=== PATIENT | female | born 1950 | race Caucasian/White ===

== ENCOUNTER → 2020-07-29 09:42 | Outpatient (BNVA) | payer MEDICARE, OTHER, SELFPAY | PROVIDERS: PCP Internal Medicine; Visit Provider Surgery | DX: R91.1 Solitary pulmonary nodule (principal); Z85.118 Personal history of other malignant neoplasm of bronchus and lung; Z92.21 Personal history of antineoplastic chemotherapy | CPT/HCPCS: 99211 ==

== ENCOUNTER 2020-08-02 15:15 | Outpatient (REF) | payer MEDICARE, SELFPAY ==
--- NOTE | 2020-08-02 | PFT_ITS ---
Forced vital capacity, slightly decreased. FEV1, moderately decreased. [id number] is markedly decreased. MVV moderately decreased. Post bronchodilator therapy, there is a slight improvement in FEV1 and [id number] indicating a borderline response to bronchodilators. Total lung capacity normal. Residual volume slightly increased. Diffusion capacity is slightly decreased. CONCLUSION: There is evidence of [id number] degree of obstructive pulmonary disease. There is a mild response to bronchodilator therapy indicating the presence of mild bronchial asthma in addition to chronic obstructive pulmonary disease. Clinical correlation recommended. MD OBDULIA Lin/REJI / [id number]
== END 2020-08-02 15:16 | disposition home or self-care (01) ==
LOC: HO.RESP 15:15
PROVIDERS: PCP Internal Medicine; Visit Provider Surgery
DX: Z01.818 Encounter for other preprocedural examination (principal); R91.1 Solitary pulmonary nodule
CPT/HCPCS: 94060; 94727; 94729

== ENCOUNTER → 2020-08-19 11:07 | Outpatient (BNVA) | payer MEDICARE, SELFPAY | PROVIDERS: PCP Internal Medicine; Visit Provider Surgery | DX: C34.11 Malignant neoplasm of upper lobe, right bronchus or lung (principal); F17.210 Nicotine dependence, cigarettes, uncomplicated; Z88.5 Allergy status to narcotic agent; Z88.7 Allergy status to serum and vaccine | CPT/HCPCS: 99212 ==

== ENCOUNTER 2020-08-26 10:08 | Outpatient (REF) | payer MEDICARE, OTHER, SELFPAY ==
--- NOTE | 2020-08-26 10:14 | XR_ITS ---
EXAMINATION: XR CHEST CLINICAL INFORMATION: Malignant neoplasm right upper lobe COMPARISON: Previous chest x-rays most recent June [address] most recent June 2020 TECHNIQUE: 2 views of the chest were obtained. FINDINGS: The cardiac silhouette does not appear enlarged. There are new postsurgical changes to the right hemithorax with surgical staple line projecting over the right pulmonary hilum. The lungs are clear. There is new blunting at the right lateral costophrenic angle suggestive of pleural thickening or tiny pleural effusion. There may be a small loculated right apical pneumothorax versus bleb. This measures 2.5 cm in greatest thickness. There is no left pleural effusion. There is orthopedic hardware in the right humeral shaft. Bony structures are otherwise unremarkable. XR/XR chest 2V IMPRESSION: New postsurgical changes to the right hemithorax. Question small right apical loculated pneumothorax versus bleb. Findings will be communicated by the [place] [employer] indirect fire crewmember Dee Sanabria.
== END 2020-08-26 10:09 | disposition home or self-care (01) ==
LOC: HO.XRAY 10:08
PROVIDERS: PCP Internal Medicine; Visit Provider Surgery
DX: C34.11 Malignant neoplasm of upper lobe, right bronchus or lung (principal); R91.1 Solitary pulmonary nodule
CPT/HCPCS: 71046

== ENCOUNTER 2020-09-07 15:36 | Inpatient (IN) | payer MEDICARE, SELFPAY ==
[2020-09-07 15:49] VITALS: BP 154/74; PULSE 98; RESP 22; TEMP 36.3; O2SAT 95; BMI 30.2
[2020-09-07 16:50] VITALS: O2SAT 91
[2020-09-07 16:51] VITALS: O2SAT 95
--- NOTE | 2020-09-07 18:41 | XR_ITS ---
EXAMINATION: XR CHEST CLINICAL INFORMATION: Cough COMPARISON: Chest radiograph dated 08/26/2020, PET/CT dated 07/12/2020 TECHNIQUE: Frontal view of the chest was obtained. FINDINGS: The time of the prior study, tiny right pleural effusion was seen with question of a bleb in the right upper lobe. On the current study, there is now a moderate-sized loculated right lateral effusion present along with a small to moderate subpulmonic component as well. The heart size is normal. Left lung is clear. Some atelectasis may be present at the right lung base. XR/XR chest 1V IMPRESSION: New moderate-sized loculated right pleural effusion with lateral and subpulmonic component.
--- NOTE | 2020-09-07 18:41 | ECG_ITS ---
Test Reason : RESPIRATORY DISTRESS Blood Pressure : / mmHG Vent. Rate : 086 BPM Atrial Rate : 086 BPM P-R Int : 160 ms QRS Dur : 078 ms QT Int : 402 ms P-R-T Axes : 057 014 064 degrees QTc Int : 481 ms Sinus rhythm with occasional Premature ventricular complexes Nonspecific ST abnormality Abnormal ECG Premature ventricular complexes are new Referred By: Marbella Cain Electronically Signed By:JOSÉ MIGUEL RIVERA MD
--- NOTE | 2020-09-07 18:45 | ED.CHESTPAIN ---
HPI - Chest Pain General Chief Complaint: Upper Respiratory Symptoms Stated Complaint: back pain,sob Time Seen by Provider: 09/07/20 17:54 History of Present Illness HPI narrative: patient is a 70-year-old female presented today with having right-sided chest pain with coughing generalized malaise. Pain worsen with cough. Patient from home. No fever no chills. Positive generalized malaise. Patient denies any recent exposure To coronavirus. Patient did have lung resection done on August 11. It was done for lung cancer stage I. Patient denies any focal weakness. The pain is very sharp. It is worse with movement. Improved with staying still. Patient denies any history of coronary artery disease. Never had a heart attack. Never had any abdominal aortic aneurysm. Related Data Home Medications Medication Instructions Recorded Confirmed furosemide 40 mg tablet 40 mg PO DAILY tab 07/23/20 09/07/20 albuterol sulfate 90 mcg/actuation 2 puff INHALATION NEEDED PRN 08/19/20 09/07/20 aerosol inhaler cyclosporine [Restasis] 1 drp OPHTHALMIC (EYE) BID 09/07/20 09/07/20 morphine 1 tab PO BID 09/07/20 09/07/20 tiotropium bromide [Spiriva 1 puff INHALATION DAILY 09/07/20 09/07/20 Respimat] venlafaxine 1 cap PO DAILY 09/07/20 09/07/20 Allergies Allergy/AdvReac Type Severity Reaction Status Date / Time From Vicodin Allergy Mild HALLUCINATI Uncoded 07/14/20 17:01 ONS Influenza Virus Vacc Split PF Allergy Unknown allergy Uncoded 12/22/19 00:00 interfuron, PEG Allergy Unknown Unknown Uncoded 07/29/20 10:18 Review of Systems Review of Systems: Constitutional: No Weight loss, No Fever, No Chills, No Night Sweats, No Fatigue, No Malaise ENT/Mouth: No Hearing loss, No Ear Pain, No Nasal Congestion, No Sinus Pain, No Hoarseness, No sore throat, No Rhinorrhea, No Swallowing Difficulty Eyes: No Eye Pain, No Swelling, No Redness, No Foreign Body, No Discharge, No Vision Changes Cardiovascular: Positive Chest Pain, positiveSOB, No Dyspnea on Exertion, No Orthopnea, No Edema, No Palpitations Respiratory: No Cough, No Sputum, No Wheezing, No Smoke Exposure, No Dyspnea Gastrointestinal: No Nausea, No Vomiting, No Diarrhea, No Constipation, No abdominal Pain, No Hematochezia, No Melena Genitourinary: no irregular bleeding, No Dysuria, No Urinary Frequency, No Hematuria, No Urinary Incontinence, No Urgency, No Flank Pain, No Urinary Flow Changes, No Hesitancy Musculoskeletal: No joint pain, No Myalgias, No Joint Swelling Skin: No Skin Lesions, No rash Neuro: No Weakness, No Numbness, No Paresthesias, No Loss of Consciousness, No Dizziness, No Headache Psych: No Anxiety/Panic, No Depression, No SI/HI/AH/VH, No Social Issues, Heme/Lymph: No Bruising, No Bleeding,No Lymphadenopathy Endocrine: No Polyuria, No Polydipsia, No Temperature Intolerance PENDING SALE TO [facility] Past Medical History Attestation statement: The following information was validated with the patient. Medical History Brain aneurysm Concussion COPD (chronic obstructive pulmonary disease) Surgical History H/O colonoscopy with polypectomy H/O colonoscopy with polypectomy H/O endoscopy History of esophagogastroduodenoscopy (EGD) History of thoracic surgery S/P biopsy Family History Family History Mother Skin cancer Diabetes Thyroid disease Sister Diabetes Skin cancer Tubular adenoma Thyroid disease Daughter Skin cancer Diabetes Social History Social History Smoking Status: Former smoker Tobacco Type: Cigarette Years Smoked: since mid twenties Smoked in Last 30 Days: No Use of substances other than those prescribed or required for medical reasons: No Advance Directives: No Advance Directives Information Provided: No Physical Exam Vital Signs: Vital Signs: Last Vital Signs Temp 97.3 F 09/07/20 15:49 Pulse 90 09/07/20 20:00 Resp 18 09/07/20 20:00 BP 150/78 H 09/07/20 20:00 Pulse Ox 94 09/07/20 20:00 Body Mass Index 30.2 Appearance: Alert. Oriented X3. No acute distress. Eyes: Pupils equal, round and reactive to light. ENT: Pharynx normal. Neck: Normal inspection. Neck supple. No lymph nodes noted. No crepitus CVS: Normal heart rate and rhythm. Pulses normal. Normal S1 and S2 Respiratory: No respiratory distress. Breath sounds normal. No Wheezing. No rales Abdomen: Soft and nontender. No rigidity. No distention. good BS x4 Skin: Skin warm and dry. Normal skin color. Normal skin turgor. Extremities: No lower extremity edema. Neurovascular intact to all extremities. No Lacerations. No Rash Neuro: Oriented X 3. No motor deficit. No sensory deficit. Moving all extermities. No slurred speech MDM - Chest Pain MDM Narrative Medical decision making narrative: patient positive chest pain worse with deep inspiration and movement. Chest x-ray consistent with having pleural effusion on the right side most likely causing patient's symptoms. Patient's coronavirus test was negative. Flu test was negative. Patient's RSV test was negative. troponin was 12. Patient's chest pain atypical for ACS. Heart score is less than 3.given the pleural effusion, chest pain, shortness of breaths will admit for further evaluation. Patient's case discussed with the hospitalist service. CTA of the chest showed loculated fluid consistent with having a large pleural effusion. Patient's has no evidence of pulmonary emboli. To be admitted for further evaluation. Patient's EKG showed a sinus pattern heart rate is 90 P arcus QT within normal limits is no ST segment elevation noted. Medical Records Data Attestation: I reviewed the patient's medical records. Lab Data Attestation: I reviewed the patient's lab results. Result diagrams: 09/07/20 20:08 09/07/20 20:08 Labs: Lab Results 09/07/20 09/07/20 09/07/20 Range/Units 19:45 20:08 20:08 WBC 4.5 L (4.8-10.8) X10*3/uL RBC 3.43 L (4.20-5.50) X10*6/uL Hgb 11.2 L (12.0-16.0) g/dl Hct 34.5 L (37-47) % MCV 100.6 H (80-98) fL MCH 32.7 (27.0-33.0) pg MCHC 32.5 (31.0-35.0) g/dl RDW 12.5 (11.0-16.0) % Plt Count 173 (160-400) X10*3/uL MPV 10.4 (9.4-12.3) fL Immature Gran % (Auto) 0.7 H (0.0-0.4) % Neut % (Auto) 62.4 (45-73) % Lymph % (Auto) 14.3 L (20-40) % Bollinger % (Auto) 12.8 H (2-11) % Eos % (Auto) 9.4 H (0-4) % Baso % (Auto) 0.4 (0-2) % Lymph # (Auto) 0.6 L (1.2-4.9) X10*3/uL Bollinger # (Auto) 0.6 (0.1-1.2) X10*3/uL Eos # (Auto) 0.4 (0.0-0.4) X10*3/uL Baso # (Auto) 0.0 (0.0-0.2) X10*3/uL Abs Immat Gran (auto) 0.03 (0.00-0.03) X10*3/uL Absolute Neuts (auto) 2.8 (2.0-8.3) X10*3/uL Absolute Nucleated RBC 0.000 (0.0-0.012) X10*3/uL Nucleated RBC % (auto) 0.0 (0.0-0.2) /100WBC Smear Tech's Comments VERIFIED PT 13.2 H (10.8-13.0) SEC INR 1.1 (0.9-1.1) Sodium (135-145) mmol/L Potassium (3.3-5.1) mmol/l Chloride (96-108) mmol/L Carbon Dioxide (22-29) mmol/L Anion Gap (12-20) BUN (9-16) mg/dL Creatinine (0.5-1.4) mg/dL Estim Creat Clear Calc Estimated GFR Random Glucose (60-115) mg/dL Lactic Acid (0.5-2.0) mmol/L Calcium (8.4-10.2) mg/dL Total Bilirubin (0.0-1.0) mg/dL Direct Bilirubin (0.0-0.5) mg/dL AST (5-31) U/L ALT (0-31) U/L Alkaline Phosphatase (39-117) U/L Troponin I High Sens (<3.5-17.0) ng/L Total Protein (6.5-8.0) g/dL Albumin (3.5-5.0) g/dL Lipase (8-78) U/L Urine Color Urine Appearance Urine pH (5.0-8.0) Ur Specific Reading (1.005-1.025) Urine Protein (NEG-TRACE) MG/DL Urine Glucose (UA) (NEG) MG/DL Urine Ketones (NEG) MG/DL Urine Blood (NEG) Urine Nitrite (NEG) Ur Leukocyte Esterase (NEG) Coronavirus (PCR) NEGATIVE (Negative) Influenza Type A (PCR) NEGATIVE (Negative) Influenza Type B (PCR) NEGATIVE (Negative) RSV RNA Qual (PCR) NEGATIVE (Negative) 09/07/20 09/07/20 09/07/20 Range/Units 20:08 20:08 20:08 WBC (4.8-10.8) X10*3/uL RBC (4.20-5.50) X10*6/uL Hgb (12.0-16.0) g/dl Hct (37-47) % MCV (80-98) fL MCH (27.0-33.0) pg MCHC (31.0-35.0) g/dl RDW (11.0-16.0) % Plt Count (160-400) X10*3/uL MPV (9.4-12.3) fL Immature Gran % (Auto) (0.0-0.4) % Neut % (Auto) (45-73) % Lymph % (Auto) (20-40) % Bollinger % (Auto) (2-11) % Eos % (Auto) (0-4) % Baso % (Auto) (0-2) % Lymph # (Auto) (1.2-4.9) X10*3/uL Bollinger # (Auto) (0.1-1.2) X10*3/uL Eos # (Auto) (0.0-0.4) X10*3/uL Baso # (Auto) (0.0-0.2) X10*3/uL Abs Immat Gran (auto) (0.00-0.03) X10*3/uL Absolute Neuts (auto) (2.0-8.3) X10*3/uL Absolute Nucleated RBC (0.0-0.012) X10*3/uL Nucleated RBC % (auto) (0.0-0.2) /100WBC Smear Tech's Comments PT (10.8-13.0) SEC INR (0.9-1.1) Sodium 138 (135-145) mmol/L Potassium 3.6 (3.3-5.1) mmol/l Chloride 95 L (96-108) mmol/L Carbon Dioxide 32 H (22-29) mmol/L Anion Gap 15 (12-20) BUN 8 L (9-16) mg/dL Creatinine 0.62 (0.5-1.4) mg/dL Estim Creat Clear Calc 93.9 Estimated GFR > 60 Random Glucose 113 (60-115) mg/dL Lactic Acid 1.0 (0.5-2.0) mmol/L Calcium 7.9 L (8.4-10.2) mg/dL Total Bilirubin 0.6 (0.0-1.0) mg/dL Direct Bilirubin 0.3 (0.0-0.5) mg/dL AST 20 (5-31) U/L ALT 16 (0-31) U/L Alkaline Phosphatase 74 (39-117) U/L Troponin I High Sens 12.1 (<3.5-17.0) ng/L Total Protein 6.3 L (6.5-8.0) g/dL Albumin 3.1 L (3.5-5.0) g/dL Lipase 8 (8-78) U/L Urine Color Urine Appearance Urine pH (5.0-8.0) Ur Specific Reading (1.005-1.025) Urine Protein (NEG-TRACE) MG/DL Urine Glucose (UA) (NEG) MG/DL Urine Ketones (NEG) MG/DL Urine Blood (NEG) Urine Nitrite (NEG) Ur Leukocyte Esterase (NEG) Coronavirus (PCR) (Negative) Influenza Type A (PCR) (Negative) Influenza Type B (PCR) (Negative) RSV RNA Qual (PCR) (Negative) 09/07/20 Range/Units 21:28 WBC (4.8-10.8) X10*3/uL RBC (4.20-5.50) X10*6/uL Hgb (12.0-16.0) g/dl Hct (37-47) % MCV (80-98) fL MCH (27.0-33.0) pg MCHC (31.0-35.0) g/dl RDW (11.0-16.0) % Plt Count (160-400) X10*3/uL MPV (9.4-12.3) fL Immature Gran % (Auto) (0.0-0.4) % Neut % (Auto) (45-73) % Lymph % (Auto) (20-40) % Bollinger % (Auto) (2-11) % Eos % (Auto) (0-4) % Baso % (Auto) (0-2) % Lymph # (Auto) (1.2-4.9) X10*3/uL Bollinger # (Auto) (0.1-1.2) X10*3/uL Eos # (Auto) (0.0-0.4) X10*3/uL Baso # (Auto) (0.0-0.2) X10*3/uL Abs Immat Gran (auto) (0.00-0.03) X10*3/uL Absolute Neuts (auto) (2.0-8.3) X10*3/uL Absolute Nucleated RBC (0.0-0.012) X10*3/uL Nucleated RBC % (auto) (0.0-0.2) /100WBC Smear Tech's Comments PT (10.8-13.0) SEC INR (0.9-1.1) Sodium (135-145) mmol/L Potassium (3.3-5.1) mmol/l Chloride (96-108) mmol/L Carbon Dioxide (22-29) mmol/L Anion Gap (12-20) BUN (9-16) mg/dL Creatinine (0.5-1.4) mg/dL Estim Creat Clear Calc Estimated GFR Random Glucose (60-115) mg/dL Lactic Acid (0.5-2.0) mmol/L Calcium (8.4-10.2) mg/dL Total Bilirubin (0.0-1.0) mg/dL Direct Bilirubin (0.0-0.5) mg/dL AST (5-31) U/L ALT (0-31) U/L Alkaline Phosphatase (39-117) U/L Troponin I High Sens (<3.5-17.0) ng/L Total Protein (6.5-8.0) g/dL Albumin (3.5-5.0) g/dL Lipase (8-78) U/L Urine Color YELLOW Urine Appearance CLEAR Urine pH 6.5 (5.0-8.0) Ur Specific Reading 1.010 (1.005-1.025) Urine Protein NEG (NEG-TRACE) MG/DL Urine Glucose (UA) NEG (NEG) MG/DL Urine Ketones 5 (NEG) MG/DL Urine Blood NEG (NEG) Urine Nitrite NEG (NEG) Ur Leukocyte Esterase NEG (NEG) Coronavirus (PCR) (Negative) Influenza Type A (PCR) (Negative) Influenza Type B (PCR) (Negative) RSV RNA Qual (PCR) (Negative) Discharge Plan Discharge Prescriptions: No Action venlafaxine 75 mg capsule,extended release 24hr 1 cap PO DAILY RF: 0 morphine 15 mg tablet extended release 1 tab PO BID RF: 0 Restasis 0.05 % dropperette 1 drp ophthalmic (eye) BID RF: 0 Spiriva Respimat 2.5 mcg/actuation mist 1 puff inhalation DAILY RF: 0 furosemide 40 mg tablet 40 mg PO DAILY RF: 0 albuterol sulfate 90 mcg/actuation HFA aerosol inhaler 2 puff inhalation NEEDED PRN (Reason: Shortness Of Breath) RF: 0
[2020-09-07] MEDS: 0.9 % Sodium Chloride 1,000 ML 999 ML IVCONT (19:15)
[2020-09-07 20:00] VITALS: BP 150/78; PULSE 90; RESP 18; O2SAT 94
[2020-09-07] MEDS: HYDROmorphone HCl 0.5 MG/0.5 ML SYRINGE IVPUSH ×2 (20:17→22:18)
[2020-09-07 20:39] LABS: Basophils Percent Auto 0.4 % (0-2); Eosinophils Absolute Auto 0.4 X10*3/uL (0.0-0.4); Eosinophils Percent Auto 9.4 % (0-4); Hematocrit 34.5 % (37-47); Hemoglobin 11.2 g/dl (12.0-16.0); Imm Gran Abs Auto 0.03 X10*3/uL (0.00-0.03); Imm Gran Pct Auto 0.7 % (0.0-0.4); Lymphocytes Absolute Auto 0.6 X10*3/uL (1.2-4.9); Lymphocytes Percent Auto 14.3 % (20-40); MANUAL DIFF FLAG SCAN; Mean Corpuscular HGB Conc 32.5 g/dl (31.0-35.0); Mean Corpuscular Hemoglobin 32.7 pg (27.0-33.0); Mean Corpuscular Volume 100.6 fL (80-98); Mean Platelet Volume 10.4 fL (9.4-12.3); Monocytes Absolute Auto 0.6 X10*3/uL (0.1-1.2); Monocytes Percent Auto 12.8 % (2-11); Neutrophils Absolute Auto 2.8 X10*3/uL (2.0-8.3); Neutrophils Percent Auto 62.4 % (45-73); Platelet Count 173 X10*3/uL (160-400); Red Blood Count 3.43 X10*6/uL (4.20-5.50); Red Cell Distribution Width 12.5 % (11.0-16.0); SCAN SMEAR FLAG 1; White Blood Count 4.5 X10*3/uL (4.8-10.8)
[2020-09-07 20:40] LABS: Influenza A PCR NEGATIVE (Negative); Influenza B PCR NEGATIVE (Negative); Resp Syncy Virus RNA Qual PCR NEGATIVE (Negative); SARS COV2 PCR INHOUSE NEGATIVE (Negative)
[2020-09-07 20:46] LABS: INTERNATIONAL NORM RATIO 1.1 (0.9-1.1); Prothrombin Time 13.2 SEC (10.8-13.0)
[2020-09-07 20:47] LABS: Alanine Aminotransferase 16 U/L (0-31); Albumin Level 3.1 g/dL (3.5-5.0); Alkaline Phosphatase 74 U/L (39-117); Anion Gap 15 (12-20); Aspartate Amino Transferase 20 U/L (5-31); Bilirubin Direct 0.3 mg/dL (0.0-0.5); Bilirubin Total 0.6 mg/dL (0.0-1.0); Blood Urea Nitrogen 8 mg/dL (9-16); Calcium 7.9 mg/dL (8.4-10.2); Carbon Dioxide 32 mmol/L (22-29); Chloride 95 mmol/L (96-108); Creatinine Clr Calc Pharmacy 93.9; Estimated Glomerular Filt Rate > 60; Glucose Random 113 mg/dL (60-115); Lipase 8 U/L (8-78); Potassium 3.6 mmol/l (3.3-5.1); Sodium 138 mmol/L (135-145); Total Protein 6.3 g/dL (6.5-8.0)
[2020-09-07 20:53] LABS: Troponin-I High Sensitivity 12.1 ng/L (<3.5-17.0)
[2020-09-07 20:56] LABS: SLIDE REVIEW VERIFIED
--- NOTE | 2020-09-07 21:07 | PC.NURSE ---
PT UP TO RESTROOM FOR URINE SAMPLE WITH STEADY EVEN GAIT.
[2020-09-07 21:39] LABS: Glucose Urine UA NEG (NEG); Leukocyte Esterase Urine NEG (NEG); Nitrite Urine NEG (NEG); PH 6.5 (5.0-8.0); Urine Blood NEG (NEG); Urine Ketones 5 MG/DL (NEG); Urine Protein NEG (NEG-TRACE)
[2020-09-07 21:41] LABS: Appearance Urine CLEAR; Color Urine YELLOW
--- NOTE | 2020-09-07 21:49 | CT_ITS ---
EXAMINATION: CT ANGIOGRAM OF THE CHEST WITH AND WITHOUT CONTRAST (CT PULMONARY ANGIOGRAM FOR PE) CLINICAL INFORMATION: Reason for Exam sob COMPARISON: CT chest 07/07/2020. Chest x-ray 09/07/2020. PET/CT 07/12/2020 TECHNIQUE: Prior to contrast administration, noncontrast localization images were obtained. Subsequently, multidetector volumetric imaging was performed from the thoracic inlet to below the diaphragms following the administration of 68 mLOmnipaque 350 intravenous contrast. No contrast reaction reported Sagittal, coronal, and MIP oblique sagittal reformatted images were obtained on the CT workstation, uploaded to PACS, and reviewed. This CT examination was performed using dose optimization techniques as appropriate, variously including the following: *Automated exposure control *Adjustment of mA and/or kV according to patient size (this includes techniques or standardized protocols for targeted exams where dose is matched to indication/reason for exam; i.e. extremities or head) *Use of iterative reconstruction technique Total exam dose-length product 374 mGy-cm FINDINGS: QUALITY OF STUDY/CONTRAST BOLUS: Satisfactory. PULMONARY ARTERIES: No central or segmental pulmonary emboli. THORACIC AORTA: No aneurysm or dissection. There are calcifications of thoracic aorta. LUNG: There is compressive atelectasis at the right lung base. Postsurgical changes at right lung apex with surgical sutures in anterior right upper hemithorax. Overall volume loss right hemithorax compared to left. PLEURA: Large volume of likely loculated right pleural effusion. There is a small right apical hydropneumothorax. MEDIASTINUM: Normal heart size. No pericardial effusion. No hilar or mediastinal lymphadenopathy. No evidence of septal bowing or right heart strain. CHEST WALL/AXILLA: No axillary or internal mammary lymphadenopathy. OSSEOUS STRUCTURES: Multilevel degenerative spondylosis of the spine. UPPER ABDOMEN: Surgical clips at gallbladder fossa. No reflux of contrast into the hepatic veins to suggest elevated right heart pressures. CT/CT angio chest PE protocol IMPRESSION: 1. No evidence of pulmonary embolism. 2. Postsurgical changes of right lung. Small right apical hydropneumothorax. Large volume loculated right pleural effusion. Compressive atelectasis at right lung base. VTE: Negative This critical result was discussed with Ant Pike on 09/07/2020, 11:20 PM and it was ascertained that the content and urgency of the report was understood at the time of direct communication.
[2020-09-07 22:00] VITALS: BP 102/51; PULSE 73; RESP 16; O2SAT 97
[2020-09-07] MEDS: iohexoL 350 MG/ML 100 ML INFUS..BTL IV (22:48)
--- NOTE | 2020-09-07 23:02 | PC.NURSE ---
HOSPITALIST IN ROOM FOR EVAL.
[2020-09-08] VITALS (10 sets, daily range): BP systolic 104–180; BP diastolic 50–74; PULSE 68–94; RESP 16–22; TEMP 36.2–37.3; O2SAT 92–99; BMI 30.2
[2020-09-08] MEDS: HYDROmorphone HCl 0.5 MG/0.5 ML SYRINGE IVPUSH (01:08)
[2020-09-08 02:05] LABS: B Type Natriuretic Peptide 114 pg/mL (<100); Troponin-I High Sensitivity 9.8 ng/L (<3.5-17.0)
--- NOTE | 2020-09-08 02:33 | PC.NURSE ---
FLOOR UNABLE TO TAKE REPORT.
--- NOTE | 2020-09-08 02:35 | PC.NURSE ---
PT ALERT, RESPIRATIONS N/L. SKIN W/D. PT ON MONITOR WITH HR 78. PT ON 2L NC WITH PO 98%. PT STATES I FEEL BETTER SINCE PAIN MEDS . PT HAS A BED ASSIGNMENT OF 445. AWAITING TO GIVEN REPORT TO FLOOR.
--- NOTE | 2020-09-08 02:56 | PC.NURSE ---
REPORT GIVEN TO FELICIA CHEN. PT TO FLOOR IN [facility] IN [facility].
[2020-09-08] MEDS: 0.9 % Sodium Chloride Flush 3 ML SYRINGE IVFLUSH ×4 (03:32→20:52)
--- NOTE | 2020-09-08 03:41 | PM.IMHP ---
History of Present Illness Date of Service: 09/07/20 Chief Complaint: Shortness of breath this is a 70-year-old female with past medical history of stage IV lung cancer status post resection in August 15, hep C, who presents to the hospital complaining of shortness of breath. Patient has vague symptoms but reports pain at the site of surgery, reports that she has difficulty taking a deep breath, reports a cough but nonproductive, no fever or chills, she also complaining of pelvic floor pain mostly with shortness of breath? , she has no chest pain, no abdominal pain, no nausea or vomiting, no diarrhea constipation, no urinary symptoms and no lower extremity edema. She reports that ever since her surgery for the lung resection, she has had difficulty with breathing but has worsened over the past 3 days. She has not had any sick contacts or recent travel. On arrival to the ED hemodynamically stable with no significant abnormal vitals. Satting 91% on room air. Labs are significant for WBC count of 4.5, hemoglobin of 11.2, BNP of 114, negative UA, COVID-19 negative, chest CT angiogram demonstrating no evidence of PE, postsurgical changes of the right lung, small right apical hydropneumothorax, large volume loculated right pleural effusion, compressive atelectasis of the right lung base. Patient will be admitted for further management her thoracic surgeon Dr. Canseco was notified Past medical history: Stage IV lung cancer status post chemoradiation and lung resection. hep C, COPD Surgical history: cholecystectomy, right arm and shoulder surgery Family history: Diabetes, dementia Social history: Lives at by herself, walks independently, smokes about 3 cigarettes since the 70s, drinks about 3 glasses of wine a week, denies any illicit drugs Review of Systems Review of Systems: Yes all other systems are reviewed and are negative [facility] Medical History Brain aneurysm Concussion COPD (chronic obstructive pulmonary disease) Family History Mother Skin cancer Diabetes Thyroid disease Sister Diabetes Skin cancer Tubular adenoma Thyroid disease Daughter Skin cancer Diabetes Surgical History H/O colonoscopy with polypectomy H/O colonoscopy with polypectomy H/O endoscopy History of esophagogastroduodenoscopy (EGD) History of thoracic surgery S/P biopsy Social History Smoking Status: Former smoker Tobacco Type: Cigarette Years Smoked: since mid twenties Smoked in Last 30 Days: No Use of substances other than those prescribed or required for medical reasons: No Advance Directives: No Advance Directives Information Provided: No Meds Allergies Allergy/AdvReac Type Severity Reaction Status Date / Time From Vicodin Allergy Mild HALLUCINATI Uncoded 07/14/20 17:01 ONS Influenza Virus Vacc Split PF Allergy Unknown allergy Uncoded 12/22/19 00:00 interfuron, PEG Allergy Unknown Unknown Uncoded 07/29/20 10:18 Home Medications Medication Instructions Recorded Confirmed Type furosemide 40 mg tablet 40 mg PO DAILY tab 07/23/20 09/07/20 History albuterol sulfate 90 mcg/actuation 2 puff INHALATION NEEDED PRN 08/19/20 09/07/20 History aerosol inhaler cyclosporine [Restasis] 1 drp OPHTHALMIC (EYE) BID 09/07/20 09/07/20 History morphine 1 tab PO BID 09/07/20 09/07/20 History tiotropium bromide [Spiriva 1 puff INHALATION DAILY 09/07/20 09/07/20 History Respimat] venlafaxine 1 cap PO DAILY 09/07/20 09/07/20 History Physical Exam Vital Signs and Narrative: Vital Signs: Last Vital Signs Temp 97.3 F 09/07/20 15:49 Pulse 78 09/08/20 02:00 Resp 16 09/08/20 02:00 BP 118/58 L 09/08/20 02:00 Pulse Ox 98 09/08/20 02:00 Body Mass Index 30.2 Const: General: cooperative and no acute distress Orientation/consciousness: patient oriented x3 Eyes: General: appearance normal, both eyes and all related structures Pupils: Equal, round and reactive pupils present Chest: Other: tender on palpation of right lower ribcage Resp: Other: although patient has no respiratory distress, she appears not comfortable taking deep breaths Effort & Inspection: normal respiratory effort and able to speak in complete sentences Auscultation: rhonchi ( right lung) Cardio: Rate: regular rate Rhythm: regular rhythm GI: Palpation (GI): Soft to palpation Auscultation: normal bowel sounds Skin: General skin exam: no rashes or lesions noted Neuro: General: patient oriented x3 Cranial nerves: Yes Equal, round and reactive pupils present Cognition (Neuro): normal cognition Extrem: General: Yes normal to inspection and Yes no pedal edema Results Labs CBC and Chem 7: 09/07/20 20:08 09/07/20 20:08 Labs: Laboratory Results - last 24 hr 09/07/20 09/07/20 09/07/20 19:45 20:08 20:08 MCV 100.6 H MCH 32.7 MCHC 32.5 RDW 12.5 Plt Count 173 MPV 10.4 Immature Gran % (Auto) 0.7 H Neut % (Auto) 62.4 Lymph % (Auto) 14.3 L [place] % (Auto) 12.8 H Eos % (Auto) 9.4 H Baso % (Auto) 0.4 Lymph # (Auto) 0.6 L [place] # (Auto) 0.6 Eos # (Auto) 0.4 Baso # (Auto) 0.0 Abs Immat Gran (auto) 0.03 Absolute Neuts (auto) 2.8 Absolute Nucleated RBC 0.000 Nucleated RBC % (auto) 0.0 Smear Tech's Comments VERIFIED PT 13.2 H INR 1.1 Anion Gap Estim Creat Clear Calc Estimated GFR Random Glucose Lactic Acid Calcium Total Bilirubin Direct Bilirubin AST ALT Alkaline Phosphatase Troponin I High Sens B-Natriuretic Peptide Total Protein Albumin Lipase Urine Color Urine Appearance Urine pH Ur Specific [place] Urine Protein Urine Glucose (UA) Urine Ketones Urine Blood Urine Nitrite Ur Leukocyte Esterase Coronavirus (PCR) NEGATIVE Influenza Type A (PCR) NEGATIVE Influenza Type B (PCR) NEGATIVE RSV RNA Qual (PCR) NEGATIVE 09/07/20 09/07/20 09/07/20 20:08 20:08 20:08 MCV MCH MCHC RDW Plt Count MPV Immature Gran % (Auto) Neut % (Auto) Lymph % (Auto) [place] % (Auto) Eos % (Auto) Baso % (Auto) Lymph # (Auto) [place] # (Auto) Eos # (Auto) Baso # (Auto) Abs Immat Gran (auto) Absolute Neuts (auto) Absolute Nucleated RBC Nucleated RBC % (auto) Smear Tech's Comments PT INR Anion Gap 15 Estim Creat Clear Calc 93.9 Estimated GFR > 60 Random Glucose 113 Lactic Acid 1.0 Calcium 7.9 L Total Bilirubin 0.6 Direct Bilirubin 0.3 AST 20 ALT 16 Alkaline Phosphatase 74 Troponin I High Sens 12.1 B-Natriuretic Peptide Total Protein 6.3 L Albumin 3.1 L Lipase 8 Urine Color Urine Appearance Urine pH Ur Specific [place] Urine Protein Urine Glucose (UA) Urine Ketones Urine Blood Urine Nitrite Ur Leukocyte Esterase Coronavirus (PCR) Influenza Type A (PCR) Influenza Type B (PCR) RSV RNA Qual (PCR) 09/07/20 09/07/20 21:28 22:44 MCV MCH MCHC RDW Plt Count MPV Immature Gran % (Auto) Neut % (Auto) Lymph % (Auto) [place] % (Auto) Eos % (Auto) Baso % (Auto) Lymph # (Auto) [place] # (Auto) Eos # (Auto) Baso # (Auto) Abs Immat Gran (auto) Absolute Neuts (auto) Absolute Nucleated RBC Nucleated RBC % (auto) Smear Tech's Comments PT INR Anion Gap Estim Creat Clear Calc Estimated GFR Random Glucose Lactic Acid Calcium Total Bilirubin Direct Bilirubin AST ALT Alkaline Phosphatase Troponin I High Sens 9.8 B-Natriuretic Peptide 114 H Total Protein Albumin Lipase Urine Color YELLOW Urine Appearance CLEAR Urine pH 6.5 Ur Specific [place] 1.010 Urine Protein NEG Urine Glucose (UA) NEG Urine Ketones 5 Urine Blood NEG Urine Nitrite NEG Ur Leukocyte Esterase NEG Coronavirus (PCR) Influenza Type A (PCR) Influenza Type B (PCR) RSV RNA Qual (PCR) Imaging Radiologist's Impressions: Impressions Chest X-Ray 09/07/20 18:41 IMPRESSION: New moderate-sized loculated right pleural effusion with lateral and subpulmonic component. Chest CTA 09/07/20 21:49 IMPRESSION: 1. No evidence of pulmonary embolism. 2. Postsurgical changes of right lung. Small right apical hydropneumothorax. Large volume loculated right pleural effusion. Compressive atelectasis at right lung base. VTE: Negative This critical result was discussed with Ant Pike on 09/07/2020, 11:20 PM and it was ascertained that the content and urgency of the report was understood at the time of direct communication. Assessment and Plan (1) Status post pneumonectomy: Status: Acute (2) Dyspnea: Status: Acute (3) Pleural effusion: Status: Acute (4) Pulmonary nodule: Problem details: Status: Acute (5) Cancer of upper lobe of right lung: Status: Acute (6) COPD (chronic obstructive pulmonary disease): Status: Acute this is a 70-year-old female with past medical history of lung cancer status post pneumonectomy who presents to the hospital with complaints of shortness of Breath, found to have pleural effusion on imaging # dyspnea - most likely secondary to the large pleural effusion status post right pneumonectomy - patient has no hypoxia, hemodynamically stable otherwise - negative for PE, COVID-19 negative, negative respiratory panel plan: - O2 as required - will consult pulmonology - monitor respiratory status # stage IV lung cancer status post pneumonectomy - patient underwent pneumonectomy in July, has developed pleural effusion status post surgery plan: - follow thoracic surgery, Hematology-Oncology outpatient #Hx of Hep C - patient reports that she had an attempt at treating and in the past but stopped taking medications because she felt that the medications were associated with her lung cancer - not interested in treatment at this DVT prophylaxis: Heparin subcu
[2020-09-08] MEDS: Morphine Sulfate 4 MG/ML CARTRIDGE IVPUSH ×3 (04:22→16:31)
[2020-09-08] MEDS: Heparin Sodium,Porcine 5,000 UNIT/ML VIAL 5000 UNIT SUBCUT ×2 (04:25→15:38)
[2020-09-08 07:10] LABS: Basophils Percent Auto 0.3 % (0-2); Eosinophils Absolute Auto 0.4 X10*3/uL (0.0-0.4); Eosinophils Percent Auto 9.4 % (0-4); Hematocrit 34.8 % (37-47); Hemoglobin 11.2 g/dl (12.0-16.0); Imm Gran Abs Auto 0.03 X10*3/uL (0.00-0.03); Imm Gran Pct Auto 0.8 % (0.0-0.4); Lymphocytes Absolute Auto 0.6 X10*3/uL (1.2-4.9); Lymphocytes Percent Auto 15.9 % (20-40); MANUAL DIFF FLAG SCAN; Mean Corpuscular HGB Conc 32.2 g/dl (31.0-35.0); Mean Corpuscular Hemoglobin 32.3 pg (27.0-33.0); Mean Corpuscular Volume 100.3 fL (80-98); Mean Platelet Volume 10.4 fL (9.4-12.3); Monocytes Absolute Auto 0.5 X10*3/uL (0.1-1.2); Monocytes Percent Auto 12.4 % (2-11); Neutrophils Absolute Auto 2.3 X10*3/uL (2.0-8.3); Neutrophils Percent Auto 61.2 % (45-73); Platelet Count 141 X10*3/uL (160-400); Red Blood Count 3.47 X10*6/uL (4.20-5.50); Red Cell Distribution Width 12.4 % (11.0-16.0); SCAN SMEAR FLAG 1; White Blood Count 3.7 X10*3/uL (4.8-10.8)
[2020-09-08 07:57] LABS: Anion Gap 13 (12-20); Blood Urea Nitrogen 6 mg/dL (9-16); Calcium 7.9 mg/dL (8.4-10.2); Carbon Dioxide 28 mmol/L (22-29); Chloride 100 mmol/L (96-108); Creatinine Clr Calc Pharmacy 107.9; Estimated Glomerular Filt Rate > 60; Glucose Random 122 mg/dL (60-115); Potassium 3.6 mmol/l (3.3-5.1); Sodium 137 mmol/L (135-145)
[2020-09-08 08:04] LABS: SLIDE REVIEW VERIFIED
--- NOTE | 2020-09-08 08:33 | P.CDIC_ITS ---
CDI Concurrent Query Service Date: 09/09/20 Documentation Clarification: Please clarify if you are treating a proba ble/suspected/likely or confirmed: Pleural effusion, unspecified Malignant Pleural effusion Please specify if known or other Provider Response: Other Other Diagnosis: Malignant pleural effusion PLEASE DO NOT DELETE/MODIFY EXISTING CONTENT Additional information is needed in order to code to the highest accuracy and appropriate Severity of Illness (SOI). Please clarify the information noted below in your progress notes and discharge summary. Risk Factors/Clinical Indicators/Treatments Stage IV Lung cancer, S/P chemotherapy and right lung resection. Dyspnea secondary to large pleural effusion. Cxr - new moderate sized loculated right pleural effusion. Consult pulmonology, Oncology as outpatient. Smoker, COPD CDS: Chaya Ardon CCS. CDIS Contact Number: [phone] Please Review the information above and exercise your independent professional j udgment in responding to the query. If you concur, pleas document in the PROGRESS NOTES and DISCHARGE SUMMARY. If you do not agree with the query, p tiara document in the query above. THIS QUERY IS PART OF THE PERMANENT MEDICAL RECORD
[2020-09-08] MEDS: Furosemide 40 MG TABLET PO (08:56)
[2020-09-08] MEDS: Venlafaxine HCl ER 75 MG CAP.ER.24H PO (08:57)
[2020-09-08] MEDS: Morphine Sulfate ER 15 MG TABLET.ER PO ×2 (08:57→20:52)
--- NOTE | 2020-09-08 09:49 | MHC.CM.PN ---
Pt reports she lives alone and is independent with all care and mobility. Pt has no community/home services and no DME. Pt reports she would be willing to have home services at discharge and has no agency preference other than not wanting [facility]. 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 Pt would like to review agency options later and only if services are recommended. Pt reports her PCP is Magan Milan and she is also active with Dr Arnold in [facility]. Pt reports she has a HCP completed naming her daughter, Niles Treviño ( ([phone]) as her agent. [facility] delivered current DC plan is home vs home with [facility] pts daughter will provide transportation at DC
--- NOTE | 2020-09-08 10:10 | HO.PM.IMPN ---
Subjective Subjective Date of Service: 09/08/20 Interval History: Seen in f/u for shortness of breath and Pleuiral effusion, still doesn't feel good, SOB Physical Exam Vital Signs: Vital Signs: Last Vital Signs Temp 97.2 F 09/08/20 07:15 Pulse 76 09/08/20 07:15 Resp 20 09/08/20 07:15 BP 133/71 09/08/20 07:15 Pulse Ox 96 09/08/20 07:15 Body Mass Index 30.2 Appearance: Alert. Oriented X3. No acute distress. Eyes: Pupils equal, round and reactive to light. ENT: Pharynx normal. Neck: Normal inspection. Neck supple. No lymph nodes noted. No crepitus CVS: Normal heart rate and rhythm. Pulses normal. Normal S1 and S2 Respiratory: No respiratory distress. Decrease bereath sound on right Abdomen: Soft and nontender. No rigidity. No distention. good BS x4 Skin: Skin warm and dry. Normal skin color. Normal skin turgor. Extremities: No lower extremity edema. Neurovascular intact to all extremities. No Lacerations. No Rash Neuro: Oriented X 3. No motor deficit. No sensory deficit. Moving all extermities. No slurred speech Objective Data Current Medications Generic Name Dose Route Start Last Admin Trade Name Freq PRN Reason Stop Dose Admin Acetaminophen 650 mg 09/08/20 02:19 Acetaminophen 325 Mg Tablet PO Q6H PRN Pain, Mild (Pain Scale 1-3) Albuterol Sulfate 2 puff 09/08/20 02:19 Albuterol Sulfate 90 Mcg 8 Gm Inhaler INHALE Q4H PRN Shortness Of Breath Docusate Sodium 100 mg 09/08/20 02:19 Docusate Sodium 100 Mg Capsule PO DAILY PRN Constipation Furosemide 40 mg 09/08/20 09:00 09/08/20 08:56 Furosemide 40 Mg Tablet PO 40 mg DAILY JOHN Administration Protocol Heparin Sodium (Porcine) 5,000 unit 09/08/20 04:00 09/08/20 04:25 Heparin Sodium,Porcine 5,000 Unit/Ml Vial SUBCUT 5,000 unit Q12H JOHN Administration Morphine Sulfate 15 mg 09/08/20 09:00 09/08/20 08:57 Morphine Sulfate Er 15 Mg Tablet.Er PO 15 mg BID JOHN Administration Morphine Sulfate 4 mg 09/08/20 02:19 09/08/20 04:22 Morphine Sulfate 4 Mg/Ml Cartridge IVPUSH 4 mg Q4H PRN Administration Pain, Severe (Pain Scale 7-10) Non-Formulary Medication 1 drop 09/08/20 09:00 Cyclosporine [Restasis] EYE-BOTH BID JOHN Ondansetron HCl 4 mg 09/08/20 02:19 Ondansetron Hcl 4 Mg/2 Ml Vial IVPUSH Q8H PRN Nausea and Vomiting Pharmacy Consult 1 each 09/07/20 21:45 Consult Rx Perform Med Rec MISCELLANE ONCE PRN Consult order Sodium Chloride 3 ml 09/08/20 02:19 09/08/20 08:57 0.9 % Sodium Chloride Flush 3 Ml Syringe IVFLUSH 3 ml QSHIFT JOHN Administration Tiotropium [place] 1 puff 09/08/20 08:00 09/08/20 08:03 Tiotropium [place] 18 Mcg Cap.W.Dev INHALE Not Given RDAILY JOHN Venlafaxine HCl 75 mg 09/08/20 09:00 09/08/20 08:57 Venlafaxine Hcl Er 75 Mg Cap.Er.24h PO 75 mg DAILY JOHN Administration Labs CBC & Chem 7: 09/08/20 06:23 09/08/20 06:23 Assessment and Plan (1) Status post pneumonectomy: Status: Acute (2) Dyspnea: Status: Acute (3) Pleural effusion: Status: Acute (4) Pulmonary nodule: Problem details: Status: Acute (5) Cancer of upper lobe of right lung: Status: Acute (6) COPD (chronic obstructive pulmonary disease): Status: Acute Assessment and Plan: 70-year-old female with past medical history of lung cancer status post pneumonectomy who presents to the hospital with complaints of shortness of Breath, found to have pleural effusion on imaging # dyspnea - most likely secondary to the large pleural effusion status post right pneumonectomy - patient has no hypoxia, hemodynamically stable otherwise - negative for PE, COVID-19 negative, negative respiratory panel plan: - O2 as required - will consult pulmonology. thoracic surgery - monitor respiratory status # Stage IV lung cancer status post pneumonectomy - patient underwent pneumonectomy in July, has developed pleural effusion status post surgery plan: - Follow thoracic surgery, Hematology-Oncology consult #Hx of Hep C - patient reports that she had an attempt at treating and in the past but stopped taking medications because she felt that the medications were associated with her lung cancer - not interested in treatment at this DVT prophylaxis: Heparin subcu
--- NOTE | 2020-09-08 12:07 | P.CONGS_ITS ---
History of Present Illness Consult details Consult date: 09/08/20 Reason for consult: other (Right pleural effusion, postop pain, shortness of breath) Requesting physician: Jac Parker Narrative: Ms. Elder Merritt is a 70 year old female who presented to [place] [facility] yesterday with complaints of pain and shortness of breath. This patient about 10 years ago had radiation to her chest wall for lung cancer (per Dr. Manuel's notes) and has been monitored since. She had no new suspicious findings until recently when it showed a spiculated nodule in the right upper lobe. The patient was taken for a robotic VATS RUL lobectomy at [facility] on August 11, 2020. Her postoperative course was uneventful and she was discharged home. 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 No lymph node involvement was noted. She has since followed up with Dr. Manuel as an outpatient here at [place] for pain, as well as some slow to heal wounds on the right chest. She was prescribed MS Contin at that visit on 08/26/2020 which she states is not helping. She describes her pain as the worst pain and located around the areas of her incisions over the right chest and extending anteriorly. She also has had shortness of breath with minimal activity since surgery. States she has been unable to take deep breaths due to her discomfort. She denies any productive cough, hemoptysis, fever, chills, lightheadedness, diaphoresis, abdominal pain/distention, dysuria, new lumps/bumps. While here at [place] the patient the patient had a CTA chest done to rule out PE. This showed no evidence of PE, but did show a small right apical pneumothorax and a large loculated right pleural effusion. She has since been admitted to the medicine service for ongoing management of her pain. Review of Systems Constitutional: Constitutional: Denies body ache(s), Denies chills, Denies fatigue, Denies fever(s), Denies headache(s), Denies night sweats, Denies poor appetite and Denies weakness Eyes: Eyes: Denies change in vision, Denies irritation and Denies loss of vision ENT: Denies dysphagia, Denies headache(s), Denies hoarseness, Denies sore throat and Denies throat swelling Cardiovascular: Cardiovascular: Denies chest pain, Denies leg edema, Denies lightheadedness, Reports dyspnea and Reports dyspnea on exertion Respiratory: Respiratory: Denies chest congestion, Reports cough, Denies hemop tysis, Reports dyspnea, Reports dyspnea on exertion, Denies wheezing and Reports other (right sided incisional pain) Gastrointestinal: Gastrointestinal: Denies abdominal pain, Denies bloating, Denies constipation, Denies dysphagia, Denies diarrhea, Denies nausea and Denies vomiting Genitourinary: Genitourinary: Denies dysuria, Denies urinary incontinence and Denies urinary urgency Musculoskeletal: Musculoskeletal: Denies myalgias, Denies arthralgias, Denies numbness and Denies tingling Integumentary/Breasts: Skin/Breast: Denies rash Neurologic: Denies headache(s), Denies loss of vision, Denies numbness, Denies tingling and Denies weakness Endocrine: Endocrine: Denies fatigue Allergic/Immunologic: Allergic/Immunologic: Denies throat swelling and Denies wheezing PMFSH Past Medical History Medical History Brain aneurysm Concussion COPD (chronic obstructive pulmonary disease) Family History Family History Mother Skin cancer Diabetes Thyroid disease Sister Diabetes Skin cancer Tubular adenoma Thyroid disease Daughter Skin cancer Diabetes Surgical History Surgical History (Updated 09/08/20 @ 03:51 by Richa Arrieta MD) H/O colonoscopy with polypectomy H/O colonoscopy with polypectomy H/O endoscopy History of esophagogastroduodenoscopy (EGD) History of thoracic surgery S/P biopsy Social History Social History Household Members: None Housing: Unknown / Unable to assess Smoking Status: Former smoker Tobacco Type: Cigarette Years Smoked: since mid twenties Smoked in Last 30 Days: No Use of substances other than those prescribed or required for medical reasons: No Have you been hit, kicked, punched, or otherwise hurt by someone within the past year? If so, by whom?: No Do you feel safe in your current relationship?: No Is there a partner from a previous relationship who is making you feel unsafe now?: No Are you made to feel afraid or neglected: No Advance Directives: No Advance Directives Information Provided: No Do you have thoughts of harming others: None Do you have a plan to hurt others: No Plan Recently lost weight without trying: No service: No Current occupational status: retired Meds Allergies Allergy/AdvReac Type Severity Reaction Status Date / Time From Vicodin Allergy Mild HALLUCINATI Uncoded 07/14/20 17:01 ONS Influenza Virus Vacc Split PF Allergy Unknown allergy Uncoded 12/22/19 00:00 interfuron, PEG Allergy Unknown Unknown Uncoded 07/29/20 10:18 Home Medications Medication Instructions Recorded Confirmed Type furosemide 40 mg tablet 40 mg PO DAILY tab 07/23/20 09/07/20 History albuterol sulfate 90 mcg/actuation 2 puff INHALATION NEEDED PRN 08/19/20 09/07/20 History aerosol inhaler cyclosporine [Restasis] 1 drp OPHTHALMIC (EYE) BID 09/07/20 09/07/20 History morphine 1 tab PO BID 09/07/20 09/07/20 History tiotropium bromide [Spiriva 1 puff INHALATION DAILY 09/07/20 09/07/20 History Respimat] venlafaxine 1 cap PO DAILY 09/07/20 09/07/20 History Physical Exam Vital Signs: Vital Signs: Last Vital Signs Temp 98.3 F 09/08/20 10:00 Pulse 81 09/08/20 10:00 Resp 18 09/08/20 10:00 BP 119/60 09/08/20 10:00 Pulse Ox 97 09/08/20 10:00 Body Mass Index 30.2 General: No acute distress, resting comfortably in bed, well developed Head: Normocephalic, atraumatic, symmetric Eyes: Sclera anicteric, eyelids without edema or erythemaEOMS intact ENT: Oral mucosa and tongue are moist without lesions or exudates Neck: Soft, supple, symmetric, trachea midline, no crepitus Cardiovascular: Regular rate and rhythm, no murmur/rubs/gallops, BUE and BLE wi thout edema, no calf tenderness bilaterally Respiratory: Lungs CTA B, breathing nonlabored, speaking in full sentences, on room air. No use of accessory muscles. Multiple right sided chest incisions are healing well C/D/I without erythema/drainage/open areas, no crepitus. Gastrointestinal: Soft, non-tender, non-distended, +normoactive bowel sounds. Skin: Warm and dry throughout, no rashes Lymphatic: no cervical, supraclavicular, infraclavicular lymphadenopathy noted Neurological: Alert and oriented x 3, no focal neurological deficit noted Psychiatric: No agitation, appropriate affect Results Labs Result diagrams: 09/08/20 06:23 09/08/20 06:23 Labs: Abnormal lab results 09/07/20 09/07/20 09/07/20 Range/Units 20:08 20:08 20:08 WBC 4.5 L (4.8-10.8) X10*3/uL RBC 3.43 L (4.20-5.50) X10*6/uL Hgb 11.2 L (12.0-16.0) g/dl Hct 34.5 L (37-47) % MCV 100.6 H (80-98) fL Plt Count (160-400) X10*3/uL Immature Gran % (Auto) 0.7 H (0.0-0.4) % Lymph % (Auto) 14.3 L (20-40) % [place] % (Auto) 12.8 H (2-11) % Eos % (Auto) 9.4 H (0-4) % Lymph # (Auto) 0.6 L (1.2-4.9) X10*3/uL PT 13.2 H (10.8-13.0) SEC Chloride 95 L (96-108) mmol/L Carbon Dioxide 32 H (22-29) mmol/L BUN 8 L (9-16) mg/dL Random Glucose (60-115) mg/dL Calcium 7.9 L (8.4-10.2) mg/dL B-Natriuretic Peptide (<100) pg/mL Total Protein 6.3 L (6.5-8.0) g/dL Albumin 3.1 L (3.5-5.0) g/dL 09/07/20 09/08/20 09/08/20 Range/Units 22:44 06:23 06:23 WBC 3.7 L (4.8-10.8) X10*3/uL RBC 3.47 L (4.20-5.50) X10*6/uL Hgb 11.2 L (12.0-16.0) g/dl Hct 34.8 L (37-47) % MCV 100.3 H (80-98) fL Plt Count 141 L (160-400) X10*3/uL Immature Gran % (Auto) 0.8 H (0.0-0.4) % Lymph % (Auto) 15.9 L (20-40) % [place] % (Auto) 12.4 H (2-11) % Eos % (Auto) 9.4 H (0-4) % Lymph # (Auto) 0.6 L (1.2-4.9) X10*3/uL PT (10.8-13.0) SEC Chloride (96-108) mmol/L Carbon Dioxide (22-29) mmol/L BUN 6 L (9-16) mg/dL Random Glucose 122 H (60-115) mg/dL Calcium 7.9 L (8.4-10.2) mg/dL B-Natriuretic Peptide 114 H (<100) pg/mL Total Protein (6.5-8.0) g/dL Albumin (3.5-5.0) g/dL Short CBC 09/07/20 09/08/20 Range/Units 20:08 06:23 WBC 4.5 L 3.7 L (4.8-10.8) X10*3/uL Hgb 11.2 L 11.2 L (12.0-16.0) g/dl Hct 34.5 L 34.8 L (37-47) % Plt Count 173 141 L (160-400) X10*3/uL BMP 09/07/20 09/08/20 20:08 06:23 Sodium 138 137 Potassium 3.6 3.6 Chloride 95 L 100 Carbon Dioxide 32 H 28 BUN 8 L 6 L Creatinine 0.62 0.54 Calcium 7.9 L 7.9 L Liver Function 09/07/20 Range/Units 20:08 Total Bilirubin 0.6 (0.0-1.0) mg/dL Direct Bilirubin 0.3 (0.0-0.5) mg/dL AST 20 (5-31) U/L ALT 16 (0-31) U/L Alkaline Phosphatase 74 (39-117) U/L Albumin 3.1 L (3.5-5.0) g/dL Urine 09/07/20 Range/Units 21:28 Urine Color YELLOW Urine Appearance CLEAR Urine pH 6.5 (5.0-8.0) Ur Specific [place] 1.010 (1.005-1.025) Urine Protein NEG (NEG-TRACE) MG/DL Urine Glucose (UA) NEG (NEG) MG/DL All other labs normal. Imaging Additional studies: CT Scan Report Signed Patient: Keiko Machado#: [id number] : 1Acct:[id number] Age/Sex: 70 / FADM Date: 09/07/20 Loc: [facility].ED Attending Dr: Ordering Physician: OCHOA STUART MD Date of Service: 09/07/20 Procedure(s): CT angio chest PE protocol Accession Number(s): [id number] cc: OCHOA STUART MD~ EXAMINATION: CT ANGIOGRAM OF THE CHEST WITH AND WITHOUT CONTRAST (CT PULMONARY ANGIOGRAM FOR PE) CLINICAL INFORMATION: Reason for Exam sob COMPARISON: CT chest 07/07/2020. Chest x-ray 09/07/2020. PET/CT 07/12/2020 TECHNIQUE: Prior to contrast administration, noncontrast localization images were obtained. Subsequently, multidetector volumetric imaging was performed from the thoracic inlet to below the diaphragms following the administration of 68 mLOmnipaque 350 intravenous contrast. No contrast reaction reported Sagittal, coronal, and MIP oblique sagittal reformatted images were obtained on the CT workstation, uploaded to PACS, and reviewed. This CT examination was performed using dose optimization techniques as appropriate, variously including the following: *Automated exposure control *Adjustment of mA and/or kV according to patient size (this includes techniques or standardized protocols for targeted exams where dose is matched to indication/reason for exam; i.e. extremities or head) *Use of iterative reconstruction technique Total exam dose-length product 374 mGy-cm FINDINGS: QUALITY OF STUDY/CONTRAST BOLUS: Satisfactory. PULMONARY ARTERIES: No central or segmental pulmonary emboli. THORACIC AORTA: No aneurysm or dissection. There are calcifications of thoracic aorta. LUNG: There is compressive atelectasis at the right lung base. Postsurgical changes at right lung apex with surgical sutures in anterior right upper hemithorax. Overall volume loss right hemithorax compared to left. PLEURA: Large volume of likely loculated right pleural effusion. There is a small right apical hydropneumothorax. MEDIASTINUM: Normal heart size. No pericardial effusion. No hilar or mediastinal lymphadenopathy. No evidence of septal bowing or right heart strain. CHEST WALL/AXILLA: No axillary or internal mammary lymphadenopathy. OSSEOUS STRUCTURES: Multilevel degenerative spondylosis of the spine. UPPER ABDOMEN: Surgical clips at gallbladder fossa. No reflux of contrast into the hepatic veins to suggest elevated right heart pressures. CT/CT angio chest PE protocol IMPRESSION: 1. No evidence of pulmonary embolism. 2. Postsurgical changes of right lung. Small right apical hydropneumothorax. Large volume loculated right pleural effusion. Compressive atelectasis at right lung base. VTE: Negative This critical result was discussed with Ant Pike on 09/07/2020, 11:20 PM and it was ascertained that the content and urgency of the report was understood at the time of direct communication. Assessment and Plan (1) Pleural effusion: Status: Acute 70 year old female with vague history of possible stage IV lung cancer s/p radiation to chest wall about 10 years ago. Found to have new spiculated right upper lobe nodule and now is s/p robotic VATS RUL lobectomy for 2 separate stage 1 lung adenocarcinomas. Presented to [facility] with complaints of shortness of breath and right sided chest pain. CTA ruled out PE, but showed large right loculated pleural effusion. * Patient DID NOT HAVE PNEUMONECTOMY, as is being documented. Patient had a right upper lobectomy only. * The loculated right pleural effusion is likely post-surgical. Patient does not have any s/sx infection including fever or leukocytosis to suggest empyema. No thoracic surgical intervention is needed for this problem at current time. * Patient NEEDS to be participating in pulmonary toilet exercises, including IS, flutter valve, and ambulation. * I had a long discussion with her about the need to start decreasing the amount of narcotics she is using. 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 Gabapentin 300mg PO once daily x 1 day, followed by 300mg PO BID x 1 day, then 300mg PO TID. * She had a followup visit with Dr. Manuel planned for tomorrow, obviously she will need to reschedule this. She should be seen in the office 2 weeks following discharge with a CXR. (2) Dyspnea: Qualifiers: Dyspnea type: shortness of breath Qualified Code(s): R06.02 - Shortness of breath Status: Acute Procedures Abscess I/D Date of Service: 09/08/20
[2020-09-08] MEDS: Gabapentin 300 MG CAPSULE PO (12:48)
--- NOTE | 2020-09-08 16:37 | P.CNHO_ITS ---
Subjective - Subjective Chief complaint: Consult for H/o Lung cancer Patient: known to practice within the last 3 years Requesting Physician: Richa. Primary Care Provider: Unknown Physician Medical Summary: DIAGNOSIS: NON SMALL CELL LUNG CANCER. HPI - Consult Narrative Reason for consult: CONSULT FOR NON SMALL CELL LUNG CANCER. Narrative: Valeria Merritt is a pleasant 70 year old lady, with past medical history of stage IV lung cancer, with recent recurrence, status post resection in August 15. She presented yesterday, complaining of shortness of breath. Patient has vague symptoms but reports pain at the site of surgery, she has difficulty taking a deep breath. She has a cough but nonproductive, no fever or chills. She also complaining of pelvic floor pain mostly with shortness of breath. She has no abdominal pain, no nausea or vomiting, no diarrhea constipation. Denies urinary symptoms and no lower extremity edema. She reports that ever since her surgery for the lung resection, she has had difficulty with breathing but has worsened over the past 3 days. She has not had any sick contacts or recent travel. On arrival she was hemodynamically stable with no significant abnormal vitals. Satting 91% on room air. Labs are significant for WBC count of 4.5, hemoglobin of 11.2, BNP of 114, negative UA, COVID-[address] angiogram: Demonstrating no evidence of PE, postsurgical changes of the right lung, small right apical hydropneumothorax, large volume loculated right pleural effusion, compressive atelectasis of the right lung base. About 10 years ago had radiation to her chest wall for lung cancer and has been monitored since. She had no new suspicious findings until recently when it showed a spiculated nodule in the right upper lobe. The patient was taken for a robotic VATS RUL lobectomy at [facility] on August 11, 2020. Pathology from this surgery showed 2 separate lung Adenocarcinomas, both stage 1, and likely synchronous primaries. No lymph node involvement was noted. Her postoperative course was uneventful and she was discharged home. She has since followed up with Dr. Manuel as an outpatient for pain, as well as some slow to heal wounds on the right chest. She was prescribed MS Contin at that visit on 08/26/2020 That did not do the trick. Review of Systems - Constitutional Reports fatigue, Reports lack of energy, Reports malaise, Denies fever(s), Denies weight loss - Eyes Denies blurry vision - ENT Reports system reviewed and no additional complaints, except as documented - Cardiovascular Reports chest pain, Reports chest pain at rest, Reports chest pain with activity, Reports shortness of breath, Reports shortness of breath with activity - Respiratory Denies chest congestion - Gastrointestinal Reports abdominal pain, Denies change in bowel habits Comments: epigastric - Neurologic Denies headache(s), Denies loss of vision, Denies numbness, Denies tingling, Denies weakness - Psychiatric Reports anxiety - Allergic/Immunologic Denies GI upset with certain foods PMFSH Medical History: Medical History (Last Reviewed 09/08/20 @ 17:06 by Kendrick Aguilar MD) Brain aneurysm Concussion COPD (chronic obstructive pulmonary disease) Functional capacity: independent ambulation Patient : No Family History: Family History (Last Reviewed 09/08/20 @ 17:06 by Kendrick Aguilar MD) Mother Skin cancer Diabetes Thyroid disease Sister Diabetes Skin cancer Tubular adenoma Thyroid disease Daughter Skin cancer Diabetes Surgical History: Surgical History (Last Reviewed 09/08/20 @ 17:06 by Kendrick Aguilar MD) H/O colonoscopy with polypectomy H/O colonoscopy with polypectomy H/O endoscopy History of esophagogastroduodenoscopy (EGD) History of thoracic surgery S/P biopsy Smoking status: Former smoker Home Medications and Allergies Current Medications: Current Medications Generic Name Dose Route Start Last Admin Trade Name Freq PRN Reason Stop Dose Admin Acetaminophen 650 mg 09/08/20 02:19 Acetaminophen 325 Mg Tablet PO Q6H PRN Pain, Mild (Pain Scale 1-3) Albuterol Sulfate 2 puff 09/08/20 02:19 Albuterol Sulfate 90 Mcg 8 Gm Inhaler INHALE Q4H PRN Shortness Of Breath Docusate Sodium 100 mg 09/08/20 02:19 Docusate Sodium 100 Mg Capsule PO DAILY PRN Constipation Furosemide 40 mg 09/08/20 09:00 09/08/20 08:56 Furosemide 40 Mg Tablet PO 40 mg DAILY [facility] Administration Protocol Gabapentin 300 mg 09/09/20 09:00 Gabapentin 300 Mg Capsule PO 09/09/20 21:01 BID JOHN Gabapentin 300 mg 09/10/20 09:00 Gabapentin 300 Mg Capsule PO TID [facility] Heparin Sodium (Porcine) 5,000 unit 09/08/20 04:00 09/08/20 15:38 Heparin Sodium,Porcine 5,000 Unit/Ml Vial SUBCUT 5,000 unit Q12H [facility] Administration Morphine Sulfate 15 mg 09/08/20 09:00 09/08/20 08:57 Morphine Sulfate Er 15 Mg Tablet.Er PO 15 mg BID JOHN Administration Morphine Sulfate 4 mg 09/08/20 02:19 09/08/20 16:31 Morphine Sulfate 4 Mg/Ml Cartridge IVPUSH 4 mg Q4H PRN Administration Pain, Severe (Pain Scale 7-10) Non-Formulary Medication 1 drop 09/08/20 09:00 Cyclosporine [Restasis] EYE-BOTH BID [facility] Ondansetron HCl 4 mg 09/08/20 02:19 Ondansetron Hcl 4 Mg/2 Ml Vial IVPUSH Q8H PRN Nausea and Vomiting Pharmacy Consult 1 each 09/07/20 21:45 Consult Rx Perform Med Rec MISCELLANE ONCE PRN Consult order Sodium Chloride 3 ml 09/08/20 02:19 09/08/20 15:39 0.9 % Sodium Chloride Flush 3 Ml Syringe IVFLUSH 3 ml QSHIFT [facility] Administration Tiotropium [place] 1 puff 09/08/20 08:00 09/08/20 08:03 Tiotropium [place] 18 Mcg Cap.W.Dev INHALE Not Given RDAILY [facility] Venlafaxine HCl 75 mg 09/08/20 09:00 09/08/20 08:57 Venlafaxine Hcl Er 75 Mg Cap.Er.24h PO 75 mg DAILY [facility] Administration Home Medications Medication Instructions Recorded Confirmed Type furosemide 40 mg tablet 40 mg PO DAILY tab 07/23/20 09/07/20 History albuterol sulfate 90 mcg/actuation 2 puff INHALATION NEEDED PRN 08/19/20 09/07/20 History aerosol inhaler cyclosporine [Restasis] 1 drp OPHTHALMIC (EYE) BID 09/07/20 09/07/20 History morphine 1 tab PO BID 09/07/20 09/07/20 History tiotropium bromide [Spiriva 1 puff INHALATION DAILY 09/07/20 09/07/20 History Respimat] venlafaxine 1 cap PO DAILY 09/07/20 09/07/20 History Allergies Allergy/AdvReac Type Severity Reaction Status Date / Time From Vicodin Allergy Mild HALLUCINATI Uncoded 07/14/20 17:01 ONS Influenza Virus Vacc Split PF Allergy Unknown allergy Uncoded 12/22/19 00:00 interfuron, PEG Allergy Unknown Unknown Uncoded 07/29/20 10:18 Physical Exam Vital signs: Vital Signs Temp 98.4 F 09/08/20 15:30 Pulse 87 09/08/20 15:30 Resp 18 09/08/20 15:30 BP 137/61 09/08/20 15:30 Pulse Ox 96 09/08/20 15:30 Intake & Output 09/07/20 09/08/20 09/08/20 18:59 06:59 18:59 Intake Total 1180 / 1180 480 / 480 Balance 1180 / 1180 480 / 480 Intake: Intake, Oral Amount 180 / 180 480 / 480 Intake, IV Amount 1000 / 1000 0.9 % Sodium Chloride 1,000 ml 1000 / 1000 @ 999 mls/hr IVCONT .Q1H1M [facility] Rx#:[id number] Other: Breakfast % Eaten 100% Lunch % Eaten 75% Number of Unmeasured Voids 2 Urine Bathroom Weight 84.822 kg 84.822 kg Weight 84.822 kg - Constitutional Present: moderate distress - Routine HEENT Exam Head: Present: normal inspection ENT: Present: mucous membranes moist - Routine Neck Exam Present: supple - Routine Respiratory Exam Present: decreased breath sounds - Routine Cardiovascular Exam Cardiovascular: Present: RRR, S1, S2 - Routine Abdominal Exam Present: soft, nontender - Routine Rectal Exam Patient deferred: digital exam - Routine Extremities Exam Present: nontender - Routine Skin Exam Present: intact - Routine Neurological Exam Present: alert, oriented X3 - Routine Psychiatric Exam Present: normal affect Hem/Onc Consult Result - Labs CBC & Chem 7: 09/08/20 06:23 09/08/20 06:23 Labs: Short CBC 09/07/20 09/08/20 Range/Units 20:08 06:23 WBC 4.5 L 3.7 L (4.8-10.8) X10*3/uL Hgb 11.2 L 11.2 L (12.0-16.0) g/dl Hct 34.5 L 34.8 L (37-47) % Plt Count 173 141 L (160-400) X10*3/uL BMP 09/07/20 09/08/20 20:08 06:23 Sodium 138 137 Potassium 3.6 3.6 Chloride 95 L 100 Carbon Dioxide 32 H 28 BUN 8 L 6 L Creatinine 0.62 0.54 Calcium 7.9 L 7.9 L Liver Function 09/07/20 Range/Units 20:08 Total Bilirubin 0.6 (0.0-1.0) mg/dL Direct Bilirubin 0.3 (0.0-0.5) mg/dL AST 20 (5-31) U/L ALT 16 (0-31) U/L Alkaline Phosphatase 74 (39-117) U/L Albumin 3.1 L (3.5-5.0) g/dL Urine 09/07/20 Range/Units 21:28 Urine Color YELLOW Urine Appearance CLEAR Urine pH 6.5 (5.0-8.0) Ur Specific [place] 1.010 (1.005-1.025) Urine Protein NEG (NEG-TRACE) MG/DL Urine Glucose (UA) NEG (NEG) MG/DL Assessment and Plan (1) Cancer of upper lobe of right lung Status: Acute This is a pleasant 70 year old lady with previous history of possible stage IV lung cancer s/p radiation to chest wall about 10 years ago. She was found to have a new spiculated right upper lobe nodule. She underwent robotic VATS RUL lobectomy for 2 separate stage 1 lung Adenocarcinomas. She now presents with complaints of shortness of breath and right sided chest pain. CTA ruled out PE, but showed large right loculated pleural effusion. The pain and dyspnea could be related to the post op state/pleural effusion. PLAN: Continue IV Morphine. Gabapentin added. Would consider thoracentesis, if symptoms don't improve. F/U with Dr. Manuel. Thanks, CC: Dr. Manuel. Dr. stock.
--- NOTE | 2020-09-08 17:02 | P.CONPL_ITS ---
History of Present Illness History of Present Illness Consult date: 09/08/20 Requesting physician: Richa Arrieta Reason for consult: pleural effusion Chief complaint: Dyspnea Narrative: 70-year-old lady with underlying history of stage 4 lung cancer status post recent right upper lobectomy on 08/11/2020 admitted on 09/07/2020 with dyspnea and surgical site pain. CT angiogram chest obtained during this admission demonstrated loculated right-sided pleural effusion and pulmonary evaluation has been requested. At the time of my examination patient states that she is at baseline of her dyspnea symptoms and that her main concern is pa in at the surgical site. She does complain of intermittent lower extremity edema and orthopnea. Review of Systems Constitutional: Constitutional: Denies headache(s) and Reports malaise Eyes: Eyes: Denies change in vision and Denies loss of vision ENT: Denies headache(s) Cardiovascular: Cardiovascular: Denies chest pain and Reports dyspnea on exertion Respiratory: Respiratory: Denies cough, Reports dyspnea on exertion and Denies wheezing Gastrointestinal: Gastrointestinal: Denies constipation and Denies diarrhea Genitourinary: Genitourinary: Denies urinary incontinence and Denies urinary urgency Musculoskeletal: Musculoskeletal: Denies numbness and Denies tingling Integumentary/Breasts: Skin/Breast: Denies rash Neurologic: Denies headache(s), Denies focal weakness, Denies loss of vision, Denies numbness and Denies tingling Endocrine: Endocrine: Denies cold intolerance and Denies heat intolerance Hematologic/Lymphatic: Hematologic/Lymphatic: Denies easy bleeding and Denies easy bruising Allergic/Immunologic: Allergic/Immunologic: Denies wheezing PMFSH Past Medical History Medical History Brain aneurysm Concussion COPD (chronic obstructive pulmonary disease) Functional capacity: independent ambulation Family History Family History Mother Skin cancer Diabetes Thyroid disease Sister Diabetes Skin cancer Tubular adenoma Thyroid disease Daughter Skin cancer Diabetes Surgical History Surgical History H/O colonoscopy with polypectomy H/O colonoscopy with polypectomy H/O endoscopy History of esophagogastroduodenoscopy (EGD) History of thoracic surgery S/P biopsy Social History Social History Household Members: None Housing: Unknown / Unable to assess Smoking Status: Former smoker Tobacco Type: Cigarette Years Smoked: since mid twenties Smoked in Last 30 Days: No Use of substances other than those prescribed or required for medical reasons: No Have you been hit, kicked, punched, or otherwise hurt by someone within the past year? If so, by whom?: No Do you feel safe in your current relationship?: No Is there a partner from a previous relationship who is making you feel unsafe now?: No Are you made to feel afraid or neglected: No Advance Directives: No Advance Directives Information Provided: No Do you have thoughts of harming others: None Do you have a plan to hurt others: No Plan Recently lost weight without trying: No service: No Current occupational status: retired [employer] Allergies Allergy/AdvReac Type Severity Reaction Status Date / Time From Vicodin Allergy Mild HALLUCINATI Uncoded 07/14/20 17:01 ONS Influenza Virus Vacc Split PF Allergy Unknown allergy Uncoded 12/22/19 00:00 interfuron, PEG Allergy Unknown Unknown Uncoded 07/29/20 10:18 Home Medications Medication Instructions Recorded Confirmed Type furosemide 40 mg tablet 40 mg PO DAILY tab 07/23/20 09/07/20 History albuterol sulfate 90 mcg/actuation 2 puff INHALATION NEEDED PRN 08/19/20 09/07/20 History aerosol inhaler cyclosporine [Restasis] 1 drp OPHTHALMIC (EYE) BID 09/07/20 09/07/20 History morphine 1 tab PO BID 09/07/20 09/07/20 History tiotropium bromide [Spiriva 1 puff INHALATION DAILY 09/07/20 09/07/20 History Respimat] venlafaxine 1 cap PO DAILY 09/07/20 09/07/20 History Physical Exam Vital Signs: Vital Signs: Last Vital Signs Temp 98.4 F 09/08/20 15:30 Pulse 87 09/08/20 15:30 Resp 18 09/08/20 15:30 BP 137/61 09/08/20 15:30 Pulse Ox 96 09/08/20 15:30 Body Mass Index 30.2 Const: General: no acute distress, alert and awake Eyes: Sclerae: sclerae normal EOM: EOMs intact bilaterally Neck: Neck: Yes no lymphadenopathy, Yes trachea midline and Yes supple Resp: Effort & Inspection: normal respiratory effort and no respiratory distress Auscultation: other ( right basilar poor air movement) Cardio: Rate: regular rate Rhythm: regular rhythm Heart sounds: no gallops, no murmurs and no rubs GI: Palpation (GI): Soft to palpation and Other GI palpation findings present ( Nontender) Auscultation: normal bowel sounds Extrem: General: No clubbing, No cyanosis and Yes edema ( trace bilateral) Results Laboratory Findings CBC and BMP: 09/08/20 06:23 09/08/20 06:23 ABG, PT/INR, D-dimer: PT/INR, D-dimer PT 13.2 SEC (10.8-13.0) H 09/07/20 20:08 INR 1.1 (0.9-1.1) 09/07/20 20:08 Abnormal lab findings: Abnormal Labs 09/07/20 09/07/20 09/07/20 20:08 20:08 20:08 WBC 4.5 L RBC 3.43 L Hgb 11.2 L Hct 34.5 L MCV 100.6 H Plt Count Immature Gran % (Auto) 0.7 H Lymph % (Auto) 14.3 L [place] % (Auto) 12.8 H Eos % (Auto) 9.4 H Lymph # (Auto) 0.6 L PT 13.2 H Chloride 95 L Carbon Dioxide 32 H BUN 8 L Random Glucose Calcium 7.9 L B-Natriuretic Peptide Total Protein 6.3 L Albumin 3.1 L 09/07/20 09/08/20 09/08/20 22:44 06:23 06:23 WBC 3.7 L RBC 3.47 L Hgb 11.2 L Hct 34.8 L MCV 100.3 H Plt Count 141 L Immature Gran % (Auto) 0.8 H Lymph % (Auto) 15.9 L [place] % (Auto) 12.4 H Eos % (Auto) 9.4 H Lymph # (Auto) 0.6 L PT Chloride Carbon Dioxide BUN 6 L Random Glucose 122 H Calcium 7.9 L B-Natriuretic Peptide 114 H Total Protein Albumin Assessment and Plan (1) Pleural effusion: Status: Acute Impression: Right-sided chronic postsurgical loculated pleural effusion and hydropneumothorax that do not require intervention at this time. Dyspnea on exertion, likely underlying diastolic dysfunction. Recommendation: Would advise on obtaining thoracic surgery evaluation to confirm that no further intervention on chronic postsurgical changes are required. Consider obtaining 2D echocardiogram to evaluate for underlying diastolic dysfunction. (2) Dyspnea: Qualifiers: Dyspnea type: shortness of breath Qualified Code(s): R06.02 - Shortness of breath Status: Acute Procedures Abscess I/D Date of Service: 09/08/20
[2020-09-08] MEDS: Docusate Sodium 100 MG CAPSULE PO (20:54)
[2020-09-09] VITALS (10 sets, daily range): BP systolic 99–163; BP diastolic 48–68; PULSE 70–92; RESP 16–22; TEMP 36.1–37.1; O2SAT 90–99
[2020-09-09] MEDS: Morphine Sulfate 4 MG/ML CARTRIDGE IVPUSH ×4 (01:37→20:48)
[2020-09-09] MEDS: Heparin Sodium,Porcine 5,000 UNIT/ML VIAL 5000 UNIT SUBCUT ×2 (04:29→16:02)
--- NOTE | 2020-09-09 08:33 | P.PNIM_ITS ---
Subjective Subjective Date of Service: 09/09/20 Interval History: Seen in f/u for pain related to cancer and post surgical hydropneumothorax. No acute resp issues at this point ROS: no sob, pain Physical Exam Vital Signs: Vital Signs: Last Vital Signs Temp 98.0 F 09/09/20 07:37 Pulse 80 09/09/20 07:37 Resp 20 09/09/20 07:37 BP 110/61 09/09/20 07:37 Pulse Ox 92 09/09/20 07:37 Body Mass Index 30.2 Appearance: Alert. Oriented X3. No acute distress. Eyes: Pupils equal, round and reactive to light. ENT: Pharynx normal. Neck: Normal inspection. Neck supple. No lymph nodes noted. No crepitus CVS: Normal heart rate and rhythm. Pulses normal. Normal S1 and S2 Respiratory: No respiratory distress. Decrease bereath sound on right Abdomen: Soft and nontender. No rigidity. No distention. good BS x4 Skin: Skin warm and dry. Normal skin color. Normal skin turgor. Extremities: No lower extremity edema. Neurovascular intact to all extremities. No Lacerations. No Rash Neuro: Oriented X 3. No motor deficit. No sensory deficit. Moving all extermities. No slurred speech Objective Data Current Medications Generic Name Dose Route Start Last Admin Trade Name [place] PRN Reason Stop Dose Admin Acetaminophen 650 mg 09/08/20 02:19 Acetaminophen 325 Mg Tablet PO Q6H PRN Pain, Mild (Pain Scale 1-3) Albuterol Sulfate 2 puff 09/08/20 02:19 Albuterol Sulfate 90 Mcg 8 Gm Inhaler INHALE Q4H PRN Shortness Of Breath Docusate Sodium 100 mg 09/08/20 02:19 09/08/20 20:54 Docusate Sodium 100 Mg Capsule PO 100 mg DAILY PRN Administration Constipation Furosemide 40 mg 09/08/20 09:00 09/08/20 08:56 Furosemide 40 Mg Tablet PO 40 mg DAILY JOHN Administration Protocol Gabapentin 300 mg 09/09/20 09:00 Gabapentin 300 Mg Capsule PO 09/09/20 21:01 BID JOHN Gabapentin 300 mg 09/10/20 09:00 Gabapentin 300 Mg Capsule PO TID JOHN Heparin Sodium (Porcine) 5,000 unit 09/08/20 04:00 09/09/20 04:29 Heparin Sodium,Porcine 5,000 Unit/Ml Vial SUBCUT 5,000 unit Q12H JOHN Administration Morphine Sulfate 15 mg 09/08/20 09:00 09/08/20 20:52 Morphine Sulfate Er 15 Mg Tablet.Er PO 15 mg BID JOHN Administration Morphine Sulfate 4 mg 09/08/20 02:19 09/09/20 01:37 Morphine Sulfate 4 Mg/Ml Cartridge IVPUSH 4 mg Q4H PRN Administration Pain, Severe (Pain Scale 7-10) Non-Formulary Medication 1 drop 09/08/20 09:00 Cyclosporine [Restasis] EYE-BOTH BID COUNTS INCLUDE 234 BEDS AT THE [facility] Ondansetron HCl 4 mg 09/08/20 02:19 Ondansetron Hcl 4 Mg/2 Ml Vial IVPUSH Q8H PRN Nausea and Vomiting Pharmacy Consult 1 each 09/07/20 21:45 Consult Rx Perform Med Rec MISCELLANE ONCE PRN Consult order Sodium Chloride 3 ml 09/08/20 02:19 09/08/20 20:52 0.9 % Sodium Chloride Flush 3 Ml Syringe IVFLUSH 3 ml QSHIFT COUNTS INCLUDE 234 BEDS AT THE [facility] Administration Tiotropium [place] 1 puff 09/08/20 08:00 09/08/20 08:03 Tiotropium [place] 18 Mcg Cap.W.Dev INHALE Not Given RDAILY COUNTS INCLUDE 234 BEDS AT THE [facility] Venlafaxine HCl 75 mg 09/08/20 09:00 09/08/20 08:57 Venlafaxine Hcl Er 75 Mg Cap.Er.24h PO 75 mg DAILY JOHN Administration Labs CBC & Chem 7: 09/08/20 06:23 09/08/20 06:23 Microbiology Microbiology Results: Microbiology 09/07/20 20:08 Blood - Venous Blood Culture - Preliminary No growth after 24 hours. 09/07/20 20:08 Blood - Venous Blood Culture - Preliminary No growth after 24 hours. Assessment and Plan (1) Status post pneumonectomy: Status: Acute (2) Dyspnea: Status: Acute (3) Pleural effusion: Status: Acute (4) Pulmonary nodule: Problem details: Status: Acute (5) Cancer of upper lobe of right lung: Status: Acute (6) COPD (chronic obstructive pulmonary disease): Status: Acute Assessment and Plan: 70-year-old female with past medical history of lung cancer status post pneumonectomy who presents to the hospital with complaints of shortness of Breath, found to have pleural effusion on imaging # Dyspnea - most likely secondary to the large pleural effusion status post right pneumonectomy - patient has no hypoxia, hemodynamically stable otherwise - negative for PE, COVID-19 negative, negative respiratory panel plan: - O2 as required - Pulmonary and Thorax recommend no intervention at this time. -titrate pain meds - monitor respiratory status # Stage IV lung cancer status post pneumonectomy - patient underwent pneumonectomy in July, has developed pleural effusion status post surgery plan: - Thoracic surgery and oncology following with no specific recommendation at this time. #Hx of Hep C - patient reports that she had an attempt at treating and in the past but stopped taking medications because she felt that the medications were associated with her lung cancer - not interested in treatment at this DVT prophylaxis: Heparin subcu
[2020-09-09] MEDS: 0.9 % Sodium Chloride Flush 3 ML SYRINGE IVFLUSH ×3 (09:13→21:52)
[2020-09-09] MEDS: Morphine Sulfate ER 15 MG TABLET.ER PO ×2 (09:13→20:47)
[2020-09-09] MEDS: Venlafaxine HCl ER 75 MG CAP.ER.24H PO (09:13)
[2020-09-09] MEDS: Furosemide 40 MG TABLET PO (09:13)
[2020-09-09] MEDS: Gabapentin 300 MG CAPSULE PO ×2 (09:14→20:47)
--- NOTE | 2020-09-09 10:00 | CA_ITS ---
Transthoracic Echocardiogram Patient (Last, First, Middle): Valeria Machado, Gender: Female Date of : 1950 Age: 70 Procedure Date: 09/09/2020 Procedure Type: Transthoracic Echocardiogram Location: S3W Height: 167.64 cm Weight: 86.18 kg BSA: 1.96 m2 Heart Rate: bpm BP: 99 / 48 mmHg Engineering Production Liaison: Referring MD: Kendrick Aguilar MD Building Architectural Designer: Klaus Bonds MD Symptoms: Dyspnea on exertion Study Quality: Good ECG Rhythm: Sinus Conclusions: - 1. Normal LV systolic function with mild LVH with impaired relaxation filling pattern 2. Mildly dilated left atrium 3. No significant abnormality of cardiac valvular Doppler 4. Normal RV systolic pressure 5. No pericardial effusion Findings Left Ventricle Normal left ventricular size and systolic function. There is mildly increased left ventricular wall thickness. The visually estimated ejection fraction is between 60-65%. Spectral Doppler is indicative of an impaired relaxation filling pattern. E/E prime ratio is between 8 and 15 consistent with indeterminate filling pressures. Right Ventricle Normal right ventricular cavity size and systolic function. Atria The left atrium is mildly dilated. There is lipomatous hypertrophy of the interatrial septum. There is no evidence of interatrial shunt. The right atrium is normal in size. Aortic Valve The aortic valve was not well visualized. There is mild calcification of the aortic valve. There is no aortic valve regurgitation. There is minimal increased gradient across aortic valve suggestive of for early aortic stenosis Mitral Valve There is mild anterior mitral leaflet thickening. There is trace mitral valve regurgitation. There is no mitral valve stenosis. Pulmonic Valve The pulmonic valve was not well visualized. Tricuspid Valve Likely normal tricuspid valve structure and function. There is trace tricuspid valve regurgitation. The right ventricular systolic pressure is normal. The right ventricular systolic pressure is 24 mmHg. Normal right atrial pressure. There is no evidence of pulmonary hypertension. Great Vessels All visible segments of the aorta are normal in size. The pulmonary artery was not well visualized. Venous The inferior vena cava is normal in size and collapses greater than 50% with inspiration. Pericardium/Pleural There is no evidence of pericardial effusion. Prior Study Comparison No previous study in the last 5 years for comparison Measurements 2D Linear Measurements IVSd: 1.30 0.6-0.9/0.6-1.0 cm LVIDd: 4.25 3.9-5.3/4.2-5.9 cm LVIDd Index: 2.17 2.4-3.2/2.2-3.1 cm/m2 LVIDs: 2.80 2.0-3.6 cm LVPWd: 1.30 0.7-1.1 cm Ao Root: 3.10 2.1-3.5 cm LA Diam: 3.50 2.7-3.8/3.0-4.0 cm LAIDs Index: 1.79 1.5-2.3 cm/m2 LV Mass: 254.44 67-162/88-224 g LV Mass Index: 129.82 43-95/49-115 g/m2 LVOT Diam: 2.00 3.0+(-)1.3 cm Mitral Valve MV Pk E: 1.05 MV PK A: 1.27 MV Decel Time: 261.00 E/A: 0.80 E'Lateral: 10.90 E'Medial: 7.93 E/E' Med: 13.20 E/E' Lat: 9.60 PHT: 76.00 MVA PHT: 2.89 Decel [place]: 4.04 Aortic Valve AoV Pk Hector: 1.84 AoV Mn Hector: 1.12 AoV VTI: 0.39 AoV Pk Grad: 14.00 Aov Mn Grad: 6.00 ROMANA Cont.VTI: 1.80 LVOT LVOT Pk Hector: 1.12 LVOT Mn Hector: 0.77 LVOT VTI: 0.22 LVOT Pk Grad: 5.00 LVOT Mn Grad: 3.00 LVOT Diam: 2.00 LVOT Area: 3.14 Diastolic Function MV Pk E: 1.05 MV Pk A: 1.27 E/A: 0.80 E'Medial: 7.93 E/E' Med: 13.20 E' Laterial: 10.90 E/E' Lat: 9.60 Tricuspid Valve TR Pk Hector: 2.30 TR Pk Grad: 21.00 RA Press: 3.00 RVSP: 24.00 Great Vessels Aorta Ao Root-2D: 3.10 2.0-3.7 cm Ao Asc: 2.80 2.1-3.4 cm Pulmonary Valve PV Pk Hector: 1.02 Peak PV Grad: 4.00 Updated in Other Vendor System with Status of Final Klaus Bonds MD electronically signed on 09/09/2020 9:31:32 AM with status of Final
--- NOTE | 2020-09-09 14:36 | MHC.CM.PN ---
CM met with pt who reports she thinks she may be discharged this weekend. Pt reports concern regarding feeling SOB and says she wants to make sure she has that controlled before leaving. Pt is aware of her right to appeal through Medicare. DC plan continues to be home with no services. Pt will arrange her own transportation.
[2020-09-09] MEDS: polyethylene glycoL 3350 17 GM POWD.PACK PO (21:49)
[2020-09-10 03:34] VITALS: BP 131/57; PULSE 82; RESP 19; TEMP 36.6; O2SAT 92
[2020-09-10] MEDS: Heparin Sodium,Porcine 5,000 UNIT/ML VIAL 5000 UNIT SUBCUT ×2 (04:02→16:39)
[2020-09-10] MEDS: Morphine Sulfate 4 MG/ML CARTRIDGE IVPUSH ×2 (06:15→13:28)
[2020-09-10] MEDS: Albuterol Sulfate 90 MCG 8 GM INHALER 2 PUFF INHALE ×2 (06:22→11:12)
[2020-09-10 07:40] VITALS: BP 102/48; PULSE 77; RESP 18; TEMP 36.8; O2SAT 96
--- NOTE | 2020-09-10 08:44 | HO.PM.IMPN ---
Subjective Subjective Date of Service: 09/10/20 Interval History: Seen in f/u for pain related to cancer and post surgical hydropneumothorax. No acute resp issues at this point, couoghing a lot, and has pain and i ROS: intermittent sob, and pain in chest that is not new Physical Exam Vital Signs: Vital Signs: Last Vital Signs Temp 98.2 F 09/10/20 07:40 Pulse 77 09/10/20 07:40 Resp 18 09/10/20 07:40 BP 102/48 L 09/10/20 07:40 Pulse Ox 96 09/10/20 07:40 Body Mass Index 30.2 Appearance: Alert. Oriented X3. No acute distress. Eyes: Pupils equal, round and reactive to light. ENT: Pharynx normal. Neck: Normal inspection. Neck supple. No lymph nodes noted. No crepitus CVS: Normal heart rate and rhythm. Pulses normal. Normal S1 and S2 Respiratory: No respiratory distress. Decrease bereath sound on right Abdomen: Soft and nontender. No rigidity. No distention. good BS x4 Skin: Skin warm and dry. Normal skin color. Normal skin turgor. Extremities: No lower extremity edema. Neurovascular intact to all extremities. No Lacerations. No Rash Neuro: Oriented X 3. No motor deficit. No sensory deficit. Moving all extermities. No slurred speech Objective Data Current Medications Generic Name Dose Route Start Last Admin Trade Name Freq PRN Reason Stop Dose Admin Acetaminophen 650 mg 09/08/20 02:19 Acetaminophen 325 Mg Tablet PO Q6H PRN Pain, Mild (Pain Scale 1-3) Albuterol Sulfate 2 puff 09/08/20 02:19 09/10/20 06:22 Albuterol Sulfate 90 Mcg 8 Gm Inhaler INHALE 2 puff Q4H PRN Administration Shortness Of Breath Docusate Sodium 100 mg 09/08/20 02:19 09/08/20 20:54 Docusate Sodium 100 Mg Capsule PO 100 mg DAILY PRN Administration Constipation Furosemide 40 mg 09/08/20 09:00 09/09/20 09:13 Furosemide 40 Mg Tablet PO 40 mg DAILY JOHN Administration Protocol Gabapentin 300 mg 09/10/20 09:00 Gabapentin 300 Mg Capsule PO TID JOHN Heparin Sodium (Porcine) 5,000 unit 09/08/20 04:00 09/10/20 04:02 Heparin Sodium,Porcine 5,000 Unit/Ml Vial SUBCUT 5,000 unit Q12H JOHN Administration Morphine Sulfate 15 mg 09/08/20 09:00 09/09/20 20:47 Morphine Sulfate Er 15 Mg Tablet.Er PO 15 mg BID JOHN Administration Morphine Sulfate 4 mg 09/08/20 02:19 09/10/20 06:15 Morphine Sulfate 4 Mg/Ml Cartridge IVPUSH 4 mg Q4H PRN Administration Pain, Severe (Pain Scale 7-10) Non-Formulary Medication 1 drop 09/08/20 09:00 Cyclosporine [Restasis] EYE-BOTH BID [facility] Ondansetron HCl 4 mg 09/08/20 02:19 Ondansetron Hcl 4 Mg/2 Ml Vial IVPUSH Q8H PRN Nausea and Vomiting Oxycodone HCl 10 mg 09/10/20 07:40 Oxycodone Hcl Immed Release 5 Mg Tablet PO Q4H PRN Pain, Severe (Pain Scale 7-10) Pharmacy Consult 1 each 09/07/20 21:45 Consult Rx Perform Med Rec MISCELLANE ONCE PRN Consult order Polyethylene Glycol 17 gm 09/09/20 21:38 09/09/20 21:49 Polyethylene Glycol 3350 17 Gm Powd.Pack PO 17 gm BEDTIME PRN Administration Constipation Sodium Chloride 3 ml 09/08/20 02:19 09/09/20 21:52 0.9 % Sodium Chloride Flush 3 Ml Syringe IVFLUSH 3 ml QSHIFT [facility] Administration Tiotropium [place] 1 puff 09/08/20 08:00 09/10/20 07:45 Tiotropium [place] 18 Mcg Cap.W.Dev INHALE 1 puff RDAILY [facility] Administration Venlafaxine HCl 75 mg 09/08/20 09:00 09/09/20 09:13 Venlafaxine Hcl Er 75 Mg Cap.Er.24h PO 75 mg DAILY JOHN Administration Labs CBC & Chem 7: 09/08/20 06:23 09/08/20 06:23 Microbiology Microbiology Results: Microbiology 09/07/20 20:08 Blood - Venous Blood Culture - Preliminary No growth after 48 hours. 09/07/20 20:08 Blood - Venous Blood Culture - Preliminary No growth after 48 hours. Assessment and Plan (1) Cancer of upper lobe of right lung: Status: Acute Assessment and Plan: 70-year-old female with past medical history of lung cancer status post pneumonectomy who presents to the hospital with complaints of shortness of Breath, found to have pleural effusion on imaging # Dyspnea--likely from combination of effusion and underlying lung ca and reactive airway disease - negative for PE, COVID-19 negative, negative respiratory panel, no evidence of infection - O2 PRN - Pulmonary and Thorax recommend no intervention at this time, as effusion related to recent surgery - monitor respiratory status # Stage IV lung cancer status post pneumonectomy and chronic pain - patient underwent pneumonectomy in July, has developed pleural effusion status post surgery -Oncology following -Pain management with Oxycontin and add Oxycodone and wean off IV morphine and be able to go home #Hx of Hep C - patient reports that she had an attempt at treating and in the past but stopped taking medications because she felt that the medications were associated with her lung cancer - not interested in treatment at this DVT prophylaxis: Heparin Home when is controlled with oral pain meds and off morphine
[2020-09-10] MEDS: Morphine Sulfate ER 15 MG TABLET.ER PO ×2 (10:27→20:33)
[2020-09-10] MEDS: Venlafaxine HCl ER 75 MG CAP.ER.24H PO (10:27)
[2020-09-10] MEDS: Furosemide 40 MG TABLET PO (10:27)
[2020-09-10] MEDS: 0.9 % Sodium Chloride Flush 3 ML SYRINGE IVFLUSH ×3 (10:28→20:45)
[2020-09-10] MEDS: Gabapentin 300 MG CAPSULE PO ×3 (10:29→20:33)
[2020-09-10 11:51] VITALS: BP 105/42; PULSE 79; RESP 18; TEMP 36.2; O2SAT 96
--- NOTE | 2020-09-10 12:18 | W.MHC.ACPN ---
Advanced Care Planning Note Advanced Care Planning Note Time spent (in minutes): 17 Narrative: Goal of care conversation discussed with this patient with stage for lung cancer and now with SOB, and pain. We talked about what's going presently and potential treatment options inclduing cancer treatment that is defered to oncology. She is aware of all other options inclduing hospice should her disease ultimately progress. In no uncertain term, she does not want CPR or intubation and will complete MOLST form with me. Problems Discussed (1) Cancer of upper lobe of right lung:
[2020-09-10 15:38] VITALS: BP 148/66; PULSE 92; RESP 19; TEMP 36.9; O2SAT 95
[2020-09-10] MEDS: oxyCODONE HCl Immed Release 5 MG TABLET 10 MG PO (16:38)
[2020-09-10] MEDS: Docusate Sodium 100 MG CAPSULE PO (16:39)
[2020-09-10 19:17] VITALS: BP 112/53; PULSE 85; RESP 19; TEMP 36.3; O2SAT 96
[2020-09-10] MEDS: polyethylene glycoL 3350 17 GM POWD.PACK PO (20:36)
[2020-09-11] VITALS (8 sets, daily range): BP systolic 99–168; BP diastolic 41–91; PULSE 75–105; RESP 19–20; TEMP 36–37.6; O2SAT 90–99
[2020-09-11] MEDS: Albuterol Sulfate 90 MCG 8 GM INHALER 2 PUFF INHALE ×2 (02:23→07:22)
[2020-09-11] MEDS: oxyCODONE HCl Immed Release 5 MG TABLET 10 MG PO ×3 (03:19→21:22)
[2020-09-11] MEDS: Heparin Sodium,Porcine 5,000 UNIT/ML VIAL 5000 UNIT SUBCUT ×2 (03:52→15:30)
[2020-09-11 08:33] LABS: Anion Gap 12 (12-20); Blood Urea Nitrogen 6 mg/dL (9-16); Calcium 7.9 mg/dL (8.4-10.2); Carbon Dioxide 31 mmol/L (22-29); Chloride 92 mmol/L (96-108); Creatinine Clr Calc Pharmacy 100.4; Estimated Glomerular Filt Rate > 60; Glucose Random 116 mg/dL (60-115); Potassium 3.9 mmol/l (3.3-5.1); Sodium 131 mmol/L (135-145)
[2020-09-11] MEDS: Venlafaxine HCl ER 75 MG CAP.ER.24H PO (08:34)
[2020-09-11] MEDS: 0.9 % Sodium Chloride Flush 3 ML SYRINGE IVFLUSH ×3 (08:35→23:45)
[2020-09-11] MEDS: Gabapentin 300 MG CAPSULE PO ×3 (08:35→21:24)
[2020-09-11] MEDS: Morphine Sulfate ER 15 MG TABLET.ER PO ×2 (08:35→21:24)
[2020-09-11] MEDS: Furosemide 40 MG TABLET PO (08:35)
[2020-09-11] MEDS: bisacodyL 10 MG SUPP.RECT PR (09:11)
--- NOTE | 2020-09-11 09:54 | P.PNIM_ITS ---
Subjective Subjective Date of Service: 09/11/20 Interval History: constipated Respiratory Respiratory: Reports no additional respiratory complaints Gastrointestinal Gastrointestinal: Reports no additional gastrointestinal complaints Physical Exam Vital Signs: Vital Signs: Last Vital Signs Temp 98.1 F 09/11/20 07:19 Pulse 75 09/11/20 07:19 Resp 20 09/11/20 07:19 BP 114/62 09/11/20 07:19 Pulse Ox 99 09/11/20 07:19 Body Mass Index 30.2 General: AO X 3, no acute distress Resp: CTA bilateral CVS: S1,S2,RRR GI: soft, non tender, non distended Neuro: motor grossly intact Psych: appropriate affect Objective Data Current Medications Generic Name Dose Route Start Last Admin Trade Name Freq PRN Reason Stop Dose Admin Acetaminophen 650 mg 09/08/20 02:19 Acetaminophen 325 Mg Tablet PO Q6H PRN Pain, Mild (Pain Scale 1-3) Albuterol Sulfate 2 puff 09/08/20 02:19 09/11/20 07:22 Albuterol Sulfate 90 Mcg 8 Gm Inhaler INHALE 2 puff Q4H PRN Administration Shortness Of Breath Docusate Sodium 100 mg 09/08/20 02:19 09/10/20 16:39 Docusate Sodium 100 Mg Capsule PO 100 mg DAILY PRN Administration Constipation Furosemide 40 mg 09/08/20 09:00 09/11/20 08:35 Furosemide 40 Mg Tablet PO 40 mg DAILY JOHN Administration Protocol Gabapentin 300 mg 09/10/20 09:00 09/11/20 08:35 Gabapentin 300 Mg Capsule PO 300 mg TID JOHN Administration Heparin Sodium (Porcine) 5,000 unit 09/08/20 04:00 09/11/20 03:52 Heparin Sodium,Porcine 5,000 Unit/Ml Vial SUBCUT 5,000 unit Q12H JOHN Administration Morphine Sulfate 15 mg 09/08/20 09:00 09/11/20 08:35 Morphine Sulfate Er 15 Mg Tablet.Er PO 15 mg BID JOHN Administration Morphine Sulfate 4 mg 09/08/20 02:19 09/10/20 13:28 Morphine Sulfate 4 Mg/Ml Cartridge IVPUSH 4 mg Q4H PRN Administration Pain, Severe (Pain Scale 7-10) Non-Formulary Medication 1 drop 09/08/20 09:00 Cyclosporine [Restasis] EYE-BOTH BID [facility] Ondansetron HCl 4 mg 09/08/20 02:19 Ondansetron Hcl 4 Mg/2 Ml Vial IVPUSH Q8H PRN Nausea and Vomiting Oxycodone HCl 10 mg 09/10/20 07:40 09/11/20 09:11 Oxycodone Hcl Immed Release 5 Mg Tablet PO 10 mg Q4H PRN Administration Pain, Severe (Pain Scale 7-10) Pharmacy Consult 1 each 09/07/20 21:45 Consult Rx Perform Med Rec MISCELLANE ONCE PRN Consult order Polyethylene Glycol 17 gm 09/09/20 21:38 09/10/20 20:36 Polyethylene Glycol 3350 17 Gm Powd.Pack PO 17 gm BEDTIME PRN Administration Constipation Sodium Chloride 3 ml 09/08/20 02:19 09/11/20 08:35 0.9 % Sodium Chloride Flush 3 Ml Syringe IVFLUSH 3 ml QSHIFT JOHN Administration Tiotropium [place] 1 puff 09/08/20 08:00 09/11/20 07:19 Tiotropium [place] 18 Mcg Cap.W.Dev INHALE 1 puff RDAILY JOHN Administration Venlafaxine HCl 75 mg 09/08/20 09:00 09/11/20 08:34 Venlafaxine Hcl Er 75 Mg Cap.Er.24h PO 75 mg DAILY JOHN Administration Labs CBC & Chem 7: 09/08/20 06:23 09/11/20 07:00 Microbiology Microbiology Results: Microbiology 09/07/20 20:08 Blood - Venous Blood Culture - Preliminary No growth after 48 hours. 09/07/20 20:08 Blood - Venous Blood Culture - Preliminary No growth after 48 hours. Assessment and Plan (1) Cancer of upper lobe of right lung: Status: Acute Assessment and Plan: 70-year-old female with past medical history of lung cancer status post RUL lobectomy who presented to the hospital with complaints of shortness of Breath and surgical site pain postlobectomy pain and sob pulmonary exercises oxycontin and oxycodone constipation culcolax pr HCV - patient reports that she had an attempt at treating and in the past but stopped taking medications because she felt that the medications were associated with her lung cancer - not interested in treatment at this Home when is controlled with oral pain meds and off morphine
[2020-09-11] MEDS: Docusate Sodium 100 MG CAPSULE PO (15:30)
[2020-09-12 03:53] VITALS: BP 124/62; PULSE 78; RESP 19; TEMP 36.2; O2SAT 93
[2020-09-12] MEDS: Heparin Sodium,Porcine 5,000 UNIT/ML VIAL 5000 UNIT SUBCUT (04:01)
[2020-09-12] MEDS: Albuterol Sulfate 90 MCG 8 GM INHALER 2 PUFF INHALE ×2 (04:07→07:27)
[2020-09-12] MEDS: oxyCODONE HCl Immed Release 5 MG TABLET 10 MG PO ×2 (05:14→10:42)
[2020-09-12 07:03] VITALS: BP 104/49; PULSE 83; RESP 18; TEMP 36.3; O2SAT 97
[2020-09-12 09:38] VITALS: PULSE 108; PULSE 112; PULSE 76; PULSE 86; O2SAT 87; O2SAT 91; O2SAT 95; O2SAT 96
--- NOTE | 2020-09-12 09:59 | P.DS_ITS ---
DS: Providers Provider Date of admission: 09/07/20 23:31 Primary care physician: Unknown Physician Consults: 09/08/20 03:39 Consult to Pulmonology Routine Consulting Provider: [facility] Reason for consultation: Pleural effusion Has provider been notified: No 09/08/20 10:06 Consult to Thoracic Surgery Routine Consulting Provider: Yudelka Manuel Reason for consultation: Loculated pleural effusion Has provider been notified: No 09/08/20 10:08 Consult to Hematology / Oncology Routine Consulting Provider: Lisa Arnold Reason for consultation: Lung ca Has provider been notified: No DS: Diagnosis Discharge Diagnosis (1) Cancer of upper lobe of right lung: Status: Acute (2) COPD (chronic obstructive pulmonary disease): Status: Acute (3) Chronic respiratory failure with hypoxia: Status: Acute (4) Status post pneumonectomy: Status: Acute DS: Medications Discharge Medications Home Medications: Home Medications Medication Instructions Recorded Confirmed furosemide 40 mg tablet 40 mg PO DAILY tab 07/23/20 09/07/20 albuterol sulfate 90 mcg/actuation 2 puff INHALATION NEEDED PRN 08/19/20 09/07/20 aerosol inhaler Restasis 1 drp OPHTHALMIC (EYE) BID 09/07/20 09/07/20 Spiriva Respimat 1 puff INHALATION DAILY 09/07/20 09/07/20 morphine 1 tab PO BID 09/07/20 09/07/20 venlafaxine 1 cap PO DAILY 09/07/20 09/07/20 Previous Rx's Medication Instructions Recorded gabapentin 300 mg PO TID #90 cap 09/12/20 DS: Summary Hospital Course Hospital Course: patient was admitted for chest pain and shortness of breath status post lobectomy. She was given pain medication, oxygen, and pulmonary exercises. Patient's pain is now better controlled. She was started on gabapentin. Prior to discharge she was evaluated for home oxygen and did qualify. Time Spent with Patient Time attestation: Total time spent providing and/or coordinating discharge services: Physical Exam Vital Signs: Vital Signs: Last Vital Signs Temp 97.4 F 09/12/20 07:03 Pulse 83 09/12/20 07:03 Resp 18 09/12/20 07:03 BP 104/49 L 09/12/20 07:03 Pulse Ox 97 09/12/20 07:03 Body Mass Index 30.2 General: AO X 3, no acute distress Resp: diminished CVS: S1,S2,RRR GI: soft, non tender, non distended Neuro: motor grossly intact Psych: appropriate affect DS: Data Data Completed and Pending Labs on day of discharge: 09/07/20 18:41 ECG 12 lead EKG Stat EKG Documentation DIRECTED Vital Signs Q2HR XR chest 1V Stat 09/07/20 18:44 HYDROmorphone HCl [Dilaudid] 0.5 mg IVPUSH ONCE ONE 09/07/20 18:45 0.9 % Sodium Chloride [Ns] 1,000 ml IVCONT 999 mls/hr 09/07/20 19:45 SARS-CoV2/FLU/RSV Stat 09/07/20 20:08 Basic Metabolic Panel Stat Complete Blood Count Auto Diff Stat Lactic Acid Stat Lipase Stat Liver Panel Stat Prothrombin Time INR Stat SLIDE REVIEW Stat Troponin-I High Sensitivity Stat 09/07/20 21:28 UA CC w/rflx Micro + Cult Stat 09/07/20 21:49 CT angio chest PE protocol Stat 09/07/20 22:13 HYDROmorphone HCl [Dilaudid] 0.5 mg IVPUSH ONCE ONE 09/07/20 22:14 HYDROmorphone HCl [Dilaudid] 0.5 mg .ROUTE .STK-MED ONE 09/07/20 22:44 BNP [B Type Natriuretic Peptide] Stat Troponin-I High Sensitivity Stat 09/07/20 22:47 iohexoL 350 MG/ML [Omnipaque 350 MG/ML] 100 ml IV ONCE ONE 09/07/20 23:18 Transfer Order Routine 09/08/20 01:06 HYDROmorphone HCl [Dilaudid] 0.5 mg IVPUSH ONCE ONE 09/08/20 03:42 Transfer Order Routine 09/08/20 06:00 Enoxaparin Sodium [Lovenox] 40 mg SUBCUT Q24H 09/08/20 06:23 Basic Metabolic Panel Routine Complete Blood Count Auto Diff Routine SLIDE REVIEW Routine 09/08/20 12:04 Gabapentin [Neurontin] 300 mg PO ONCE ONE 09/09/20 09:00 Gabapentin [Neurontin] 300 mg PO BID 09/09/20 10:00 CA echo transthoracic complete Routine 09/11/20 07:00 Basic Metabolic Panel Routine 09/11/20 09:02 bisacodyL [Dulcolax] 10 mg CA ONCE ONE 09/12/20 08:41 bisacodyL [Dulcolax] 10 mg CA ONCE ONE 09/12/20 08:42 Lactulose [Chronulac] 20 gm PO ONCE ONE Laboratory Last Values WBC 3.7 X10*3/uL (4.8-10.8) L 09/08/20 06:23 RBC 3.47 X10*6/uL (4.20-5.50) L 09/08/20 06:23 Hgb 11.2 g/dl (12.0-16.0) L 09/08/20 06:23 Hct 34.8 % (37-47) L 09/08/20 06:23 MCV 100.3 fL (80-98) H 09/08/20 06:23 MCH 32.3 pg (27.0-33.0) 09/08/20 06:23 MCHC 32.2 g/dl (31.0-35.0) 09/08/20 06:23 RDW 12.4 % (11.0-16.0) 09/08/20 06:23 Plt Count 141 X10*3/uL (160-400) L 09/08/20 06:23 MPV 10.4 fL (9.4-12.3) 09/08/20 06:23 Immature Gran % (Auto) 0.8 % (0.0-0.4) H 09/08/20 06:23 Neut % (Auto) 61.2 % (45-73) 09/08/20 06:23 Lymph % (Auto) 15.9 % (20-40) L 09/08/20 06:23 [place] % (Auto) 12.4 % (2-11) H 09/08/20 06:23 Eos % (Auto) 9.4 % (0-4) H 09/08/20 06:23 Baso % (Auto) 0.3 % (0-2) 09/08/20 06:23 Lymph # (Auto) 0.6 X10*3/uL (1.2-4.9) L 09/08/20 06:23 [place] # (Auto) 0.5 X10*3/uL (0.1-1.2) 09/08/20 06:23 Eos # (Auto) 0.4 X10*3/uL (0.0-0.4) 09/08/20 06:23 Baso # (Auto) 0.0 X10*3/uL (0.0-0.2) 09/08/20 06:23 Abs Immat Gran (auto) 0.03 X10*3/uL (0.00-0.03) 09/08/20 06:23 Absolute Neuts (auto) 2.3 X10*3/uL (2.0-8.3) 09/08/20 06:23 Absolute Nucleated RBC 0.000 X10*3/uL (0.0-0.012) 09/08/20 06:23 Nucleated RBC % (auto) 0.0 /100WBC (0.0-0.2) 09/08/20 06:23 Smear Tech's Comments VERIFIED 09/08/20 06:23 PT 13.2 SEC (10.8-13.0) H 09/07/20 20:08 INR 1.1 (0.9-1.1) 09/07/20 20:08 Sodium 131 mmol/L (135-145) L 09/11/20 07:00 Potassium 3.9 mmol/l (3.3-5.1) 09/11/20 07:00 Chloride 92 mmol/L (96-108) L 09/11/20 07:00 Carbon Dioxide 31 mmol/L (22-29) H 09/11/20 07:00 Anion Gap 12 (12-20) 09/11/20 07:00 BUN 6 mg/dL (9-16) L 09/11/20 07:00 Creatinine 0.58 mg/dL (0.5-1.4) 09/11/20 07:00 Estim Creat Clear Calc 100.4 09/11/20 07:00 Estimated GFR > 60 09/11/20 07:00 Random Glucose 116 mg/dL (60-115) H 09/11/20 07:00 Lactic Acid 1.0 mmol/L (0.5-2.0) 09/07/20 20:08 Calcium 7.9 mg/dL (8.4-10.2) L 09/11/20 07:00 Total Bilirubin 0.6 mg/dL (0.0-1.0) 09/07/20 20:08 Direct Bilirubin 0.3 mg/dL (0.0-0.5) 09/07/20 20:08 AST 20 U/L (5-31) 09/07/20 20:08 ALT 16 U/L (0-31) 09/07/20 20:08 Alkaline Phosphatase 74 U/L (39-117) 09/07/20 20:08 Troponin I High Sens 9.8 ng/L (<3.5-17.0) 09/07/20 22:44 B-Natriuretic Peptide 114 pg/mL (<100) H 09/07/20 22:44 Total Protein 6.3 g/dL (6.5-8.0) L 09/07/20 20:08 Albumin 3.1 g/dL (3.5-5.0) L 09/07/20 20:08 Lipase 8 U/L (8-78) 09/07/20 20:08 Urine Color YELLOW 09/07/20 21:28 Urine Appearance CLEAR 09/07/20 21:28 Urine pH 6.5 (5.0-8.0) 09/07/20 21:28 Ur Specific [place] 1.010 (1.005-1.025) 09/07/20 21:28 Urine Protein NEG MG/DL (NEG-TRACE) 09/07/20 21:28 Urine Glucose (UA) NEG MG/DL (NEG) 09/07/20 21:28 Urine Ketones 5 MG/DL (NEG) 09/07/20 21:28 Urine Blood NEG (NEG) 09/07/20 21:28 Urine Nitrite NEG (NEG) 09/07/20 21:28 Ur Leukocyte Esterase NEG (NEG) 09/07/20 21:28 Coronavirus (PCR) NEGATIVE (Negative) 09/07/20 19:45 Influenza Type A (PCR) NEGATIVE (Negative) 09/07/20 19:45 Influenza Type B (PCR) NEGATIVE (Negative) 09/07/20 19:45 RSV RNA Qual (PCR) NEGATIVE (Negative) 09/07/20 19:45 Preliminary micro results at discharge 09/07/20 20:08 Blood Culture - Preliminary Blood - Venous No growth after 48 hours. 09/07/20 20:08 Blood Culture - Preliminary Blood - Venous No growth after 48 hours. Discharge Plan Discharge Patient Disposition: Home, Self-Care Referrals: Yudelka Manuel MD [Physician] - Physician,Unknown [Primary Care Provider] - Discharge Medications: New gabapentin 300 mg Capsule 300 mg PO TID Qty: 90 RF: 0 Continued venlafaxine 75 mg capsule,extended release 24hr 1 cap PO DAILY RF: 0 morphine 15 mg tablet extended release 1 tab PO BID RF: 0 Restasis 0.05 % dropperette 1 drp ophthalmic (eye) BID RF: 0 Spiriva Respimat 2.5 mcg/actuation mist 1 puff inhalation DAILY RF: 0 furosemide 40 mg tablet 40 mg PO DAILY RF: 0 albuterol sulfate 90 mcg/actuation HFA aerosol inhaler 2 puff inhalation NEEDED PRN (Reason: Shortness Of Breath) RF: 0 Discharge Orders: Discharge Order (Routine); Ordered 09/12/20 Ordered By: Donaldo Siegel Activity on Discharge: As tolerated Visit Report Forms: Patient Portal Discharge page Care Plan Goals: recovery Health Concerns: pain, hypoxia Plan of Treatment: start on home o2, follow up with thoracic surgery
--- NOTE | 2020-09-12 10:17 | W.MHC.F2F ---
Service Date Service Date: 09/12/20 Reasons for Services Homebound: Leaving the home is medically contraindicated at this time without the asist of a device and/or another person due th the listed conditions above and below. Certification: Based on the above findings, I certify that this patient is confined to the home and needs intermittent detention care, physical therapy and/or speech therapy, or continues to need occupational therapy. The patient is under my care, and I have initiated the establishment of the plan of care. The patient will be followed by a physician who will periodically review the plan of care. new home o2
--- NOTE | 2020-09-12 10:17 | MHC.CM.PN ---
CM met with pt this morning to discuss DC planning. Pt reports still being SOB and believes she will go home with new oxygen. Pt reports she would like a VNA. Pt reports she would be interested in [facility] however they are no longer in operation. Pt agreeable to [facility]. CM explained that the RT would complete the assessment and if she qualified, they would set up the oxygen / supplies to be delivered to her home. Pt requests CM contact her daughter to review the DC plan once it is finalized. CM contacted pts daughter Niles ([phone]) and informed her that the pt did qualify for home O2 and that it would be set up prior to DC. CM also informed her that [facility] would initiate services in the next few days and would call the pt to arrange the first meeting. Niles will flower picker the pt at 1300 hours today and was instructed to call the floor when she arrives so the pt can be brought down. Pt will be discharged home today with new oxygen and new referral to [facility] pts daughter will provide transportation at 1300 hours
[2020-09-12] MEDS: Lactulose 20 GM/30 ML SOLUTION PO (10:34)
[2020-09-12] MEDS: Gabapentin 300 MG CAPSULE PO ×2 (10:35→13:27)
[2020-09-12] MEDS: Venlafaxine HCl ER 75 MG CAP.ER.24H PO (10:35)
[2020-09-12] MEDS: Morphine Sulfate ER 15 MG TABLET.ER PO (10:35)
[2020-09-12] MEDS: Furosemide 40 MG TABLET PO (10:36)
[2020-09-12] MEDS: 0.9 % Sodium Chloride Flush 3 ML SYRINGE IVFLUSH (10:36)
[2020-09-12] MEDS: bisacodyL 10 MG SUPP.RECT PR (10:36)
[2020-09-12 11:06] VITALS: BP 120/51; PULSE 79; RESP 18; TEMP 36.6; O2SAT 97
--- NOTE | 2020-09-12 13:28 | MHC.CM.PN ---
CM met with pt multiple times throughout the day. Pt reported she did qualify for home O2 and was waiting for this to be arranged. Later pt called CM and reported [facility] contacted her and told her they had [employer] listed as her insurance which she does not have. BEAN contacted [facility] ([phone]) and spoke to Alyssa who reported they do have pts Medicare policy listed, they also show [employer] Partial however this would not cover home O2. BEAN informed pt that [facility] does have the correct info and pt is discharging now. A referral was also sent to [facility] for retirement services. pts daughter is providing transportation
--- NOTE | 2020-09-12 15:33 | MHC.CM.PN ---
BEAN received a call from Hailey from [facility] ([phone]) who reported she had called the pt to set up delivery of oxygen supplies however her insurance on file only covers 80%. Hailey reported the pt told her she had [facility] supplemental medicare however did not have the policy info and that it should be on file here. BEAN checked pts chart again and confirmed it only showed medicare and HSN. BEAN called [facility] and had them manually run pts info through [facility] site and they reported the pt did not show as active. BEAN called Hailey at [facility] back and she reported the pt had called her and provided the policy info for [facility]. Pt is active with [employer] medicare supplemental health plan, policy number [id number]. Policy number given to [facility].
== END 2020-09-12 14:05 | disposition home health service (06) | DRG 205 ==
LOC: HO.ED 17:40 → HO.IMC 09-08 02:09 → HO.S3 09-08 17:22
PROVIDERS: Internal Medicine; Admitting Provider Internal Medicine; Emergency Provider Emergency Medicine Emergency Medical Services; Visit Provider Internal Medicine
DX: J95.89 Other postprocedural complications and disorders of respiratory system, not elsewhere classified (principal); J96.21 Acute and chronic respiratory failure with hypoxia; J90 Pleural effusion, not elsewhere classified; C34.11 Malignant neoplasm of upper lobe, right bronchus or lung; B19.20 Unspecified viral hepatitis C without hepatic coma; Z20.828 Contact with and (suspected) exposure to other viral communicable diseases; K59.00 Constipation, unspecified; G89.18 Other acute postprocedural pain; Z90.2 Acquired absence of lung [part of]; Z79.891 Long term (current) use of opiate analgesic; Z79.899 Other long term (current) drug therapy
CPT/HCPCS: 0241U; 36415; 71045; 71275; 80048; 80076; 81003; 83605; 83690; 83880; 84484; 85025; 85610; 87040; 93005; 93306; 94640; 96361; 96374; 96376; 99284; 99285; J1170; J2270; Q9967

== ENCOUNTER → 2020-09-13 14:19 | Outpatient (BNV) | payer MEDICARE, SELFPAY | PROVIDERS: PCP Internal Medicine; Visit Provider Internal Medicine Medical Oncology | DX: C34.11 Malignant neoplasm of upper lobe, right bronchus or lung (principal) | CPT/HCPCS: 99212; 99213; 99214; 99443 ==

== ENCOUNTER → 2020-10-14 14:24 | Outpatient (BNVA) | payer MEDICARE, SELFPAY | PROVIDERS: PCP Internal Medicine; Referring Provider Internal Medicine Medical Oncology; Visit Provider Hospitalist | DX: J90 Pleural effusion, not elsewhere classified (principal); J44.1 Chronic obstructive pulmonary disease with (acute) exacerbation; R91.1 Solitary pulmonary nodule; C34.11 Malignant neoplasm of upper lobe, right bronchus or lung; Z79.51 Long term (current) use of inhaled steroids; Z87.891 Personal history of nicotine dependence | CPT/HCPCS: 99212 ==

== ENCOUNTER 2020-10-19 11:44 | Day surgery (SDC) | payer MEDICARE, SELFPAY ==
--- NOTE | 2020-10-19 | XR_ITS ---
EXAMINATION: XR CHEST CLINICAL INFORMATION: Status post right thoracentesis COMPARISON: None TECHNIQUE: Inspiration and expiration of the chest were obtained. FINDINGS: There is patchy opacity seen in right lung base likely residual loculated pleural effusion. Postthoracentesis there is no visible pneumothorax. The right upper lung and left lung remains expanded and clear. There is minimal right apical pleural thickening. The heart size and pulmonary vascularity is normal. There is an old healed fracture right proximal humerus with metallic plate and screws. The soft tissues are unremarkable. XR/XR chest 2V IMPRESSION: No visible pneumothorax status post right thoracentesis. Small residual pleural effusion seen in the right lung base. The left lung is expanded.
[2020-10-19 11:53] VITALS: BMI 29.0
[2020-10-19 12:53] LABS: Glucose, Whole Blood 104 mg/dL (60-115)
[2020-10-19 13:05] LABS: MANUAL DIFF FLAG NO
[2020-10-19 13:14] LABS: Basophils Percent Auto 0.5 % (0-2); Eosinophils Absolute Auto 0.1 X10*3/uL (0.0-0.4); Eosinophils Percent Auto 1.6 % (0-4); Hematocrit 29.7 % (37-47); Hemoglobin 9.3 g/dl (12.0-16.0); Imm Gran Abs Auto 0.01 X10*3/uL (0.00-0.03); Imm Gran Pct Auto 0.3 % (0.0-0.4); Lymphocytes Absolute Auto 0.8 X10*3/uL (1.2-4.9); Lymphocytes Percent Auto 19.9 % (20-40); Mean Corpuscular HGB Conc 31.3 g/dl (31.0-35.0); Mean Corpuscular Volume 92.5 fL (80-98); Mean Platelet Volume 9.6 fL (9.4-12.3); Monocytes Absolute Auto 0.4 X10*3/uL (0.1-1.2); Monocytes Percent Auto 9.3 % (2-11); Neutrophils Absolute Auto 2.7 X10*3/uL (2.0-8.3); Neutrophils Percent Auto 68.4 % (45-73); Platelet Count 132 X10*3/uL (160-400); Red Blood Count 3.21 X10*6/uL (4.20-5.50); Red Cell Distribution Width 13.4 % (11.0-16.0); White Blood Count 3.9 X10*3/uL (4.8-10.8)
[2020-10-19 13:18] LABS: INTERNATIONAL NORM RATIO 1.1 (0.9-1.1)
[2020-10-19 13:21] LABS: Partial Thromboplastin Time 37.6 SEC (24.1-38.0)
--- NOTE | 2020-10-19 13:32 | US_ITS ---
EXAMINATION: US GUIDED RIGHT THORACENTESIS CLINICAL INFORMATION: Right pleural effusion. COMPARISON: None TECHNIQUE: Following explaining procedure, benefits and risk, a written consent was obtained. Patient was placed sitting upright and preliminary ultrasound imaging through the right posterior chest and right lateral chest was performed. An optimal site was selected along the right posterior chest and marked. The marked site was cleaned and draped in usual sterile manner. 1% lidocaine was injected along the infrascapular line approximately 9th or 10th interspace. A 4-Romansh Yueh catheter was inserted through a small skin incision into the pleural space. Observing very minimal to no fluid return, the needle was manipulated into a different medial direction. Minimal fluid was collected. Subsequently, needle was withdrawn and complete hemostasis achieved at puncture site. Simple dressing applied postprocedure. Patient tolerated the procedure extremely well. Chest x-ray was to be obtained portably. FINDINGS: On preliminary ultrasound imaging, there is loculated effusion seen in the right posterior lower hemithorax and along the right lateral chest with echogenic debris within. Minimal probably 60 mL of hemorrhagic fluid was collected in vacuum bottle. All of this fluid was sent to cytology as requested by referring physician. US/US drain thoracentesis w image IMPRESSION: Successful ultrasound-guided therapeutic right thoracentesis performed with approximately 60 mL of hemorrhagic fluid collected. All of this fluid was sent to lab for further evaluation as requested by the referring physician.
[2020-10-19 14:50] VITALS: BP 104/69; PULSE 85; RESP 16; TEMP 36.7; O2SAT 94
[2020-10-19 15:05] VITALS: BP 123/68; PULSE 84; RESP 16; O2SAT 94
[2020-10-19 15:20] VITALS: BP 119/64; PULSE 90; RESP 16; O2SAT 96
[2020-10-19 15:44] VITALS: BP 124/72; PULSE 92; RESP 16; O2SAT 96
[2020-10-19 16:15] VITALS: BP 108/49; PULSE 69; RESP 16; O2SAT 97
[2020-10-19 17:03] VITALS: BP 106/45; PULSE 96; RESP 20; O2SAT 97
[2020-10-20 07:18] LABS: Total Protein Pleural Fluid 4.7
[2020-10-20 07:19] LABS: Glucose Pleural Fluid 76; LDH Pleural Fluid 2491
[2020-10-20 11:23] LABS: MN% 39.7 %; PMN% 60.3 %; RBC Pleural Fluid 0.091 X10*3/uL
[2020-10-20 11:25] LABS: BF Shift QC OK YES; Lymphocytes Pleural Fluid 16 %; Monocytes Pleural Fluid 8 %; Neutrophils Pleural Fluid 70 %; Other Cells Plerual Fl 6 %
[2020-10-20 11:27] LABS: WBC Pleural Fluid 0.454 X10*3/uL
== END 2020-10-19 17:40 | disposition home or self-care (01) ==
PROVIDERS: Radiology Diagnostic Radiology; Visit Provider Radiology Diagnostic Radiology
DX: J90 Pleural effusion, not elsewhere classified (principal); C34.11 Malignant neoplasm of upper lobe, right bronchus or lung; J44.9 Chronic obstructive pulmonary disease, unspecified
CPT/HCPCS: 32557; 36415; 71046; 82945; 82947; 83615; 84155; 84157; 85025; 85610; 85730; 87070; 87073; 87205; 88112; 88305; 89051

== ENCOUNTER 2020-11-03 11:22 | Outpatient (REF) | payer MEDICARE, SELFPAY ==
--- NOTE | 2020-11-03 12:24 | XR_ITS ---
EXAMINATION: XR CHEST CLINICAL INFORMATION: Right pleural effusion. Followup. COMPARISON: Chest radiograph 10/19/2020, 09/13/2020, ultrasound-guided thoracentesis 10/19/2020; CTA chest 09/07/2020 TECHNIQUE: Two views of the chest were obtained. FINDINGS: Wydbc-yg-[id number] right effusion again seen, borderline increased from 10/19/2020. The left lung is clear. Right apical cap/loculated fluid or pleural thickening is stable. The vascularity is normal. The heart is normal in size. The hilar and mediastinal contours and bony structures are similar to prior study. XR/XR chest 2V IMPRESSION: Yskku-ui-fluusruh right effusion slightly increased from 10/19/2020.
[2020-11-03 12:51] LABS: MANUAL DIFF FLAG NO
[2020-11-03 13:03] LABS: Basophils Percent Auto 0.4 % (0-2); Eosinophils Absolute Auto 0.1 X10*3/uL (0.0-0.4); Eosinophils Percent Auto 2.6 % (0-4); Hematocrit 33.2 % (37-47); Hemoglobin 10.2 g/dl (12.0-16.0); Imm Gran Abs Auto 0.01 X10*3/uL (0.00-0.03); Imm Gran Pct Auto 0.2 % (0.0-0.4); Lymphocytes Absolute Auto 0.7 X10*3/uL (1.2-4.9); Lymphocytes Percent Auto 14.5 % (20-40); Mean Corpuscular HGB Conc 30.7 g/dl (31.0-35.0); Mean Corpuscular Hemoglobin 28.6 pg (27.0-33.0); Mean Platelet Volume 10.3 fL (9.4-12.3); Monocytes Absolute Auto 0.5 X10*3/uL (0.1-1.2); Monocytes Percent Auto 9.2 % (2-11); Neutrophils Absolute Auto 3.6 X10*3/uL (2.0-8.3); Neutrophils Percent Auto 73.1 % (45-73); Platelet Count 130 X10*3/uL (160-400); Red Blood Count 3.57 X10*6/uL (4.20-5.50); Red Cell Distribution Width 14.6 % (11.0-16.0)
[2020-11-03 13:25] LABS: D Dimer 1973 NG/ML
[2020-11-03 13:31] LABS: Alanine Aminotransferase 15 U/L (0-31); Albumin Level 3.5 g/dL (3.5-5.0); Alkaline Phosphatase 68 U/L (39-117); Anion Gap 13 (12-20); Aspartate Amino Transferase 18 U/L (5-31); Bilirubin Direct 0.4 mg/dL (0.0-0.5); Bilirubin Total 0.9 mg/dL (0.0-1.0); Blood Urea Nitrogen 7 mg/dL (9-16); Calcium 8.4 mg/dL (8.4-10.2); Carbon Dioxide 29 mmol/L (22-29); Chloride 99 mmol/L (96-108); Estimated Glomerular Filt Rate > 60; Glucose Random 122 mg/dL (60-115); Sodium 137 mmol/L (135-145); Total Protein 7.1 g/dL (6.5-8.0)
[2020-11-03 14:25] LABS: Erythrocyte Sedimentation Rate 89 MM/HR (0-20)
== END 2020-11-03 11:23 | disposition home or self-care (01) ==
LOC: HO.LAB 11:22
PROVIDERS: PCP Internal Medicine; Visit Provider Hospitalist
DX: J90 Pleural effusion, not elsewhere classified (principal)
CPT/HCPCS: 36415; 71046; 80048; 80076; 85025; 85379; 85652; 99212

== ENCOUNTER 2020-11-04 15:47 | Outpatient (REF) | payer MEDICARE, SELFPAY ==
--- NOTE | 2020-11-04 15:56 | CT_ITS ---
EXAMINATION: CT ANGIOGRAM OF THE CHEST WITH AND WITHOUT CONTRAST (CT PULMONARY ANGIOGRAM FOR PE) CLINICAL INFORMATION: Reason for Exam R07.9 - Chest pain, unspecified COMPARISON: Previous chest x-rays most recent 11/03/[address] scans most recent 09/07/2020 TECHNIQUE: Prior to contrast administration, noncontrast localization images were obtained. Subsequently, multidetector volumetric imaging was performed from the thoracic inlet to below the diaphragms following the administration of 65 mL Omnipaque 350 intravenous contrast. No contrast reaction reported Sagittal, coronal, and MIP oblique sagittal reformatted images were obtained on the CT workstation, uploaded to PACS, and reviewed. This CT examination was performed using dose optimization techniques as appropriate, variously including the following: *Automated exposure control *Adjustment of mA and/or kV according to patient size (this includes techniques or standardized protocols for targeted exams where dose is matched to indication/reason for exam; i.e. extremities or head) *Use of iterative reconstruction technique Total exam dose-length product 117 mGy-cm FINDINGS: QUALITY OF STUDY/CONTRAST BOLUS: Satisfactory. PULMONARY ARTERIES: No central or segmental pulmonary emboli. THORACIC AORTA: No aneurysm or dissection. LUNG: There are postsurgical changes following right upper lobe lobectomy. There is left apical pleural parenchymal scarring that is stable. The lungs are otherwise clear.. PLEURA: There is a touqv-mz-ugavslin right pleural effusion. This contains a small amount of air. Differential would include a partially trapped right lung and empyema. There is a mild a split pleural sign or pleural thickening. This is decreased in size from August 2020 exam. There is no left pleural effusion or pneumothorax. MEDIASTINUM: Normal heart size. There is evidence of atherosclerotic disease. No pericardial effusion. No hilar or mediastinal lymphadenopathy. No evidence of septal bowing or right heart strain. CHEST WALL/AXILLA: No axillary or internal mammary lymphadenopathy. OSSEOUS STRUCTURES: There is a mild thoracic scoliosis. UPPER ABDOMEN: The gallbladder has been removed. No reflux of contrast into the hepatic veins to suggest elevated right heart pressures. CT/CT angio chest PE protocol IMPRESSION: No evidence of pulmonary embolism. New postsurgical changes following right upper lobe lobectomy. [id number]-pzkcnqdj right pleural effusion containing a small amount of air or hydropneumothorax. Differential would include a partially trapped right lung and empyema. Clinical correlation recommended. This is decreased in size compared to August 2020 exam. Stable left apical pleural and parenchymal scarring. VTE:
[2020-11-04] MEDS: iohexoL 350 MG/ML 100 ML INFUS..BTL 65 ML IV (17:08)
== END 2020-11-04 15:48 | disposition home or self-care (01) ==
LOC: HO.CT 15:47
PROVIDERS: PCP Internal Medicine; Visit Provider Hospitalist
DX: R07.9 Chest pain, unspecified (principal); R79.89 Other specified abnormal findings of blood chemistry
CPT/HCPCS: 71275; 99212; Q9967

== ENCOUNTER → 2020-11-25 14:02 | Outpatient (BNVA) | payer MEDICARE, SELFPAY | PROVIDERS: PCP Internal Medicine; Visit Provider Hospitalist | DX: J96.11 Chronic respiratory failure with hypoxia (principal); J90 Pleural effusion, not elsewhere classified; C34.11 Malignant neoplasm of upper lobe, right bronchus or lung; R07.9 Chest pain, unspecified | CPT/HCPCS: 99212 ==

== ENCOUNTER 2020-12-07 10:20 | Day surgery (SDC) | payer MEDICARE, SELFPAY ==
[2020-11-30 16:42] VITALS: BMI 28.0
--- NOTE | 2020-12-01 15:29 | P.CONAN_ITS ---
Documented by User: Meme Molina 12/01/20 15:36 HPI - Anesthesia Eval Consult details Narrative: 70yo F for Bronchoscopy Fiberoptic s/p VATS RUL lobectomy 07/2020 O2 dep QHS 2-3L PMFSH Past Medical History Medical History ADD (attention deficit disorder) Aneurysm Bilateral lower extremity edema Brain aneurysm Chest pain Concussion COPD (chronic obstructive pulmonary disease) Fever History of diverticulosis Hx of hepatitis C Loculated pleural effusion Lung cancer On home oxygen therapy SOB (shortness of breath) Tachycardia Family History Family History Mother Skin cancer Diabetes Thyroid disease Sister Diabetes Skin cancer Tubular adenoma Thyroid disease Daughter Skin cancer Diabetes Surgical History Surgical History H/O colonoscopy with polypectomy H/O colonoscopy with polypectomy H/O endoscopy History of esophagogastroduodenoscopy (EGD) History of thoracic surgery Hx of cataract extraction Hx of cholecystectomy S/P biopsy Status post thoracentesis (~10/19/20) Social History Social History Household Members: None Housing: Unknown / Unable to assess Alcohol intake: current Alcohol intake frequency: a few times a week Smoking Status: Former smoker Tobacco Type: Cigarette Years Smoked: since mid twenties Smoking Quit Date: 06/2020 Use of substances other than those prescribed or required for medical reasons: No Advance Directives: No Advance Directives Information Provided: No Advance Directives on File: No service: No Current occupational status: retired Meds Allergies Allergy/AdvReac Type Severity Reaction Status Date / Time hydrocodone [From Vicodin] Allergy Severe Rash/Hives Verified 12/07/20 10:27 Influenza Virus Vaccines Allergy Severe Rash/Hives Verified 12/07/20 10:27 Home Medications Medication Instructions Recorded Confirmed Type furosemide 40 mg tablet 40 mg PO DAILY@0730 tab 07/23/20 12/05/20 History albuterol sulfate 90 mcg/actuation 2 puff INHALATION NEEDED PRN 08/19/20 12/05/20 History aerosol inhaler Restasis 1 drp OPHTHALMIC (EYE) BID 09/07/20 12/05/20 History venlafaxine 1 cap PO DAILY 09/07/20 12/05/20 History methylphenidate HCl 10 mg tablet 10 mg PO DAILY 09/16/20 12/05/20 History trazodone 50 mg tablet 50 mg PO BEDTIME 10/14/20 12/05/20 History lactulose 10 gram/15 mL oral 15 ml PO BEDTIME PRN ml 10/20/20 12/05/20 History solution albuterol sulfate 2.5 mg INHALATION BID PRN 11/30/20 12/05/20 History furosemide 20 mg PO DAILY@1600 11/30/20 12/05/20 History Exam Exam Date and Time: December 01, 2020 1529 Height,Weight and Vital Signs: Height 5 ft 6 in Weight 78.925 kg Pertinent Lab Results Pertinent Lab Results: Laboratory Tests 10/19/20 11/03/20 11/03/20 12:59 12:20 12:20 WBC 5.0 Hgb 10.2 L Hct 33.2 L Plt Count 130 L PT 13.0 INR 1.1 APTT 37.6 Sodium 137 Potassium 4.0 Chloride 99 Carbon Dioxide 29 BUN 7 L Creatinine 0.61 Total Bilirubin 0.9 Direct Bilirubin 0.4 AST 18 ALT 15 Alkaline Phosphatase 68 Total Protein 7.1 Albumin 3.5 Narrative Narrative: ECHO 08/2020 Conclusions: - 1. Normal LV systolic function with mild LVH with impaired relaxation filling pattern 2. Mildly dilated left atrium 3. No significant abnormality of cardiac valvular Doppler 4. Normal RV systolic pressure 5. No pericardial effusion EKG 08/2020 Sinus rhythm with occasional Premature ventricular complexes Nonspecific ST abnormality Abnormal ECG Premature ventricular complexes are new Assessment and Plan Assessment Anesthesia Assessment: Chart Reviewed Documented by User: Svetlana White 12/07/20 12:41 [facility] Past Medical History Medical History ADD (attention deficit disorder) Aneurysm Bilateral lower extremity edema Brain aneurysm Chest pain Concussion COPD (chronic obstructive pulmonary disease) Fever History of diverticulosis Hx of hepatitis C Loculated pleural effusion Lung cancer On home oxygen therapy SOB (shortness of breath) Tachycardia Family History Family History Mother Skin cancer Diabetes Thyroid disease Sister Diabetes Skin cancer Tubular adenoma Thyroid disease Daughter Skin cancer Diabetes Family history of problems with anesthesia: No Surgical History Surgical History H/O colonoscopy with polypectomy H/O colonoscopy with polypectomy H/O endoscopy History of esophagogastroduodenoscopy (EGD) History of thoracic surgery Hx of cataract extraction Hx of cholecystectomy S/P biopsy Status post thoracentesis (~10/19/20) History of Problems with Anesthesia: No Social History Social History Household Members: None Housing: Unknown / Unable to assess Alcohol intake: current Alcohol intake frequency: a few times a week Smoking Status: Former smoker Tobacco Type: Cigarette Years Smoked: since mid twenties Smoking Quit Date: 06/2020 Use of substances other than those prescribed or required for medical reasons: No Advance Directives: No Advance Directives Information Provided: No Advance Directives on File: No service: No Current occupational status: retired Meds Allergies Allergy/AdvReac Type Severity Reaction Status Date / Time hydrocodone [From Vicodin] Allergy Severe Rash/Hives Verified 12/07/20 10:27 Influenza Virus Vaccines Allergy Severe Rash/Hives Verified 12/07/20 10:27 Home Medications Medication Instructions Recorded Confirmed Type furosemide 40 mg tablet 40 mg PO DAILY@0730 tab 07/23/20 12/05/20 History albuterol sulfate 90 mcg/actuation 2 puff INHALATION NEEDED PRN 08/19/20 12/05/20 History aerosol inhaler Restasis 1 drp OPHTHALMIC (EYE) BID 09/07/20 12/05/20 History venlafaxine 1 cap PO DAILY 09/07/20 12/05/20 History methylphenidate HCl 10 mg tablet 10 mg PO DAILY 09/16/20 12/05/20 History trazodone 50 mg tablet 50 mg PO BEDTIME 10/14/20 12/05/20 History lactulose 10 gram/15 mL oral 15 ml PO BEDTIME PRN ml 10/20/20 12/05/20 History solution albuterol sulfate 2.5 mg INHALATION BID PRN 11/30/20 12/05/20 History furosemide 20 mg PO DAILY@1600 11/30/20 12/05/20 History Exam Height,Weight and Vital Signs: Vital Signs Temp Pulse Resp BP Pulse Ox 12/07/20 10:48 98.1 F 86 16 111/51 L 94 Airway Mallampati Class: III TM Dist: >3cm Neck ROM: Full Partial: Upper and Lower Heart: RRR Lungs: Bilateral wheezes Assessment and Plan Assessment Anesthesia Assessment: Anesthesia Plan Discussed and Chart Reviewed Final Anesthetic Review NPO: Yes ASA Class: III Final Preanesthetic Review: No Changes in Pt Med Stat, Meds/Allgs Chart Reviewed, Consent Obtained/Reviewed and Anes Risks/Benef Reviewed Patient Risk: Intermediate Procedure Risk: Low Assessment/Block/Sedation in SS: Assess/Block/Sedation-SS Anesthetic Plan Anesthetic Plan: GA Disposition: Standard PACU
--- NOTE | 2020-12-07 10:03 | MHC.SHP ---
Pre-Procedural Eval Section B Chief Complaint: pleural effusion Allergies: Allergies Allergy/AdvReac Type Severity Reaction Status Date / Time hydrocodone [From Vicodin] Allergy Severe Rash/Hives Verified 12/05/20 15:28 Influenza Virus Vaccines Allergy Severe Rash/Hives Verified 12/05/20 15:28 Plan I have reviewed the history and physical and performed a pertinent physical examination on my patient. No changes have occurred unless specified.
[2020-12-07 10:48] VITALS: BP 111/51; PULSE 86; RESP 16; TEMP 36.7; O2SAT 94
[2020-12-07] MEDS: Lactated Ringers 1,000 ML 50 ML IVCONT (11:00)
[2020-12-07] MEDS: Albuterol Sulfate (0.083%) 2.5 MG/3 ML VIAL.NEB INHALE (11:44)
[2020-12-07 12:46] VITALS: BP 85/33; PULSE 78; RESP 16; TEMP 36.2; O2SAT 96
[2020-12-07 12:51] VITALS: BP 98/51; PULSE 76; RESP 16; O2SAT 95
[2020-12-07 13:01] VITALS: BP 108/57; PULSE 90; RESP 21; O2SAT 99
[2020-12-07 13:16] VITALS: BP 117/51; PULSE 81; RESP 19; O2SAT 99
--- NOTE | 2020-12-07 13:21 | PM.OP ---
Brief Operative Note Date of Service: 12/07/20 Pre-op diagnosis: pleural effusion Post-op diagnosis: same Procedure: bronchoscopy Surgeon: Demario Branch MD Anesthesia: GLMA Estimated blood loss (mL): 1 Pathology: other (RUL stup endobronchial bx) Condition: stable Disposition: same day
[2020-12-07 13:31] VITALS: BP 140/71; PULSE 80; RESP 19; O2SAT 96
--- NOTE | 2020-12-07 14:03 | HO.POSTANES ---
Post Anesthesia Evaluation Post Anesthesia Evaluation Vital Signs: Vital Signs Temp Pulse Resp BP Pulse Ox 12/07/20 13:31 97.2 F 80 19 140/71 H 96 12/07/20 13:16 81 19 117/51 L 99 12/07/20 13:01 90 21 H 108/57 L 99 12/07/20 12:51 76 16 98/51 L 95 12/07/20 12:46 97.2 F 78 16 85/33 L 96 12/07/20 10:48 98.1 F 86 16 111/51 L 94 Anesthesia: General LMA Mental Status: Awake Pain Control: Satisfactory Nausea/Vomiting: None Hydration: Adequate Anesthesia-Related Issues: No Anes. Related Issues
--- NOTE | 2020-12-07 15:07 | OP_ITS ---
SURGEON: Demario Branch MD PREOPERATIVE DIAGNOSIS: Pleural effusion. POSTOPERATIVE DIAGNOSIS: PROCEDURE PERFORMED: Bronchoscopy with washings, brushings, and endobronchial biopsies. ESTIMATED BLOOD LOSS: COMPLICATIONS: None. ANESTHESIA: LMA. ASSISTANTS: SPECIMENS: 1. Right upper lobe stump, endobronchial biopsies. 2. Bilateral lung washings for both cytology and microbiology. 3. Micro brush to the right lower lobe. The patient tolerated the procedure well. Vital signs were stable throughout the procedure. Total endoscopic time approximately 15 minutes. POSTOPERATIVE DIAGNOSES: Pleural effusion and bronchopneumonia. DESCRIPTION OF PROCEDURE: After the patient was adequately sedated, the flexible digital bronchoscope was inserted over the LMA to the level of the larynx. Vocal cords moved symmetrically. Some laryngospasms were noted. The lidocaine was used, total of 9 mL were used to the airway. After the lidocaine was administered, the bronchoscope was navigated to the vocal cords to the level of the trachea. Tracheal mucosa appeared normal. She did have thick secretions, which were mucoid in appearance. She also had significant thick purulent secretions from the right lower lobe. No evidence of any bleeding noted. The tracheobronchial tree was examined up to the subsegmental level. The right upper lobe had a stump from her previous recent surgery, which appeared to be well healed just a little area of raised tissue that was identified. The bronchoscope was then provided therapeutic cleaning of the airways, thick mucus with the bronchoscope had to be removed and cleared out with saline because of mucus blockage at the suction port that happened couple of times. Otherwise, the mucus was removed. A micro brush was introduced into the right lower lobe and sent to microbiology. Bronchial washings were collected bilaterally besides the slight little raised popular area on the right upper lobe stump. No other endobronchial lesions noted. The patient did have some degree of bronchomalacia and just some chronic changes to the mucosa. Using forceps, endobronchial biopsies were collected at the right upper lobe stump area and those were sent in formalin and sent to pathology. Little bleeding was noted. Good hemostasis with iced saline. Total amount of blood about 1 mL. Again, good hemostasis with iced saline. Demario Branch MD MR/MODL / [id number]
== END 2020-12-07 14:27 | disposition home or self-care (01) ==
PROVIDERS: PCP Internal Medicine; Visit Provider Hospitalist
PROC: 0BJ08ZZ Inspection of Tracheobronchial Tree, Via Natural or Artificial Opening Endoscopic (ICD-10-PCS; CPT 31622; principal; 2020-12-07 11:30)
DX: J90 Pleural effusion, not elsewhere classified (principal); J18.0 Bronchopneumonia, unspecified organism; J44.9 Chronic obstructive pulmonary disease, unspecified; Z99.81 Dependence on supplemental oxygen
CPT/HCPCS: 31625; 31623; 87071; 87102; 87106; 87116; 87205; 88112; 88305; 94640; J0171; J1100; J2250; J3010

== ENCOUNTER → 2020-12-26 10:57 | Outpatient (BNVA) | payer MEDICARE, SELFPAY | PROVIDERS: PCP Internal Medicine; Visit Provider Hospitalist | DX: Z13.89 Encounter for screening for other disorder (principal) | CPT/HCPCS: Q3014 ==

== ENCOUNTER 2020-12-30 11:13 | Outpatient (REF) | payer MEDICARE, SELFPAY | END 2020-12-30 11:14 | disposition home or self-care (01) | LOC: HO.LNP 11:13 | PROVIDERS: PCP Internal Medicine; Visit Provider Hospitalist | DX: J44.1 Chronic obstructive pulmonary disease with (acute) exacerbation (principal); J96.11 Chronic respiratory failure with hypoxia; C34.11 Malignant neoplasm of upper lobe, right bronchus or lung; J90 Pleural effusion, not elsewhere classified; R07.1 Chest pain on breathing | CPT/HCPCS: 87070; 87205; 99212 ==

== ENCOUNTER 2021-01-30 10:51 | Outpatient (REF) | payer MEDICARE, SELFPAY ==
--- NOTE | ~2021-01-30 | CT_ITS ---
EXAMINATION: CT CHEST WITH CONTRAST CLINICAL INFORMATION: Pulmonary nodules COMPARISON: Multiple priors, most recently 11/04/2020. TECHNIQUE: Multidetector volumetric CT imaging of the chest was obtained after the administration of 50 mL of Omnipaque 350 intravenous contrast without immediate adverse reactions. Axial MIP volume rendering provided. Sagittal and coronal reformatted images were obtained. This CT examination was performed using dose optimization techniques as appropriate, variously including the following: *Automated exposure control *Adjustment of mA and/or kV according to patient size (this includes techniques or standardized protocols for targeted exams where dose is matched to indication/reason for exam; i.e. extremities or head) *Use of iterative reconstruction technique DLP: 263 mGy-cm FINDINGS: LUNGS: Status post right upper lobectomy. The central airways are patent. Small right pleural effusion with right basilar atelectasis. The effusion may be chronic, with thickened pleura present. No additional consolidation. There is of scarring are seen in the anterior right lung and at the base. No pneumothorax. No suspicious pulmonary nodules are identified. MEDIASTINUM: Normal heart size. Coronary artery calcifications are present. There is a prominent pretracheal lymph node which measures 1 cm short axis on series 3 image 20. This is likely unchanged. AXILLA: No lymphadenopathy. UPPER ABDOMEN: Cholecystectomy. OSSEOUS STRUCTURES: No acute or suspicious osseous abnormality. Mild degenerative changes of the spine. CT/CT chest w con IMPRESSION: Postsurgical changes of right upper lobectomy. No suspicious pulmonary nodules.
== END 2021-01-30 10:52 | disposition home or self-care (01) ==
LOC: HO.CT 10:51
PROVIDERS: Visit Provider Surgery
DX: C34.11 Malignant neoplasm of upper lobe, right bronchus or lung (principal)
CPT/HCPCS: 71260; Q9967

== ENCOUNTER → 2021-02-07 14:03 | Outpatient (BNVA) | payer MEDICARE, SELFPAY | PROVIDERS: PCP Internal Medicine; Visit Provider Hospitalist | DX: R91.1 Solitary pulmonary nodule (principal); C34.11 Malignant neoplasm of upper lobe, right bronchus or lung; J90 Pleural effusion, not elsewhere classified; R07.1 Chest pain on breathing; J44.1 Chronic obstructive pulmonary disease with (acute) exacerbation | CPT/HCPCS: 99212 ==

== ENCOUNTER → 2021-04-13 11:26 | Outpatient (BNVA) | payer MEDICARE, SELFPAY | PROVIDERS: PCP Internal Medicine; Visit Provider Hospitalist | DX: R91.1 Solitary pulmonary nodule (principal); C34.11 Malignant neoplasm of upper lobe, right bronchus or lung | CPT/HCPCS: 99212 ==

== ENCOUNTER 2021-04-18 13:54 | Outpatient (REF) | payer MEDICARE, SELFPAY ==
--- NOTE | ~2021-04-18 | CT_ITS ---
EXAMINATION: CT CHEST WITHOUT CONTRAST CLINICAL INFORMATION: Pulmonary nodule COMPARISON: Previous chest CT scans most recent 01/30/2021 TECHNIQUE: Multidetector volumetric CT imaging of the chest was done. Axial MIP volume rendering provided. Sagittal and coronal reformatted images were obtained. This CT examination was performed using dose optimization techniques as appropriate, variously including the following: *Automated exposure control *Adjustment of mA and/or kV according to patient size (this includes techniques or standardized protocols for targeted exams where dose is matched to indication/reason for exam; i.e. extremities or head) *Use of iterative reconstruction technique DLP: 178 mGy-cm FINDINGS: NIGHTMAN: LUNGS: There are postsurgical changes following right upper lobe lobectomy. There is left apical pleural parenchymal scarring that is stable. There is a chronic scarring or subsegmental atelectasis in the left lower lobe adjacent to the pleural effusion. MEDIASTINUM: There are small mediastinal lymph nodes. No enlarged lymph nodes are seen. The heart does not appear enlarged. There is mild coronary artery calcification. There is no pericardial effusion. PLEURA: There is a small right pleural effusion with thickened pleura that appears unchanged. There is no left pleural effusion. AXILLA: No lymphadenopathy. UPPER ABDOMEN: The liver has a nodular scalloped contour suggestive of cirrhosis. The gallbladder is been removed. There is mild dilatation of the common bile duct appears unchanged. Splenic prominent. OSSEOUS STRUCTURES: There are mild degenerative changes of the spine and scoliosis. CT/CT chest wo con IMPRESSION: Stable postsurgical changes following right upper lobe lobectomy. Stable left apical pleural parenchymal scarring. Stable small right pleural effusion
== END 2021-04-18 13:55 | disposition home or self-care (01) ==
LOC: HO.CT 13:54
PROVIDERS: Visit Provider Hospitalist
DX: R91.1 Solitary pulmonary nodule (principal); C34.11 Malignant neoplasm of upper lobe, right bronchus or lung; J90 Pleural effusion, not elsewhere classified
CPT/HCPCS: 71250

== ENCOUNTER → 2021-05-12 10:52 | Outpatient (BNVA) | payer MEDICARE, SELFPAY | PROVIDERS: PCP Internal Medicine; Visit Provider Hospitalist | DX: R91.1 Solitary pulmonary nodule (principal); J90 Pleural effusion, not elsewhere classified; J44.1 Chronic obstructive pulmonary disease with (acute) exacerbation | CPT/HCPCS: Q3014 ==

== ENCOUNTER 2021-06-05 10:01 | Outpatient (REF) | payer MEDICARE, SELFPAY ==
--- NOTE | ~2021-06-05 | MR_ITS ---
EXAMINATION: MR ANGIOGRAPHY BRAIN WITHOUT CONTRAST CLINICAL INFORMATION: Cerebral aneurysm nonruptured. History of aneurysm, headaches. History of lung cancer 2020. COMPARISON: PET/CT 07/12/2020. CT head 12/09/2018. MRI brain 09/30/2018. CT head 04/12/2015. MR angiography head 09/29/2019, 06/24/2018. TECHNIQUE: Unenhanced 3-D [id number] MR angiography of the brain with multiple 3-D reformatted images processed on the technologist's workstation under concurrent supervision. FINDINGS: Images are not tailored for evaluation of the brain parenchyma and are tailored exclusively for angiographic evaluation. The visualized brain demonstrates mild diffuse commensurate prominence of the ventricles and sulci. No gross intracranial hemorrhage or acute infarcts are identified though the brain is not fully included within the imaged [id number]. Bilateral scattered punctate low signal foci are noted within the lentiform nuclei and may represent areas of ischemic change or dilated perivascular spaces. A saccular aneurysm measuring 4 mm x 2 mm (longitudinal by transverse) emanates from the left internal carotid artery bifurcation. The aneurysm projects superiorly and exhibits a base measuring approximately 2 mm in diameter. The base incorporates the origin of the A1 segment of the left anterior cerebral artery and the origin of the left middle cerebral artery. No additional intracranial aneurysms are identified. An anterior communicating artery is noted. Posterior communicating arteries are not visualized. The vertebral arteries are codominant. 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 The base measures approximately 2 mm in diameter and incorporates the origins of the left anterior cerebral and middle cerebral arteries. The aneurysm is unchanged compared with 06/24/2018 and 09/29/2019.
== END 2021-06-05 10:02 | disposition home or self-care (01) ==
LOC: HO.MRI 10:01
PROVIDERS: Visit Provider Psychiatry & Neurology Neurology with Special Qualifications in Child Neurology
DX: I67.1 Cerebral aneurysm, nonruptured (principal)
CPT/HCPCS: 70544

== ENCOUNTER 2021-06-05 11:00 | Day surgery (SDC) | payer MEDICARE, SELFPAY ==
--- NOTE | ~2021-06-05 | CT_ITS ---
PROCEDURE: CT GUIDED BIOPSY, LUNG CLINICAL INFORMATION: Loculated right pleural effusion at the lung base. Previous history of lung cancer. COMPARISON: None. TECHNIQUE: Following explaining CT-guided right loculated pleural effusion aspiration procedure, benefits and risks, a written consent was obtained. Patient was placed in left lateral decubitus view and preliminary imaging was obtained through the right lung base. An optimal site was selected following placement of lead markers on the right lateral chest wall. The optimal marker selected was cleaned and draped in the usual sterile manner. 1% lidocaine was inserted at the puncture site. Under CT fluoroscopy guidance, a long 5 Portuguese Yueh catheter was advanced into the loculated pleural effusion and fluid aspirated. Only 1-2 mL of thick dark brownish fluid could be aspirated. The needle was subsequently withdrawn and complete hemostasis was achieved at the puncture site. Patient tolerated the procedure extremely well. A Band-Aid was applied postprocedure. No conscious sedation was utilized. This CT examination was performed using dose optimization techniques as appropriate, variously including the following: *Automated exposure control *Adjustment of mA and/or kV according to patient size (this includes techniques or standardized protocols for targeted exams where dose is matched to indication/reason for exam; i.e. extremities or head) *Use of iterative reconstruction technique DLP: 178 mGy-cm. FINDINGS: On preliminary CT imaging, there is a small loculated thick-walled fluid collection right lung base measuring approximately 3.62 x 6.07 cm. Minimal 1-2 mL of dark brownish fluid was aspirated through the loculated effusion. CT/CT biopsy lung RT IMPRESSION: Successful CT fluoroscopy-guided right basilar loculated pleural effusion aspiration. Fluid collected was sent to lab for further evaluation as per referring physician's orders.
[2021-06-05 11:24] VITALS: BMI 28.8
[2021-06-05 11:51] LABS: MANUAL DIFF FLAG NO
[2021-06-05 11:54] LABS: Basophils Percent Auto 0.4 % (0-2); Eosinophils Absolute Auto 0.1 X10*3/uL (0.0-0.4); Eosinophils Percent Auto 2.2 % (0-4); Hematocrit 35.5 % (37-47); Hemoglobin 11.7 g/dl (12.0-16.0); Lymphocytes Absolute Auto 0.4 X10*3/uL (1.2-4.9); Lymphocytes Percent Auto 14.5 % (20-40); Mean Corpuscular Hemoglobin 31.3 pg (27.0-33.0); Mean Corpuscular Volume 94.9 fL (80-98); Mean Platelet Volume 10.4 fL (9.4-12.3); Monocytes Absolute Auto 0.2 X10*3/uL (0.1-1.2); Monocytes Percent Auto 7.4 % (2-11); Neutrophils Percent Auto 75.5 % (45-73); Red Blood Count 3.74 X10*6/uL (4.20-5.50); Red Cell Distribution Width 12.8 % (11.0-16.0); White Blood Count 2.7 X10*3/uL (4.8-10.8)
[2021-06-05 11:55] LABS: Platelet Count 79 X10*3/uL (160-400)
[2021-06-05 11:59] LABS: Prothrombin Time 11.7 SEC (9.9-13.0)
[2021-06-05 12:02] LABS: Partial Thromboplastin Time 43.7 SEC (24.1-38.0)
[2021-06-05 14:45] VITALS: BP 145/59; PULSE 75; RESP 16; TEMP 36.5; O2SAT 94
[2021-06-05 15:15] VITALS: BP 142/59; PULSE 78; RESP 18; O2SAT 96
[2021-06-05 16:15] VITALS: BP 143/66; PULSE 76; RESP 20; TEMP 36.7; O2SAT 99
== END 2021-06-05 16:34 | disposition home or self-care (01) ==
PROVIDERS: Visit Provider Radiology Diagnostic Radiology
DX: J90 Pleural effusion, not elsewhere classified (principal)
CPT/HCPCS: 32408; 36415; 85025; 85610; 85730; 87071; 87073; 87205; 88112; 88305; C1729; J2250; J3010

== ENCOUNTER 2021-06-15 13:07 | Emergency (ER) | payer MEDICARE, SELFPAY ==
--- NOTE | ~2021-06-15 | CT_ITS ---
EXAMINATION: CTA CHEST PE STUDY CLINICAL INFORMATION: History of lung cancer with increased shortness of breath COMPARISON: 06/05/2021 and 04/18/2021 CT scan's TECHNIQUE: Prior to contrast administration, noncontrast localization images were obtained. After the administration of 70 mL of Omnipaque 350 IV contrast, contiguous thin slice helical images were obtained through the thorax. Reformatted MIP images in the coronal and sagittal planes were obtained at the acquisition workstation. This CT examination was performed using dose optimization techniques as appropriate, variously including the following: *Automated exposure control *Adjustment of mA and/or kV according to patient size (this includes techniques or standardized protocols for targeted exams where dose is matched to indication/reason for exam; i.e. extremities or head) *Use of iterative reconstruction technique DLP: 372 mGy-cm. FINDINGS: The bolus timing on this study was acceptable for visualization of the pulmonary arterial tree. There are no intraluminal pulmonary arterial filling defects present to suggest pulmonary embolism. There is bony destructive lesion with associated soft tissue component involving the left posterior second rib with an additional more subtle bony lesion involving the anterior right first rib. Bony metastases would be suspected with this appearance. Patient is status post right upper lobectomy SPECT and postoperative changes. Small left effusion is seen increased from the 04/18/2021 study with associated mild basilar dependent atelectasis. There is opacification within the dependent right lower lobe bronchi possibly due to mucous plugging or aspiration. Linear atelectasis. Chain staple line in the medial aspect of the right middle lobe. No abnormal pulmonary nodules or masses are appreciated. No significant hilar or mediastinal adenopathy. There is no evidence of pneumothorax. The heart is normal in size. No evidence of ventricular septal bowing or right heart strain. Great vessels are normal. Otherwise the mediastinum is unremarkable. There is no pericardial effusion or pericardial thickening. Limited evaluation of the upper abdominal viscera demonstrates probable splenomegaly incompletely visualized as well as subtle nodularity to the liver.. CT/CT angio chest PE protocol IMPRESSION: No evidence for pulmonary emboli. Postoperative changes status post right upper lobectomy. Unfortunately there is subtle bony lesion in the posterior left second rib with associated soft tissue component better delineated on the current study. Bony metastatic lesion is strongly favored with this appearance. There is also focal sclerotic irregularity along the anterior right first rib also concerning for additional bony lesion. Correlation with nuclear medicine bone study may be helpful. VTE: Negative This critical result was discussed with Dr. Ac at 06/15/2021 6:18 PM and it was ascertained that the content and urgency of the report was understood at the time of direct communication.
--- NOTE | ~2021-06-15 | XR_ITS ---
EXAMINATION: XR CHEST CLINICAL INFORMATION: Shortness of breath. Prior history lung cancer with right upper lobectomy. COMPARISON: Chest radiographs 11/03/2020, 10/19/2020; CT chest noncontrast 04/18/2021 TECHNIQUE: 2 frontal views of the chest are obtained. FINDINGS: The cardiopulmonary appearance is similar to chest CT 04/18/2021. There are postsurgical changes on the right with scarring right medial base and smooth pleural thickening right lateral base. Small right effusion is decreased from prior studies. There is stable pleural-parenchymal scarring or pleural-based mass left apex. There is no pneumothorax or interval airspace consolidation or vascular congestion. The heart is normal in size. The hilar contours and bony structures are stable. XR/XR chest 1V IMPRESSION: 1. No acute intrathoracic disease. 2. Stable pleural-based density left apex. 3. Postsurgical changes right chest. Right effusion decreased.
[2021-06-15 13:14] VITALS: BP 181/68; PULSE 77; RESP 16; TEMP 36.9; O2SAT 94; BMI 29.0
--- NOTE | 2021-06-15 13:19 | ECG_ITS ---
Test Reason : CHEST PAIN Blood Pressure : / mmHG Vent. Rate : 075 BPM Atrial Rate : 075 BPM P-R Int : 168 ms QRS Dur : 076 ms QT Int : 406 ms P-R-T Axes : 054 003 050 degrees QTc Int : 453 ms Normal sinus rhythm Septal infarct , age undetermined Abnormal ECG When compared with ECG of 07-SEP-2020 21:44, Premature ventricular complexes are no longer Present Septal infarct is now Present Referred By: Generic ED Physician Electronically Signed By:LUDIN HUNYH
[2021-06-15 14:14] LABS: MANUAL DIFF FLAG NO
[2021-06-15 14:18] LABS: Basophils Percent Auto 0.3 % (0-2); Eosinophils Percent Auto 0.6 % (0-4); Hematocrit 34.9 % (37-47); Hemoglobin 11.7 g/dl (12.0-16.0); Imm Gran Abs Auto 0.02 X10*3/uL (0.00-0.03); Imm Gran Pct Auto 0.6 % (0.0-0.4); Lymphocytes Absolute Auto 0.3 X10*3/uL (1.2-4.9); Mean Corpuscular HGB Conc 33.5 g/dl (31.0-35.0); Mean Corpuscular Hemoglobin 31.7 pg (27.0-33.0); Mean Corpuscular Volume 94.6 fL (80-98); Mean Platelet Volume 10.8 fL (9.4-12.3); Monocytes Absolute Auto 0.1 X10*3/uL (0.1-1.2); Monocytes Percent Auto 2.3 % (2-11); Neutrophils Percent Auto 87.2 % (45-73); Red Blood Count 3.69 X10*6/uL (4.20-5.50); Red Cell Distribution Width 12.5 % (11.0-16.0); White Blood Count 3.4 X10*3/uL (4.8-10.8)
[2021-06-15 14:22] LABS: Platelet Count 81 X10*3/uL (160-400)
[2021-06-15 14:45] LABS: Anion Gap 14 (12-20); Blood Urea Nitrogen 11 mg/dL (9-16); Calcium 9.2 mg/dL (8.4-10.2); Carbon Dioxide 26 mmol/L (22-29); Chloride 105 mmol/L (96-108); Creatinine Clr Calc Pharmacy 84.2; Estimated Glomerular Filt Rate > 60; Glucose Random 135 mg/dL (60-115); Potassium 3.8 mmol/L (3.3-5.1); Sodium 141 mmol/L (135-145)
--- NOTE | 2021-06-15 14:47 | ED_ITS ---
HPI - SOB/Dyspnea General Chief Complaint: Dyspnea <Hernán Sharp MD - Last Filed: 06/16/21 09:01> Stated Complaint: SOB COPD <Hernán Sharp MD - Last Filed: 06/16/21 09:01> Time Seen by Provider: 06/15/21 14:47 <Hernán Sharp MD - Last Filed: 06/16/21 09:01> Source: patient <Hernán Sharp MD - Last Filed: 06/16/21 09:01> Mode of arrival: ambulatory <Hernán Sharp MD - Last Filed: 06/16/21 09:01> Limitations: no limitations <Hernán Sharp MD - Last Filed: 06/16/21 09:01> History of Present Illness HPI Narrative: Patient history of COPD stage I lung cancer status post right upper lobectomy on 08/16 with loculated right pleural effusion status post drainage on 04/17 comes here for increased shortness of breath for last few days patient spoke to boot lace cutter machine yesterday who started her on doxycycline and prednisone patient still feel that she is unable to take deep breaths. No fever no chills patient does have chronic cough patient does have oxygen at home saturating 92% on ambulation , patient denies any chest pain <Hernán Sharp MD - Last Filed: 06/16/21 09:01> Related Data Home Medications: Home Medications Medication Instructions Recorded Confirmed albuterol sulfate 90 mcg/actuation 2 puff INHALATION NEEDED PRN 08/19/20 04/13/21 aerosol inhaler cyclosporine 0.05 % eye drops in a 1 drp OPHTHALMIC (EYE) BID 09/07/20 04/13/21 dropperette (Restasis) venlafaxine 75 mg capsule,extended 1 cap PO DAILY 09/07/20 04/13/21 release 24 hr trazodone 50 mg tablet 50 mg PO BEDTIME 10/14/20 04/13/21 lactulose 10 gram/15 mL oral 15 ml PO BEDTIME PRN ml 10/20/20 04/13/21 solution furosemide 20 mg tablet 20 mg PO DAILY@1600 11/30/20 04/13/21 lorazepam 1 mg tablet 1 mg PO DAILY PRN 02/07/21 04/13/21 methylphenidate HCl 10 mg tablet 10 mg PO DAILY 04/13/21 04/13/21 budesonide 0.5 mg/2 mL suspension 1 mg INHALATION BEDTIME 05/12/21 for nebulization ipratropium 0.5 mg-albuterol 3 mg 3 ml INHALATION Q6H PRN 05/12/21 (2.5 mg base)/3 mL nebulization soln Previous Rx's Medication Instructions Recorded nebulizer and compressor #1 ea 10/07/20 albuterol sulfate 2.5 mg INHALATION BID 30 Days #180 12/29/20 ml nebulizers #1 ea 12/29/20 sodium chloride 3 % for 4 ml INHALATION BID 30 Days #240 ml 12/30/20 nebulization furosemide 40 mg tablet 40 mg PO DAILY@0730 #90 tab 01/06/21 umeclidinium 62.5 mcg-vilanterol 1 inh INHALATION DAILY #60 ea 02/09/21 25 mcg/actuation powdr for inhalation (Anoro Ellipta) prednisone 10 mg tablets in a dose See Rx Instructions PO PER PKG DIR 03/01/21 pack 8 Days #20 tab levofloxacin 500 mg tablet 500 mg PO DAILY 8 Days #8 tab 04/06/21 dextromethorphan-guaifenesin 5 10 ml PO Q4-8H PRN 14 Days #355 ml 05/09/21 mg-100 mg/5 mL oral liquid (Robitussin Cough-Chest Congestion DM) amoxicillin 875 mg-potassium 1 tab PO BID 7 Days #14 tab 05/30/21 clavulanate 125 mg tablet (Augmentin) doxycycline hyclate 100 mg capsule 100 mg PO BID 10 Days #20 cap 06/14/21 morphine 15 mg tablet,extended 15 mg PO BID PRN 30 Days #60 tab 06/14/21 release prednisone 20 mg tablet 20 mg PO DAILY 10 Days #15 tab 06/14/21 <Hernán Sharp MD - Last Filed: 06/16/21 09:01> Allergies/Adverse Reactions: Allergies Allergy/AdvReac Type Severity Reaction Status Date / Time hydrocodone [From Vicodin] Allergy Severe Rash/Hives Verified 06/15/21 13:18 Influenza Virus Vaccines Allergy Severe Rash/Hives Verified 06/15/21 13:18 gabapentin Allergy Intermediate Bipolar Verified 06/15/21 13:18 <Hernán Sharp MD - Last Filed: 06/16/21 09:01> Review of Systems Review of Systems: Constitutional : No Weight loss, No Fever, No Chills ENT/Mouth : No sore throat, No Rhinorrhea Eyes: No Eye Pain, No Swelling Cardiovascular : No Chest Pain, no palpitations Respiratory : No Cough, No Sputum, ++ shortness of breath Gastrointestinal : no Nausea, No Vomiting, No Diarrhea, No abdominal Pain, no black stools Genitourinary : No Dysuria, No Urinary Frequency Musculoskeletal : No joint pain, No Myalgias, No Joint Swelling Skin : No Skin Lesions, No rash Neuro : No Weakness, No Numbness, No Dizziness, No Headache Psych : No Anxiety/Panic, No Depression Heme/Lymph: No Bruising, No Lymphadenopathy Endocrine : No Polyuria, No Polydipsia All other systems reviewed and are negative <Hernán Sharp MD - Last Filed: 06/16/21 09:01> Yes all other systems are reviewed and are negative <Hernán Sharp MD - Last Filed: 06/16/21 09:01> [facility] Past Medical History Medical History: Medical History ADD (attention deficit disorder) Aneurysm Bilateral lower extremity edema Brain aneurysm Chest pain Concussion COPD (chronic obstructive pulmonary disease) Elevated TSH Fatigue Fever History of diverticulosis Hx of hepatitis C Loculated pleural effusion Lung cancer On home oxygen therapy SOB (shortness of breath) Tachycardia <Hernán Sharp MD - Last Filed: 06/16/21 09:01> Surgical History: Surgical History H/O colonoscopy with polypectomy H/O colonoscopy with polypectomy H/O endoscopy History of esophagogastroduodenoscopy (EGD) History of thoracic surgery Hx of cataract extraction Hx of cholecystectomy S/P biopsy Status post thoracentesis (~10/19/20) <Hernán Sharp MD - Last Filed: 06/16/21 09:01> Family History Family History: Family History Mother Skin cancer Diabetes Thyroid disease Sister Diabetes Skin cancer Tubular adenoma Thyroid disease Daughter Skin cancer Diabetes <Hernán Sharp MD - Last Filed: 06/16/21 09:01> Social History Social History: Social History Household Members: None Housing: Unknown / Unable to assess Alcohol intake: current Alcohol intake frequency: a few times a week Patient Tobacco Use Status: Current everyday Tobacco user Tobacco use type: Cigarette Years Smoked: since mid twenties service: No Current occupational status: retired <Hernán Sharp MD - Last Filed: 06/16/21 09:01> Physical Exam Vital Signs: Vital Signs: Last Vital Signs Temp 98.5 F 06/15/21 13:14 Pulse 82 06/15/21 15:43 Resp 15 06/15/21 14:53 BP 168/72 H 06/15/21 14:53 Pulse Ox 97 06/15/21 14:53 Body Mass Index 29.0 <Hernán Sharp MD - Last Filed: 06/16/21 09:01> Vital Signs: Last Vital Signs Temp 98.5 F 06/15/21 13:14 Pulse 82 06/15/21 15:43 Resp 15 06/15/21 14:53 BP 168/72 H 06/15/21 14:53 Pulse Ox 97 06/15/21 14:53 Body Mass Index 29.0 <Terence Ac MD - Last Filed: 06/15/21 19:10> Appearance: Alert. Oriented X3. No acute distress. Eyes: No pallor or icterus ENT: Pharynx normal. Oral Mucosa moist Neck: Normal inspection. Neck supple. CVS: Normal heart rate and rhythm. Pulses normal. Respiratory: No respiratory distress. Equal air entry bilateral, bilateral wheezing more left than the right Abdomen: Soft and nontender. Bowel sounds are present, no mass palpable, no CVA tenderness Skin: Skin warm and dry. Normal skin color. Normal skin turgor. Extremities: No lower extremity edema. No calf tenderness Neuro: Oriented X 3. <Hernán Sharp MD - Last Filed: 06/16/21 09:01> Course Course Course Narrative: CTA showed no PE but showed a subtle bony metastases on ribs, the case discussed with Dr. Arnold, the patient also informed with the finding on the CT scan and she will call and contact Dr. Arnold tomorrow. Will discharge home as per initial plan of Dr. Tabor. <Terence Ac MD - Last Filed: 06/15/21 19:10> MDM - SOB/Dyspnea MDM Narrative Medical decision making narrative: Patient with long history of lung cancer with COPD decreased shortness of breath already on doxycycline and prednisone. Will do CTA chest to rule out PE. Patient had previous CT in the past which were negative for PE for similar situation. <Hernán Sharp MD - Last Filed: 06/16/21 09:01> Lab Data Result diagrams: : 06/15/21 14:06 06/15/21 14:06 <Hernán Sharp MD - Last Filed: 06/16/21 09:01> Labs: Lab Results 06/15/21 06/15/21 06/15/21 Range/Units 14:06 14:06 14:06 WBC 3.4 L (4.8-10.8) X10*3/uL RBC 3.69 L (4.20-5.50) X10*6/uL Hgb 11.7 L (12.0-16.0) g/dl Hct 34.9 L (37-47) % MCV 94.6 (80-98) fL MCH 31.7 (27.0-33.0) pg MCHC 33.5 (31.0-35.0) g/dl RDW 12.5 (11.0-16.0) % Plt Count 81 L (160-400) X10*3/uL MPV 10.8 (9.4-12.3) fL Immature Gran % (Auto) 0.6 H (0.0-0.4) % Neut % (Auto) 87.2 H (45-73) % Lymph % (Auto) 9.0 L (20-40) % Millard % (Auto) 2.3 (2-11) % Eos % (Auto) 0.6 (0-4) % Baso % (Auto) 0.3 (0-2) % Lymph # (Auto) 0.3 L (1.2-4.9) X10*3/uL Millard # (Auto) 0.1 (0.1-1.2) X10*3/uL Eos # (Auto) 0.0 (0.0-0.4) X10*3/uL Baso # (Auto) 0.0 (0.0-0.2) X10*3/uL Abs Immat Gran (auto) 0.02 (0.00-0.03) X10*3/uL Absolute Neuts (auto) 3.0 (2.0-8.3) X10*3/uL Absolute Nucleated RBC 0.000 (0.0-0.012) X10*3/uL Nucleated RBC % (auto) 0.0 (0.0-0.2) /100WBC Sodium 141 (135-145) mmol/L Potassium 3.8 (3.3-5.1) mmol/L Chloride 105 (96-108) mmol/L Carbon Dioxide 26 (22-29) mmol/L Anion Gap 14 (12-20) BUN 11 D (9-16) mg/dL Creatinine 0.67 (0.5-1.4) mg/dL Estim Creat Clear Calc 84.2 Estimated GFR > 60 Random Glucose 135 H (60-115) mg/dL Calcium 9.2 (8.4-10.2) mg/dL Troponin I High Sens 9.3 (<3.5-17.0) ng/L B-Natriuretic Peptide 174 H (<100) pg/mL <Hernán Sharp MD - Last Filed: 06/16/21 09:01> Lab Results 06/15/21 06/15/21 06/15/21 Range/Units 14:06 14:06 14:06 WBC 3.4 L (4.8-10.8) X10*3/uL RBC 3.69 L (4.20-5.50) X10*6/uL Hgb 11.7 L (12.0-16.0) g/dl Hct 34.9 L (37-47) % MCV 94.6 (80-98) fL MCH 31.7 (27.0-33.0) pg MCHC 33.5 (31.0-35.0) g/dl RDW 12.5 (11.0-16.0) % Plt Count 81 L (160-400) X10*3/uL MPV 10.8 (9.4-12.3) fL Immature Gran % (Auto) 0.6 H (0.0-0.4) % Neut % (Auto) 87.2 H (45-73) % Lymph % (Auto) 9.0 L (20-40) % Millard % (Auto) 2.3 (2-11) % Eos % (Auto) 0.6 (0-4) % Baso % (Auto) 0.3 (0-2) % Lymph # (Auto) 0.3 L (1.2-4.9) X10*3/uL Millard # (Auto) 0.1 (0.1-1.2) X10*3/uL Eos # (Auto) 0.0 (0.0-0.4) X10*3/uL Baso # (Auto) 0.0 (0.0-0.2) X10*3/uL Abs Immat Gran (auto) 0.02 (0.00-0.03) X10*3/uL Absolute Neuts (auto) 3.0 (2.0-8.3) X10*3/uL Absolute Nucleated RBC 0.000 (0.0-0.012) X10*3/uL Nucleated RBC % (auto) 0.0 (0.0-0.2) /100WBC Sodium 141 (135-145) mmol/L Potassium 3.8 (3.3-5.1) mmol/L Chloride 105 (96-108) mmol/L Carbon Dioxide 26 (22-29) mmol/L Anion Gap 14 (12-20) BUN 11 D (9-16) mg/dL Creatinine 0.67 (0.5-1.4) mg/dL Estim Creat Clear Calc 84.2 Estimated GFR > 60 Random Glucose 135 H (60-115) mg/dL Calcium 9.2 (8.4-10.2) mg/dL Troponin I High Sens 9.3 (<3.5-17.0) ng/L B-Natriuretic Peptide 174 H (<100) pg/mL <Terence Ac MD - Last Filed: 06/15/21 19:10> ECG Data Attestation: I personally reviewed and interpreted this ECG as follows: <Hernán Sharp MD - Last Filed: 06/16/21 09:01> Interpretation: Normal sinus rhythm normal interval and axis no acute ischemic changes <Hernán Sharp MD - Last Filed: 06/16/21 09:01> Discharge Plan Discharge Clinical Impression: COPD (chronic obstructive pulmonary disease) Qualifiers: COPD type: COPD with acute exacerbation Qualified Code(s): J44.1 - Chronic obstructive pulmonary disease with (acute) exacerbation <Hernán Sharp MD - Last Filed: 06/16/21 09:01> Patient Disposition: Home, Self-Care <Hernán Sharp MD - Last Filed: 06/16/21 09:01> Instructions: COPD (Chronic Obstructive Pulmonary Disease) (ED) <Hernán Sharp MD - Last Filed: 06/16/21 09:01> Additional Instructions: Continue doxycycline prednisone and nebulizing treatment. Follow with your boot lace cutter machine <Hernán Sharp MD - Last Filed: 06/16/21 09:01> Prescriptions: No Action (DME) nebulizer and compressor Device See Rx Instructions .ROUTE .MEDSUPPLY Qty: 1 RF: 0 albuterol sulfate 2.5 mg /3 mL (0.083 %) solution for nebulization 2.5 mg inhalation BID 30 Days Qty: 180 RF: 11 (DME) nebulizers Misc See Rx Instructions .ROUTE .MEDSUPPLY Qty: 1 RF: 11 furosemide 40 mg tablet 40 mg PO DAILY@0730 Qty: 90 RF: 3 Anoro Ellipta 62.5-25 mcg/actuation blister with device 1 inh inhalation DAILY Qty: 60 RF: 11 levofloxacin 500 mg tablet 500 mg PO DAILY 8 Days Qty: 8 RF: 0 Robitussin Cough-Chest Ramirez DM 5-100 mg/5 mL liquid 10 ml PO Q4-8H PRN (Reason: cough) 14 Days Qty: 355 RF: 0 amoxicillin-pot clavulanate [Augmentin] 875-125 mg tablet 1 tab PO BID 7 Days Qty: 14 RF: 0 prednisone 20 mg tablet 20 mg PO DAILY 10 Days Qty: 15 RF: 0 doxycycline hyclate 100 mg capsule 100 mg PO BID 10 Days Qty: 20 RF: 0 morphine 15 mg tablet extended release 15 mg PO BID PRN (Reason: Pain) 30 Days Qty: 60 RF: 0 venlafaxine 75 mg capsule,extended release 24hr 1 cap PO DAILY RF: 0 Restasis 0.05 % dropperette 1 drp ophthalmic (eye) BID RF: 0 furosemide 20 mg Tablet 20 mg PO DAILY@1600 RF: 0 prednisone 10 mg tablets,dose pack See Rx Instructions PO PER PKG DIR 8 Days Qty: 20 RF: 0 methylphenidate HCl 10 mg tablet 10 mg PO DAILY RF: 0 trazodone 50 mg tablet 50 mg PO BEDTIME RF: 0 lactulose 10 gram/15 mL solution 15 ml PO BEDTIME PRN (Reason: constipation) RF: 0 sodium chloride 3 % solution for nebulization 4 ml inhalation BID 30 Days Qty: 240 RF: 11 albuterol sulfate 90 mcg/actuation HFA aerosol inhaler 2 puff inhalation NEEDED PRN (Reason: Shortness Of Breath) RF: 0 lorazepam 1 mg tablet 1 mg PO DAILY PRNRF: 0 <Hernán Sharp MD - Last Filed: 06/16/21 09:01> Interventions: ED Discharge Assessment Last Done: 06/15/21 19:36 <Hernán Sharp MD - Last Filed: 06/16/21 09:01> Discharge Date/Time: 06/15/21 19:37 <Hernán Sharp MD - Last Filed: 06/16/21 09:01>
[2021-06-15 14:50] LABS: Troponin-I High Sensitivity 9.3 ng/L (<3.5-17.0)
[2021-06-15 14:53] VITALS: BP 168/72; PULSE 76; RESP 15; O2SAT 97
[2021-06-15] MEDS: Albuterol Sulfate (0.083%) 2.5 MG/3 ML VIAL.NEB 5 MG INHALE (15:39)
[2021-06-15] MEDS: Albuterol/Iprat 2.5/0.5MG 3 ML AMPUL.NEB INHALE (15:40)
[2021-06-15 15:43] VITALS: PULSE 82; O2SAT 97
[2021-06-15 15:43] LABS: B Type Natriuretic Peptide 174 pg/mL (<100)
[2021-06-15] MEDS: iohexoL 350 MG/ML 100 ML INFUS..BTL IV (17:01)
== END 2021-06-15 19:37 | disposition home or self-care (01) ==
PROVIDERS: Emergency Provider Internal Medicine; PCP Internal Medicine
DX: J44.1 Chronic obstructive pulmonary disease with (acute) exacerbation (principal); R06.02 Shortness of breath; C34.12 Malignant neoplasm of upper lobe, left bronchus or lung; C79.51 Secondary malignant neoplasm of bone; Z99.81 Dependence on supplemental oxygen; Z87.891 Personal history of nicotine dependence; Z79.899 Other long term (current) drug therapy
CPT/HCPCS: 36415; 71045; 71275; 80048; 83880; 84484; 85025; 93005; 94640; 94644; 99284; Q9967

== ENCOUNTER → 2021-06-30 10:54 | Outpatient (REF) | payer MEDICARE, SELFPAY ==
--- NOTE | ~2021-06-30 | NM_ITS ---
EXAMINATION: NM BONE SCAN OF THE WHOLE BODY CLINICAL INFORMATION: Lung cancer, suspected bone metastases. COMPARISON: No previous bone scan is available for comparison. CT angiogram of the chest dated 06/15/2021 is available for comparison. A radiograph the chest dated 06/15/2021 is also available for comparison. TECHNIQUE: Multiple gamma scintillation camera images of the whole body were performed 2.75 hours following the intravenous administration of 28 mCi Tc-99m MDP. FINDINGS: In the head, there is subtle calvarial heterogeneity most prominently near the midline posterior parietal/occipital skull, but the appearance is not definitely outside the limits of normal In the thoracic cage and upper extremities, there is mildly increased activity in the anterolateral aspects of several right-sided ribs, most prominently the right fifth through eighth ribs. There is mildly increased activity in the sternoclavicular joints bilaterally and in several periarticular foci of in both hands and wrists. In the spine, a mild thoracolumbar scoliosis is present with lower lumbar convexity to the left. There is minimal heterogeneity in the spine, mild in intensity without discrete suspicious focal components. In the pelvis, no significant abnormalities are present. In the lower extremities, there are foci of mildly increased activity in the proximal and mid right foot and faintly in the distal aspect of the first digit of the right foot. The most prominent of these is in the regions of the third and fourth tarsometatarsal joints. Similar but much less intense abnormalities are present in the left foot. No other definite bony abnormalities are noted. The urinary bladder and faint visualization of both kidneys are noted. The CT angiogram of the chest dated 06/15/2021 shows degenerative changes in the spine which should explain the mild heterogeneity described above on this current bone scan. Right-sided rib abnormalities are not present on the CT scan that definitely correspond to the very mild bone scan abnormalities described above. There is a subtle bony lesion in the posterior left second rib, but no definite bone scan abnormality at this site is present. NM/NM bone scan whole body IMPRESSION: 1. No definite abnormality in the left second rib is present. This may indicate that the abnormality on the recent CT scan is traumatic in etiology, but a small metastasis at this site cannot be entirely ruled out. 2. Mild heterogeneity in the posterior skull is nonspecific, but*of skull metastases cannot be entirely ruled out. The findings of the calvarium are subtle and not definitely outside the limits of normal. 3. A few additional mild nonspecific abnormalities are noted as described above and these are all likely arthritic or traumatic in etiology. None of these abnormalities is strongly suspicious for metastatic disease.
== END ==
LOC: HO.NUCMED 10:54
PROVIDERS: Visit Provider Internal Medicine Medical Oncology
DX: J90 Pleural effusion, not elsewhere classified (principal); J44.1 Chronic obstructive pulmonary disease with (acute) exacerbation; R91.1 Solitary pulmonary nodule; C79.51 Secondary malignant neoplasm of bone; Z87.891 Personal history of nicotine dependence
CPT/HCPCS: 78306; 87070; 87205; 99212; A9503

== ENCOUNTER 2021-07-20 11:47 | Outpatient (REF) | payer MEDICARE, SELFPAY | END 2021-07-20 11:48 | disposition home or self-care (01) | LOC: HO.LAB 11:47 | PROVIDERS: PCP Internal Medicine; Visit Provider Internal Medicine | DX: Z20.822 Contact with and (suspected) exposure to COVID-19 (principal) | CPT/HCPCS: C9803; U0003; U0005 ==

== ENCOUNTER 2021-09-05 14:09 | Outpatient (REF) | payer MEDICARE, SELFPAY ==
[2021-09-08 14:31] LABS: HCV Log PCR 6.56 Log IU/mL (NOT DETECTED)
== END 2021-09-05 14:10 | disposition home or self-care (01) ==
LOC: HO.LAB 14:09
PROVIDERS: PCP Internal Medicine; Visit Provider Internal Medicine
DX: B18.2 Chronic viral hepatitis C (principal)
CPT/HCPCS: 36415; 87522

== ENCOUNTER 2021-09-07 | Outpatient (REF) | payer MEDICARE, SELFPAY | END 2021-09-07 00:01 | disposition home or self-care (01) | LOC: CF | PROVIDERS: Visit Provider Hospitalist | DX: M79.89 Other specified soft tissue disorders (principal); R91.1 Solitary pulmonary nodule; J90 Pleural effusion, not elsewhere classified; J44.1 Chronic obstructive pulmonary disease with (acute) exacerbation; C34.91 Malignant neoplasm of unspecified part of right bronchus or lung; R53.83 Other fatigue; Z87.891 Personal history of nicotine dependence; Z88.6 Allergy status to analgesic agent; Z88.7 Allergy status to serum and vaccine; Z99.81 Dependence on supplemental oxygen | CPT/HCPCS: 99212 ==

== ENCOUNTER 2021-09-07 14:28 | Outpatient (REF) | payer MEDICARE, MEDICAID, SELFPAY ==
--- NOTE | ~2021-09-07 | US_ITS ---
EXAMINATION: US VENOUS WITH DOPPLER UPPER EXTREMITY, RIGHT CLINICAL INFORMATION: Right upper extremity pain. COMPARISON: None TECHNIQUE: Ultrasound of the upper extremity is performed using compression sonography and color and pulse Doppler flow with assessment of augmentation of flow. There is also imaging and Doppler assessment of the jugular and subclavian veins. Spectral analysis with color-flow imaging is performed. FINDINGS: Respiratory variation, normal compression, and augmented flow are noted throughout the upper extremity including the axillary, brachial, cubital, and radial and ulnar veins. There is normal flow in the internal jugular and subclavian veins. There is no visible deep or superficial thrombophlebitis. If the patient's symptoms progress, a followup ultrasound in 5 -7 days might be of value to exclude proximal propagation from a nonvisualized distal arm vein. US/US venous duplex UE RT IMPRESSION: No DVT demonstrated in the right upper extremity
[2021-09-07 17:04] LABS: Hemoglobin 11.9 g/dl (12.0-16.0); Imm Gran Abs Auto 0.01 X10*3/uL (0.00-0.03); Imm Gran Pct Auto 0.3 % (0.0-0.4); MANUAL DIFF FLAG SCAN; PLT CLUMP 1; SCAN SMEAR FLAG 1
[2021-09-07 17:06] LABS: Basophils Percent Auto 0.3 % (0-2); Eosinophils Absolute Auto 0.1 X10*3/uL (0.0-0.4); Eosinophils Percent Auto 2.7 % (0-4); Hematocrit 35.3 % (37.0-47.0); Lymphocytes Absolute Auto 0.8 X10*3/uL (1.2-4.9); Lymphocytes Percent Auto 23.7 % (20-40); Mean Corpuscular HGB Conc 33.7 g/dl (31.0-35.0); Mean Corpuscular Hemoglobin 32.8 pg (27.0-33.0); Mean Corpuscular Volume 97.2 fL (80.0-98.0); Mean Platelet Volume 10.3 fL (9.4-12.3); Monocytes Absolute Auto 0.3 X10*3/uL (0.1-1.2); Monocytes Percent Auto 8.1 % (2-11); Neutrophils Absolute Auto 2.2 x10*3/uL (2.0-8.3); Neutrophils Percent Auto 64.9 % (45-73); Red Blood Count 3.63 X10*6/uL (4.20-5.50); Red Cell Distribution Width 12.5 % (11.0-16.0); White Blood Count 3.3 X10*3/uL (4.8-10.8)
[2021-09-07 17:07] LABS: Platelet Count 98 X10*3/uL (160-400)
[2021-09-07 17:12] LABS: D Dimer 611 NG/ML
[2021-09-07 17:29] LABS: Anion Gap 12 (12-20); Blood Urea Nitrogen 8 mg/dL (9-16); Carbon Dioxide 30 mmol/L (22-29); Chloride 101 mmol/L (96-108); Cholesterol 158 mg/dL; Estimated Glomerular Filt Rate > 60; Glucose Random 90 mg/dL (60-115); HDL Cholesterol 66 mg/dL; LDL Cholesterol Calculated 81 mg/dl; Potassium 3.8 mmol/L (3.3-5.1); Sodium 139 mmol/L (135-145); Triglycerides 59 mg/dL
[2021-09-07 17:37] LABS: SLIDE REVIEW VERIFIED
[2021-09-07 17:50] LABS: Thyroid Stimulating Hormone 1.99 uIU/mL (0.32-4.0)
[2021-09-07 17:54] LABS: Erythrocyte Sedimentation Rate 16 MM/HR (0-20)
[2021-09-09 13:41] LABS: IgA 95 mg/dL (70-320); IgG 1534 mg/dL (600-1540); IgM 89 mg/dL (50-300)
[2021-09-13 02:26] LABS: Immunoglobulin E 7 kU/L (<OR=114)
== END 2021-09-07 14:29 | disposition home or self-care (01) ==
LOC: HO.US 14:28
PROVIDERS: PCP Internal Medicine; Visit Provider Hospitalist
DX: R91.1 Solitary pulmonary nodule (principal); M79.89 Other specified soft tissue disorders; J90 Pleural effusion, not elsewhere classified; E78.00 Pure hypercholesterolemia, unspecified; R79.89 Other specified abnormal findings of blood chemistry; R53.83 Other fatigue; Z01.84 Encounter for antibody response examination
CPT/HCPCS: 36415; 80048; 80061; 82784; 82785; 84439; 84443; 85025; 85379; 85652; 86769; 93971

== ENCOUNTER 2021-09-15 12:58 | Day surgery (SDC) | payer MEDICARE, MEDICAID, SELFPAY ==
[2021-09-11 10:21] VITALS: BMI 29.7
[2021-09-11 15:15] VITALS: BMI 29.7
--- NOTE | 2021-09-14 12:08 | P.CONAN_ITS ---
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 Per pulm - stable for anesthesia O2 dependant with activity and sleep PMFSH Active Problems Active Problems: All Active Problems (Updated 09/07/21 @ 21:48 by Demario Branch MD) Pre-op chest exam (Acute) Limb swelling (Acute) Elevated TSH (Acute) Fatigue (Acute) COPD exacerbation (Acute) Encounter for Medicare annual wellness exam (Acute) Pulmonary nodule (Acute) Cancer of upper lobe of right lung (Acute) Status post pneumonectomy (Acute) Dyspnea (Acute) Pleural effusion (Acute) Chronic respiratory failure with hypoxia (Acute) Pleuritis (Acute) D-dimer, elevated (Acute) Aneurysm (Acute) Bilateral lower extremity edema (Acute) Chest pain (Acute) Loculated pleural effusion (Acute) Fever (Acute) COPD (chronic obstructive pulmonary disease) (Acute) Past Medical History Medical History ADD (attention deficit disorder) Aneurysm Bilateral lower extremity edema Brain aneurysm Chest pain Concussion COPD (chronic obstructive pulmonary disease) Elevated TSH Fatigue Fever History of diverticulosis Hx of hepatitis C Limb swelling Loculated pleural effusion Lung cancer On home oxygen therapy Pre-op chest exam SOB (shortness of breath) Tachycardia Family History Family History Mother Skin cancer Diabetes Thyroid disease Sister Diabetes Skin cancer Tubular adenoma Thyroid disease Daughter Skin cancer Diabetes Family history of problems with anesthesia: No Surgical History Surgical History H/O colonoscopy with polypectomy H/O colonoscopy with polypectomy H/O endoscopy History of esophagogastroduodenoscopy (EGD) History of thoracic surgery Hx of cataract extraction Hx of cholecystectomy S/P biopsy Status post thoracentesis (~10/19/20) History of Problems with Anesthesia: No Social History Social History Household Members: None Housing: Unknown / Unable to assess Alcohol intake: current Alcohol intake frequency: a few times a week Patient Tobacco Use Status: Former Tobacco user Quit Date: 07/2020 Tobacco use type: Cigarette Years Smoked: since mid twenties Use of substances other than those prescribed or required for medical reasons: No Advance Directives: No Advance Directives Information Provided: Yes Advance Directives on File: No service: No Current occupational status: retired Meds Allergies Allergy/AdvReac Type Severity Reaction Status Date / Time hydrocodone [From Vicodin] Allergy Severe Rash/Hives Verified 09/11/21 15:11 Influenza Virus Vaccines Allergy Severe Rash/Hives Verified 09/11/21 15:11 gabapentin AdvReac Intermediate Anxiety Verified 09/11/21 15:11 Home Medications Medication Instructions Recorded Confirmed Last Taken Type venlafaxine 75 mg capsule,extended 1 cap PO DAILY 09/07/20 09/11/21 10/19/20 08:00 History release 24 hr trazodone 50 mg tablet 50 mg PO BEDTIME 10/14/20 09/11/21 Unknown History furosemide 20 mg tablet 20 mg PO DAILY@1600 PRN 11/30/20 09/11/21 Unknown History lorazepam 1 mg tablet 1 mg PO DAILY PRN 02/07/21 09/11/21 Unknown History methylphenidate HCl 10 mg tablet 10 mg PO DAILY PRN 04/13/21 09/11/21 Unknown History budesonide 0.5 mg/2 mL suspension 1 mg INHALATION BEDTIME 05/12/21 09/11/21 Unknown History for nebulization ipratropium 0.5 mg-albuterol 3 mg 3 ml INHALATION Q6H PRN 05/12/21 09/11/21 Unknown History (2.5 mg base)/3 mL nebulization soln furosemide 40 mg tablet 40 mg PO DAILY@0730 tab 09/07/21 09/11/21 Unknown History morphine 15 mg tablet,extended 15 mg PO BID 09/11/21 09/11/21 Unknown History release Exam Exam Date and Time: September 14, 2021 1208 Height,Weight and Vital Signs: Height 5 ft 6 in Weight 83.461 kg Pertinent Lab Results Pertinent Lab Results: Laboratory Tests 09/07/21 09/07/21 16:27 16:27 WBC 3.3 L Hgb 11.9 L Hct 35.3 L Plt Count 98 L Sodium 139 Potassium 3.8 Chloride 101 Carbon Dioxide 30 H BUN 8 L Creatinine 0.66 Assessment and Plan Assessment Anesthesia Assessment: Chart Reviewed Final Anesthetic Review Family History of Problems with Anesthesia: No History of Problems with Anesthesia: No Documented by User: Kandis Stacy MD 09/15/21 15:04 [facility] Past Medical History Medical History ADD (attention deficit disorder) Aneurysm Bilateral lower extremity edema Brain aneurysm Chest pain Concussion COPD (chronic obstructive pulmonary disease) Elevated TSH Fatigue Fever History of diverticulosis Hx of hepatitis C Limb swelling Loculated pleural effusion Lung cancer On home oxygen therapy Pre-op chest exam SOB (shortness of breath) Tachycardia Family History Family History Mother Skin cancer Diabetes Thyroid disease Sister Diabetes Skin cancer Tubular adenoma Thyroid disease Daughter Skin cancer Diabetes Surgical History Surgical History H/O colonoscopy with polypectomy H/O colonoscopy with polypectomy H/O endoscopy History of esophagogastroduodenoscopy (EGD) History of thoracic surgery Hx of cataract extraction Hx of cholecystectomy S/P biopsy Status post thoracentesis (~10/19/20) Social History Social History Household Members: None Housing: Unknown / Unable to assess Alcohol intake: current Alcohol intake frequency: a few times a week Patient Tobacco Use Status: Former Tobacco user Quit Date: 07/2020 Tobacco use type: Cigarette Years Smoked: since mid twenties Use of substances other than those prescribed or required for medical reasons: No Advance Directives: No Advance Directives Information Provided: Yes Advance Directives on File: No service: No Current occupational status: retired Meds Allergies Allergy/AdvReac Type Severity Reaction Status Date / Time hydrocodone [From Vicodin] Allergy Severe Rash/Hives Verified 09/11/21 15:11 Influenza Virus Vaccines Allergy Severe Rash/Hives Verified 09/11/21 15:11 gabapentin AdvReac Intermediate Anxiety Verified 09/11/21 15:11 Home Medications Medication Instructions Recorded Confirmed Last Taken Type venlafaxine 75 mg capsule,extended 1 cap PO DAILY 09/07/20 09/11/21 10/19/20 08:00 History release 24 hr trazodone 50 mg tablet 50 mg PO BEDTIME 10/14/20 09/11/21 Unknown History furosemide 20 mg tablet 20 mg PO DAILY@1600 PRN 11/30/20 09/11/21 Unknown History lorazepam 1 mg tablet 1 mg PO DAILY PRN 02/07/21 09/11/21 Unknown History methylphenidate HCl 10 mg tablet 10 mg PO DAILY PRN 04/13/21 09/11/21 Unknown History budesonide 0.5 mg/2 mL suspension 1 mg INHALATION BEDTIME 05/12/21 09/11/21 Unknown History for nebulization ipratropium 0.5 mg-albuterol 3 mg 3 ml INHALATION Q6H PRN 05/12/21 09/11/21 Unknown History (2.5 mg base)/3 mL nebulization soln furosemide 40 mg tablet 40 mg PO DAILY@0730 tab 09/07/21 09/11/21 Unknown History morphine 15 mg tablet,extended 15 mg PO BID 09/11/21 09/11/21 Unknown History release Exam Airway Mallampati Class: II TM Dist: >3cm Neck ROM: Full Partial: Upper and Lower Loose/Missing/Broken Teeth: Yes, Upper and Lower Heart: RRR Lungs: CTA Assessment and Plan Assessment Anesthesia Assessment: Anesthesia Plan Discussed Final Anesthetic Review NPO: Yes ASA Class: III Final Preanesthetic Review: Meds/Allgs Chart Reviewed, Consent Obtained/Reviewed and Anes Risks/Benef Reviewed Patient Risk: Intermediate Procedure Risk: Intermediate Anesthetic Plan Anesthetic Plan: MAC: Disposition: Standard PACU
[2021-09-15] VITALS (10 sets, daily range): BP systolic 119–153; BP diastolic 42–70; PULSE 71–89; RESP 16–21; TEMP 36.4–37.6; O2SAT 94–100
[2021-09-15] MEDS: Albuterol Sulfate (0.083%) 2.5 MG/3 ML VIAL.NEB INHALE (13:21)
--- NOTE | 2021-09-15 17:04 | PM.OP ---
Brief Operative Note Date of Service: 09/15/21 Pre-op diagnosis: Cirrhosis, Screening Post-op diagnosis: other (Esophageal varices, Gastritis, Colon polyps) Procedure: EGD with biopsy, Colonoscopy to cecum and TI with hot snare polypectomies x 3, placement of Resolution clips, and marking with submucosal ink at the distal transverse colon polypectomy site Surgeon: Nathen Melgoza Anesthesia: MAC Was an Contract Law Specialist used for this Procedure?: No Estimated blood loss (mL): 3.0 Pathology: other (A. Gastric antrum B. Proximal transverse colon polyp C. Ascending colon polyp D. Distal transverse colon polyp at 60cm) Condition: stable Disposition: PACU
[2021-09-15] MEDS: ondansetron HCL 4 MG/2 ML VIAL IVPUSH (17:14)
--- NOTE | 2021-09-16 03:30 | OP_ITS ---
SURGEON: Nathen Melgoza MD INDICATIONS: The patient presents for evaluation of underlying chronic liver disease in relation to hepatitis C, nausea, personal history of tubular adenomas of the colon, and colorectal cancer screening. Full consent was obtained from her for both procedures, including risks of bleeding and perforation. PREOPERATIVE DIAGNOSIS: POSTOPERATIVE DIAGNOSIS: PROCEDURE PERFORMED: ESTIMATED BLOOD LOSS: COMPLICATIONS: ANESTHESIA: Medication used, monitored anesthesia care. ASSISTANTS: SPECIMENS: PREOPERATIVE DIAGNOSES: Nausea, history of chronic liver disease in relation to hepatitis C, history of tubular adenoma of the colon, and colorectal cancer screening. POSTOPERATIVE DIAGNOSES: Nausea, history of chronic liver disease in relation to hepatitis C, history of tubular adenoma of the colon, colorectal cancer screening, nonbleeding grade 1 to 2 esophageal varices, hiatal hernia, gastritis, colon polyps, diverticulosis, internal hemorrhoids. PROCEDURES PERFORMED: Esophagogastroduodenoscopy with biopsies, and colonoscopy to the cecum and terminal ileum with hot snare polypectomy, placement of resolution clips, and marking with submucosal ink. DESCRIPTION OF PROCEDURE: The patient was placed in the left lateral decubitus position. The Olympus video gastroscope was passed in the posterior oropharynx and upper esophagus under direct vision. The scope was passed slowly to the distal esophagus. The gastroesophageal junction appeared at 36 cm. Extending from this to approximately 30 cm, was a chain of a grade 1 to 2 esophageal varix with no stigmata of recent nor active bleeding. There was no esophagitis. The scope entered into the stomach. There was a small hiatal hernia. The scope was advanced to the pylorus, and the duodenum was cannulated to the descending portion. The duodenum including the bulb appeared normal without mass or ulceration. The scope was withdrawn back into the stomach. The gastric antrum had areas of erythema, edema, and some friability. There were no erosions or ulceration. Biopsies were obtained from the gastric antrum. There was good peristalsis. The scope was retroflexed visualizing the proximal stomach carefully, which appeared normal, without any sign of varices, gastropathy, ulceration, nor mass. The scope was straightened and withdrawn back to the esophagus. There was no evidence of any esophagitis. The scope was withdrawn from the patient. She was turned around for the colonoscopy. The digital rectal exam revealed no abnormalities. The Olympus video pediatric colonoscope was entered into the rectum and advanced easily to the cecum. Once in the cecum, I did identify a normal-appearing cecal pouch with appendiceal orifice and a normal-appearing ileocecal valve. The terminal ileum was cannulated and appeared normal. The scope was withdrawn back in the colon. The entire cecum and ileocecal valve appeared normal. The scope was slowly withdrawn assessing all mucosal surfaces carefully. Preparation was excellent. In the ascending colon, was an approximately 1.5 to 2 cm polyp, which was snared and removed in piecemeal fashion. The largest piece was recovered with the retrieval net and withdrawn from the patient. Smaller pieces were recovered by suction.The scope was advanced back to the polypectomy site. Post-polypectomy, there did not appear to be any residual polyp tissue nor bleeding. I did place a single resolution clip on the polypectomy site with good deployment and good hemostasis. In the proximal transverse colon, was an approximately 12 mm polyp, which was snared and recovered by suction. This was also snared in a piecemeal fashion with a hot snare. The polypectomy site appeared clean, without any sign of residual polyp nor bleeding. The polypectomy site was clipped once with a resolution clip with good deployment and good hemostasis. In the distal transverse colon, at approximately 60 cm, was a large grossly adenomatous, but benign polyp. Overall, it measured approximately 1.5 x 3 cm. It was raised. The majority of this was removed in piecemeal fashion with the largest pieces recovered with the retrieval net and withdrawing it from the patient. The scope was advanced back to the polypectomy site. Small pieces were recovered by suction. Post-polypectomy, there did not appear to be any definitive residual polyp nor bleeding. A submucosal ink gabe was placed just proximal and just distal to the lesion with good marking noted. I did deploy 4 resolution clips on the polypectomy site which, for the most part, led to good closure and good opposition of the opposite sides of the polypectomy site. There is good deployment and good hemostasis. I did not visualize any other polyps, colitis, or angiodysplasia. There was a moderate amount of sigmoid diverticulosis. In the rectum, the scope was retroflexed visualizing internal hemorrhoids, but no other pathology. The rectal mucosa appeared normal. The scope was straightened and withdrawn from the patient. She tolerated the procedure well and was returned to the recovery area in stable condition. IMPRESSION: 1. Colon polyps, status post snare polypectomy with placement of resolution clips and marking with submucosal ink. 2. Diverticulosis. 3. Internal hemorrhoids. 4. Nonbleeding esophageal varices. 5. Hiatal hernia. 6. Gastritis. PLAN: The results of biopsies will be checked. I will plan for a repeat colonoscopy in about 6 months depending upon the biopsy results, but we will have her see me in the office within 2 to 3 months. I shall start her on omeprazole 20 mg daily. She was advised to continue her lactulose and/or MiraLAX for her chronic constipation. She was advised not to use any aspirin and NSAIDs long-term. She did have a positive hepatitis C viral load, and she has been advised of this with need for eventual treatment with a medication such as Harvoni given her underlying chronic liver disease so as to prevent further progression of liver disease. We did send her lab slip to check a hepatitis C genotype and other laboratories as well. She will be seen within 2 to 3 months for a followup visit in that regard, but if possible we will start her on the hepatitis C medication prior to that. This has all been discussed with the patient and her daughter today in detail. MD BRYANT Perry/REJI / [id number] MTDD
== END 2021-09-15 19:35 | disposition home or self-care (01) ==
PROVIDERS: PCP Internal Medicine; Visit Provider Internal Medicine
PROC: (CPT 45385; principal; 2021-09-15 14:10)
DX: Z12.11 Encounter for screening for malignant neoplasm of colon (principal); Z86.010 Personal history of colon polyps; D12.3 Benign neoplasm of transverse colon; D12.2 Benign neoplasm of ascending colon; K57.30 Diverticulosis of large intestine without perforation or abscess without bleeding; K64.8 Other hemorrhoids; B18.2 Chronic viral hepatitis C; K59.00 Constipation, unspecified; K29.50 Unspecified chronic gastritis without bleeding; I85.00 Esophageal varices without bleeding; K44.9 Diaphragmatic hernia without obstruction or gangrene; J44.9 Chronic obstructive pulmonary disease, unspecified; F32.9 Major depressive disorder, single episode, unspecified; F98.8 Other specified behavioral and emotional disorders with onset usually occurring in childhood and adolescence; Z79.899 Other long term (current) drug therapy; Z90.49 Acquired absence of other specified parts of digestive tract; Z86.79 Personal history of other diseases of the circulatory system; Z85.118 Personal history of other malignant neoplasm of bronchus and lung; Z92.3 Personal history of irradiation; Z99.81 Dependence on supplemental oxygen; Z87.891 Personal history of nicotine dependence
CPT/HCPCS: 45385; 45381; 43239; 88305; 88342; J2405

== ENCOUNTER 2021-09-20 15:46 | Outpatient (REF) | payer MEDICARE, SELFPAY ==
[2021-09-20 18:41] LABS: Alanine Aminotransferase 40 U/L (0-31); Alkaline Phosphatase 78 U/L (39-117); Anion Gap 12 (12-20); Aspartate Amino Transferase 36 U/L (5-31); Bilirubin Direct 0.3 mg/dL (0.0-0.5); Bilirubin Total 0.7 mg/dL (0.0-1.0); Blood Urea Nitrogen 8 mg/dL (9-16); Calcium 8.5 mg/dL (8.4-10.2); Carbon Dioxide 30 mmol/L (22-29); Chloride 103 mmol/L (96-108); Estimated Glomerular Filt Rate > 60; Glucose Random 116 mg/dL (60-115); Potassium 3.7 mmol/L (3.3-5.1); Sodium 141 mmol/L (135-145); Total Protein 6.8 g/dL (6.5-8.0)
[2021-09-21 10:18] LABS: HBS Num1 28.03 mIU/mL (0-7.99); HBc Num1 10.16 S/CO (0.00-0.79); ~Hepatitis B Surface Antibody REACTIVE (Nonreactive)
[2021-09-21 10:36] LABS: HBsAGNum1 0.16 S/CO (0.00-0.99); Hepatitis B Surface Antigen Negative (Negative)
[2021-09-21 11:40] LABS: HBc Num2 10.16 S/CO; Hepatitis B Core Antibody Reactive (Nonreactive)
[2021-09-21 12:29] LABS: Hepatitis A Antibody IgG Nonreactive (Nonreactive); ~Hepatitis A Antibody IgG 0.26 S/CO (0.00-0.99)
[2021-09-26 12:31] LABS: Alpha Fetoprotein 2.4 ng/mL
[2021-09-27 08:47] LABS: Hepatitis C Genotype 1a
[2021-09-28 16:27] LABS: FIB-ALT 33 U/L (6-29); FIB-Alpha-2-Macroglobulin 225 mg/dL (106-279); FIB-Apolipoprotein A1 171 mg/dL (101-198); FIB-GGT 16 U/L (3-65); FIB-Haptoglobin 88 mg/dL (43-212); FIB-Total Bilirubin 0.5 mg/dL (0.2-1.2); Liver Fibrosis Score 0.25; Liver Fibrosis Stage F0-F1; Nec Inflam Act Grade A0; Nec Inflam Act Score 0.16
== END 2021-09-20 15:47 | disposition home or self-care (01) ==
LOC: HO.LAB 15:46
PROVIDERS: PCP Internal Medicine; Visit Provider Internal Medicine
DX: B18.2 Chronic viral hepatitis C (principal)
CPT/HCPCS: 36415; 80053; 81596; 82105; 82248; 86704; 86706; 86708; 87340; 87902

== ENCOUNTER → 2021-10-30 14:52 | Outpatient (BNVA) | payer MEDICARE, MEDICAID, SELFPAY | PROVIDERS: PCP Internal Medicine; Referring Provider Internal Medicine; Visit Provider Internal Medicine Cardiovascular Disease | DX: R06.02 Shortness of breath (principal); R00.2 Palpitations | CPT/HCPCS: 93005; 99202 ==

== ENCOUNTER → 2021-11-24 11:31 | Outpatient (REF) | payer MEDICARE, SELFPAY | LOC: HO.CARD 11:31 | PROVIDERS: PCP Internal Medicine; Visit Provider Internal Medicine Cardiovascular Disease | DX: Z13.89 Encounter for screening for other disorder (principal) ==

== ENCOUNTER → 2021-12-27 08:26 | Outpatient (REF) | payer MEDICARE, SELFPAY ==
--- NOTE | 2021-12-27 08:30 | CA_ITS ---
Transthoracic Echocardiogram Patient (Last, First, Middle): Valeria Machado, Gender: Female Date of : 1950 Age: 71 Procedure Date: 12/27/2021 Procedure Type: Transthoracic Echocardiogram Location: OP Height: 167.64 cm Weight: 86.18 kg BSA: 1.96 m2 Heart Rate: bpm BP: 118 / 60 mmHg Secondary Connector Armature: Referring MD: Klaus Bonds MD Adjunct Professor Of Law: Klaus Bonds MD Symptoms: R06.02 - Shortness of breath Study Quality: Fair ECG Rhythm: Sinus Conclusions: - 1. Normal LV systolic function with impaired relaxation filling pattern 2. Mild mitral annular calcification with normal cardiac valvular Doppler 3. No gross pericardial effusion Findings Left Ventricle Normal left ventricular size, thickness, and systolic function. The visually estimated ejection fraction is between 60-65%. Regional wall motion abnormalities can not be excluded due to suboptimal endocardial definition. Spectral Doppler is indicative of an impaired relaxation filling pattern. Right Ventricle Normal right ventricular cavity size and systolic function. Atria Both atria are normal in size. There is lipomatous hypertrophy of the interatrial septum. There is no evidence of interatrial shunt. Aortic Valve The aortic valve was not well visualized. There is no aortic valve stenosis. There is no aortic valve regurgitation. Mitral Valve There is mild anterior and posterior mitral leaflet thickening. There is mild mitral annular calcification. There is trace mitral valve regurgitation. There is no mitral valve stenosis. Pulmonic Valve The pulmonic valve was not well visualized. Tricuspid Valve The tricuspid valve was not well visualized. There is no tricuspid valve regurgitation. Tricuspid regurgitation envelope is inadequate for calculation of right ventricular systolic pressure. Great Vessels The aorta was not well visualized. The pulmonary artery was not well visualized. Venous The inferior vena cava was not well visualized. Pericardium/Pleural There is no evidence of pericardial effusion. Prior Study Comparison No significant change compared to prior study. Measurements 2D Linear Measurements IVSd: 0.97 0.6-0.9/0.6-1.0 cm LVIDd: 3.36 3.9-5.3/4.2-5.9 cm LVIDd Index: 1.71 2.4-3.2/2.2-3.1 cm/m2 LVIDs: 2.15 2.0-3.6 cm LVPWd: 1.05 0.7-1.1 cm Ao Root: 2.40 2.1-3.5 cm LA Diam: 3.40 2.7-3.8/3.0-4.0 cm LAIDs Index: 1.73 1.5-2.3 cm/m2 LV Mass: 168.76 67-162/88-224 g LV Mass Index: 86.10 43-95/49-115 g/m2 LVOT Diam: 1.90 3.0+(-)1.3 cm Mitral Valve MV Pk E: 0.92 MV PK A: 1.21 MV Decel Time: 233.00 E/A: 0.80 E'Lateral: 6.31 E'Medial: 5.66 E/E' Med: 16.30 E/E' Lat: 14.60 PHT: 68.00 MVA PHT: 3.24 [place]: 3.95 Aortic Valve AoV Pk Hector: 1.98 AoV Mn Hector: 1.21 AoV VTI: 0.39 AoV Pk Grad: 16.00 Aov Mn Grad: 7.00 ROMANA Cont.VTI: 2.50 LVOT LVOT Pk Hector: 1.54 LVOT Mn Hector: 1.02 LVOT VTI: 0.35 LVOT Pk Grad: 9.00 LVOT Mn Grad: 5.00 LVOT Diam: 1.90 LVOT Area: 2.84 Diastolic Function MV Pk E: 0.92 MV Pk A: 1.21 E/A: 0.80 E'Medial: 5.66 E/E' Med: 16.30 E' Laterial: 6.31 E/E' Lat: 14.60 Right Ventricle TAPSE (mm): 33.00 TVS' Hector: 18.00 Great Vessels Aorta Ao Root-2D: 2.40 2.0-3.7 cm Pulmonary Valve PV Pk Hector: 1.37 Peak PV Grad: 8.00 Updated in Other Vendor System with Status of Final Klaus Bonds MD electronically signed on 12/27/2021 1:41:46 PM with status of Final
== END ==
LOC: HO.CARD 08:26
PROVIDERS: PCP Internal Medicine; Visit Provider Internal Medicine Cardiovascular Disease
DX: R06.02 Shortness of breath (principal)
CPT/HCPCS: 93306

== ENCOUNTER → 2021-12-29 15:23 | Outpatient (REF) | payer MEDICARE, SELFPAY ==
--- NOTE | 2021-12-29 15:26 | HM_ITS ---
Conclusion: 1. Patient was monitored for total period of 2 days and 23 hours 2. Baseline was normal sinus rhythm with average heart rate 84 beats per minute 3. No significant pauses or bradycardia noted 4. Nine salvos of 3 beat PVCs at a slow heart rate 1 noted. 5. Total of 18,292 PVCs accounting for 5.1-2% of total burden account for frequent PVCs 6. One SVT episode of 16 beats per minute 7. One reported event correlated with isolated PVCs MTDD
== END ==
LOC: HO.CARD 15:23
PROVIDERS: Visit Provider Internal Medicine Cardiovascular Disease
DX: R00.2 Palpitations (principal)
CPT/HCPCS: 93242

== ENCOUNTER 2022-01-03 16:19 | Outpatient (REF) | payer MEDICARE, SELFPAY ==
--- NOTE | ~2022-01-03 | US_ITS ---
EXAMINATION: US COMPLETE ABDOMEN WITH LIVER ELASTOGRAPHY CLINICAL INFORMATION: Chronic hepatitis C COMPARISON: CT from 07/07/2020 TECHNIQUE: Real-time imaging of the abdominal viscera. Noninvasive ultrasound liver fibrosis assessment is performed using Sheri ElastPQ point quantification shear wave elastography (2D-SWE) with a C5-2 MHz transducer. Multiple elastography samples are obtained. FINDINGS: PANCREAS: Normal. The visualized pancreatic head and body are normal in appearance. The remainder of the pancreas is obscured from visualization by the overlying bowel gas. ABDOMINAL AORTA: The proximal and middle aortic segments are normal in caliber. The distal segment is obscured by gas. INFERIOR VENA CAVA: Visualized portions are normal. LIVER: The liver demonstrates normal size with increased echogenicity. Nodular Contour. No focal lesion or intrahepatic biliary duct dilatation. The right lobe measures 16.2 cm in length. The left lobe measures 14 cm in length. Portal flow is towards the liver (hepatopetal). Shear wave liver elastography median stiffness is 1.5 m/s (reference: normal median stiffness is 1.3 m/s or less). IQR/median stiffness to assess sampling precision is 0.1 (reference: good quality data set is IQR/median stiffness of 0.15 or less). GALLBLADDER: Cholecystectomy. COMMON BILE DUCT: Dilated in caliber measuring 2.2 cm in diameter. RIGHT KIDNEY: Normal. No hydronephrosis. No renal calculi or focal parenchymal lesions. The kidney measures 9.6 cm in maximum dimension. LEFT KIDNEY: Normal. No hydronephrosis. No renal calculi or focal parenchymal lesions. The kidney measures 11.2 cm in maximum dimension. SPLEEN: Enlarged. The spleen measures 14.4 cm in maximum dimension. FREE FLUID: None. US/US abdomen comp w elastography IMPRESSION: 1. Cirrhotic liver. There may be hepatic steatosis versus hepatocellular disease based on increased echogenicity. 2. Liver elastography: In the absence of other known clinical signs, measurements rule out compensated advanced chronic liver disease. If there are known clinical signs, further testing may be needed for confirmation. REFERENCE: Society of Radiologists in Ultrasound Liver Stiffness Thresholds (2020): LIVER STIFFNESS THRESHOLDS: *Liver Stiffness equal or less than 1.3 m/s: High probability of being normal. *Liver Stiffness less than 1.7 m/s: In the absence of other known clinical signs, rules out compensated advanced chronic liver disease. *Liver Stiffness 1.7-2.1 m/s: Suggestive of compensated advanced chronic liver disease but need further test for confirmation. *Liver Stiffness over 2.1 m/s: Rules in compensated advanced chronic liver disease. *Liver Stiffness over 2.4 m/s: Suggestive of clinically significant portal hypertension. QUALITY OF DATA SET: *IQR/Median value equal or less than 0.15 implies a quality data set. *IQR/Median value over 0.15 implies a poor quality data set. SIGNIFICANT CHANGE FROM PRIOR EXAM: Significant change if liver stiffness measurement is 10% or greater from prior exam. OTHER CONSIDERATIONS: The stage of liver fibrosis may be overestimated in the setting of acute hepatitis, liver inflammation, elevated liver function tests, hepatic vascular congestion, obstructive cholestasis, non-fasting state, and infiltrative diseases such as amyloidosis and lymphoma. In some patients with NAFLD, the liver stiffness thresholds for compensated advanced chronic liver disease may be lower. In causes other than viral hepatitis and NAFLD, liver stiffness thresholds are not well established.
== END 2022-01-03 16:20 | disposition home or self-care (01) ==
LOC: HO.US 16:19
PROVIDERS: PCP Internal Medicine; Visit Provider Hospitalist
DX: B18.2 Chronic viral hepatitis C (principal)
CPT/HCPCS: 76705; 76981

== ENCOUNTER → 2022-01-16 11:28 | Outpatient (BNVA) | payer MEDICARE, SELFPAY | PROVIDERS: PCP Internal Medicine; Referring Provider Internal Medicine; Visit Provider Internal Medicine Cardiovascular Disease | DX: R06.02 Shortness of breath (principal); I49.3 Ventricular premature depolarization | CPT/HCPCS: 99212 ==

== ENCOUNTER 2022-01-25 09:30 | Outpatient (REF) | payer MEDICARE, SELFPAY ==
--- NOTE | ~2022-01-25 | MM_ITS ---
EXAMINATION: MM DIAGNOSTIC DIGITAL BREAST TOMOSYNTHESIS, BILATERAL US DIAGNOSTIC ULTRASOUND BREAST, RIGHT CLINICAL INFORMATION: Pain upper right breast. Palpable fullness mid to posterior 12:00 position. Recent family history breast cancer, sister. The lifetime risk of breast cancer based on the Tyrer-Cuzick Model is 6%. COMPARISON: Mammography: 09/23/2018, 08/19/2017, 04/12/2015; CTA chest 06/15/2021. TECHNIQUE: Digital breast tomosynthesis is performed in both the craniocaudal and mediolateral oblique views along with computer-aided detection (CAD). Synthesized 2D images are generated from the tomosynthesis. Ultrasound right breast is targeted to the areas of clinical concern. Patient is able to point to the area of palpable concern at time of imaging. Grayscale imaging and color Doppler are performed without and with harmonics. FINDINGS: There are scattered areas of fibroglandular density (ACR BI-RADS breast composition Category b). There is fine fibronodular parenchymal pattern. Parenchymal distribution is similar to prior exams. There is no interval mass or architectural abnormality or developing density. No abnormal calcifications. No interval duct ectasia or skin thickening or coarsening of the Juan Diego's ligaments. There are no abnormal calcifications. The axilla are unremarkable. Ultrasound demonstrates no cystic or solid mass or architectural abnormality or focal duct ectasia. No skin thickening or edema tracking in soft tissue planes. The chest wall soft tissues appear normal. Results are discussed with the patient at time of visit. MM/MM tomosynthesis diagnostic BI IMPRESSION: -No mammographic evidence of malignancy or inflammatory changes. -Unremarkable right breast ultrasound. ASSESSMENT: BI-RADS 1: Negative RECOMMENDATION: 1. Patient should be managed based on the clinical impression. If clinically indicated, further evaluation may be considered with surgical consult. Decision to proceed with biopsy should be based on clinical grounds and degree of clinical concern. 2. Otherwise, routine annual screening mammography. This patient's information was entered into a reminder system with a target due date for their next mammogram.
== END 2022-01-25 09:31 | disposition home or self-care (01) ==
LOC: HO.MAMMO 09:30
PROVIDERS: Visit Provider Internal Medicine Medical Oncology
DX: N63.15 Unspecified lump in the right breast, overlapping quadrants (principal); N64.4 Mastodynia
CPT/HCPCS: 76641; 77062; 77066

== ENCOUNTER → 2022-04-12 12:42 | Outpatient (BNVA) | payer MEDICARE, MEDICAID, SELFPAY | PROVIDERS: PCP Internal Medicine; Referring Provider Internal Medicine; Visit Provider Internal Medicine Cardiovascular Disease | DX: R06.02 Shortness of breath (principal); I49.3 Ventricular premature depolarization; Z79.899 Other long term (current) drug therapy | CPT/HCPCS: 99212 ==

== ENCOUNTER 2022-06-19 11:55 | Outpatient (REF) | payer MEDICARE, MEDICAID, SELFPAY ==
--- NOTE | ~2022-06-19 | XR_ITS ---
EXAMINATION: XR ABDOMEN KUB CLINICAL INDICATION: Constipation COMPARISON: None TECHNIQUE: AP view of the abdomen. FINDINGS: There does not appear to be a large amount of stool in the colon. No dilated loops of bowel or evidence of free air is seen. No calcifications. Degenerative changes of the spine and hip joints. XR/XR abdomen 1V IMPRESSION: No evidence of constipation.
[2022-06-19 12:29] LABS: MANUAL DIFF FLAG NO
[2022-06-19 13:06] LABS: Basophils Percent Auto 0.3 % (0-2); Eosinophils Absolute Auto 0.1 X10*3/uL (0.0-0.4); Eosinophils Percent Auto 1.9 % (0-4); Hematocrit 37.3 % (37.0-47.0); Hemoglobin 12.2 g/dl (12.0-16.0); Imm Gran Abs Auto 0.01 X10*3/uL (0.00-0.03); Imm Gran Pct Auto 0.3 % (0.0-0.4); Lymphocytes Absolute Auto 0.5 X10*3/uL (1.2-4.9); Lymphocytes Percent Auto 16.9 % (20-40); Mean Corpuscular HGB Conc 32.7 g/dl (31.0-35.0); Mean Corpuscular Hemoglobin 31.2 pg (27.0-33.0); Mean Corpuscular Volume 95.4 fL (80.0-98.0); Mean Platelet Volume 11.1 fL (9.4-12.3); Monocytes Absolute Auto 0.2 X10*3/uL (0.1-1.2); Monocytes Percent Auto 6.7 % (2-11); Neutrophils Absolute Auto 2.3 x10*3/uL (2.0-8.3); Neutrophils Percent Auto 73.9 % (45-73); Red Blood Count 3.91 X10*6/uL (4.20-5.50); Red Cell Distribution Width 12.6 % (11.0-16.0); White Blood Count 3.1 X10*3/uL (4.8-10.8)
[2022-06-19 13:07] LABS: Platelet Count 98 X10*3/uL (160-400)
[2022-06-19 13:28] LABS: Alanine Aminotransferase 64 U/L (0-31); Albumin Level 4.1 g/dL (3.5-5.0); Alkaline Phosphatase 78 U/L (39-117); Anion Gap 13 (12-20); Aspartate Amino Transferase 57 U/L (5-31); Bilirubin Total 0.8 mg/dL (0.0-1.0); Blood Urea Nitrogen 9 mg/dL (9-16); Carbon Dioxide 28 mmol/L (22-29); Chloride 104 mmol/L (96-108); Cholesterol 181 mg/dL; Estimated Glomerular Filt Rate > 60; Glucose Fasting 111 mg/dL (60-99); HDL Cholesterol 75 mg/dL; LDL Cholesterol Calculated 97 mg/dl; Potassium 3.9 mmol/L (3.3-5.1); Sodium 141 mmol/L (135-145); Total Protein 7.3 g/dL (6.5-8.0); Triglycerides 45 mg/dL
[2022-06-19 13:50] LABS: Erythrocyte Sedimentation Rate 22 MM/HR (0-20); TSH reflex Free T4 1.99 uIU/mL (0.32-4.0); Vitamin D 25-OH Total 26.2 ng/mL (>30)
[2022-06-19 14:08] LABS: Cortisol Random 9.4 ug/dL
[2022-06-19 16:45] LABS: Appearance Urine Clear; Color Urine Yellow; Glucose Urine UA Negative (Negative); Leukocyte Esterase Urine Negative (Negative); Nitrite Urine Negative (Negative); Specific Gravity - Urine >= 1.030 (1.005-1.025); Urine Blood Negative (Negative); Urine Ketones Trace mg/dL (Negative); Urine Protein Trace mg/dL (Neg-Trace)
== END 2022-06-19 11:56 | disposition home or self-care (01) ==
LOC: HO.LAB 11:55
PROVIDERS: Absent Provider Internal Medicine; PCP Internal Medicine; Visit Provider Hospitalist
DX: R06.02 Shortness of breath (principal); R53.83 Other fatigue; R91.1 Solitary pulmonary nodule; J90 Pleural effusion, not elsewhere classified; J44.1 Chronic obstructive pulmonary disease with (acute) exacerbation; K59.00 Constipation, unspecified; E55.9 Vitamin D deficiency, unspecified; E78.00 Pure hypercholesterolemia, unspecified; I10 Essential (primary) hypertension
CPT/HCPCS: 36415; 74018; 80053; 80061; 81003; 82306; 82533; 84443; 85025; 85652; 99212

== ENCOUNTER 2022-07-04 18:13 | Emergency (ER) | payer MEDICARE, MEDICAID, SELFPAY ==
--- NOTE | ~2022-07-04 | CT_ITS ---
EXAMINATION: CT CHEST, ABDOMEN AND PELVIS WITH CONTRAST CLINICAL INFORMATION: Chest pain, shortness of breath with abdominal epigastric pain COMPARISON: CT PE study 06/15/2021, CT abdomen pelvis 07/07/2020 TECHNIQUE: Multidetector volumetric imaging was performed from the thoracic inlet through the pubic symphysis following administration of 85 mL of Omnipaque 350. Sagittal and coronal reformatted images were obtained on the technologist's workstation. This CT examination was performed using dose optimization techniques as appropriate, variously including the following: *Automated exposure control *Adjustment of mA and/or kV according to patient size (this includes techniques or standardized protocols for targeted exams where dose is matched to indication/reason for exam; i.e. extremities or head) *Use of iterative reconstruction technique DLP: 652 mGy-cm FINDINGS: CHEST: Lung: Again seen are changes of right upper lobectomy. No recurrent mass is seen. No pulmonary nodules are detected. Mediastinum: The mediastinum is unremarkable. The central vascular structures are unremarkable. No hilar or mediastinal lymphadenopathy. Pericardium/Pleura: A small right-sided pleural effusion is present and new when compared to the 06/15/2021 CT scan. No left-sided effusion is seen. There is left apical pleural thickening associated with rib destruction and chest wall mass (see below).. Chest Wall/Axilla: Again noted is a destructive lesion involving the left second posterior rib with surrounding soft tissue mass. Appearances are fairly similar to the study from just over one year ago on 06/15/2021. ABDOMEN/PELVIS: Peritoneal Space: No significant free air or free fluid identified. With a nodular contour suggesting cirrhosis. No focal hepatic lesion. Patient status post cholecystectomy with mild prominence of Central bile ducts and common bile duct measuring 1.5 cm. Pancreas: Unremarkable Spleen: The spleen is enlarged measuring 16.2 cm in greatest length. Adrenal Glands: Unremarkable Kidneys and Ureters: The kidneys are normal in size, shape, and attenuation. No hydronephrosis, hydroureter, or calculi seen. No perinephric stranding. Bladder: Empty and cannot be adequately evaluated Gastrointestinal Tract: Extensive sigmoid diverticula are present without definite evidence of diverticulitis. The small and large bowel are unremarkable. The appendix is not identified but there is no evidence of appendicitis. Abdominal Wall: No significant hernia is appreciated. Lymph Nodes: No lymphadenopathy. Vascular: Calcific atherosclerotic changes are present in the aorta and iliac vessels without aneurysm.. The IVC appears unremarkable. PELVIC VISCERA: Unremarkable OSSEUS STRUCTURES: Moderate degenerative changes are noted in the spine. No bony destructive lesions are seen. CT/CT abdomen pelvis w IV con IMPRESSION: 1. Cause for the patient's chest pain and abdominal pain has not been found. 2. There is a new small right-sided pleural effusion. 3. Redemonstration of destructive lesion left second rib with associated pleural/chest wall mass, cirrhotic appearing liver, splenomegaly, sigmoid diverticulosis and degenerative changes in the spine. Fleischner guidelines were followed.
--- NOTE | ~2022-07-04 | XR_ITS ---
EXAMINATION: XR CHEST CLINICAL INFORMATION: Chest pain COMPARISON: Chest x-ray 2020 TECHNIQUE: Frontal view of the chest was obtained. FINDINGS: Chain suture material in the right perihilar region. Minimal linear scarring in the medial right lower lung. No airspace consolidation. No pleural effusion or pneumothorax. Unchanged small opacity at the left lung apex with mild irregular appearance of the adjacent left second rib. Unchanged cardiomediastinal silhouette. No evidence pulmonary edema. No acute osseous injury. Partially imaged fixation screw in the right humerus. XR/XR chest 1V IMPRESSION: 1. No acute pulmonary process. 2. Unchanged left apical opacity and mottled lucency and irregularity of the left second rib.
[2022-07-04 18:19] VITALS: BP 140/71; PULSE 78; RESP 189; TEMP 36.8; O2SAT 97; BMI 30.7
--- NOTE | 2022-07-04 18:24 | ECG_ITS ---
Test Reason : CHEST PAIN Blood Pressure : / mmHG Vent. Rate : 073 BPM Atrial Rate : 073 BPM P-R Int : 162 ms QRS Dur : 076 ms QT Int : 448 ms P-R-T Axes : 043 009 079 degrees QTc Int : 493 ms Normal sinus rhythm Septal infarct (cited on or before 15-JUN-2021) T wave abnormality, consider anterior ischemia Abnormal ECG When compared with ECG of 15-JUN-2021 13:50, T wave inversion now evident in Anteroseptal leads Referred By: Generic ED Physician Electronically Signed By:LUDIN HUYNH
[2022-07-04 19:39] LABS: Basophils Percent Auto 0.5 % (0-2); Hemoglobin 12.2 g/dl (12.0-16.0); Imm Gran Abs Auto 0.01 X10*3/uL (0.00-0.03); Imm Gran Pct Auto 0.2 % (0.0-0.4); Mean Corpuscular Volume 95.6 fL (80.0-98.0); Monocytes Absolute Auto 0.4 X10*3/uL (0.1-1.2); PLT CLUMP 1; Red Cell Distribution Width 12.2 % (11.0-16.0); SCAN SMEAR FLAG 1
[2022-07-04 19:41] LABS: Eosinophils Absolute Auto 0.1 X10*3/uL (0.0-0.4); Eosinophils Percent Auto 1.4 % (0-4); Hematocrit 37.1 % (37.0-47.0); Lymphocytes Absolute Auto 0.7 X10*3/uL (1.2-4.9); Lymphocytes Percent Auto 16.8 % (20-40); Mean Corpuscular HGB Conc 32.9 g/dl (31.0-35.0); Mean Corpuscular Hemoglobin 31.4 pg (27.0-33.0); Monocytes Percent Auto 8.6 % (2-11); Neutrophils Absolute Auto 3.2 x10*3/uL (2.0-8.3); Neutrophils Percent Auto 72.5 % (45-73); Red Blood Count 3.88 X10*6/uL (4.20-5.50)
[2022-07-04 19:42] LABS: White Blood Count 4.4 X10*3/uL (4.8-10.8)
[2022-07-04 19:43] LABS: MANUAL DIFF FLAG NO; Platelet Count 102 X10*3/uL (160-400)
[2022-07-04 19:55] LABS: COVID-19 Test Negative (Negative); IDNOW Serial# 55D5AD1C
[2022-07-04 20:02] LABS: Anion Gap 15 (12-20); Blood Urea Nitrogen 8 mg/dL (9-16); Carbon Dioxide 30 mmol/L (22-29); Chloride 101 mmol/L (96-108); Creatinine Clr Calc Pharmacy 79.2; Estimated Glomerular Filt Rate > 60; Glucose Random 113 mg/dL (60-115); Potassium 3.9 mmol/L (3.3-5.1); Sodium 142 mmol/L (135-145)
[2022-07-04] MEDS: Ondansetron ODT 4 MG TAB.RAPDIS TRANSLINGU (20:08)
[2022-07-04 20:10] LABS: Troponin-I High Sensitivity 13.4 ng/L (<3.5-17.0)
[2022-07-04 20:18] LABS: Appearance Urine Clear; Color Urine Dark Yellow; Glucose Urine UA Negative (Negative); Leukocyte Esterase Urine Trace (Negative); Nitrite Urine Negative (Negative); PH 5.5 (5.0-9.0); Urine Blood Negative (Negative); Urine Ketones Trace mg/dL (Negative); Urine Protein Trace mg/dL (Neg-Trace)
[2022-07-04 20:21] LABS: Bacteria Urine Trace (None Seen); Hyaline Casts Urine 0-2 /LPF (0-2); WBC Urine 0-5 /HPF (0-5)
--- NOTE | 2022-07-04 20:37 | ED.CHESTPAIN ---
HPI - Chest Pain General Chief Complaint: Chest Pain Stated Complaint: chest and abd pain Time Seen by Provider: 07/04/22 20:37 Source: patient Mode of arrival: ambulatory Limitations: no limitations History of Present Illness HPI narrative: 72 year old female hx of anxiety, depression, brain aneurysm, concussion, COPD, lung cancer s/p pnumonectomy who presents with upper abdominal pain. The patient reports that she has chronic upper abdominal pain since her pneumonectomy years ago, however, she recently developed worsening pain in the upper abdomen/ epigastric region. She describes the sensation as a squeezing sensation that wraps around her entire upper abdomen. She states that the pain causes her to have shortness of breath and that she has had some nausea at home. She also reports ongoing constipation for the past few weeks. She reports being worked up for a bowel obstruction recently with a negative KUB. Her last BM was about 5 days ago and she has been passing gas. She was also recently started on Movantik which she states made her feel generally unwell but did cause her to move her bowels. She was also recently started on another medication for bloating and constipation but she has not taken this because her prescription advised not to take this medication with laxatives which she is currently on. She is on morphine at home for chronic pain. Patient denies red flag symptoms of back pain such is urinary/bowel incontinence/retention, weakness, saddle paresthesias, blunt trauma, midline tenderness. Denies chest pain, fevers, chills, vomiting, headache, weakness, dizziness, Related Data Home Medications Medication Instructions Recorded Confirmed trazodone 50 mg tablet 50 mg PO BEDTIME 10/14/20 06/19/22 lorazepam 1 mg tablet 1 mg PO DAILY PRN Anxiety 02/07/21 06/19/22 budesonide 0.5 mg/2 mL suspension 1 mg inhalation BEDTIME 05/12/21 06/19/22 for nebulization ipratropium 0.5 mg-albuterol 3 mg 3 ml inhalation Q6H PRN copd 05/12/21 06/19/22 (2.5 mg base)/3 mL nebulization soln calcium carbonate 600 mg calcium 600 mg PO DAILY 10/30/21 06/19/22 (1,500 mg) tablet (Calcium) cholecalciferol (vitamin D3) 50 50 mcg PO DAILY 10/30/21 06/19/22 mcg (2,000 unit) capsule venlafaxine 75 mg capsule,extended 75 mg PO DAILY 01/16/22 06/19/22 release 24 hr Previous Rx's Medication Instructions Recorded nebulizer and compressor #1 ea 10/07/20 nebulizers #1 ea 12/29/20 furosemide 40 mg tablet 40 mg PO DAILY@0730 30 days #30 10/02/21 tabs lactulose 10 gram/15 mL oral 15 ml PO BEDTIME for constipation 11/07/21 solution #473 mL albuterol sulfate 90 mcg/actuation 2 puff PO Q4H PRN for dyspnea #8.5 12/11/21 aerosol inhaler ea azithromycin 250 mg tablet 250 mg PO 3XW #12 tabs 01/25/22 furosemide 20 mg tablet 60 mg PO DAILY Edema 30 days #90 02/13/22 tabs metoprolol succinate 25 mg 25 mg PO DAILY #90 tabs 04/23/22 tablet,extended release 24 hr (Toprol XL) morphine 15 mg tablet,extended 15 mg PO BID PRN Pain 30 days #60 06/12/22 release tabs Movantik 25 mg tablet (naloxegol) 25 mg PO QAM 30 days #30 tabs 06/18/22 budesonide-formoterol HFA 160 2 puff inhalation BID 30 days 06/19/22 mcg-4.5 mcg/actuation aerosol #10.2 grams inhaler (Symbicort) melatonin 5 mg tablet 10 mg PO BEDTIME PRN sleep 30 days 06/19/22 #60 tabs plecanatide 3 mg tablet (Trulance) 3 mg PO DAILY 30 days #30 tabs 06/29/22 Allergies Allergy/AdvReac Type Severity Reaction Status Date / Time hydrocodone [From Vicodin] Allergy Severe Rash/Hives Verified 06/19/22 11:30 Influenza Virus Vaccines Allergy Severe Rash/Hives Verified 06/19/22 11:30 gabapentin AdvReac Intermediate Anxiety Verified 06/19/22 11:30 Review of Systems Review of Systems: Constitutional : No Weight loss, No Fever, No Chills, + Fatigue, + Malaise ENT/Mouth : No sore throat, No Rhinorrhea Eyes: No Eye Pain, No Swelling, No Redness Cardiovascular : No Chest Pain, + SOB, No Dyspnea on Exertion, No Orthopnea, No Edema, No Palpitations Respiratory : No Cough, No Sputum, No Wheezing Gastrointestinal : + Nausea, + Vomiting, No Diarrhea, No Constipation, + abdominal Pain, No Hematochezia, No Melena Genitourinary : No Dysuria, No Urinary Frequency, No Hematuria, Musculoskeletal : + joint pain, No Myalgias, No Joint Swelling Skin : No Skin Lesions, No rash Neuro : No Weakness, No Numbness, No Dizziness, No Headache Psych : No Anxiety/Panic, No Depression Heme/Lymph: No Bruising, No Bleeding,No Lymphadenopathy Endocrine : No Polyuria, No Polydipsia All other systems reviewed and are negative Yes all other systems are reviewed and are negative [facility] Past Medical History Attestation statement: The following information was validated with the patient. Source: old records reviewed and nursing notes reviewed Medical History ADD (attention deficit disorder) Aneurysm Anxiety Bilateral lower extremity edema Brain aneurysm Chest pain Concussion Constipation COPD (chronic obstructive pulmonary disease) Depression Elevated TSH Fatigue Fever GERD without esophagitis History of diverticulosis Hx of hepatitis C Insomnia Limb swelling Loculated pleural effusion Lung cancer Obesity (BMI 30-39.9) On home oxygen therapy Pre-op chest exam PVCs (premature ventricular contractions) SOB (shortness of breath) Tachycardia Vitamin D deficiency Surgical History H/O colonoscopy with polypectomy H/O colonoscopy with polypectomy H/O endoscopy History of esophagogastroduodenoscopy (EGD) History of thoracic surgery Hx of cataract extraction Hx of cholecystectomy S/P biopsy Status post thoracentesis (~10/19/20) Family History Family History Mother Skin cancer Diabetes Thyroid disease Sister Diabetes Skin cancer Tubular adenoma Thyroid disease Daughter Skin cancer Diabetes Social History Social History Housing: Condominium Are you a primary hospice care consultant to a significant other at home: No Do you presently have visiting nurse or other home services: No Alcohol intake: current Alcohol intake frequency: a few times a week Patient Tobacco Use Status: Former Tobacco user Quit Date: 07/2020 Tobacco use type: Cigarette Years Smoked: 20 +/- Second Hand Smoke Exposure: Yes Advance Directives: No service: No Current occupational status: retired Cognitive needs: No Hearing needs: No Vision needs: Yes Physical Exam Vital Signs: Vital Signs: Last Vital Signs Temp 98.6 F 07/04/22 21:53 Pulse 76 07/04/22 21:53 Resp 16 07/04/22 21:53 BP 151/67 H 07/04/22 21:53 Pulse Ox 95 07/04/22 21:53 O2 Del Method 07/04/22 21:53 BMI result Body Mass Index 30.7 vss To know I think nursing vital signs were entered in error, respiratory rate of 18. All other vital signs stable. Appearance: Alert.? Oriented X3.? No acute distress.? Head: Normocephalic, atraumatic, no step-offs or deformities Eyes: Pupils equal, round and reactive to light.? ENT: Pharynx normal.? Neck: Normal inspection.? Neck supple.? CVS: Normal heart rate and rhythm.? Pulses normal.? Respiratory: No respiratory distress.? Breath sounds normal.? Abdomen: Soft and tenderness to palpation to the epigastric region. Mild lower abdominal tenderness. Normal BS no bruits Skin: Skin warm and dry.? Normal skin color.? Normal skin turgor.? Extremities: No lower extremity edema.? No calf ttp. 5/5 strength to bilateral upper and lower extremities Back: No midline tenderness, no C-spine tenderness, full range of motion, no CVA tenderness bilaterally Neuro: Oriented X 3.? No motor deficit.? No sensory deficit. CN 2-12 intact. Ambulating w/ steadt gait normal cordination. No saddle paresthesias Course Reevaluation(s) Reevaluation #1: Patients CBC at baseline, chemistry with no acute findings requiring intervention, troponin slightly elevated 13.4, will repeat at this time, EKG nonischemic therefore low suspicion for ACS. D-dimer negative, unlikely that this is PE. Urine clean. COVID negative. CXR with no acute process, an an irregularity at the left second rib, will obtain ct of chest. CT of chest and abd and pelvis pending. Time: 22:27 Reevaluation #2: CT of the abdomen and pelvis and chest with this no findings able to explain patient's chest pain and abdominal pain. However, there is a new small right pleural effusion as well as a destructive lesion of the left 2nd rib with associated pleural/chest wall mass and cirrhotic appearing liver, also noted that patient has sigmoid diverticulosis without diverticulitis, discuss these results with patient, provided her with a printout of results. I advised her to follow-up with Dr. Arnold who she routinely follows with. Second trop not meeting delta criteria for acs, unlikley. Time: 23:54 Reevaluation #3: BNP appears to be around patient s baseline. Patient reports symptoms subsided. Went over strict return precautions with patient and advised her to return with any new or worsening symptoms. Outlined these on her discharge. At this time I feel comfortable discharge home with prompt PCP and Hematology Oncology follow-up. Time: 00:01 MDM - Chest Pain MDM Narrative Medical decision making narrative: 2040 72-year-old female presents with multiple complaints including abdominal pain, diarrhea, nausea, vomiting, chest pain, back pain arm numbness times 3 weeks worsening. Patient reports being started on a new medication. Physical examination benign. Neuro exam nonfocal. Cerebellar function intact. Regular rate and rhythm, lungs clear, abdomen soft nontender nondistended. NIH Stroke Scale of 0. GCS 15. I do not suspect stroke, ACS, PE,AAA acute abdomen, hepatic encephalopathy on this patient. Likely viral in origin or gastritis. History and physical examination not consistent with cauda equina or epidural abscess. Plan at this time is to obtain basic labs, urine, chest x-ray, EKG. Medical Records Data Attestation: I reviewed the patient's medical records. Lab Data Attestation: I reviewed the patient's lab results. Result diagrams: 07/04/22 19:17 07/04/22 19:17 Labs: Lab Results 07/04/22 07/04/22 07/04/22 Range/Units 19:17 19:17 19:17 WBC 4.4 L (4.8-10.8) X10*3/uL RBC 3.88 L (4.20-5.50) X10*6/uL Hgb 12.2 (12.0-16.0) g/dl Hct 37.1 (37.0-47.0) % MCV 95.6 (80.0-98.0) fL MCH 31.4 (27.0-33.0) pg MCHC 32.9 (31.0-35.0) g/dl RDW 12.2 (11.0-16.0) % Plt Count 102 L (160-400) X10*3/uL MPV 11.0 (9.4-12.3) fL Immature Gran % (Auto) 0.2 (0.0-0.4) % Neut % (Auto) 72.5 (45-73) % Lymph % (Auto) 16.8 L (20-40) % [place] % (Auto) 8.6 (2-11) % Eos % (Auto) 1.4 (0-4) % Baso % (Auto) 0.5 (0-2) % Lymph # (Auto) 0.7 L (1.2-4.9) X10*3/uL [place] # (Auto) 0.4 (0.1-1.2) X10*3/uL Eos # (Auto) 0.1 (0.0-0.4) X10*3/uL Baso # (Auto) 0.0 (0.0-0.2) X10*3/uL Abs Immat Gran (auto) 0.01 (0.00-0.03) X10*3/uL Absolute Neuts (auto) 3.2 (2.0-8.3) x10*3/uL Absolute Nucleated RBC 0.000 (0.0-0.012) X10*3/uL Nucleated RBC % (auto) 0.0 (0.0-0.2) /100WBC D-Dimer High Sensitivty NG/ML Sodium 142 (135-145) mmol/L Potassium 3.9 (3.3-5.1) mmol/L Chloride 101 (96-108) mmol/L Carbon Dioxide 30 H (22-29) mmol/L Anion Gap 15 (12-20) BUN 8 L (9-16) mg/dL Creatinine 0.72 (0.5-1.4) mg/dL Estim Creat Clear Calc 79.2 Estimated GFR > 60 Random Glucose 113 (60-115) mg/dL Calcium 9.0 (8.4-10.2) mg/dL Troponin I High Sens 13.4 (<3.5-17.0) ng/L B-Natriuretic Peptide (<100) pg/mL Urine Color Urine Appearance Urine pH (5.0-9.0) Ur Specific [place] (1.005-1.025) Urine Protein (Neg-Trace) mg/dL Urine Glucose (UA) (Negative) mg/dL Urine Ketones (Negative) mg/dL Urine Blood (Negative) Urine Nitrite (Negative) Ur Leukocyte Esterase (Negative) Urine RBC (0-2) /HPF Urine WBC (0-5) /HPF Ur Squamous Epith Cells (0-2) /HPF Urine Bacteria (None Seen) Hyaline Casts (0-2) /LPF COVID-19 (PAULA) (Negative) COVID-19 Clin Com 07/04/22 07/04/22 07/04/22 Range/Units 19:17 20:07 21:39 WBC (4.8-10.8) X10*3/uL RBC (4.20-5.50) X10*6/uL Hgb (12.0-16.0) g/dl Hct (37.0-47.0) % MCV (80.0-98.0) fL MCH (27.0-33.0) pg MCHC (31.0-35.0) g/dl RDW (11.0-16.0) % Plt Count (160-400) X10*3/uL MPV (9.4-12.3) fL Immature Gran % (Auto) (0.0-0.4) % Neut % (Auto) (45-73) % Lymph % (Auto) (20-40) % [place] % (Auto) (2-11) % Eos % (Auto) (0-4) % Baso % (Auto) (0-2) % Lymph # (Auto) (1.2-4.9) X10*3/uL [place] # (Auto) (0.1-1.2) X10*3/uL Eos # (Auto) (0.0-0.4) X10*3/uL Baso # (Auto) (0.0-0.2) X10*3/uL Abs Immat Gran (auto) (0.00-0.03) X10*3/uL Absolute Neuts (auto) (2.0-8.3) x10*3/uL Absolute Nucleated RBC (0.0-0.012) X10*3/uL Nucleated RBC % (auto) (0.0-0.2) /100WBC D-Dimer High Sensitivty 179 NG/ML Sodium (135-145) mmol/L Potassium (3.3-5.1) mmol/L Chloride (96-108) mmol/L Carbon Dioxide (22-29) mmol/L Anion Gap (12-20) BUN (9-16) mg/dL Creatinine (0.5-1.4) mg/dL Estim Creat Clear Calc Estimated GFR Random Glucose (60-115) mg/dL Calcium (8.4-10.2) mg/dL Troponin I High Sens (<3.5-17.0) ng/L B-Natriuretic Peptide (<100) pg/mL Urine Color Dark Yellow Urine Appearance Clear Urine pH 5.5 (5.0-9.0) Ur Specific [place] 1.020 (1.005-1.025) Urine Protein Trace (Neg-Trace) mg/dL Urine Glucose (UA) Negative (Negative) mg/dL Urine Ketones Trace (Negative) mg/dL Urine Blood Negative (Negative) Urine Nitrite Negative (Negative) Ur Leukocyte Esterase Trace H (Negative) Urine RBC 3-5 H (0-2) /HPF Urine WBC 0-5 (0-5) /HPF Ur Squamous Epith Cells 11-20 (0-2) /HPF Urine Bacteria Trace (None Seen) Hyaline Casts 0-2 (0-2) /LPF COVID-19 (PAULA) Negative (Negative) COVID-19 Clin Com See Note 07/04/22 Range/Units 22:49 WBC (4.8-10.8) X10*3/uL RBC (4.20-5.50) X10*6/uL Hgb (12.0-16.0) g/dl Hct (37.0-47.0) % MCV (80.0-98.0) fL MCH (27.0-33.0) pg MCHC (31.0-35.0) g/dl RDW (11.0-16.0) % Plt Count (160-400) X10*3/uL MPV (9.4-12.3) fL Immature Gran % (Auto) (0.0-0.4) % Neut % (Auto) (45-73) % Lymph % (Auto) (20-40) % [place] % (Auto) (2-11) % Eos % (Auto) (0-4) % Baso % (Auto) (0-2) % Lymph # (Auto) (1.2-4.9) X10*3/uL [place] # (Auto) (0.1-1.2) X10*3/uL Eos # (Auto) (0.0-0.4) X10*3/uL Baso # (Auto) (0.0-0.2) X10*3/uL Abs Immat Gran (auto) (0.00-0.03) X10*3/uL Absolute Neuts (auto) (2.0-8.3) x10*3/uL Absolute Nucleated RBC (0.0-0.012) X10*3/uL Nucleated RBC % (auto) (0.0-0.2) /100WBC D-Dimer High Sensitivty NG/ML Sodium (135-145) mmol/L Potassium (3.3-5.1) mmol/L Chloride (96-108) mmol/L Carbon Dioxide (22-29) mmol/L Anion Gap (12-20) BUN (9-16) mg/dL Creatinine (0.5-1.4) mg/dL Estim Creat Clear Calc Estimated GFR Random Glucose (60-115) mg/dL Calcium (8.4-10.2) mg/dL Troponin I High Sens 16.2 (<3.5-17.0) ng/L B-Natriuretic Peptide 101 H (<100) pg/mL Urine Color Urine Appearance Urine pH (5.0-9.0) Ur Specific [place] (1.005-1.025) Urine Protein (Neg-Trace) mg/dL Urine Glucose (UA) (Negative) mg/dL Urine Ketones (Negative) mg/dL Urine Blood (Negative) Urine Nitrite (Negative) Ur Leukocyte Esterase (Negative) Urine RBC (0-2) /HPF Urine WBC (0-5) /HPF Ur Squamous Epith Cells (0-2) /HPF Urine Bacteria (None Seen) Hyaline Casts (0-2) /LPF COVID-19 (PAULA) (Negative) COVID-19 Clin Com Critical Care Time Critical Care Time Critical Care Time: No Discharge Plan Discharge Clinical Impression: Pleural effusion, Chest wall mass, Nausea & vomiting, Cirrhosis Patient Disposition: Home, Self-Care Additional Instructions: Take your medications as prescribed. If you were prescribed antibiotics today, it is important that you take your medication to their entirety, do not skip any doses, do not finish them early. Follow-up with your primary care provider this week. Please call Hematology Oncology tomorrow to schedule an appointment to be seen as soon as possible. Return to the emergency department with new or worsening symptoms. Such as fevers, chills, chest pain, shortness of breath, nausea, vomiting, dizziness, headache, vision changes, lethargy In case of emergency call 911 Prescriptions: No Action (DME) nebulizer and compressor Device See Rx Instructions .ROUTE .MEDSUPPLY Qty: 1 0RF Rx Instructions: to use every 4 hours (DME) nebulizers Misc See Rx Instructions .ROUTE .MEDSUPPLY Qty: 1 11RF Rx Instructions: Tubing and mask for nebulizer lactulose 10 gram/15 mL solution 15 ml PO BEDTIME Qty: 473 0RF albuterol sulfate 90 mcg/actuation HFA aerosol inhaler 2 puff PO Q4H PRN (Reason: for dyspnea) Qty: 8.5 12RF azithromycin 250 mg tablet 250 mg PO 3XW Qty: 12 6RF furosemide 20 mg tablet 60 mg PO DAILY 30 Days Qty: 90 0RF Rx Instructions: 40am 20noon extra 20 prn metoprolol succinate [Toprol XL] 25 mg tablet extended release 24 hr 25 mg PO DAILY Qty: 90 3RF morphine 15 mg tablet extended release 15 mg PO BID PRN (Reason: Pain) 30 Days Qty: 60 0RF Trulance 3 mg tablet 3 mg PO DAILY 30 Days Qty: 30 0RF venlafaxine 75 mg capsule,extended release 24hr 75 mg PO DAILY furosemide 40 mg tablet 40 mg PO DAILY@0730 30 Days Qty: 30 3RF Movantik 25 mg tablet 25 mg PO QAM 30 Days Qty: 30 3RF Rx Instructions: must be taken on empty stomach; no food 1 hr after or 2-3 hrs before dose trazodone 50 mg tablet 50 mg PO BEDTIME lorazepam 1 mg tablet 1 mg PO DAILY PRN (Reason: Anxiety) ipratropium-albuterol 0.5 mg-3 mg(2.5 mg base)/3 mL solution for nebulization 3 ml inhalation Q6H PRN (Reason: copd) budesonide 0.5 mg/2 mL suspension for nebulization 1 mg inhalation BEDTIME melatonin 5 mg tablet 10 mg PO BEDTIME PRN (Reason: sleep) 30 Days Qty: 60 6RF budesonide-formoterol [Symbicort] 160-4.5 mcg/actuation HFA aerosol inhaler 2 puff inhalation BID 30 Days Qty: 10.2 11RF cholecalciferol (vitamin D3) 50 mcg (2,000 unit) capsule 50 mcg PO DAILY calcium carbonate [Calcium 600] 600 mg calcium (1,500 mg) tablet 600 mg PO DAILY Referrals: Magan Syed MD [Primary Care Provider] - 2 days Lisa Arnold MD [Physician] - 1 day
[2022-07-04] MEDS: Morphine Sulfate 4 MG/ML CARTRIDGE IVPUSH (21:38)
[2022-07-04 21:53] VITALS: BP 151/67; PULSE 76; RESP 16; TEMP 37; O2SAT 95
[2022-07-04 21:53] LABS: D Dimer High Sensitivity 179 NG/ML
[2022-07-04] MEDS: iohexoL 350 MG/ML 100 ML INFUS..BTL IV (22:12)
[2022-07-04 23:44] LABS: Troponin-I High Sensitivity 16.2 ng/L (<3.5-17.0)
[2022-07-04] MEDS: Magnesium Hydrox/Alum Hydrox 30 ML ORAL.SUSP PO (23:53)
[2022-07-04] MEDS: PHENobarb/Hyoscy/Atropine/Scop 10 ML ELIXIR PO (23:53)
[2022-07-04 23:54] LABS: B Type Natriuretic Peptide 101 pg/mL (<100)
[2022-07-05] VITALS: BP 155/73; PULSE 79; RESP 16; TEMP 36.9; O2SAT 98
== END 2022-07-05 00:23 | disposition home or self-care (01) ==
PROVIDERS: Emergency Medicine; Physician Assistant; Emergency Provider Emergency Medicine; PCP Internal Medicine
DX: J90 Pleural effusion, not elsewhere classified (principal); R22.2 Localized swelling, mass and lump, trunk; M89.9 Disorder of bone, unspecified; K74.60 Unspecified cirrhosis of liver; R11.2 Nausea with vomiting, unspecified; Z20.822 Contact with and (suspected) exposure to COVID-19; R06.02 Shortness of breath; J44.9 Chronic obstructive pulmonary disease, unspecified; Z99.81 Dependence on supplemental oxygen; Z90.49 Acquired absence of other specified parts of digestive tract; Z87.891 Personal history of nicotine dependence; Z85.118 Personal history of other malignant neoplasm of bronchus and lung; Z90.2 Acquired absence of lung [part of]; Z79.899 Other long term (current) drug therapy
CPT/HCPCS: 36415; 71045; 71260; 74177; 80048; 81001; 83880; 84484; 85025; 85379; 87635; 93005; 96374; 99284; J2270; Q9967

== ENCOUNTER 2022-07-13 12:35 | Day surgery (SDC) | payer MEDICARE, MEDICAID, SELFPAY ==
--- NOTE | ~2022-07-13 | CT_ITS ---
PROCEDURE: CT GUIDED BIOPSY, SOFT TISSUE CLINICAL INFORMATION: Irregularity of the left second rib with adjacent soft tissue mass. COMPARISON: 07/04/2022 and 06/15/2021 TECHNIQUE: CT fluoroscopic guided left rib/soft tissue core biopsy. This CT examination was performed using dose optimization techniques as appropriate, variously including the following: *Automated exposure control *Adjustment of mA and/or kV according to patient size (this includes techniques or standardized protocols for targeted exams where dose is matched to indication/reason for exam; i.e. extremities or head) *Use of iterative reconstruction technique DLP: 137 mGy-cm FINDINGS: Informed consent was obtained from the patient prior to the procedure. During this process, the procedure and potential alternatives were explained, along with the intended outcome and benefits. The risks of the procedure, as well as the risk of not doing the procedure, were discussed. The patient was given the opportunity to ask questions regarding the procedure and appeared competent to make medical decisions. A signed consent form which documents this discussion was placed in the medical record. Evaluation of the ribs and soft tissue is similar in appearance to previous study of 06/15/2021 with irregular sclerosis and soft tissue mass involving the left first and second ribs. There is concern for possible malignancy and therefore biopsy was performed. With patient lying prone from posterior approach a 17-gauge guiding needle was directed to the second rib and soft tissue density and four 18-gauge core biopsies were performed of the different regions of the soft tissue mass and area of sclerotic bone. Patient tolerated procedure without difficulty. No postprocedure pneumothorax was present. CONSCIOUS SEDATION: The patient received intravenous conscious sedation under my direct supervision. A registered nurse monitored the patient and the patient's vital signs throughout the procedure. The total sedation time was 30 minutes. A total of 2 mg of Versed and 100 mcg fentanyl was given for good effect. CT/CT biopsy bone superficial IMPRESSION: CT fluoroscopic guided core biopsy of left apical soft tissue mass as described.
[2022-07-13 13:39] VITALS: BP 146/69; PULSE 77; RESP 19; TEMP 36.8; O2SAT 97; BMI 30.9
[2022-07-13 14:19] LABS: Basophils Percent Auto 0.6 % (0-2); Hemoglobin 11.4 g/dl (12.0-16.0); Imm Gran Abs Auto 0.01 X10*3/uL (0.00-0.03); Imm Gran Pct Auto 0.3 % (0.0-0.4); Monocytes Percent Auto 8.3 % (2-11); PLT CLUMP 1; Red Cell Distribution Width 12.5 % (11.0-16.0); SCAN SMEAR FLAG 1
[2022-07-13 14:21] LABS: Eosinophils Absolute Auto 0.1 X10*3/uL (0.0-0.4); Eosinophils Percent Auto 1.8 % (0-4); Hematocrit 34.4 % (37.0-47.0); Lymphocytes Absolute Auto 0.6 X10*3/uL (1.2-4.9); Lymphocytes Percent Auto 18.1 % (20-40); Mean Corpuscular HGB Conc 33.1 g/dl (31.0-35.0); Mean Corpuscular Hemoglobin 31.1 pg (27.0-33.0); Mean Platelet Volume 10.8 fL (9.4-12.3); Monocytes Absolute Auto 0.3 X10*3/uL (0.1-1.2); Neutrophils Absolute Auto 2.3 x10*3/uL (2.0-8.3); Neutrophils Percent Auto 70.9 % (45-73); Red Blood Count 3.66 X10*6/uL (4.20-5.50)
[2022-07-13 14:22] LABS: MANUAL DIFF FLAG NO; White Blood Count 3.3 X10*3/uL (4.8-10.8)
[2022-07-13 14:23] LABS: Platelet Count 87 X10*3/uL (160-400)
[2022-07-13 14:26] LABS: INTERNATIONAL NORM RATIO 1.1 (0.9-1.1); Prothrombin Time 12.1 SEC (10.0-13.1)
[2022-07-13 14:29] LABS: Partial Thromboplastin Time 36.1 SEC (26.0-36.4)
[2022-07-13 17:05] VITALS: BP 134/70; PULSE 87; RESP 18; TEMP 36.4; O2SAT 97
[2022-07-13 17:20] VITALS: BP 151/70; PULSE 79; RESP 18; O2SAT 97
[2022-07-13 17:35] VITALS: BP 142/55; PULSE 80; RESP 18; O2SAT 97
[2022-07-13 17:50] VITALS: BP 131/53; PULSE 74; RESP 18; O2SAT 97
[2022-07-13 18:05] VITALS: BP 132/59; PULSE 76; RESP 18; TEMP 36.4; O2SAT 97
== END 2022-07-13 18:17 | disposition home or self-care (01) ==
PROVIDERS: Radiology Diagnostic Radiology; PCP Internal Medicine; Visit Provider Internal Medicine Medical Oncology
DX: R22.2 Localized swelling, mass and lump, trunk (principal); C34.11 Malignant neoplasm of upper lobe, right bronchus or lung; J44.9 Chronic obstructive pulmonary disease, unspecified; R09.3 Abnormal sputum; Z99.81 Dependence on supplemental oxygen; I49.3 Ventricular premature depolarization; Z79.899 Other long term (current) drug therapy; Z88.8 Allergy status to other drugs, medicaments and biological substances; Z87.891 Personal history of nicotine dependence
CPT/HCPCS: 20220; 36415; 77012; 85025; 85610; 85730; 88305; 88333; 99152; 99153; J2250; J3010

== ENCOUNTER → 2022-07-17 10:31 | Outpatient (REF) | payer MEDICARE, MEDICAID, SELFPAY ==
--- NOTE | ~2022-07-17 | NM_ITS ---
EXAMINATION: NM BONE SCAN OF THE WHOLE BODY CLINICAL INFORMATION: A 72-year-old female found to have destructive/sclerotic left second rib and soft tissue mass on CT scan of the chest done on 07/04/2022. COMPARISON: CT of the chest done on 07/04/2022. TECHNIQUE: Multiple gamma scintillation camera images of the whole body were performed 2.5 hours following the intravenous administration of 30 mCi Tc-99m MDP. FINDINGS: In the head, no suspicious focal lesion. In the thoracic cage and upper extremities, no suspicious focal lesion. No definite abnormal decrease or increase radiotracer activity is present corresponding to the site of previously detected left-sided secondary on these planar images. In the spine, mild scoliosis and mild multilevel degenerative spondylosis related changes are noted at the thoracolumbar spine. In the pelvis, no suspicious focal lesion. In the lower extremities, mildly increased radiotracer activities are present at at mid foot bilaterally, likely represent posttraumatic and/or degenerative changes. No other definite bony abnormalities are noted. The urinary bladder and faint visualization of both kidneys are noted. NM/NM bone scan whole body IMPRESSION: No planar scintigraphic evidence of osseous metastatic disease.
== END ==
LOC: HO.NUCMED 10:31
PROVIDERS: PCP Internal Medicine; Visit Provider Internal Medicine Medical Oncology
DX: C34.11 Malignant neoplasm of upper lobe, right bronchus or lung (principal)
CPT/HCPCS: 78306; A9503

== ENCOUNTER 2022-08-28 15:28 | Outpatient (REF) | payer MEDICARE, SELFPAY ==
--- NOTE | ~2022-08-28 | US_ITS ---
EXAMINATION: US VENOUS WITH DOPPLER UPPER EXTREMITY, RIGHT CLINICAL INFORMATION: Swelling COMPARISON: None TECHNIQUE: Ultrasound of the upper extremity is performed using compression sonography and color and pulse Doppler flow with assessment of augmentation of flow. There is also imaging and Doppler assessment of the jugular and subclavian veins. Spectral analysis with color-flow imaging is performed. FINDINGS: The right internal jugular, subclavian, axillary, brachial, basilic and cephalic veins are patent. Radial and ulnar veins in the forearm are patent. There is no evidence of DVT. US/US venous duplex UE RT IMPRESSION: No DVT demonstrated in the right upper extremity
== END 2022-08-28 15:29 | disposition home or self-care (01) ==
LOC: HO.US 15:28
PROVIDERS: PCP Internal Medicine; Visit Provider Internal Medicine Medical Oncology
DX: M79.89 Other specified soft tissue disorders (principal)
CPT/HCPCS: 93971

== ENCOUNTER → 2022-09-26 11:00 | Outpatient (BNVA) | payer MEDICARE, SELFPAY | PROVIDERS: PCP Internal Medicine; Visit Provider Hospitalist | DX: Z23 Encounter for immunization (principal); J44.1 Chronic obstructive pulmonary disease with (acute) exacerbation; J90 Pleural effusion, not elsewhere classified; R06.02 Shortness of breath; R53.83 Other fatigue; R91.1 Solitary pulmonary nodule | CPT/HCPCS: 90471; 90677; 99212 ==

== ENCOUNTER 2022-11-16 12:32 | Day surgery (SDC) | payer MEDICARE, SELFPAY ==
[2022-11-16 12:39] VITALS: BMI 31.9
--- NOTE | 2022-11-16 12:56 | P.CONAN_ITS ---
HPI - Anesthesia Eval Consult details Narrative: pPresents for screening colonoscopy PMFSH Active Problems Active Problems: All Active Problems (Updated 11/15/22 @ 08:46 by Mariajose Silverman RN) Pulmonary nodule (Acute) Cancer of upper lobe of right lung (Acute) Status post pneumonectomy (Acute) Dyspnea (Acute) Pleural effusion (Acute) Chronic respiratory failure with hypoxia (Acute) Pleuritis (Acute) D-dimer, elevated (Acute) Encounter for Medicare annual wellness exam (Acute) COPD exacerbation (Acute) SOB (shortness of breath) on exertion (Acute) Congestion of left ear (Acute) COPD (chronic obstructive pulmonary disease) case management patient (Acute) Obesity (BMI 30-39.9) (Acute) Depression (Acute) Anxiety (Acute) Insomnia (Acute) GERD without esophagitis (Acute) Constipation (Acute) Vitamin D deficiency (Acute) PVCs (premature ventricular contractions) (Acute) Pre-op chest exam (Acute) Limb swelling (Acute) Elevated TSH (Acute) Fatigue (Acute) Aneurysm (Acute) Bilateral lower extremity edema (Acute) Chest pain (Acute) Loculated pleural effusion (Acute) Fever (Acute) COPD (chronic obstructive pulmonary disease) (Acute) Past Medical History Medical History (Updated 11/15/22 @ 08:46 by Mariajose Silverman RN) ADD (attention deficit disorder) Aneurysm Anxiety Bilateral lower extremity edema Brain aneurysm Chest pain Concussion Constipation COPD (chronic obstructive pulmonary disease) COPD (chronic obstructive pulmonary disease) case management patient Depression Elevated TSH Esophageal varices Fatigue Fever GERD without esophagitis Hepatitis C History of diverticulosis Hx of hepatitis C Insomnia Limb swelling Loculated pleural effusion Lung cancer Obesity (BMI 30-39.9) On home oxygen therapy Pre-op chest exam PVCs (premature ventricular contractions) SOB (shortness of breath) Tachycardia Vitamin D deficiency Family History Family History Mother Skin cancer Diabetes Thyroid disease Sister Diabetes Skin cancer Tubular adenoma Thyroid disease Daughter Skin cancer Diabetes Family history of problems with anesthesia: No Surgical History Surgical History H/O colonoscopy with polypectomy H/O colonoscopy with polypectomy H/O endoscopy History of esophagogastroduodenoscopy (EGD) History of thoracic surgery Hx of cataract extraction Hx of cholecystectomy S/P biopsy Status post thoracentesis (~10/19/20) History of Problems with Anesthesia: No Social History Social History (Updated 08/27/22 @ 14:18 by Jazlyn Lopez CMA) Household Members: None Housing: Condominium Are you a primary career representative to a significant other at home: No Do you presently have visiting nurse or other home services: No Alcohol intake: current Alcohol intake frequency: a few times a week Patient Tobacco Use Status: Former Tobacco user Quit Date: 07/2020 Tobacco use type: Cigarette Years Smoked: 20 +/- Second Hand Smoke Exposure: Yes Use of substances other than those prescribed or required for medical reasons: No Are you DNR?: No Advance Directives: No Advance Directives Information Provided: Yes service: No Current occupational status: retired Cognitive needs: No Hearing needs: No Vision needs: Yes Meds Allergies Allergy/AdvReac Type Severity Reaction Status Date / Time hydrocodone [From Vicodin] Allergy Severe Rash/Hives Verified 09/26/22 11:01 Influenza Virus Vaccines Allergy Severe Rash/Hives Verified 09/26/22 11:01 gabapentin AdvReac Intermediate Anxiety Verified 09/26/22 11:01 Active Medications: Current Medications Sodium Biphosphate/Sodium Phosphate (Sodium Phosphate,[place]-Dibasic 133 Ml Enema) 133 ml MS ONCE PRN PRN Reason: Poor Colonoscopy Prep Results Home Medications Medication Instructions Recorded Confirmed Last Taken Type lorazepam 1 mg tablet 1 mg PO DAILY PRN Anxiety 02/07/21 08/27/22 Unknown History budesonide 0.5 mg/2 mL suspension 1 mg inhalation BEDTIME 05/12/21 08/27/22 Unknown History for nebulization ipratropium 0.5 mg-albuterol 3 mg 3 ml inhalation Q6H PRN copd 05/12/21 08/27/22 Unknown History (2.5 mg base)/3 mL nebulization soln calcium carbonate 600 mg calcium 600 mg PO DAILY 10/30/21 08/27/22 Unknown History (1,500 mg) tablet (Calcium) cholecalciferol (vitamin D3) 50 50 mcg PO DAILY 10/30/21 08/27/22 Unknown History mcg (2,000 unit) capsule venlafaxine 75 mg capsule,extended 75 mg PO DAILY 01/16/22 08/27/22 Unknown History release 24 hr lactulose 10 gram/15 mL oral 15 ml PO BEDTIME for constipation 07/13/22 08/27/22 Unknown History solution Exam Exam Date and Time: November 16, 2022 1256 Height,Weight and Vital Signs: Height 5 ft 6 in Weight 89.811 kg Airway Mallampati Class: II TM Dist: >3cm Neck ROM: Limited Loose/Missing/Broken Teeth: No Heart: rrr Lungs: decreased breath sounds righ Assessment and Plan Assessment Anesthesia Assessment: Anesthesia Plan Discussed and Chart Reviewed Final Anesthetic Review Family History of Problems with Anesthesia: No History of Problems with Anesthesia: No NPO: Yes ASA Class: IV Final Preanesthetic Review: No Changes in Pt Med Stat, Meds/Allgs Chart Reviewed, Consent Obtained/Reviewed and Anes Risks/Benef Reviewed Patient Risk: Intermediate Procedure Risk: Low Anesthetic Plan Anesthetic Plan: MAC: and Agree w/ Assess. and Plan Disposition: Standard PACU
[2022-11-16 13:10] VITALS: BP 138/70; PULSE 85; RESP 18; TEMP 36.9; O2SAT 93
[2022-11-16 14:40] VITALS: BP 102/50; PULSE 81; RESP 16; TEMP 36.8; O2SAT 99
--- NOTE | 2022-11-16 14:45 | PM.OP ---
Brief Operative Note Date of Service: 11/16/22 Pre-op diagnosis: Screening Post-op diagnosis: other (Colon polyps) Procedure: Colonoscopy to the cecum with bx/removal of polyps Surgeon: Nathen Melgoza Anesthesia: MAC Was an Scorer Helper used for this Procedure?: No Estimated blood loss (mL): 2.0 Pathology: other (A. Cecal polyp B. Polyp at 50 in area of previous polypectomy) Condition: stable Disposition: PACU
[2022-11-16 15:11] VITALS: BP 139/59; PULSE 80; RESP 18; TEMP 36.1; O2SAT 97
--- NOTE | 2022-11-17 01:26 | OP_ITS ---
SURGEON: Nathen Melgoza MD INDICATIONS: The patient presents for followup for personal history of colon polyps and colorectal cancer screening. Full consent has been obtained from her for this, including risks of bleeding and perforation. PREOPERATIVE DIAGNOSIS: POSTOPERATIVE DIAGNOSIS: PROCEDURE PERFORMED: Colonoscopy to the cecum with biopsy and removal of polyps. ESTIMATED BLOOD LOSS: COMPLICATIONS: ANESTHESIA: Monitored anesthesia care. ASSISTANTS: SPECIMENS: PREOPERATIVE DIAGNOSES: Colorectal cancer screening and personal history of colon polyps. POSTOPERATIVE DIAGNOSES: Colorectal cancer screening and personal history of colon polyps, small colon polyps, diverticulosis, and internal hemorrhoids. DESCRIPTION OF PROCEDURE: The patient was placed in the left lateral decubitus position. The digital rectal exam revealed no abnormalities. The Olympus video pediatric colonoscope was then entered into the rectum and advanced to the cecum with the assistance of abdominal wall pressure. Once in the cecum, I did identify normal-appearing cecal pouch other than approximately 4 or 5 mm polyp, which was biopsied and completely removed with the cold biopsy forceps. The remainder of the cecum including the appendicial orifice appeared normal. The ileocecal valve appeared normal. The scope was slowly withdrawn, assessing all mucosal surfaces carefully. Preparation was excellent. At 50 cm was an area of scarring consistent with the previous polypectomy from 2020. In the center of the scar, there was some adenomatous-appearing tissue of approximately 4 mm in size. This was biopsied and completely removed with the cold biopsy forceps. The remainder of the area did not appear to show any sign of residual polyp tissue. Just proximal and just distal to this were the previously placed submucosal ink duval. I did not visualize any other polyps, colitis, or angiodysplasia. There was a moderate amount of sigmoid diverticulosis. In the rectum, the scope was retroflexed visualizing internal hemorrhoids, but no other pathology. The rectal mucosa appeared normal. Scope was straightened and withdrawn from the patient. She tolerated the procedure well and was returned to recovery area in stable condition. IMPRESSION: 1. Colon polyps. 2. Diverticulosis. 3. Internal hemorrhoids. PLAN: The results of the biopsy will be checked. Given her previous history of polyps, I have recommend a repeat colonoscopy in 2 to 3 years for surveillance. She was advised to see me by the fall for a followup of her chronic liver disease and hepatitis C. She was advised to call me prior to that if she changes her mind and wants to be treated for the hepatitis C, which I have discussed with her in the past. She was advised not to use any aspirin or NSAIDs long-term due to her history of the chronic liver disease and known small varices. This has been discussed with her daughter. MD RBYANT Perry/REJI / [id number] MTDD
== END 2022-11-16 15:40 | disposition home or self-care (01) ==
PROVIDERS: PCP Internal Medicine; Visit Provider Internal Medicine
PROC: 0DJD8ZZ Inspection of Lower Intestinal Tract, Via Natural or Artificial Opening Endoscopic (ICD-10-PCS; CPT 45378; principal; 2022-11-16 13:40)
DX: Z12.11 Encounter for screening for malignant neoplasm of colon (principal); Z86.010 Personal history of colon polyps; D12.0 Benign neoplasm of cecum; K63.5 Polyp of colon; K57.30 Diverticulosis of large intestine without perforation or abscess without bleeding; K64.8 Other hemorrhoids; I85.00 Esophageal varices without bleeding; K74.60 Unspecified cirrhosis of liver; B18.2 Chronic viral hepatitis C; J44.9 Chronic obstructive pulmonary disease, unspecified; C34.11 Malignant neoplasm of upper lobe, right bronchus or lung; I67.1 Cerebral aneurysm, nonruptured; Z79.899 Other long term (current) drug therapy; Z87.891 Personal history of nicotine dependence
CPT/HCPCS: 45380; 88305

== ENCOUNTER → 2022-11-30 13:31 | Outpatient (BNVA) | payer MEDICARE, SELFPAY | PROVIDERS: PCP Internal Medicine; Visit Provider Surgery | DX: L02.415 Cutaneous abscess of right lower limb (principal) | CPT/HCPCS: 10060; 87070; 87077; 87186; 87205; 99202 ==

== ENCOUNTER 2022-11-30 15:34 | Outpatient (REF) | payer MEDICARE, SELFPAY | END 2022-11-30 15:35 | disposition home or self-care (01) | LOC: HO.LNP 15:34 | PROVIDERS: Visit Provider Surgery | DX: Z13.89 Encounter for screening for other disorder (principal) | CPT/HCPCS: 87070; 87077; 87186; 87205 ==

== ENCOUNTER → 2022-12-06 12:45 | Outpatient (BNVA) | payer MEDICARE, SELFPAY | PROVIDERS: PCP Internal Medicine; Visit Provider Surgery | DX: Z48.817 Encounter for surgical aftercare following surgery on the skin and subcutaneous tissue (principal); L73.2 Hidradenitis suppurativa; R06.02 Shortness of breath; R91.1 Solitary pulmonary nodule; C34.11 Malignant neoplasm of upper lobe, right bronchus or lung; Z87.2 Personal history of diseases of the skin and subcutaneous tissue | CPT/HCPCS: 99212 ==

== ENCOUNTER 2023-01-02 16:08 | Outpatient (REF) | payer MEDICARE, SELFPAY ==
[2023-01-02 16:25] LABS: MANUAL DIFF FLAG NO
[2023-01-02 17:32] LABS: Eosinophils Absolute Auto 0.1 X10*3/uL (0.0-0.4); Eosinophils Percent Auto 1.1 % (0-4); Estimated Average Glucose 108 mg/dL; Hematocrit 36.7 % (37.0-47.0); Hemoglobin A1c % 5.4 %; Imm Gran Abs Auto 0.02 X10*3/uL (0.00-0.03); Imm Gran Pct Auto 0.5 % (0.0-0.4); PLT CLUMP 1; Red Cell Distribution Width 12.7 % (11.0-16.0); SCAN SMEAR FLAG 1
[2023-01-02 17:34] LABS: Basophils Percent Auto 0.2 % (0-2); Hemoglobin 12.2 g/dl (12.0-16.0); Lymphocytes Absolute Auto 0.7 X10*3/uL (1.2-4.9); Lymphocytes Percent Auto 16.1 % (20-40); Mean Corpuscular HGB Conc 33.2 g/dl (31.0-35.0); Mean Corpuscular Hemoglobin 31.4 pg (27.0-33.0); Mean Corpuscular Volume 94.6 fL (80.0-98.0); Mean Platelet Volume 11.3 fL (9.4-12.3); Monocytes Absolute Auto 0.4 X10*3/uL (0.1-1.2); Monocytes Percent Auto 8.3 % (2-11); Neutrophils Absolute Auto 3.2 x10*3/uL (2.0-8.3); Neutrophils Percent Auto 73.8 % (45-73); Red Blood Count 3.88 X10*6/uL (4.20-5.50)
[2023-01-02 17:39] LABS: Platelet Count 102 X10*3/uL (160-400); White Blood Count 4.4 X10*3/uL (4.8-10.8)
[2023-01-02 17:42] LABS: Appearance Urine Clear; Color Urine Yellow; Glucose Urine UA Negative (Negative); Leukocyte Esterase Urine Negative (Negative); Nitrite Urine Negative (Negative); Specific Gravity - Urine 1.015 (1.005-1.025); Urine Blood Negative (Negative); Urine Ketones Negative (Negative); Urine Protein Negative (Neg-Trace)
[2023-01-02 18:00] LABS: Alanine Aminotransferase 43 U/L (0-31); Albumin Level 4.1 g/dL (3.5-5.0); Alkaline Phosphatase 74 U/L (39-117); Anion Gap 15 (12-20); Aspartate Amino Transferase 44 U/L (5-31); Blood Urea Nitrogen 13 mg/dL (9-16); Carbon Dioxide 27 mmol/L (22-29); Chloride 101 mmol/L (96-108); Estimated Glomerular Filt Rate > 60; Glucose Random 120 mg/dL (60-115); Potassium 3.7 mmol/L (3.3-5.1); Sodium 139 mmol/L (135-145); Total Protein 6.9 g/dL (6.5-8.0)
[2023-01-02 18:38] LABS: Erythrocyte Sedimentation Rate 18 MM/HR (0-20)
== END 2023-01-02 16:09 | disposition home or self-care (01) ==
LOC: HO.LAB 16:08
PROVIDERS: PCP Internal Medicine; Visit Provider Internal Medicine
DX: R53.83 Other fatigue (principal); R73.9 Hyperglycemia, unspecified; R30.0 Dysuria; L02.415 Cutaneous abscess of right lower limb
CPT/HCPCS: 36415; 80053; 81003; 83036; 85025; 85652

== ENCOUNTER → 2023-01-21 13:53 | Outpatient (BNVA) | payer MEDICARE, SELFPAY | PROVIDERS: PCP Internal Medicine; Visit Provider Surgery | DX: L73.2 Hidradenitis suppurativa (principal); Z90.2 Acquired absence of lung [part of] | CPT/HCPCS: 99212 ==

== ENCOUNTER 2023-02-10 20:07 | Emergency (ER) | payer MEDICARE, SELFPAY ==
--- NOTE | ~2023-02-10 | CT_ITS ---
EXAMINATION: CT ABDOMEN AND PELVIS WITH CONTRAST CLINICAL INFORMATION: Right lower quadrant pain. COMPARISON: CT scan abdomen pelvis 07/04/2022 TECHNIQUE: Multidetector volumetric images were obtained from the superior aspect of the liver through the pubic symphysis following administration 85 mL of Omnipaque 350 intravenous contrast. Sagittal and coronal reformatted images were obtained on the technologist's workstation. Oral contrast: No This CT examination was performed using dose optimization techniques as appropriate, variously including the following: *Automated exposure control *Adjustment of mA and/or kV according to patient size (this includes techniques or standardized protocols for targeted exams where dose is matched to indication/reason for exam; i.e. extremities or head) *Use of iterative reconstruction technique DLP: 689 mGy-cm FINDINGS: LUNG BASES: Redemonstration of small loculated fluid collection with pleural thickening at the posterior right lung base. History of prior right upper lobe lobectomy. LIVER, GALLBLADDER, AND BILIARY TREE: Lobular contour of liver consistent with cirrhosis. No focal liver lesion. Status post cholecystectomy. Chronic dilatation of the extrahepatic bile duct to a diameter of 2.2 cm. No calcified stone within the bile ducts. PANCREAS: Unremarkable. SPLEEN: Spleens enlarged measuring 16 cm superior inferior. ADRENAL GLANDS: Unremarkable. KIDNEYS AND URETERS: The kidneys are normal in size, shape, and attenuation. No hydronephrosis, hydroureter, or calculi seen. No perinephric stranding. BLADDER: Unremarkable. GASTROINTESTINAL TRACT: There are numerous diverticula of the sigmoid colon. There is no diverticulitis. There is no bowel wall thickening /edema. There is no bowel obstruction. There is a moderate to large volume of stool in the colon. The appendix is normal . The small bowel loops are unremarkable. The stomach is normal. There is no hiatal hernia. ABDOMINAL WALL: No significant hernia is appreciated. LYMPH NODES: Normal. VASCULAR: Vascular calcifications throughout the abdomen and pelvis. There is no aneurysm. PELVIC VISCERA: Unremarkable. OSSEOUS STRUCTURES: Multilevel degenerative spondylosis spine. CT/CT abdomen pelvis w IV con IMPRESSION: 1. No acute abnormality CT scan abdomen pelvis. 2. Cirrhosis of liver. Splenomegaly. 3. Diverticulosis of colon. No acute abnormality of the bowel. Fleischner guidelines were followed.
[2023-02-10 20:10] VITALS: BP 142/80; PULSE 90; O2SAT 98
[2023-02-10 20:31] VITALS: BP 162/60; PULSE 84; RESP 16; TEMP 36.9; O2SAT 96; BMI 31.4
[2023-02-10 20:52] LABS: Imm Gran Abs Auto 0.01 X10*3/uL (0.00-0.03); Imm Gran Pct Auto 0.2 % (0.0-0.4); MANUAL DIFF FLAG SCAN; PLT CLUMP 1; Red Cell Distribution Width 12.5 % (11.0-16.0); SCAN SMEAR FLAG 1
--- NOTE | 2023-02-10 20:53 | ED_ITS ---
HPI - Abdominal Pain General Chief Complaint: Abdominal Pain Stated Complaint: Abd Pain with Back Pain Time Seen by Provider: 02/10/23 20:25 Source: patient Mode of arrival: ambulatory Limitations: no limitations History of Present Illness HPI narrative: Patient history of diverticulitis in the past been having pain in the lower abdomen more on the right side for last 10 days was seen at [facility] 5 days ago started on Levaquin and Flagyl for presumptive diverticulitis patient continued to take that but since yesterday patient has been having more pain and having watery diarrhea patient is on chronic morphine treatment of back pain and been constipated for a while Related Data Home Medications Medication Instructions Recorded Confirmed lorazepam 1 mg tablet 1 mg PO DAILY PRN Anxiety 02/07/21 01/21/23 budesonide 0.5 mg/2 mL suspension 1 mg inhalation BEDTIME 05/12/21 01/21/23 for nebulization ipratropium 0.5 mg-albuterol 3 mg 3 ml inhalation Q6H PRN copd 05/12/21 01/21/23 (2.5 mg base)/3 mL nebulization soln calcium carbonate 600 mg calcium 600 mg PO DAILY 10/30/21 01/21/23 (1,500 mg) tablet (Calcium) cholecalciferol (vitamin D3) 50 50 mcg PO DAILY 10/30/21 01/21/23 mcg (2,000 unit) capsule venlafaxine 75 mg capsule,extended 75 mg PO DAILY 01/16/22 01/21/23 release 24 hr lactulose 10 gram/15 mL oral 15 ml PO BEDTIME for constipation 07/13/22 01/21/23 solution Previous Rx's Medication Instructions Recorded nebulizer and compressor #1 ea 10/07/20 nebulizers #1 ea 12/29/20 metoprolol succinate 25 mg 25 mg PO DAILY #90 tabs 04/23/22 tablet,extended release 24 hr (Toprol XL) plecanatide 3 mg tablet (Trulance) 3 mg PO DAILY 30 days #30 tabs 06/29/22 Symbicort 160 mcg-4.5 2 puff inhalation BID 30 days 07/19/22 mcg/actuation HFA aerosol inhaler #10.2 grams (budesonide-formoterol) umeclidinium 62.5 mcg/actuation 1 inh inhalation DAILY 30 days #30 09/26/22 blister powder for inhalation ea (Incruse Ellipta) furosemide 40 mg tablet 40 mg PO DAILY@0730 30 days #30 11/30/22 tabs albuterol sulfate 90 mcg/actuation 2 puff PO Q4H PRN for dyspnea #1 ea 01/09/23 aerosol inhaler melatonin 5 mg tablet 10 mg PO BEDTIME PRN for insomnia 01/31/23 #60 tabs morphine 15 mg tablet,extended 15 mg PO BID PRN Pain 30 days #60 02/01/23 release tabs bisacodyl 5 mg tablet,delayed 10 mg PO BEDTIME 30 days #60 tabs 02/11/23 release (Dulcolax (bisacodyl)) polyethylene glycol 3350 17 17 g PO DAILY #510 grams 02/11/23 gram/dose oral powder (Miralax) Allergies Allergy/AdvReac Type Severity Reaction Status Date / Time hydrocodone [From Vicodin] Allergy Severe Rash/Hives Verified 02/10/23 20:36 Influenza Virus Vaccines Allergy Severe Rash/Hives Verified 02/10/23 20:36 gabapentin AdvReac Intermediate Anxiety Verified 02/10/23 20:36 Review of Systems Review of Systems Yes all other systems are reviewed and are negative PMFSH Past Medical History Medical History ADD (attention deficit disorder) Aneurysm Anxiety Bilateral lower extremity edema Brain aneurysm Chest pain Concussion Constipation COPD (chronic obstructive pulmonary disease) COPD (chronic obstructive pulmonary disease) case management patient Depression Elevated TSH Esophageal varices Fatigue Fever GERD without esophagitis Hepatitis C History of diverticulosis Hx of hepatitis C Insomnia Limb swelling Loculated pleural effusion Lung cancer Obesity (BMI 30-39.9) On home oxygen therapy Pre-op chest exam PVCs (premature ventricular contractions) SOB (shortness of breath) Tachycardia Vitamin D deficiency Surgical History H/O colonoscopy with polypectomy H/O colonoscopy with polypectomy H/O endoscopy History of esophagogastroduodenoscopy (EGD) History of thoracic surgery Hx of cataract extraction Hx of cholecystectomy S/P biopsy Status post thoracentesis (~10/19/20) Family History Family History Mother Skin cancer Diabetes Thyroid disease Sister Diabetes Skin cancer Tubular adenoma Thyroid disease Daughter Skin cancer Diabetes Social History Social History Housing: [facility] Are you a primary acute care physical therapist to a significant other at home: No Do you presently have visiting nurse or other home services: No Alcohol intake: current Alcohol intake frequency: a few times a week Patient Tobacco Use Status: Former Tobacco user Quit Date: 07/2020 Tobacco use type: Cigarette Years Smoked: 20 +/- Second Hand Smoke Exposure: Yes Advance Directives: No Advance Directives Information Provided: No service: No Current occupational status: retired Cognitive needs: No Hearing needs: No Vision needs: Yes Physical Exam ED Vital Signs: Vital Signs - 24 hr 02/10/23 20:31 02/10/23 22:00 02/10/23 22:01 Temperature 98.5 F Pulse Rate 84 85 Respiratory Rate 16 20 20 Blood Pressure 162/60 H 164/71 H Pulse Oximetry 96 96 Oxygen Delivery Method Room Air Room Air 02/11/23 00:00 Temperature 98.2 F Pulse Rate 83 Respiratory Rate 16 Blood Pressure 165/67 H Pulse Oximetry 98 Oxygen Delivery Method Room Air BMI result Body Mass Index 31.4 Appearance: Alert. Oriented X3. No acute distress. Eyes: No pallor or icterus ENT: Pharynx normal. Oral Mucosa moist Neck: Normal inspection. Neck supple. CVS: Normal heart rate and rhythm. Pulses normal. Respiratory: No respiratory distress. Equal air entry bilateral, no wheez ing/rales/rhonchi Abdomen: Soft, tenderness in suprapubic and right lower abdomen no rebound tenderness guarding Bowel sounds are present, no mass palpable, no CVA tenderness rectal: Empty rectum no stool felt Skin: Skin warm and dry. Normal skin color. Normal skin turgor. Extremities: No lower extremity edema. No calf tenderness Neuro: Oriented X 3. Medical Decision Making Medical Decision Making [facility] Narrative: Patient with lower abdominal pain with history of constipation rule out dive rticulitis/appendicitis His CT scan negative for diverticulitis showed moderate amount of stool Lab Data [facility] Lab Attestation statement: I reviewed the patient's lab results. 02/10/23 20:47 02/10/23 20:47 Labs: Lab Results 02/10/23 02/10/23 02/10/23 Range/Units 20:47 20:47 21:29 WBC 4.1 L (4.8-10.8) X10*3/uL RBC 3.99 L (4.20-5.50) X10*6/uL Hgb 12.4 (12.0-16.0) g/dl Hct 37.7 (37.0-47.0) % MCV 94.5 (80.0-98.0) fL MCH 31.1 (27.0-33.0) pg MCHC 32.9 (31.0-35.0) g/dl RDW 12.5 (11.0-16.0) % Plt Count 94 L (160-400) X10*3/uL MPV 10.9 (9.4-12.3) fL Immature Gran % (Auto) 0.2 (0.0-0.4) % Neut % (Auto) 69.8 (45-73) % Lymph % (Auto) 19.5 L (20-40) % [place] % (Auto) 8.5 (2-11) % Eos % (Auto) 1.5 (0-4) % Baso % (Auto) 0.5 (0-2) % Lymph # (Auto) 0.8 L (1.2-4.9) X10*3/uL [place] # (Auto) 0.4 (0.1-1.2) X10*3/uL Eos # (Auto) 0.1 (0.0-0.4) X10*3/uL Baso # (Auto) 0.0 (0.0-0.2) X10*3/uL Abs Immat Gran (auto) 0.01 (0.00-0.03) X10*3/uL Absolute Neuts (auto) 2.9 (2.0-8.3) x10*3/uL Absolute Nucleated RBC 0.000 (0.0-0.012) X10*3/uL Nucleated RBC % (auto) 0.0 (0.0-0.2) /100WBC Smear Tech's Comments VERIFIED Sodium 140 (135-145) mmol/L Potassium 3.3 (3.3-5.1) mmol/L Chloride 105 (96-108) mmol/L Carbon Dioxide 27 (22-29) mmol/L Anion Gap 11 L (12-20) BUN 8 L (9-16) mg/dL Creatinine 0.68 (0.5-1.4) mg/dL Estim Creat Clear Calc 85.0 Estimated GFR > 60 Random Glucose 107 (60-115) mg/dL Lactic Acid 0.9 (0.5-2.0) mmol/L Calcium 8.6 (8.4-10.2) mg/dL Total Bilirubin 0.8 (0.0-1.0) mg/dL Direct Bilirubin 0.3 (0.0-0.5) mg/dL AST 30 (5-31) U/L ALT 27 (0-31) U/L Alkaline Phosphatase 58 (39-117) U/L Total Protein 6.2 L (6.5-8.0) g/dL Albumin 3.8 (3.5-5.0) g/dL Lipase 10 (8-78) U/L Urine Color Urine Appearance Urine pH (5.0-9.0) Ur Specific [place] (1.005-1.025) Urine Protein (Neg-Trace) mg/dL Urine Glucose (UA) (Negative) mg/dL Urine Ketones (Negative) mg/dL Urine Blood (Negative) Urine Nitrite (Negative) Ur Leukocyte Esterase (Negative) 02/11/23 Range/Units 00:05 WBC (4.8-10.8) X10*3/uL RBC (4.20-5.50) X10*6/uL Hgb (12.0-16.0) g/dl Hct (37.0-47.0) % MCV (80.0-98.0) fL MCH (27.0-33.0) pg MCHC (31.0-35.0) g/dl RDW (11.0-16.0) % Plt Count (160-400) X10*3/uL MPV (9.4-12.3) fL Immature Gran % (Auto) (0.0-0.4) % Neut % (Auto) (45-73) % Lymph % (Auto) (20-40) % [place] % (Auto) (2-11) % Eos % (Auto) (0-4) % Baso % (Auto) (0-2) % Lymph # (Auto) (1.2-4.9) X10*3/uL [place] # (Auto) (0.1-1.2) X10*3/uL Eos # (Auto) (0.0-0.4) X10*3/uL Baso # (Auto) (0.0-0.2) X10*3/uL Abs Immat Gran (auto) (0.00-0.03) X10*3/uL Absolute Neuts (auto) (2.0-8.3) x10*3/uL Absolute Nucleated RBC (0.0-0.012) X10*3/uL Nucleated RBC % (auto) (0.0-0.2) /100WBC Smear Tech's Comments Sodium (135-145) mmol/L Potassium (3.3-5.1) mmol/L Chloride (96-108) mmol/L Carbon Dioxide (22-29) mmol/L Anion Gap (12-20) BUN (9-16) mg/dL Creatinine (0.5-1.4) mg/dL Estim Creat Clear Calc Estimated GFR Random Glucose (60-115) mg/dL Lactic Acid (0.5-2.0) mmol/L Calcium (8.4-10.2) mg/dL Total Bilirubin (0.0-1.0) mg/dL Direct Bilirubin (0.0-0.5) mg/dL AST (5-31) U/L ALT (0-31) U/L Alkaline Phosphatase (39-117) U/L Total Protein (6.5-8.0) g/dL Albumin (3.5-5.0) g/dL Lipase (8-78) U/L Urine Color Yellow Urine Appearance Clear Urine pH 7.0 (5.0-9.0) Ur Specific [place] >= 1.030 H (1.005-1.025) Urine Protein Negative (Neg-Trace) mg/dL Urine Glucose (UA) Negative (Negative) mg/dL Urine Ketones Negative (Negative) mg/dL Urine Blood Negative (Negative) Urine Nitrite Negative (Negative) Ur Leukocyte Esterase Negative (Negative) Radiology Impression Discussion of test interpretation with radiology: I have reviewed the radiologist's reading. Radiologist Impression: [address] [address] [address] Scan Report Signed Patient: Valeria Machado MR#: [id number] : 1950 Acct:[id number] Age/Sex: 72 / F ADM Date: 02/10/23 Loc: HO.ED FINDINGS: LUNG BASES: Redemonstration of small loculated fluid collection with pleural thickening at the posterior right lung base. History of prior right upper lobe lobectomy.? LIVER, GALLBLADDER, AND BILIARY TREE: Lobular contour of liver consistent with cirrhosis. No focal liver lesion. Status post cholecystectomy. Chronic dilatation of the extrahepatic bile duct to a diameter of 2.2 cm. No calcified stone within the bile ducts.? PANCREAS: Unremarkable.? SPLEEN: Spleens enlarged measuring 16 cm superior inferior.? ADRENAL GLANDS: Unremarkable.? KIDNEYS AND URETERS: The kidneys are normal in size, shape, and attenuation. No hydronephrosis, hydroureter, or calculi seen. No perinephric stranding. ? BLADDER: Unremarkable.? GASTROINTESTINAL TRACT: There are numerous diverticula of the sigmoid colon. There is no diverticulitis. There is no bowel wall thickening /edema. There is no bowel obstruction. There is a moderate to large volume of stool in the colon. The appendix is normal . The small bowel loops are unremarkable. The stomach is normal. There is no hiatal hernia.? ABDOMINAL WALL: No significant hernia is appreciated.? LYMPH NODES: Normal. VASCULAR: Vascular calcifications throughout the abdomen and pelvis. There is no aneurysm. PELVIC VISCERA: Unremarkable.? OSSEOUS STRUCTURES: Multilevel degenerative spondylosis spine.? CT/CT abdomen pelvis w IV con IMPRESSION: 1.? No acute abnormality CT scan abdomen pelvis. 2.? Cirrhosis of liver. Splenomegaly. 3.? Diverticulosis of colon. No acute abnormality of the bowel. ? Fleischner guidelines were followed. Dictated By: Yinka Kirby MD Medications Administered Discontinued Medications Generic Name Dose Route Start Last Admin Trade Name Freq PRN Reason Stop Dose Admin Bisacodyl 10 mg 02/10/23 23:39 02/11/23 00:20 Bisacodyl 5 Mg Tablet. PO 02/10/23 23:40 10 mg ONCE ONE Administration Sodium Chloride 1,000 mls @ 999 mls/hr 02/10/23 20:54 02/10/23 23:09 Ns IV 02/10/23 21:54 Infused .Q1H1M ONE Infusion Iohexol 100 ml 02/10/23 22:01 02/10/23 22:02 Iohexol 350 Mg/Ml 100 Ml Infus..Btl IV 02/10/23 22:02 85 ml ONCE ONE Administration Magnesium Hydroxide 30 ml 02/10/23 23:39 02/11/23 00:20 Milk Of Magnesia 30 Ml Oral.Susp PO 02/10/23 23:40 30 ml ONCE ONE Administration Morphine Sulfate 4 mg 02/10/23 21:00 02/10/23 22:01 Morphine Sulfate 4 Mg/Ml Cartridge IVPUSH 02/10/23 21:01 4 mg ONCE ONE Administration Protocol Ondansetron HCl 4 mg 02/10/23 21:00 02/10/23 22:03 Ondansetron Hcl 4 Mg/2 Ml Vial IVPUSH 02/10/23 21:01 4 mg ONCE ONE Administration Discharge Plan Discharge Clinical Impression: Constipation, Abdominal pain Patient Disposition: Home, Self-Care Instructions: Constipation (ED), Abdominal Pain (ED) Additional Instructions: At this time there is no evidence of diverticulitis you may stop antibiotics You have moderate amount of stool need to continue stool softener likely from use of morphine Follow-up with PCP Prescriptions: New polyethylene glycol 3350 [Miralax] 17 gram/dose powder 17 g PO DAILY Qty: 510 0RF bisacodyl [Dulcolax (bisacodyl)] 5 mg tablet,delayed release (DR/EC) 10 mg PO BEDTIME 30 Days Qty: 60 0RF No Action (DME) nebulizer and compressor Device See Rx Instructions .ROUTE .MEDSUPPLY Qty: 1 0RF Rx Instructions: to use every 4 hours (DME) nebulizers [facility] See Rx Instructions .ROUTE .MEDSUPPLY Qty: 1 11RF Rx Instructions: Tubing and mask for nebulizer metoprolol succinate [Toprol XL] 25 mg tablet extended release 24 hr 25 mg PO DAILY Qty: 90 3RF Trulance 3 mg tablet 3 mg PO DAILY 30 Days Qty: 30 0RF budesonide-formoterol [Symbicort] 160-4.5 mcg/actuation HFA aerosol inhaler 2 puff inhalation BID 30 Days Qty: 10.2 11RF albuterol sulfate 90 mcg/actuation HFA aerosol inhaler 2 puff PO Q4H PRN (Reason: for dyspnea) Qty: 1 12RF melatonin 5 mg tablet 10 mg PO BEDTIME PRN (Reason: for insomnia) Qty: 60 6RF morphine 15 mg tablet extended release 15 mg PO BID PRN (Reason: Pain) 30 Days Qty: 60 0RF venlafaxine 75 mg capsule,extended release 24hr 75 mg PO DAILY lactulose 10 gram/15 mL solution 15 ml PO BEDTIME furosemide 40 mg tablet 40 mg PO DAILY@0730 30 Days Qty: 30 3RF lorazepam 1 mg tablet 1 mg PO DAILY PRN (Reason: Anxiety) ipratropium-albuterol 0.5 mg-3 mg(2.5 mg base)/3 mL solution for nebulization 3 ml inhalation Q6H PRN (Reason: copd) budesonide 0.5 mg/2 mL suspension for nebulization 1 mg inhalation BEDTIME cholecalciferol (vitamin D3) 50 mcg (2,000 unit) capsule 50 mcg PO DAILY calcium carbonate [Calcium 600] 600 mg calcium (1,500 mg) tablet 600 mg PO DAILY Incruse Ellipta 62.5 mcg/actuation blister with device 1 inh inhalation DAILY 30 Days Qty: 30 11RF
[2023-02-10 20:54] LABS: Basophils Percent Auto 0.5 % (0-2); Eosinophils Absolute Auto 0.1 X10*3/uL (0.0-0.4); Eosinophils Percent Auto 1.5 % (0-4); Hematocrit 37.7 % (37.0-47.0); Hemoglobin 12.4 g/dl (12.0-16.0); Lymphocytes Absolute Auto 0.8 X10*3/uL (1.2-4.9); Lymphocytes Percent Auto 19.5 % (20-40); Mean Corpuscular HGB Conc 32.9 g/dl (31.0-35.0); Mean Corpuscular Hemoglobin 31.1 pg (27.0-33.0); Mean Corpuscular Volume 94.5 fL (80.0-98.0); Mean Platelet Volume 10.9 fL (9.4-12.3); Monocytes Absolute Auto 0.4 X10*3/uL (0.1-1.2); Monocytes Percent Auto 8.5 % (2-11); Neutrophils Absolute Auto 2.9 x10*3/uL (2.0-8.3); Neutrophils Percent Auto 69.8 % (45-73); Red Blood Count 3.99 X10*6/uL (4.20-5.50)
[2023-02-10 20:56] LABS: Platelet Count 94 X10*3/uL (160-400); White Blood Count 4.1 X10*3/uL (4.8-10.8)
[2023-02-10 21:19] LABS: SLIDE REVIEW VERIFIED
[2023-02-10 21:23] LABS: Alanine Aminotransferase 27 U/L (0-31); Albumin Level 3.8 g/dL (3.5-5.0); Alkaline Phosphatase 58 U/L (39-117); Anion Gap 11 (12-20); Aspartate Amino Transferase 30 U/L (5-31); Bilirubin Direct 0.3 mg/dL (0.0-0.5); Bilirubin Total 0.8 mg/dL (0.0-1.0); Blood Urea Nitrogen 8 mg/dL (9-16); Calcium 8.6 mg/dL (8.4-10.2); Carbon Dioxide 27 mmol/L (22-29); Chloride 105 mmol/L (96-108); Estimated Glomerular Filt Rate > 60; Glucose Random 107 mg/dL (60-115); Lipase 10 U/L (8-78); Potassium 3.3 mmol/L (3.3-5.1); Sodium 140 mmol/L (135-145); Total Protein 6.2 g/dL (6.5-8.0)
[2023-02-10 21:44] LABS: Lactic Acid 0.9 mmol/L (0.5-2.0)
[2023-02-10 22:00] VITALS: BP 164/71; PULSE 85; RESP 20; O2SAT 96
[2023-02-10] MEDS: 0.9 % Sodium Chloride 1,000 ML 999 ML IV (22:00)
[2023-02-10 22:01] VITALS: RESP 20
[2023-02-10] MEDS: Morphine Sulfate 4 MG/ML CARTRIDGE IVPUSH (22:01)
[2023-02-10] MEDS: iohexoL 350 MG/ML 100 ML INFUS..BTL IV (22:02)
[2023-02-10] MEDS: ondansetron HCL 4 MG/2 ML VIAL IVPUSH (22:03)
--- NOTE | 2023-02-10 23:09 | PC.NURSE ---
Pt A&Ox4, reports 6/10 intermittent all over ABD pain. Pt states last normal bowel movement was about 10 days ago, some diarrhea , Pt reports pain increases with movement and PO intake. Pt tender to touch to right sided quadrants, hypoactive bowel sounds x 4 quadrants. Reports + effectiveness to meds given per MAR.
[2023-02-11] VITALS: BP 165/67; PULSE 83; RESP 16; TEMP 36.8; O2SAT 98
[2023-02-11 00:11] LABS: Appearance Urine Clear; Color Urine Yellow; Glucose Urine UA Negative (Negative); Leukocyte Esterase Urine Negative (Negative); Nitrite Urine Negative (Negative); Specific Gravity - Urine >= 1.030 (1.005-1.025); Urine Blood Negative (Negative); Urine Ketones Negative (Negative); Urine Protein Negative (Neg-Trace)
--- NOTE | 2023-02-11 00:19 | MHC.EDTECH ---
PT URINE SAMPLE COLLECTED AND SENT5 TO LAB ,VITALS SIGN TAKEN .
[2023-02-11] MEDS: Milk of Magnesia 30 ML ORAL.SUSP PO (00:20)
[2023-02-11] MEDS: bisacodyL 5 MG TABLET.DR 10 MG PO (00:20)
== END 2023-02-11 00:47 | disposition home or self-care (01) ==
PROVIDERS: Emergency Provider Internal Medicine; PCP Internal Medicine
DX: K59.00 Constipation, unspecified (principal); R10.13 Epigastric pain; Z79.899 Other long term (current) drug therapy; F17.210 Nicotine dependence, cigarettes, uncomplicated; Z71.6 Tobacco abuse counseling
CPT/HCPCS: 36415; 74177; 80053; 81003; 82248; 83605; 83690; 85025; 96361; 96374; 96375; 99283; 99284; J2270; J2405; Q9967

== ENCOUNTER → 2023-02-18 13:52 | Outpatient (BNVA) | payer MEDICARE, SELFPAY | PROVIDERS: PCP Internal Medicine; Visit Provider Hospitalist | DX: J44.1 Chronic obstructive pulmonary disease with (acute) exacerbation (principal); J90 Pleural effusion, not elsewhere classified; R06.02 Shortness of breath; R53.83 Other fatigue; R91.1 Solitary pulmonary nodule; C34.11 Malignant neoplasm of upper lobe, right bronchus or lung; Z90.2 Acquired absence of lung [part of]; Z86.19 Personal history of other infectious and parasitic diseases; Z79.899 Other long term (current) drug therapy | CPT/HCPCS: 99212 ==

== ENCOUNTER 2023-02-20 15:28 | Outpatient (REF) | payer MEDICARE, SELFPAY ==
--- NOTE | ~2023-02-20 | XR_ITS ---
EXAMINATION: XR KNEE, RIGHT CLINICAL INFORMATION: Pain. COMPARISON: None available. TECHNIQUE: AP, lateral, tunnel, and sunrise views of the right knee. FINDINGS: Bones and soft tissues are normal. No fracture or dislocation. There is a tiny joint effusion. Alignment is anatomic. Joint spaces are well maintained. No abnormal soft tissue calcification. XR/XR knee RT 4V IMPRESSION: There is a tiny right knee joint effusion. Otherwise, unremarkable examination. EXAMINATION: XR KNEE, LEFT CLINICAL INFORMATION: Pain. COMPARISON: None available. TECHNIQUE: Four views of the left knee. FINDINGS: Bones and soft tissues are normal. No fracture or dislocation. There is a small to moderate joint effusion. Alignment is anatomic. Joint spaces are well maintained. No abnormal soft tissue calcification. IMPRESSION: A small to moderate left knee joint effusion is seen. The examination is otherwise unremarkable.
--- NOTE | ~2023-02-20 | XR_ITS ---
EXAMINATION: XR KNEE, RIGHT CLINICAL INFORMATION: Pain. COMPARISON: None available. TECHNIQUE: AP, lateral, tunnel, and sunrise views of the right knee. FINDINGS: Bones and soft tissues are normal. No fracture or dislocation. There is a tiny joint effusion. Alignment is anatomic. Joint spaces are well maintained. No abnormal soft tissue calcification. XR/XR knee LT 4V IMPRESSION: There is a tiny right knee joint effusion. Otherwise, unremarkable examination. EXAMINATION: XR KNEE, LEFT CLINICAL INFORMATION: Pain. COMPARISON: None available. TECHNIQUE: Four views of the left knee. FINDINGS: Bones and soft tissues are normal. No fracture or dislocation. There is a small to moderate joint effusion. Alignment is anatomic. Joint spaces are well maintained. No abnormal soft tissue calcification. IMPRESSION: A small to moderate left knee joint effusion is seen. The examination is otherwise unremarkable.
[2023-02-20 15:48] LABS: MANUAL DIFF FLAG NO
[2023-02-20 17:33] LABS: Basophils Percent Auto 0.5 % (0-2); Eosinophils Absolute Auto 0.1 X10*3/uL (0.0-0.4); Eosinophils Percent Auto 1.2 % (0-4); Hematocrit 36.5 % (37.0-47.0); Hemoglobin 12.2 g/dl (12.0-16.0); Imm Gran Abs Auto 0.01 X10*3/uL (0.00-0.03); Imm Gran Pct Auto 0.2 % (0.0-0.4); Lymphocytes Absolute Auto 0.8 X10*3/uL (1.2-4.9); Lymphocytes Percent Auto 19.7 % (20-40); Mean Corpuscular HGB Conc 33.4 g/dl (31.0-35.0); Mean Corpuscular Volume 95.8 fL (80.0-98.0); Mean Platelet Volume 11.8 fL (9.4-12.3); Monocytes Absolute Auto 0.3 X10*3/uL (0.1-1.2); Neutrophils Absolute Auto 2.9 x10*3/uL (2.0-8.3); Neutrophils Percent Auto 71.4 % (45-73); Platelet Count 107 X10*3/uL (160-400); Red Blood Count 3.81 X10*6/uL (4.20-5.50); Red Cell Distribution Width 12.5 % (11.0-16.0)
[2023-02-20 18:49] LABS: Alanine Aminotransferase 34 U/L (0-31); Alkaline Phosphatase 61 U/L (39-117); Anion Gap 14 (12-20); Aspartate Amino Transferase 39 U/L (5-31); Bilirubin Total 1.1 mg/dL (0.0-1.0); Blood Urea Nitrogen 9 mg/dL (9-16); Calcium 8.8 mg/dL (8.4-10.2); Carbon Dioxide 28 mmol/L (22-29); Chloride 102 mmol/L (96-108); Estimated Glomerular Filt Rate > 60; Glucose Random 105 mg/dL (60-115); Potassium 3.7 mmol/L (3.3-5.1); Sodium 140 mmol/L (135-145); Total Protein 6.7 g/dL (6.5-8.0)
== END 2023-02-20 15:29 | disposition home or self-care (01) ==
LOC: HO.XRAY 15:28
PROVIDERS: Absent Provider Internal Medicine Medical Oncology; PCP Internal Medicine; Visit Provider Internal Medicine
DX: C34.11 Malignant neoplasm of upper lobe, right bronchus or lung (principal); M25.561 Pain in right knee; M25.562 Pain in left knee
CPT/HCPCS: 36415; 73564; 80053; 85025

== ENCOUNTER 2023-02-25 09:24 | Outpatient (REF) | payer MEDICARE, SELFPAY ==
--- NOTE | ~2023-02-25 | MM_ITS ---
EXAMINATION: MM SCREENING DIGITAL BREAST TOMOSYNTHESIS, BILATERAL CLINICAL INFORMATION: Screening. Asymptomatic. The lifetime risk of breast cancer based on the Tyrer-Cuzick Model is 5%. COMPARISON: Mammography: 01/25/2022, 09/23/2018, 08/19/2017; right breast ultrasound 01/25/2022. TECHNIQUE: Digital breast tomosynthesis is performed in both the craniocaudal and mediolateral oblique views along with computer-aided detection (CAD). Synthesized 2D images are generated from the tomosynthesis. FINDINGS: There are scattered areas of fibroglandular density (ACR BI-RADS breast composition Category b). Parenchymal pattern is similar to prior studies. Minor asymmetries central left breast on CC view is stable. There is no developing density or architectural abnormality. No significant mass or abnormal calcifications. The axilla and skin contours are unremarkable. MM/MM tomosynthesis screening BI IMPRESSION: No mammographic evidence of malignancy. ASSESSMENT: BI-RADS 2: Benign RECOMMENDATION: Routine annual mammography screening. This patient's information was entered into a reminder system with a target due date for their next mammogram.
== END 2023-02-25 09:25 | disposition home or self-care (01) ==
LOC: HO.MAMMO 09:24
PROVIDERS: PCP Internal Medicine; Visit Provider Internal Medicine
DX: Z12.31 Encounter for screening mammogram for malignant neoplasm of breast (principal)
CPT/HCPCS: 77063; 77067

== ENCOUNTER 2023-04-02 11:50 | Emergency (ER) | payer MEDICARE, OTHER, SELFPAY ==
--- NOTE | ~2023-04-02 | XR_ITS ---
EXAMINATION: XR CHEST CLINICAL INFORMATION: Right-sided pain. COMPARISON: CT chest 07/04/2022. TECHNIQUE: 2 views of the chest were obtained. FINDINGS: Unchanged appearance of the cardiomediastinal silhouette. Stable postsurgical changes with scarring in the right infrahilar region. Otherwise, clear lungs. A stable small chronic right-sided pleural effusion. No pneumothorax. Again noted focal irregularity of the left posterior second rib, best characterized on recent CT from 07/04/2022. Partially imaged fixation plate and screws in the right humerus. XR/XR chest 2V IMPRESSION: 1. No acute cardiopulmonary findings. 2. Chronic postsurgical changes with scarring in the right infrahilar region. Chronic small right-sided pleural effusion. 3. Again noted focal irregularity of the left posterior second rib, best characterized on recent CT from 07/04/2022.
--- NOTE | ~2023-04-02 | CT_ITS ---
EXAMINATION: CT ABDOMEN AND PELVIS WITH CONTRAST CLINICAL INFORMATION: Right-sided pain COMPARISON: Previous CT of the abdomen and pelvis most recent January 2023 TECHNIQUE: Multidetector volumetric images were obtained from the superior aspect of the liver through the pubic symphysis following administration 85 mL of Omnipaque 350 intravenous contrast. Sagittal and coronal reformatted images were obtained on the technologist's workstation. Oral contrast: Yes This CT examination was performed using dose optimization techniques as appropriate, variously including the following: *Automated exposure control *Adjustment of mA and/or kV according to patient size (this includes techniques or standardized protocols for targeted exams where dose is matched to indication/reason for exam; i.e. extremities or head) *Use of iterative reconstruction technique DLP: 482 mGy-cm FINDINGS: LUNG BASES: See chest CT report from the same day LIVER, GALLBLADDER, AND BILIARY TREE: Cirrhotic-appearing liver. Small low-attenuation lesion in the posterior segment of the right lobe of the liver measuring 8 mm. This is similar to January 2023 exam. No other focal liver lesion. The gallbladder has been removed. The common bile duct is dilated measuring up to 2.3 cm. This is similar to prior exam. No ascites. PANCREAS: Unremarkable. SPLEEN: The spleen is slightly enlarged. No focal lesion. ADRENAL GLANDS: Unremarkable. KIDNEYS AND URETERS: The kidneys are normal in size, shape, and attenuation. No hydronephrosis, hydroureter, or calculi seen. No perinephric stranding. BLADDER: Unremarkable. GASTROINTESTINAL TRACT: Diverticulosis of the colon. Small and large bowel is otherwise normal. There is increased attenuation seen in the tip of the appendix questionable for small appendicolith versus a oral contrast. This is new from January 2023 exam. The appendix is otherwise normal. The stomach is normal. ABDOMINAL WALL: No significant hernia is appreciated. LYMPH NODES: Normal. VASCULAR: There are varices. The abdominal aorta is calcified but normal in caliber. No aneurysm. The portal and hepatic veins are patent. PELVIC VISCERA: Unremarkable. OSSEOUS STRUCTURES: Mild curvature of the lumbar spine and degenerative changes. No fracture or bone lesion. CT/CT abdomen pelvis w IV con IMPRESSION: Cirrhotic-appearing liver, splenomegaly and varices. Stable subcentimeter low-attenuation lesion in the right lobe of the liver. Post cholecystectomy and common bile duct dilatation similar to prior exams. Diverticulosis. No evidence of diverticulitis. New increased attenuation in the tip of the appendix questionable for appendicolith versus retained oral contrast. The appendix is otherwise normal. No evidence of appendicitis. Fleischner guidelines were followed.
--- NOTE | ~2023-04-02 | CT_ITS ---
EXAMINATION: CT CHEST WITH CONTRAST CLINICAL INFORMATION: Right-sided rib pain COMPARISON: Previous chest x-ray from earlier the same day and chest CT most recent June 2022 TECHNIQUE: Multidetector volumetric CT imaging of the chest was obtained after the administration of 85 mL of Omnipaque 350 intravenous contrast without immediate adverse reactions. Axial MIP volume rendering provided. Sagittal and coronal reformatted images were obtained. This CT examination was performed using dose optimization techniques as appropriate, variously including the following: *Automated exposure control *Adjustment of mA and/or kV according to patient size (this includes techniques or standardized protocols for targeted exams where dose is matched to indication/reason for exam; i.e. extremities or head) *Use of iterative reconstruction technique DLP: 482 mGy-cm FINDINGS: ENVIRONMENTAL STUDIES DEPARTMENT CHAIR: Orthopedic hardware in the right humeral shaft. LUNGS: There are stable postsurgical changes from right upper lobe lobectomy. There is scarring or subsegmental atelectasis at the right lung base in the right lower lobe. There is slight compressive atelectasis at the left lung apex adjacent to left second rib lesion associated soft tissue mass. The lungs are otherwise clear MEDIASTINUM: There is evidence of atherosclerotic disease. Thoracic aorta is tortuous normal in caliber. The heart size is normal. No pericardial effusion. No coronary artery calcification. No enlarged hilar or mediastinal lymph nodes. PLEURA: There is a small right pleural effusion. This appears slightly complex with split pleural sign and pleural thickening. This appears similar to previous chest CT from 2021. There is left apical pleural thickening versus soft tissue mass adjacent to the left second rib lesion. This is similar to prior exam. There is no left pleural effusion. There is no pneumothorax. AXILLA: No lymphadenopathy. UPPER ABDOMEN: See abdominal and pelvic CT from the same day OSSEOUS STRUCTURES: There is cortical thickening and likely pathologic fracture of the left second rib. There are small lucencies and cortical thinning of the adjacent posterior left third rib also questionable for metastatic disease versus possible post radiation change. This is similar to previous exam. No right-sided rib lesion or fracture is seen. Degenerative changes of the spine. The hardware in the right humeral shaft. CT/CT chest w IV con IMPRESSION: Stable chest CT exam from June 2022. Stable small right pleural effusion and pleural thickening. Stable likely pathologic fracture of the left second rib and adjacent pleural thickening and soft tissue mass. No right-sided rib lesion or fracture. Fleischner guidelines were followed.
[2023-04-02 11:55] VITALS: BP 150/92; BP 154/75; PULSE 80; RESP 18; TEMP 36.9; O2SAT 100; O2SAT 98; BMI 30.7
--- NOTE | 2023-04-02 12:34 | ED_ITS ---
HPI - SOB/Dyspnea General Chief Complaint: General Medical Stated Complaint: SOB Time Seen by Provider: 04/02/23 12:04 Source: patient and old records reviewed Mode of arrival: ambulatory Limitations: no limitations History of Present Illness HPI Narrative: 73 yo female with PMH of hep C, she reports a few bouts of lung cancer s/p lobectomy R side no current treatment, chronic respiratory failure intermittent O2 use at home, COPD, anxiety, GERD, constipation here with c/o R sided rib pain and abdominal pain that has been present for 6 weeks and worsening post colonoscopy seen here recently with CT scan during episode of pain and dx with constipation. She has tried all laxatives and notes she still has pain, nausea, feels weak, increased O2 use and really hasn't had a good bowel movement though she is passing gas. She has no fevers no sputum production. She is not on blood thinners. this pain is not new she takes ER morphine 10mg BID but it does not help MD elicited complaint: chest pain (R sided Rib pain) Pertinent past history: COPD Onset (ago): week(s) (6) Timing: constant Severity: moderate Exacerbating factors: movement Relieving factors: nothing Known history of: COPD Associated symptoms: other (weakness, dyspnea) Treatment prior to arrival: other (has been seen in ED tried laxatives, PO morphine, PCP) Related Data Home Medications Medication Instructions Recorded Confirmed lorazepam 1 mg tablet 1 mg PO DAILY PRN Anxiety 02/07/21 02/25/23 budesonide 0.5 mg/2 mL suspension 1 mg inhalation BEDTIME 05/12/21 02/25/23 for nebulization ipratropium 0.5 mg-albuterol 3 mg 3 ml inhalation Q6H PRN copd 05/12/21 02/25/23 (2.5 mg base)/3 mL nebulization soln calcium carbonate 600 mg calcium 600 mg PO DAILY 10/30/21 02/25/23 (1,500 mg) tablet (Calcium) cholecalciferol (vitamin D3) 50 50 mcg PO DAILY 10/30/21 02/25/23 mcg (2,000 unit) capsule venlafaxine 75 mg capsule,extended 75 mg PO DAILY 01/16/22 02/25/23 release 24 hr Oxygen Home Use 02/18/23 02/25/23 lactulose 10 gram/15 mL oral 15 ml PO BEDTIME PRN for 02/20/23 02/25/23 solution constipation azithromycin 500 mg tablet 500 mg PO DAILY 02/25/23 02/25/23 Previous Rx's Medication Instructions Recorded nebulizers #1 ea 12/29/20 metoprolol succinate 25 mg 25 mg PO DAILY #90 tabs 04/23/22 tablet,extended release 24 hr (Toprol XL) Symbicort 160 mcg-4.5 2 puff inhalation BID 30 days 07/19/22 mcg/actuation HFA aerosol inhaler #10.2 grams (budesonide-formoterol) umeclidinium 62.5 mcg/actuation 1 inh inhalation DAILY 30 days #30 09/26/22 blister powder for inhalation ea (Incruse Ellipta) furosemide 40 mg tablet 40 mg PO DAILY@0730 30 days #30 11/30/22 tabs albuterol sulfate 90 mcg/actuation 2 puff PO Q4H PRN for dyspnea #1 ea 01/09/23 aerosol inhaler melatonin 5 mg tablet 10 mg PO BEDTIME PRN for insomnia 01/31/23 #60 tabs bisacodyl 5 mg tablet,delayed 10 mg PO BEDTIME 30 days #60 tabs 02/11/23 release (Dulcolax (bisacodyl)) polyethylene glycol 3350 17 17 g PO DAILY #510 grams 02/11/23 gram/dose oral powder (Miralax) doxycycline monohydrate 100 mg 100 mg PO BID 14 days #28 tabs 02/18/23 tablet nicotine 7 mg/24 hr daily 1 patch transdermal Q24H 28 days 02/20/23 transdermal patch #28 ea morphine 15 mg tablet,extended 15 mg PO BID PRN Pain 30 days #60 03/05/23 release tabs Allergies Allergy/AdvReac Type Severity Reaction Status Date / Time hydrocodone [From Vicodin] Allergy Severe Rash/Hives Verified 02/25/23 10:17 Influenza Virus Vaccines Allergy Severe Rash/Hives Verified 02/25/23 10:17 gabapentin AdvReac Intermediate Anxiety Verified 02/25/23 10:17 Review of Systems Review of Systems: Constitutional : No Weight loss, No Fever, No Chills ENT/Mouth : No sore throat, No Rhinorrhea Eyes: No Eye Pain, No Swelling Cardiovascular : pos Chest Pain, pos SOB, pos Dyspnea on Exertion, No Orthopnea, No Edema, No Palpitations Respiratory : No Cough, No Sputum Gastrointestinal : pos Nausea, No Vomiting, No Diarrhea, No abdominal Pain, No Hematochezia, No Melena Genitourinary : No Dysuria, No Urinary Frequency Musculoskeletal : No joint pain, No Myalgias, No Joint Swelling Skin : No Skin Lesions, No rash Neuro : pos Weakness, No Numbness, No Dizziness, No Headache Psych : No Anxiety/Panic, No Depression Heme/Lymph: No Bruising, No Lymphadenopathy Endocrine : No Polyuria, No Polydipsia All other systems reviewed and are negative [facility] Past Medical History Attestation statement: The following information was validated with the patient. Medical History ADD (attention deficit disorder) Aneurysm Anxiety Bilateral lower extremity edema Brain aneurysm Chest pain Concussion Constipation COPD (chronic obstructive pulmonary disease) COPD (chronic obstructive pulmonary disease) case management patient Depression Elevated TSH Esophageal varices Fatigue Fever GERD without esophagitis Hepatitis C History of diverticulosis Hx of hepatitis C Insomnia Limb swelling Loculated pleural effusion Lung cancer Obesity (BMI 30-39.9) On home oxygen therapy Pre-op chest exam PVCs (premature ventricular contractions) Smoker SOB (shortness of breath) Tachycardia Vitamin D deficiency Surgical History H/O colonoscopy with polypectomy H/O colonoscopy with polypectomy H/O endoscopy History of esophagogastroduodenoscopy (EGD) History of thoracic surgery Hx of cataract extraction Hx of cholecystectomy S/P biopsy Status post thoracentesis (~10/19/20) Family History Family History Mother Skin cancer Diabetes Thyroid disease Sister Diabetes Skin cancer Tubular adenoma Thyroid disease Daughter Skin cancer Diabetes Social History Social History Housing: Condominium Are you a primary day care worker to a significant other at home: No Do you presently have visiting nurse or other home services: No Alcohol intake: current Alcohol intake frequency: holidays/special occasions only Alcohol type: wine Patient Tobacco Use Status: Former Tobacco user Quit Date: 07/2020 Tobacco use type: Cigarette Years Smoked: 20 +/- Smoked in Last 30 Days: Yes Second Hand Smoke Exposure: Yes Use of substances other than those prescribed or required for medical reasons: No Advance Directives: No Advance Directives Information Provided: Yes service: No Current occupational status: retired Cognitive needs: No Hearing needs: No Vision needs: Yes Physical Exam Vital Signs: Vital Signs: Last Vital Signs Temp 98.4 F 04/02/23 11:55 Pulse 69 04/02/23 14:27 Resp 17 04/02/23 14:27 BP 152/62 H 04/02/23 14:27 Pulse Ox 96 04/02/23 14:27 O2 Del Method Room Air 04/02/23 14:27 Oxygen Flow Rate 2 04/02/23 11:55 BMI result Body Mass Index 30.7 Appearance: Alert. Oriented X3. No acute distress. Eyes: Pupils equal, round and reactive to light. ENT: Pharynx normal. Neck: Normal inspection. Neck supple. CVS: Normal heart rate and rhythm. Pulses normal. Chest: reports ttp along R lower anterior ribsg Respiratory: No respiratory distress. Breath sounds slightly diminished Abdomen: Soft and non-tender. Skin: Skin warm and dry. Normal skin color. Normal skin turgor. Extremities: No lower extremity edema. Neuro: Oriented X 3. No motor deficit. No sensory deficit. Course Course Course Narrative: ddimer negative workup negative patient states she has pain at this time I have ordered CT chest to rule out pathology such as mass, she is refusing pain medications patient now states she wants RUQ pain given intermittent constipation and persistent nausea. signed out to Dr. Cabrales Medications Administered Discontinued Medications Generic Name Dose Route Start Last Admin Trade Name Freq PRN Reason Stop Dose Admin Acetaminophen 650 mg 04/02/23 15:51 04/02/23 16:00 Acetaminophen 325 Mg Tablet PO 04/02/23 15:52 650 mg ONCE ONE Administration Iohexol 100 ml 04/02/23 15:38 04/02/23 15:39 Iohexol 350 Mg/Ml 100 Ml Infus..Btl IV 04/02/23 15:39 85 ml ONCE ONE Administration Metoclopramide HCl 5 mg 04/02/23 15:51 04/02/23 16:00 Metoclopramide Hcl 10 Mg/2 Ml Vial IVPUSH 04/02/23 15:52 5 mg ONCE ONE Administration Ondansetron HCl 4 mg 04/02/23 12:57 04/02/23 14:01 Ondansetron Hcl 4 Mg/2 Ml Vial IVPUSH 04/02/23 12:58 4 mg ONCE ONE Administration Medical Decision Making Medical Decision Making [facility] Narrative: 73 yo female with PMH of hep C, she reports a few bouts of lung cancer s/p lobectomy R side no current treatment, chronic respiratory failure intermittent O2 use at home, COPD, anxiety, GERD, constipation here with c/o chronic R sided pain x 6 weeks that is worsening now with increased dyspnea but no cough/sputum/fevers. Chronic RUQ pain has had GB removed in past already blames nerve pain from colonoscopy 6 weeks ago has no signs of obstruction - at this time has already had CT scan recently with same symptoms. Will obtain basic labs, CXR, treat nausea, possible PE, mass vs chronic pain. Differential Diagnosis Differential Diagnoses: The differential diagnosis associated with the presentation includes PE, pneumonia, mass, constipation, chronic pain Lab Data [facility] Lab Attestation statement: I reviewed the patient's lab results. 04/02/23 13:57 04/02/23 13:58 Labs: Lab Results 04/02/23 04/02/23 04/02/23 Range/Units 13:48 13:57 13:57 WBC 2.8 L (4.8-10.8) X10*3/uL RBC 3.91 L (4.20-5.50) X10*6/uL Hgb 12.1 (12.0-16.0) g/dl Hct 37.5 (37.0-47.0) % MCV 95.9 (80.0-98.0) fL MCH 30.9 (27.0-33.0) pg MCHC 32.3 (31.0-35.0) g/dl RDW 12.5 (11.0-16.0) % Plt Count 85 L (160-400) X10*3/uL MPV 10.4 (9.4-12.3) fL Immature Gran % (Auto) 0.4 (0.0-0.4) % Neut % (Auto) 66.3 (45-73) % Lymph % (Auto) 22.9 (20-40) % [place] % (Auto) 7.5 (2-11) % Eos % (Auto) 2.5 (0-4) % Baso % (Auto) 0.4 (0-2) % Lymph # (Auto) 0.6 L (1.2-4.9) X10*3/uL [place] # (Auto) 0.2 (0.1-1.2) X10*3/uL Eos # (Auto) 0.1 (0.0-0.4) X10*3/uL Baso # (Auto) 0.0 (0.0-0.2) X10*3/uL Abs Immat Gran (auto) 0.01 (0.00-0.03) X10*3/uL Absolute Neuts (auto) 1.9 L (2.0-8.3) x10*3/uL Absolute Nucleated RBC 0.000 (0.0-0.012) X10*3/uL Nucleated RBC % (auto) 0.0 (0.0-0.2) /100WBC D-Dimer High Sensitivty NG/ML Sodium (135-145) mmol/L Potassium (3.3-5.1) mmol/L Chloride (96-108) mmol/L Carbon Dioxide (22-29) mmol/L Anion Gap (12-20) BUN (9-16) mg/dL Creatinine (0.5-1.4) mg/dL Estim Creat Clear Calc Estimated GFR Random Glucose (60-115) mg/dL Calcium (8.4-10.2) mg/dL Magnesium (1.6-2.6) mg/dL Total Bilirubin (0.0-1.0) mg/dL Direct Bilirubin (0.0-0.5) mg/dL AST (5-31) U/L ALT (0-31) U/L Alkaline Phosphatase (39-117) U/L Troponin I High Sens 13.5 (<3.5-17.0) ng/L C-Reactive Protein (< or = 0.50) mg/dL B-Natriuretic Peptide (<100) pg/mL Total Protein (6.5-8.0) g/dL Albumin (3.5-5.0) g/dL Lipase (8-78) U/L Urine Color DK YELLOW Urine Appearance Hazy Urine pH 6.0 (5.0-9.0) Ur Specific [place] 1.025 (1.005-1.025) Urine Protein Negative (Neg-Trace) mg/dL Urine Glucose (UA) Negative (Negative) mg/dL Urine Ketones Trace (Negative) mg/dL Urine Blood Negative (Negative) Urine Nitrite Negative (Negative) Ur Leukocyte Esterase Negative (Negative) 04/02/23 04/02/23 04/02/23 Range/Units 13:57 13:58 13:58 WBC (4.8-10.8) X10*3/uL RBC (4.20-5.50) X10*6/uL Hgb (12.0-16.0) g/dl Hct (37.0-47.0) % MCV (80.0-98.0) fL MCH (27.0-33.0) pg MCHC (31.0-35.0) g/dl RDW (11.0-16.0) % Plt Count (160-400) X10*3/uL MPV (9.4-12.3) fL Immature Gran % (Auto) (0.0-0.4) % Neut % (Auto) (45-73) % Lymph % (Auto) (20-40) % [place] % (Auto) (2-11) % Eos % (Auto) (0-4) % Baso % (Auto) (0-2) % Lymph # (Auto) (1.2-4.9) X10*3/uL [place] # (Auto) (0.1-1.2) X10*3/uL Eos # (Auto) (0.0-0.4) X10*3/uL Baso # (Auto) (0.0-0.2) X10*3/uL Abs Immat Gran (auto) (0.00-0.03) X10*3/uL Absolute Neuts (auto) (2.0-8.3) x10*3/uL Absolute Nucleated RBC (0.0-0.012) X10*3/uL Nucleated RBC % (auto) (0.0-0.2) /100WBC D-Dimer High Sensitivty 227 NG/ML Sodium 141 (135-145) mmol/L Potassium 4.9 D (3.3-5.1) mmol/L Chloride 107 (96-108) mmol/L Carbon Dioxide 26 (22-29) mmol/L Anion Gap 13 (12-20) BUN 9 (9-16) mg/dL Creatinine 0.65 (0.5-1.4) mg/dL Estim Creat Clear Calc 86.4 Estimated GFR > 60 Random Glucose 100 (60-115) mg/dL Calcium 8.9 (8.4-10.2) mg/dL Magnesium 2.1 (1.6-2.6) mg/dL Total Bilirubin 0.6 (0.0-1.0) mg/dL Direct Bilirubin 0.1 (0.0-0.5) mg/dL AST 36 H (5-31) U/L ALT 30 (0-31) U/L Alkaline Phosphatase 58 (39-117) U/L Troponin I High Sens (<3.5-17.0) ng/L C-Reactive Protein 0.28 (< or = 0.50) mg/dL B-Natriuretic Peptide 25 (<100) pg/mL Total Protein 7.1 (6.5-8.0) g/dL Albumin 3.9 (3.5-5.0) g/dL Lipase 25 (8-78) U/L Urine Color Urine Appearance Urine pH (5.0-9.0) Ur Specific [place] (1.005-1.025) Urine Protein (Neg-Trace) mg/dL Urine Glucose (UA) (Negative) mg/dL Urine Ketones (Negative) mg/dL Urine Blood (Negative) Urine Nitrite (Negative) Ur Leukocyte Esterase (Negative) Independent Interpretation I performed an independent interpretation of an: EKG, Plain X-Ray and CT Scan Interpretation: Rate: 67 Rhythm: NSR [place]: normal Normal P waves. Normal CLARISSA. Normal QRS complex. ST T wave : normal no KAUSHIK qTC: normal prior studies: no acute ischemia The study has been interpreted contemporaneously by me. Radiology Impression Discussion of test interpretation with radiology: I have reviewed the radiologist's reading. External Record Review External record reviewed: Inpatient record Discharge Plan Discharge Clinical Impression: Nausea Patient Disposition: Still a Patient Prescriptions: No Action (DME) nebulizers Misc See Rx Instructions .ROUTE .MEDSUPPLY Qty: 1 11RF Rx Instructions: Tubing and mask for nebulizer metoprolol succinate [Toprol XL] 25 mg tablet extended release 24 hr 25 mg PO DAILY Qty: 90 3RF budesonide-formoterol [Symbicort] 160-4.5 mcg/actuation HFA aerosol inhaler 2 puff inhalation BID 30 Days Qty: 10.2 11RF albuterol sulfate 90 mcg/actuation HFA aerosol inhaler 2 puff PO Q4H PRN (Reason: for dyspnea) Qty: 1 12RF melatonin 5 mg tablet 10 mg PO BEDTIME PRN (Reason: for insomnia) Qty: 60 6RF morphine 15 mg tablet extended release 15 mg PO BID PRN (Reason: Pain) 30 Days Qty: 60 0RF azithromycin 500 mg tablet 500 mg PO DAILY Rx Instructions: Saturday, Saturday, Saturday venlafaxine 75 mg capsule,extended release 24hr 75 mg PO DAILY lactulose 10 gram/15 mL solution 15 ml PO BEDTIME PRN (Reason: for constipation) polyethylene glycol 3350 [Miralax] 17 gram/dose powder 17 g PO DAILY Qty: 510 0RF bisacodyl [Dulcolax (bisacodyl)] 5 mg tablet,delayed release (DR/EC) 10 mg PO BEDTIME 30 Days Qty: 60 0RF nicotine 7 mg/24 hr patch 24 hour 1 patch transdermal Q24H 28 Days Qty: 28 3RF furosemide 40 mg tablet 40 mg PO DAILY@0730 30 Days Qty: 30 3RF lorazepam 1 mg tablet 1 mg PO DAILY PRN (Reason: Anxiety) ipratropium-albuterol 0.5 mg-3 mg(2.5 mg base)/3 mL solution for nebulization 3 ml inhalation Q6H PRN (Reason: copd) budesonide 0.5 mg/2 mL suspension for nebulization 1 mg inhalation BEDTIME cholecalciferol (vitamin D3) 50 mcg (2,000 unit) capsule 50 mcg PO DAILY calcium carbonate [Calcium 600] 600 mg calcium (1,500 mg) tablet 600 mg PO DAILY Incruse Ellipta 62.5 mcg/actuation blister with device 1 inh inhalation DAILY 30 Days Qty: 30 11RF (DME) Oxygen Home Use Kit See Rx Instructions .Route Rx Instructions: As directed doxycycline monohydrate 100 mg tablet 100 mg PO BID 14 Days Qty: 28 0RF
--- NOTE | 2023-04-02 12:56 | ECG_ITS ---
Test Reason : dyspnea Blood Pressure : / mmHG Vent. Rate : 067 BPM Atrial Rate : 067 BPM P-R Int : 174 ms QRS Dur : 078 ms QT Int : 436 ms P-R-T Axes : 036 004 047 degrees QTc Int : 460 ms Normal sinus rhythm Normal ECG When compared with ECG of 04-JUL-2022 19:21, T wave inversion no longer evident in Anterolateral leads Referred By: Eliza Soriano Electronically Signed By:Jignesh Foley
[2023-04-02] MEDS: ondansetron HCL 4 MG/2 ML VIAL IVPUSH (14:01)
[2023-04-02 14:04] LABS: MANUAL DIFF FLAG NO
[2023-04-02 14:08] LABS: Appearance Urine Hazy; Color Urine DK YELLOW; Glucose Urine UA Negative (Negative); Leukocyte Esterase Urine Negative (Negative); Nitrite Urine Negative (Negative); Specific Gravity - Urine 1.025 (1.005-1.025); Urine Blood Negative (Negative); Urine Ketones Trace mg/dL (Negative); Urine Protein Negative (Neg-Trace)
[2023-04-02 14:09] LABS: Basophils Percent Auto 0.4 % (0-2); Eosinophils Absolute Auto 0.1 X10*3/uL (0.0-0.4); Eosinophils Percent Auto 2.5 % (0-4); Hematocrit 37.5 % (37.0-47.0); Hemoglobin 12.1 g/dl (12.0-16.0); Imm Gran Abs Auto 0.01 X10*3/uL (0.00-0.03); Imm Gran Pct Auto 0.4 % (0.0-0.4); Lymphocytes Absolute Auto 0.6 X10*3/uL (1.2-4.9); Lymphocytes Percent Auto 22.9 % (20-40); Mean Corpuscular HGB Conc 32.3 g/dl (31.0-35.0); Mean Corpuscular Hemoglobin 30.9 pg (27.0-33.0); Mean Corpuscular Volume 95.9 fL (80.0-98.0); Mean Platelet Volume 10.4 fL (9.4-12.3); Monocytes Absolute Auto 0.2 X10*3/uL (0.1-1.2); Monocytes Percent Auto 7.5 % (2-11); Neutrophils Absolute Auto 1.9 x10*3/uL (2.0-8.3); Neutrophils Percent Auto 66.3 % (45-73); Red Blood Count 3.91 X10*6/uL (4.20-5.50); Red Cell Distribution Width 12.5 % (11.0-16.0); White Blood Count 2.8 X10*3/uL (4.8-10.8)
[2023-04-02 14:11] LABS: Platelet Count 85 X10*3/uL (160-400)
[2023-04-02 14:13] LABS: D Dimer High Sensitivity 227 NG/ML
[2023-04-02 14:25] LABS: Alanine Aminotransferase 30 U/L (0-31); Albumin Level 3.9 g/dL (3.5-5.0); Alkaline Phosphatase 58 U/L (39-117); Anion Gap 13 (12-20); Aspartate Amino Transferase 36 U/L (5-31); Bilirubin Direct 0.1 mg/dL (0.0-0.5); Bilirubin Total 0.6 mg/dL (0.0-1.0); Blood Urea Nitrogen 9 mg/dL (9-16); C Reactive Protein 0.28 mg/dL (< or = 0.50); Calcium 8.9 mg/dL (8.4-10.2); Carbon Dioxide 26 mmol/L (22-29); Chloride 107 mmol/L (96-108); Creatinine Clr Calc Pharmacy 86.4; Estimated Glomerular Filt Rate > 60; Glucose Random 100 mg/dL (60-115); Lipase 25 U/L (8-78); Magnesium 2.1 mg/dL (1.6-2.6); Potassium 4.9 mmol/L (3.3-5.1); Sodium 141 mmol/L (135-145); Total Protein 7.1 g/dL (6.5-8.0)
[2023-04-02 14:27] VITALS: BP 152/62; PULSE 69; RESP 17; O2SAT 96
[2023-04-02 14:32] LABS: B Type Natriuretic Peptide 25 pg/mL (<100); Troponin-I High Sensitivity 13.5 ng/L (<3.5-17.0)
[2023-04-02] MEDS: iohexoL 350 MG/ML 100 ML INFUS..BTL IV (15:39)
[2023-04-02] MEDS: Acetaminophen 325 MG TABLET 650 MG PO (16:00)
[2023-04-02] MEDS: Metoclopramide HCl 10 MG/2 ML VIAL 5 MG IVPUSH (16:00)
[2023-04-02 16:59] VITALS: BP 113/52; PULSE 68; RESP 18; TEMP 36.6; O2SAT 97
== END 2023-04-02 18:16 | disposition home or self-care (01) ==
PROVIDERS: Emergency Medicine; Emergency Provider Emergency Medicine; PCP Internal Medicine
DX: R11.0 Nausea (principal); K59.00 Constipation, unspecified; J90 Pleural effusion, not elsewhere classified; R06.02 Shortness of breath; C34.11 Malignant neoplasm of upper lobe, right bronchus or lung; F17.200 Nicotine dependence, unspecified, uncomplicated; Z79.899 Other long term (current) drug therapy
CPT/HCPCS: 36415; 71046; 71260; 74177; 80048; 80076; 81003; 83690; 83735; 83880; 84484; 85025; 85379; 86140; 93005; 96374; 96375; 99284; 99285; J2405; J2765; Q9967

== ENCOUNTER → 2023-04-18 12:34 | Outpatient (BNVA) | payer MEDICARE, MEDICAID, SELFPAY | PROVIDERS: PCP Internal Medicine; Referring Provider Internal Medicine; Visit Provider Internal Medicine Cardiovascular Disease | DX: I49.3 Ventricular premature depolarization (principal) | CPT/HCPCS: 99212 ==

== ENCOUNTER → 2023-04-19 14:27 | Outpatient (BNVA) | payer MEDICARE, MEDICAID, SELFPAY | PROVIDERS: PCP Internal Medicine; Visit Provider Hospitalist | DX: J44.1 Chronic obstructive pulmonary disease with (acute) exacerbation (principal); R91.1 Solitary pulmonary nodule; J90 Pleural effusion, not elsewhere classified; R00.0 Tachycardia, unspecified | CPT/HCPCS: 99212 ==

== ENCOUNTER 2023-07-09 13:39 | Outpatient (REF) | payer MEDICARE, MEDICAID, SELFPAY ==
--- NOTE | ~2023-07-09 | CT_ITS ---
EXAMINATION: CT CHEST WITHOUT CONTRAST CLINICAL INFORMATION: Solitary pulmonary nodule COMPARISON: 04/02/2023 TECHNIQUE: Multidetector volumetric CT imaging of the chest was done. Axial MIP volume rendering provided. Sagittal and coronal reformatted images were obtained. This CT examination was performed using dose optimization techniques as appropriate, variously including the following: *Automated exposure control *Adjustment of mA and/or kV according to patient size (this includes techniques or standardized protocols for targeted exams where dose is matched to indication/reason for exam; i.e. extremities or head) *Use of iterative reconstruction technique DLP: 167 mGy-cm FINDINGS: PUBLICATIONS INSPECTOR: Negative LUNGS: Trachea contains left lateral inherent debris, likely mucus. Thin web identified in the right mainstem bronchus. Stable right upper lobectomy postoperative changes. Slight compressive atelectasis left lung apex adjacent to unchanged asymmetric left apical soft tissue density/second rib lesion. MEDIASTINUM: Unremarkable thyroid. No change 0.9, 1.0 cm pretracheal and 1.4 cm AP window lymph nodes. Other small prevascular lymph nodes are again seen. Heart size within normal limits. Trace pericardial effusion. Degree of coronary calcifications: None. Atherosclerotic calcifications nonaneurysmal aorta and branch vessels. Nonenlarged pulmonary arteries. PLEURA: Stable small right pleural effusion with thickened split pleura sign and calcification. Asymmetric left apical pleural thickening with irregular sclerotic first, second and third ribs, second rib most pronounced. Appearance is unchanged. AXILLA: No lymphadenopathy. UPPER ABDOMEN: No change enlarged nodular liver, globular enlarged spleen, and extrahepatic biliary ductal dilatation, status post cholecystectomy. OSSEOUS STRUCTURES: Irregular left first, second and third ribs, unclear if post radiation or metastatic. Stable pathologic fracture of sclerotic second rib. Posterior to the chronic small right pleural effusion, there is subtle anterior cortical thickening of the adjacent posterior seventh, eighth, ninth and 10th ribs, possibly reactive, see 3:41 for example. Findings do not appear appreciably changed and no destructive bony process is identified. CT/CT chest wo IV con IMPRESSION: Stable right upper lobectomy postoperative changes. Stable small complex right pleural effusion, question adjacent reactive bony changes posterior right ribs without suspicious or destructive lesions. Stable left apical pleural thickening/mass and first through third irregular sclerotic ribs including second rib pathologic fracture. Redemonstration cirrhotic appearing liver and splenomegaly. Fleischner guidelines were followed.
== END 2023-07-09 13:40 | disposition home or self-care (01) ==
LOC: HO.CT 13:39
PROVIDERS: PCP Internal Medicine; Visit Provider Hospitalist
DX: R91.1 Solitary pulmonary nodule (principal)
CPT/HCPCS: 71250

== ENCOUNTER 2023-08-22 14:01 | Outpatient (AMB) | payer MEDICARE, SELFPAY ==
--- NOTE | 2023-08-22 14:02 | MHC.OFFVIS ---
Intake Vital Signs 08/22/23 14:06 Height 5 ft 6 in Weight 191 lb 12.835 oz BMI 31.0 BP 130/72 Blood Pressure Location Rt brachial Position Sitting Pulse 109 H Pulse Source Pulse Oximeter Pulse Oximetry (%) 97 Oxygen Delivery Method Room Air Intake Visit Reasons: COPD Lamp Shade Sewer Required: No Wood Heel Attacher: Wood Heel Attacher offered & declined Accompanied by: Self / Same As Patient Allergies hydrocodone [From Vicodin] Allergy (Severe, Verified 08/22/23 14:10) Rash/Hives Influenza Virus Vaccines Allergy (Severe, Verified 08/22/23 14:10) Rash/Hives gabapentin Adverse Reaction (Intermediate, Verified 08/22/23 14:10) Anxiety Medication List - Last Reconciled 08/22/23 by Kayleigh Brewer LPN Amitiza (lubiprostone) 8 mcg PO BID 30 days NS bisacodyl (Dulcolax (bisacodyl)) 10 mg (2 x 5 mg) PO BEDTIME 30 days budesonide 1 mg inhalation BEDTIME calcium carbonate (Calcium) 600 mg PO DAILY cholecalciferol (vitamin D3) 50 mcg PO DAILY furosemide 40 mg PO DAILY@0730 30 days ipratropium-albuterol 0.5 mg-3 mg(2.5 mg base)/3 mL 3 mL inhalation Q6H PRN lactulose 15 mL PO BEDTIME PRN lorazepam 1 mg PO DAILY PRN melatonin 10 mg (2 x 5 mg) PO BEDTIME PRN metoprolol succinate ER (Toprol XL) 25 mg PO DAILY morphine ER 15 mg PO BID PRN 30 days nebulizers Tubing and mask for nebulizer ondansetron HCl 4 mg PO Q8H PRN 14 days Oxygen Home Use As directed polyethylene glycol 3350 (Miralax) 17 grams PO DAILY Symbicort 160-4.5 mcg/actuation (budesonide-formoterol) 2 puffs PO BID NS umeclidinium 62.5 mcg/actuation (Incruse Ellipta) 1 inh inhalation DAILY 30 days venlafaxine ER 75 mg PO DAILY Ventolin HFA 90 mcg/actuation (albuterol sulfate) 2 puffs PO Q4H PRN NS HPI HPI Comments History of Present Illness Details 73-year-old lady with underlying history of stage 1 lung cancer status post recent right upper lobectomy on 08/11/2020 admitted on 09/07/2020 with dyspnea and surgical site pain. CT angiogram chest obtained during this admission demonstrated loculated right-sided pleural effusion and pulmonary evaluation has been requested. The patient is complaining severe right sided pleuritic chest pain. We did review the imaging studies concerning for an inflammatory/loculated process. She has been using her respiratory therapy with no significant improvement. Has been waiting for a nebulizer for a while. We will request a nebulizer at this time through [facility]. She did undergo a thoracentesis demonstrating a loculated process draining out only 60 mL of serosanguineous fluid. It was mainly neutrophilic in the LDH was elevated significantly above 2000. Microbiology negative and cytology negative for any malignancy. It appears that is more consistent with a complicated parapneumonic process. Initially after the drainage the patient did feel better for about a week. Then started developing again chest discomfort shortness of breath. She is also coughing. The patient will undergo blood work in addition to a chest x-ray today. At this point the patient be treated for a parapneumonic process and she will be following up with thoracic surgery to see if she requires additional interventions. 02/18/2023 the patient is here for pulmonary follow-up visit. She has been having worsening abdominal discomfort secondary to severe constipation from likely her opiates. She has been evaluated in the ER initially at [facility] and then here at [facility]. She was treated for diverticulitis at [facility]. She completed a course of antibiotics. She continues to have her chronic pain issues. And a CT scan of the abdomen she is he does small loculated effusion that is chronic for her. No other findings noted on the x-ray. The patient also had cirrhosis in the liver and has large spleen evidence of portal hypertension. The patient does have a known history of hepatitis-C. She was partially treated in the past. The patient should follow-up with Infectious Disease to further address that issue as it may be impacting her respiratory status. 04/19/2023 the patient is here for a pulmonary follow-up visit. The patient is not feeling well. She has been having constitutional complaints including tachycardia that about blood pressure shortness of breath chest pains. Her rate has been significantly elevated. Some of her cardiac medications have been adjusted which may be playing a part. The patient went to the ER because of worsening symptoms. She has been having significant sweating and had tachycardia and blood pressure issues. All her workup was reassuring and she did have a D-dimer that was within normal limits. She did have a CT scan with IV contrast to further address her abnormal findings have the x-ray in demonstrating no acute changes except for the rib fracture and the pleural effusion which is persisting her case. The patient does have a family history of thyroid issues. She is wondering if is related to that. Will go ahead and treat her for COPD exacerbation. If the patient is no better she can get blood work done. 08/22/2023 the patient is here for a pulmonary follow-up visit. The patient has not been feeling well. She is been having increasing dyspnea on exertion [id number] severity. Also complaining of left-sided chest discomfort with some radiation down the arm. Currently she does not feel them. The patient is concerned because she does have family history of heart disease. The patient also has been noticing increasing lower extremity edema which is new for her the last few months. Seems to be getting worse. 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 That is more of a chronic issue now. She does continue with respiratory medications and they have been affecting beneficial. We did go ahead and send her for an EKG and also laboratory data after the visit. I did get a call from the Cardiology Department of the EKG was abnormal and then also received a call from the laboratory that her troponin I was significantly elevated. Therefore did call the patient and spoke to her directly and emphasize the need for her to come to the ER. The patient agreed. [facility] Medical History (Updated 08/22/23 @ 21:25 by Demario Branch MD) Lower extremity edema CHF (congestive heart failure) Smoker Hepatitis C Esophageal varices COPD (chronic obstructive pulmonary disease) case management patient Obesity (BMI 30-39.9) Depression Anxiety Insomnia GERD without esophagitis Constipation Vitamin D deficiency PVCs (premature ventricular contractions) Pre-op chest exam Limb swelling Elevated TSH Fatigue Aneurysm Bilateral lower extremity edema History of diverticulosis Tachycardia SOB (shortness of breath) On home oxygen therapy ADD (attention deficit disorder) Hx of hepatitis C Chest pain Lung cancer Loculated pleural effusion Fever Concussion COPD (chronic obstructive pulmonary disease) Brain aneurysm Surgical History Hx of cholecystectomy Hx of cataract extraction Status post thoracentesis (~10/19/20) History of thoracic surgery H/O endoscopy H/O colonoscopy with polypectomy S/P biopsy H/O colonoscopy with polypectomy History of esophagogastroduodenoscopy (EGD) Family History Mother Skin cancer Diabetes Thyroid disease Sister Diabetes Skin cancer Tubular adenoma Thyroid disease Daughter Skin cancer Diabetes Social History (Updated 08/22/23 @ 14:12 by Kayleigh Brewer LPN) [facility] Are you a primary restorative care technician to a significant other at home: No Do you presently have visiting nurse or other home services: No Alcohol intake: current Alcohol intake frequency: holidays/special occasions only Alcohol type: wine Patient Tobacco Use Status: Former Tobacco user Quit Date: 07/2020 Tobacco use type: Cigarette Years Smoked: 20 +/- Second Hand Smoke Exposure: Yes service: No Current occupational status: retired Cognitive needs: No Hearing needs: No Vision needs: Yes Review of Systems Const Denies chills, Reports fatigue, Denies fever(s) and Denies headache(s) ENT Details: left ear feels blocked Denies dysphagia, Denies headache(s), Denies sinus pain and Denies sore throat Card Reports chest pain, Reports leg edema, Reports palpitations and Reports dyspnea on exertion Resp Reports chest congestion, Reports cough, Reports dyspnea on exertion and Reports wheezing GI Reports abdominal pain (chronic over the RUQ area and more diffuse lately), Reports bloating, Reports constipation (worsening lately), Denies dysphagia, Denies heartburn, Denies diarrhea, Reports nausea (at times) and Denies vomiting Denies difficulty voiding, Denies nocturia and Denies dysuria Neuro Denies headache(s) Endo Reports fatigue and Reports palpitations Aller/Immun Reports wheezing Physical Exam Vital Signs: Last Vital Signs Pulse 109 H 08/22/23 14:06 BP 130/72 08/22/23 14:06 Pulse Ox 97 08/22/23 14:06 Oxygen Delivery Method Room Air 08/22/23 14:06 BMI result Body Mass Index 31.0 Const General: alert Neck Neck: Yes normal visual inspection, Yes full ROM and Yes no lymphadenopathy Chest Chest palpation & inspection: normal inspection of the chest and tenderness (right infraclavicular area with a small dense area, right lower area too) Resp Auscultation: no rhonchi, wheezes and diminished lung sounds Cardio Rate: tachycardic Rhythm: regular rhythm Heart sounds: S1 normal heart sound present and S2 normal heart sound present GI Palpation (GI): Soft to palpation and nontender Auscultation: normal bowel sounds Extrem General: Yes edema Assessment & Plan Assessment & Plan (1) CHF (congestive heart failure): Code(s): I50.9 - Heart failure, unspecified Qualifiers: Heart failure type: unspecified Heart failure chronicity: unspecified Qualified Code(s): I50.9 - Heart failure, unspecified (2) Chest pain: Comment: post op pain, hydropneumothorax. Thoracic surgery is following Code(s): R07.9 - Chest pain, unspecified Qualifiers: Chest pain type: chest pain on breathing Qualified Code(s): R07.1 - Chest pain on breathing (3) Pulmonary nodule: Code(s): R91.1 - Solitary pulmonary nodule (4) Loculated pleural effusion: Code(s): J90 - Pleural effusion, not elsewhere classified (5) COPD (chronic obstructive pulmonary disease): Code(s): J44.9 - Chronic obstructive pulmonary disease, unspecified Qualifiers: COPD type: COPD with acute exacerbation Qualified Code(s): J44.1 - Chronic obstructive pulmonary disease with (acute) exacerbation (6) Tachycardia: Code(s): R00.0 - Tachycardia, unspecified Plan continue Symbicort and Incruse start Azithromycin medrol dose pack EKG is abnormal/tropI abnormal suggesting STEMI-> called the patient to go to the ED [place]. Will call 911. DAPHNE as needed continue trazodone for sleep ECHO F/U with Cardiology F/U 3-4 months Orders: Orders Troponin-I High Sensitivity Today I50.9 - Heart failure, unspecified, R07.9 - Chest pain, unspecified Basic Metabolic Panel Today I50.9 - Heart failure, unspecified, R07.9 - Chest pain, unspecified Erythrocyte Sedimentation Rate Today I50.9 - Heart failure, unspecified, R07.9 - Chest pain, unspecified Complete Blood Count Auto Diff Today I50.9 - Heart failure, unspecified, R07.9 - Chest pain, unspecified B Type Natriuretic Peptide Today I50.9 - Heart failure, unspecified, R07.9 - Chest pain, unspecified CA echo transthoracic complete Today L73.2 - Hidradenitis suppurativa, R60.0 - Localized edema ECG 12 lead EKG Today J44.9 - Chronic obstructive pulmonary disease, unspecified Medications: New azithromycin 500 mg PO DAILY 5 days 5 tabs 0RF methylprednisolone (Medrol (Reagan)) PO PER PKG DIR 6 days 21 ea 0RF Coding Level of Care Code Est Pt Level 5 (34900) Diagnoses Congestive heart failure, unspecified HF chronicity, unspecified heart failure type I50.9 Heart failure type: unspecified Heart failure chronicity: unspecified Chest pain on breathing R07.1 Chest pain type: chest pain on breathing Pulmonary nodule R91.1 Loculated pleural effusion J90 COPD (chronic obstructive pulmonary disease) J44.1 COPD type: COPD with acute exacerbation Tachycardia R00.0 Time Spent (min) 35
[2023-08-22 14:06] VITALS: BP 130/72; PULSE 109; O2SAT 97; BMI 31.0
== END 2023-08-22 14:29 | disposition home or self-care (01) ==
PROVIDERS: PCP Internal Medicine; Visit Provider Hospitalist
DX: J44.1 Chronic obstructive pulmonary disease with (acute) exacerbation (principal); R91.1 Solitary pulmonary nodule; J90 Pleural effusion, not elsewhere classified; I50.9 Heart failure, unspecified; R07.1 Chest pain on breathing; R00.0 Tachycardia, unspecified
CPT/HCPCS: 99214

== ENCOUNTER 2023-08-22 14:01 | Outpatient (REF) | payer MEDICARE, SELFPAY ==
--- NOTE | 2023-08-22 14:49 | ECG_ITS ---
Test Reason : hidradenitis suppurativa Blood Pressure : / mmHG Vent. Rate : 081 BPM Atrial Rate : 081 BPM P-R Int : 158 ms QRS Dur : 080 ms QT Int : 400 ms P-R-T Axes : 062 -10 202 degrees QTc Int : 464 ms Sinus rhythm with occasional Premature ventricular complexes T wave abnormality, consider anterolateral ischemia Abnormal ECG When compared with ECG of 02-APR-2023 13:37, Premature ventricular complexes are now Present Nonspecific T wave abnormality now evident in Inferior leads T wave inversion now evident in Anterolateral leads Referred By: Demario Branch Electronically Signed By:JOSÉ MIGUEL RIVERA MD
[2023-08-22 15:28] LABS: PLT CLUMP 1; SCAN SMEAR FLAG 1
[2023-08-22 15:31] LABS: Basophils Percent Auto 0.6 % (0-2); Eosinophils Percent Auto 1.1 % (0-4); Hematocrit 35.6 % (37.0-47.0); Hemoglobin 11.8 g/dl (12.0-16.0); Lymphocytes Absolute Auto 0.5 X10*3/uL (1.2-4.9); Lymphocytes Percent Auto 15.1 % (20-40); MANUAL DIFF FLAG SCAN; Mean Corpuscular HGB Conc 33.1 g/dl (31.0-35.0); Mean Corpuscular Hemoglobin 31.2 pg (27.0-33.0); Mean Corpuscular Volume 94.2 fL (80.0-98.0); Mean Platelet Volume 11.6 fL (9.4-12.3); Monocytes Absolute Auto 0.3 X10*3/uL (0.1-1.2); Monocytes Percent Auto 8.1 % (2-11); Neutrophils Absolute Auto 2.7 x10*3/uL (2.0-8.3); Neutrophils Percent Auto 75.1 % (45-73); Red Blood Count 3.78 X10*6/uL (4.20-5.50); Red Cell Distribution Width 13.7 % (11.0-16.0)
[2023-08-22 15:32] LABS: Platelet Count 92 X10*3/uL (160-400); White Blood Count 3.6 X10*3/uL (4.8-10.8)
[2023-08-22 15:40] LABS: D Dimer High Sensitivity 231 NG/ML
[2023-08-22 15:56] LABS: B Type Natriuretic Peptide 558 pg/mL (<100)
[2023-08-22 15:57] LABS: Anion Gap 15 (12-20); Blood Urea Nitrogen 9 mg/dL (9-16); Calcium 9.7 mg/dL (8.4-10.2); Carbon Dioxide 27 mmol/L (22-29); Chloride 104 mmol/L (96-108); Estimated Glomerular Filt Rate > 60; Glucose Random 113 mg/dL (60-115); Potassium 3.6 mmol/L (3.3-5.1); Sodium 142 mmol/L (135-145)
[2023-08-22 16:06] LABS: Troponin-I High Sensitivity 340.3 ng/L (<3.5-17.0)
[2023-08-22 16:11] LABS: Erythrocyte Sedimentation Rate 16 MM/HR (0-20)
[2023-08-22 16:14] LABS: TSH reflex Free T4 2.89 uIU/mL (0.32-4.0)
[2023-08-22 17:02] LABS: SLIDE REVIEW VERIFIED
[2023-08-23 11:33] LABS: Triiodothyronine T3 Free 3.5 pg/mL (2.3-4.2)
== END 2023-08-22 14:02 | disposition home or self-care (01) ==
LOC: HO.LAB 14:01
PROVIDERS: Visit Provider Hospitalist
DX: R07.9 Chest pain, unspecified (principal); J44.9 Chronic obstructive pulmonary disease, unspecified; R00.0 Tachycardia, unspecified; I50.9 Heart failure, unspecified; R91.1 Solitary pulmonary nodule; Z86.19 Personal history of other infectious and parasitic diseases
CPT/HCPCS: 36415; 80048; 83880; 84443; 84481; 84484; 85025; 85379; 85652; 93005; 99212

== ENCOUNTER 2023-09-04 17:03 | Outpatient (REF) | payer MEDICARE, SELFPAY ==
--- NOTE | ~2023-09-04 | MR_ITS ---
EXAMINATION: MR ANGIOGRAPHY BRAIN WITHOUT CONTRAST CLINICAL INFORMATION: Aneurysm COMPARISON: MRA head without contrast 06/05/2021 TECHNIQUE: Noncontrast [id number] MRA of the head was performed. 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 No new intracranial aneurysm is identified. Normal flow-related signal within the anterior circulation without evidence of focal stenosis or occlusion of the intradural internal carotid, middle cerebral, or anterior cerebral arteries. Normal flow-related signal within the posterior circulation without evidence of focal stenosis or occlusion of the intradural vertebral, basilar, superior cerebellar, or posterior cerebral arteries. 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
== END 2023-09-04 17:04 | disposition home or self-care (01) ==
LOC: HO.MRI 17:03
PROVIDERS: PCP Internal Medicine; Visit Provider Radiology Diagnostic Radiology
DX: I72.9 Aneurysm of unspecified site (principal)
CPT/HCPCS: 70544

== ENCOUNTER 2023-09-12 09:30 | Outpatient (AMB) | payer MEDICARE, SELFPAY ==
[2023-09-12 09:33] VITALS: BP 120/62; PULSE 74; BMI 33.0
--- NOTE | 2023-09-12 09:33 | A.OFFVIS_ITS ---
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 Present Accompanied by: Daughter Allergies hydrocodone [From Vicodin] Allergy (Severe, Verified 09/12/23 09:36) Rash/Hives Influenza Virus Vaccines Allergy (Severe, Verified 09/12/23 09:36) Rash/Hives gabapentin Adverse Reaction (Intermediate, Verified 09/12/23 09:36) Anxiety Medication List - Last Reconciled 09/12/23 by FEI Vasquez Amitiza (lubiprostone) 8 mcg PO BID 30 days NS amlodipine 5 mg PO DAILY aspirin (Adult Aspirin Regimen) 81 mg PO DAILY atorvastatin 80 mg PO BEDTIME azithromycin 500 mg PO 3XW bisacodyl (Dulcolax (bisacodyl)) 10 mg (2 x 5 mg) PO BEDTIME 30 days budesonide 1 mg inhalation BEDTIME calcium carbonate (Calcium) 600 mg PO DAILY cholecalciferol (vitamin D3) 50 mcg PO DAILY furosemide 40 mg PO DAILY@0730 30 days ipratropium-albuterol 0.5 mg-3 mg(2.5 mg base)/3 mL 3 mL inhalation Q6H PRN isosorbide dinitrate 30 mg PO BID lactulose 15 mL PO BEDTIME PRN lorazepam 1 mg PO DAILY PRN melatonin 10 mg (2 x 5 mg) PO BEDTIME PRN methylprednisolone (Medrol (Reagan)) PO PER PKG DIR 6 days metoprolol succinate ER (Toprol XL) 25 mg PO DAILY morphine ER 15 mg PO BID PRN 30 days nebulizers Tubing and mask for nebulizer nitroglycerin 0.4 mg sublingual Q5M PRN ondansetron HCl 4 mg PO Q8H PRN 14 days Oxygen Home Use As directed pantoprazole 20 mg PO DAILY polyethylene glycol 3350 (Miralax) 17 grams PO DAILY prednisone 40 mg PO DAILY Symbicort 160-4.5 mcg/actuation (budesonide-formoterol) 2 puffs PO BID NS umeclidinium 62.5 mcg/actuation (Incruse Ellipta) 1 inh inhalation DAILY 30 days venlafaxine ER 75 mg PO DAILY Ventolin HFA 90 mcg/actuation (albuterol sulfate) 2 puffs PO Q4H PRN NS HPI [facility] discharge HPI Details Valeria is a 73-year-old female with past medical history of COPD, oxygen dependent, PVCs who was recently admitted to [facility] with increased shortness of breath. She was treated for heart failure with preserved EF and NSTEMI. Her coronary arteries were normal and she was thought to have a so spasm. She was started on appropriate medication and treated with additional Lasix. Today she reports that she continues to have shortness of breath which is a daily problem for her. She had been wearing her oxygen only as needed and now she wears it all the time. She describes orthopnea and leg edema which is new. No exertional chest discomfort. She does have soreness along her left and right lower rib edge. When she climbs stairs she has shortness of breath and tightness in her chest. No palpitations, presyncope, syncope, falls. Taking all meds as directed. Daughter is present. [facility] Medical History Lower extremity edema CHF (congestive heart failure) Smoker Hepatitis C Esophageal varices COPD (chronic obstructive pulmonary disease) case management patient Obesity (BMI 30-39.9) Depression Anxiety Insomnia GERD without esophagitis Constipation Vitamin D deficiency PVCs (premature ventricular contractions) Pre-op chest exam Limb swelling Elevated TSH Fatigue Aneurysm Bilateral lower extremity edema History of diverticulosis Tachycardia SOB (shortness of breath) On home oxygen therapy ADD (attention deficit disorder) Hx of hepatitis C Chest pain Lung cancer Loculated pleural effusion Fever Concussion COPD (chronic obstructive pulmonary disease) Brain aneurysm Surgical History Hx of cholecystectomy Hx of cataract extraction Status post thoracentesis (~10/19/20) History of thoracic surgery H/O endoscopy H/O colonoscopy with polypectomy S/P biopsy H/O colonoscopy with polypectomy History of esophagogastroduodenoscopy (EGD) Family History Mother Skin cancer Diabetes Thyroid disease Sister Diabetes Skin cancer Tubular adenoma Thyroid disease Daughter Skin cancer Diabetes Social History Housing: [facility] Are you a primary medicare contact specialist to a significant other at home: No Do you presently have visiting nurse or other home services: No Alcohol intake: current Alcohol intake frequency: holidays/special occasions only Alcohol type: wine Patient Tobacco Use Status: Former Tobacco user Quit Date: 07/2020 Tobacco use type: Cigarette Years Smoked: 20 +/- Second Hand Smoke Exposure: Yes service: No Current occupational status: retired Cognitive needs: No Hearing needs: No Vision needs: Yes Review of Systems Const All systems reviewed & are unremarkable except as noted in HPI and below ENT Denies dizziness Card Denies chest pain, Denies chest pain at rest, Denies chest pain with activity, Denies rapid heart rate, Denies pedal edema, Denies edema, Reports leg edema, Denies lightheadedness, Denies palpitations, Reports dyspnea, Reports dyspnea on exertion and Reports orthopnea Resp Denies cough, Reports dyspnea and Reports dyspnea on exertion GI Denies hematochezia and Denies change in stool character Musc Denies abnormal gait, Denies limited range of motion, Denies muscle cramps, Denies muscle weakness, Denies numbness, Denies radiating pain into limb, Denies stiffness and Denies tingling Neuro Denies abnormal gait, Denies dizziness, Denies numbness and Denies tingling Endo Denies palpitations Physical Exam Vital Signs: BMI result Body Mass Index 33.0 Const General: cooperative, healthy appearing, comfortable and no acute distress Orientation/consciousness: patient oriented x3 Neck Neck: Yes normal visual inspection Resp Other: Wearing O2 with nasal cannula Effort & Inspection: normal respiratory effort Auscultation: clear to auscultation bilaterally, no crackles, no rales, no rhonchi and wheezes (expiratory) Cardio Jugular venous distension: no JVD Rate: regular rate Rhythm: regular rhythm Heart sounds: S1 normal heart sound present, S2 normal heart sound present, no murmurs and no rubs Neuro General: patient oriented x3 Extrem Other: Bilateral lower leg edema +1- +2, Left is > than right General: No calf tenderness Psych Appearance: grossly normal Mental Status: mental status grossly normal Speech and movement: Normal speech and movement present Assessment & Plan Assessment & Plan (1) Chest discomfort: Code(s): R07.89 - Other chest pain Plan: Reports of chest discomfort. Then admitted to [facility] early August. Troponin was mildly elevated, EKG did show T-wave inversions V1 through V5. Echocardiogram showed normal EF, regional wall motion abnormality in the apex and apical septum. She did undergo a cardiac catheterization showing normal coronary arteries, increased LVEDP. Her BNP was elevated. She was treated for heart failure with preserved EF, NSTEMI. She was thought to have had vaso spasm. She was started on isosorbide and amlodipine. She was given IV Lasix and then her home Lasix was continued at 40 mg daily. Today she reports that she has increased swelling since her hospital discharge. She did take additional Lasix over the weekend at our direction. On exam she does have pitting edema in her lower legs to the level of the mid calf bilateral with left greater than right. Lungs have few extra aline wheezes, no rales. No noted JVD. She continues to have chronic daily shortness of breath which is likely a combination of Congestive heart failure with her COPD. Will have her increase Lasix to 40 mg b.i.d. until swelling resolves or instructed to reduce her dose. Will check BMP and BNP in 4-5 days. She will plan to eat bananas every other day. If potassium has dropped upcoming labs then will add potassium supplement. Signs and symptoms of heart failure reviewed with her. Her current chest discomfort is atypical for angina. Will have her continue on Imdur and amlodipine to help prevent any recurrent coronary spasm. She is on metoprolol XL due to frequent PVCs as previously identified. Cardiology follow-up in 4-6 weeks, sooner if needed (2) S/P cardiac cath: Comment: End of July 2023, reported as normal coronary arteries, elevated LVEDP Code(s): Z98.890 - Other specified postprocedural states (3) NSTEMI (non-ST elevated myocardial infarction): Code(s): I21.4 - Non-ST elevation (NSTEMI) myocardial infarction Plan: As above (4) CHF (congestive heart failure): Code(s): I50.9 - Heart failure, unspecified Qualifiers: Heart failure chronicity: unspecified Heart failure type: unspecified Qualified Code(s): I50.9 - Heart failure, unspecified Plan: As above (5) PVCs (premature ventricular contractions): Code(s): I49.3 - Ventricular premature depolarization Plan: Holter monitor done on 12/29/2021 for 3 days shows sinus rhythm with average heart beat 84 per, frequent PVCs, 9 salvos of 3 beat PVCs, 1 SVT episode 16 beats. On last visit she opted to stop metoprolol. She tells me she only stopped it short period of time then had recurrent palpitations. She is back on metoprolol XL 25 mg daily which she is tolerating. She does not feel that it affects her breathing at all (6) Hospital discharge follow-up: Code(s): Z09 - Encounter for follow-up examination after completed treatment for conditions other than malignant neoplasm [place] [facility] [place] 08/22/23 - 08/29/23 Orders: Orders Basic Metabolic Panel Today R60.9 - Edema, unspecified B Type Natriuretic Peptide Today R60.9 - Edema, unspecified Medications: New furosemide (Lasix) 40 mg PO BID 90 days 180 tabs 1RF isosorbide mononitrate ER 30 mg PO DAILY 90 tabs 1RF Discontinued furosemide Discontinued Reason: Doctor's Order 40 mg PO DAILY@0730 30 days 30 tabs 3RF Coding Level of Care Code Est Pt Level 4 (99457) Diagnoses Chest discomfort R07.89 S/P cardiac cath Z98.890 NSTEMI (non-ST elevated myocardial infarction) I21.4 Congestive heart failure, unspecified HF chronicity, unspecified heart failure type I50.9 Heart failure chronicity: unspecified Heart failure type: unspecified PVCs (premature ventricular contractions) I49.3 Hospital discharge follow-up Z09 Time Spent (min) 30
== END 2023-09-12 10:15 | disposition home or self-care (01) ==
PROVIDERS: PCP Internal Medicine; Visit Provider Nurse Practitioner Family
DX: R07.89 Other chest pain (principal); Z98.890 Other specified postprocedural states; I21.4 Non-ST elevation (NSTEMI) myocardial infarction; I50.9 Heart failure, unspecified; I49.3 Ventricular premature depolarization; Z09 Encounter for follow-up examination after completed treatment for conditions other than malignant neoplasm
CPT/HCPCS: 99214

== ENCOUNTER → 2023-09-12 09:30 | Outpatient (BNVA) | payer MEDICARE, SELFPAY | PROVIDERS: PCP Internal Medicine; Visit Provider Nurse Practitioner Family | DX: Z09 Encounter for follow-up examination after completed treatment for conditions other than malignant neoplasm (principal); I49.3 Ventricular premature depolarization; I50.9 Heart failure, unspecified; I21.4 Non-ST elevation (NSTEMI) myocardial infarction; R07.89 Other chest pain; Z98.890 Other specified postprocedural states | CPT/HCPCS: 99212 ==

== ENCOUNTER 2023-09-18 11:58 | Outpatient (REF) | payer MEDICARE, SELFPAY ==
[2023-09-18 15:10] LABS: Anion Gap 10 (12-20); Blood Urea Nitrogen 9 mg/dL (9-16); Calcium 8.7 mg/dL (8.4-10.2); Carbon Dioxide 30 mmol/L (22-29); Chloride 102 mmol/L (96-108); Estimated Glomerular Filt Rate > 60; Glucose Random 119 mg/dL (60-115); Sodium 138 mmol/L (135-145)
[2023-09-18 15:11] LABS: B Type Natriuretic Peptide 51 pg/mL (<100)
[2023-09-18 15:27] LABS: Erythrocyte Sedimentation Rate 33 MM/HR (0-20)
== END 2023-09-18 11:59 | disposition home or self-care (01) ==
LOC: HO.WFDLDS 11:58
PROVIDERS: Hospitalist; Visit Provider Nurse Practitioner Family
DX: R07.9 Chest pain, unspecified (principal); R00.0 Tachycardia, unspecified; R60.9 Edema, unspecified; I50.9 Heart failure, unspecified
CPT/HCPCS: 36415; 80048; 83880; 85652

== ENCOUNTER 2023-10-14 09:58 | Outpatient (AMB) | payer MEDICARE, SELFPAY ==
[2023-10-14 10:02] VITALS: BP 120/62; PULSE 108; BMI 32.0
--- NOTE | 2023-10-14 10:02 | A.OFFVIS_ITS ---
Intake Vital Signs 10/14/23 10:02 Height 5 ft 6 in Weight 198 lb 6.656 oz BMI 32.0 BP 120/62 Blood Pressure Location Rt brachial Position Sitting Pulse 108 H Pulse Source Pulse Oximeter Intake Visit Reasons: 6 wk fu [employer] Required: No Allergies hydrocodone [From Vicodin] Allergy (Severe, Verified 10/14/23 10:04) Rash/Hives Influenza Virus Vaccines Allergy (Severe, Verified 10/14/23 10:04) Rash/Hives gabapentin Adverse Reaction (Intermediate, Verified 10/14/23 10:04) Anxiety Medication List - Last Reconciled 10/14/23 by FEI Vasquez Amitiza (lubiprostone) 8 mcg PO BID 30 days NS amlodipine 5 mg PO DAILY aspirin (Adult Aspirin Regimen) 81 mg PO DAILY atorvastatin 80 mg PO BEDTIME azithromycin 500 mg PO 3XW bisacodyl (Dulcolax (bisacodyl)) 10 mg (2 x 5 mg) PO BEDTIME 30 days budesonide 1 mg inhalation BEDTIME furosemide (Lasix) 40 mg PO BID 90 days ipratropium-albuterol 0.5 mg-3 mg(2.5 mg base)/3 mL 3 mL inhalation Q6H PRN isosorbide mononitrate ER 30 mg PO DAILY lactulose 15 mL PO BEDTIME PRN lorazepam 1 mg PO DAILY PRN melatonin 10 mg (2 x 5 mg) PO BEDTIME PRN metoprolol succinate ER (Toprol XL) 25 mg PO DAILY morphine ER 15 mg PO BID PRN 30 days nebulizers Tubing and mask for nebulizer nitroglycerin 0.4 mg sublingual Q5M PRN ondansetron HCl 4 mg PO Q8H PRN 14 days Oxygen Home Use As directed pantoprazole 20 mg PO DAILY Symbicort 160-4.5 mcg/actuation (budesonide-formoterol) 2 puffs PO BID NS umeclidinium 62.5 mcg/actuation (Incruse Ellipta) 1 inh PO DAILY venlafaxine ER 75 mg PO DAILY Ventolin HFA 90 mcg/actuation (albuterol sulfate) 2 puffs PO Q4H PRN NS HPI 6 wk fu HPI Details Valeria is a 73-year-old female with past medical history of COPD, oxygen dependent, PVCs who was recently admitted to [facility] with increased shortness of breath. She was treated for heart failure with preserved EF and NSTEMI. Her coronary arteries were normal and she was thought to have vasospasm. She was started on appropriate medication and treated with additiona l Lasix. Today she reports that she does have chronic shortness of breath with climbing stairs. She has been wearing her oxygen as needed. She continues on Lasix 40 mg b.i.d.. She did have chest discomfort on at least 1 occasion requiring nitroglycerin with relief. No exertional chest discomfort. She does have tachycardia at times which is not new. No dizziness, presyncope, syncope, falls. No PND, orthopnea. She continues to have mild edema in her legs. She expresses some concern about frequent urination and wonders if something is pressing on her bladder. Informed to further discuss with PCP. She stays busy throughout the day. Taking all meds as directed. Daughter is present. [facility] Medical History Lower extremity edema CHF (congestive heart failure) Smoker Hepatitis C Esophageal varices COPD (chronic obstructive pulmonary disease) case management patient Obesity (BMI 30-39.9) Depression Anxiety Insomnia GERD without esophagitis Constipation Vitamin D deficiency PVCs (premature ventricular contractions) Pre-op chest exam Limb swelling Elevated TSH Fatigue Aneurysm Bilateral lower extremity edema History of diverticulosis Tachycardia SOB (shortness of breath) On home oxygen therapy ADD (attention deficit disorder) Hx of hepatitis C Chest pain Lung cancer Loculated pleural effusion Fever Concussion COPD (chronic obstructive pulmonary disease) Brain aneurysm Surgical History Hx of cholecystectomy Hx of cataract extraction Status post thoracentesis (~10/19/20) History of thoracic surgery H/O endoscopy H/O colonoscopy with polypectomy S/P biopsy H/O colonoscopy with polypectomy History of esophagogastroduodenoscopy (EGD) Family History Mother Skin cancer Diabetes Thyroid disease Sister Diabetes Skin cancer Tubular adenoma Thyroid disease Daughter Skin cancer Diabetes Social History Housing: Condominium Are you a primary patient care secretary to a significant other at home: No Do you presently have visiting nurse or other home services: No Alcohol intake: current Alcohol intake frequency: holidays/special occasions only Alcohol type: wine Comment: resting in bed Patient Tobacco Use Status: Former Tobacco user Quit Date: 07/2020 Tobacco use type: Cigarette Years Smoked: 20 +/- Second Hand Smoke Exposure: Yes service: No Current occupational status: retired Cognitive needs: No Hearing needs: No Vision needs: Yes Review of Systems ENT Denies dizziness Card Reports chest pain, Denies chest pain at rest, Denies chest pain with activity, Reports rapid heart rate, Denies pedal edema, Denies edema, Denies leg edema, Denies lightheadedness, Denies palpitations, Denies dyspnea, Reports dyspnea on exertion and Denies orthopnea Resp Denies cough, Denies dyspnea and Reports dyspnea on exertion GI Denies hematochezia and Denies change in stool character Musc Denies abnormal gait, Denies limited range of motion, Denies muscle cramps, Denies muscle weakness, Denies numbness, Denies radiating pain into limb, Denies stiffness and Denies tingling Neuro Denies abnormal gait, Denies dizziness, Denies numbness and Denies tingling Endo Denies palpitations Physical Exam Vital Signs: BMI result Body Mass Index 32.0 Const General: cooperative, healthy appearing, comfortable and no acute distress Orientation/consciousness: patient oriented x3 Neck Neck: Yes normal visual inspection Resp Effort & Inspection: normal respiratory effort Auscultation: clear to auscultation bilaterally, no crackles, no rales, no rhonchi and no wheezes Cardio Jugular venous distension: no JVD Rate: regular rate and tachycardic Rhythm: regular rhythm Heart sounds: S1 normal heart sound present, S2 normal heart sound present, no murmurs and no rubs Neuro General: patient oriented x3 Extrem Other: Trace edema left lower leg General: Yes normal to inspection Psych Appearance: grossly normal Mental Status: mental status grossly normal Speech and movement: Normal speech and movement present Assessment & Plan Assessment & Plan (1) Chest discomfort: Code(s): R07.89 - Other chest pain Plan: Last August admitted to [facility] with chest discomfort. Troponin was mildly elevated, EKG did show T-wave inversions V1 through V5. Echocardiogram showed normal EF, regional wall motion abnormality in the apex and apical septum. She did undergo a cardiac catheterization showing normal coronary arteries, increased LVEDP. Her BNP was elevated. She was treated for heart failure with preserved EF, NSTEMI. She was thought to have had vasospasm. She was started on isosorbide and amlodipine. She was given IV Lasix and then her home Lasix was continued at 40 mg daily. On last visit her dose was increased to b.i.d. due to swelling in her legs. Labs done on 09/18/2023 showed creatinine 0.72, BNP 51. Today she reports having at least 1 episode of chest discomfort and did take nitroglycerin with relief. She does not get exertional chest discomfort. She does have shortness of breath with stair climbing which is not new. She is taking all her meds as directed. Review test results with her and offered reassurance that coronary arteries are angiographically normal. Will have her continue on Imdur and amlodipine to help prevent any recurrent coronary spasm. She is on metoprolol XL due to frequent PVCs as previously identified. Continue Lasix. Signs and symptoms of heart failure reviewed with her. Cardiology follow-up 6 months, sooner if needed (2) S/P cardiac cath: Comment: End of July 2023, reported as normal coronary arteries, elevated LVEDP Code(s): Z98.890 - Other specified postprocedural states (3) NSTEMI (non-ST elevated myocardial infarction): Code(s): I21.4 - Non-ST elevation (NSTEMI) myocardial infarction Plan: As above (4) CHF (congestive heart failure): Code(s): I50.9 - Heart failure, unspecified Qualifiers: Heart failure type: unspecified Heart failure chronicity: unspecified Qualified Code(s): I50.9 - Heart failure, unspecified Plan: As above. Stable at present (5) PVCs (premature ventricular contractions): Code(s): I49.3 - Ventricular premature depolarization Plan: Holter monitor done on 12/29/2021 for 3 days shows sinus rhythm with average heart beat 84 per, frequent PVCs, 9 salvos of 3 beat PVCs, 1 SVT episode 16 beats. She is on metoprolol XL 25 mg daily which she is tolerating. She does not feel that it affects her breathing at all. Heart rate is mildly elevated today. Her rate improved when she sat down and rested. Pulse is very regular on examination, no concern for irregular rhythm. Plan Time spent with chart review, documentation, interview and assessment Coding Level of Care Code Est Pt Level 4 (48791) Diagnoses Chest discomfort R07.89 S/P cardiac cath Z98.890 NSTEMI (non-ST elevated myocardial infarction) I21.4 Congestive heart failure, unspecified HF chronicity, unspecified heart failure type I50.9 Heart failure type: unspecified Heart failure chronicity: unspecified PVCs (premature ventricular contractions) I49.3 Time Spent (min) 28
== END 2023-10-14 10:32 | disposition home or self-care (01) ==
PROVIDERS: PCP Internal Medicine; Visit Provider Nurse Practitioner Family
DX: R07.89 Other chest pain (principal); Z98.890 Other specified postprocedural states; I21.4 Non-ST elevation (NSTEMI) myocardial infarction; I50.9 Heart failure, unspecified; I49.3 Ventricular premature depolarization
CPT/HCPCS: 99214

== ENCOUNTER → 2023-10-14 09:58 | Outpatient (BNVA) | payer MEDICARE, SELFPAY | PROVIDERS: PCP Internal Medicine; Visit Provider Nurse Practitioner Family | DX: R07.89 Other chest pain (principal); I49.3 Ventricular premature depolarization; I50.9 Heart failure, unspecified; I25.2 Old myocardial infarction; Z98.890 Other specified postprocedural states | CPT/HCPCS: 99212 ==

== ENCOUNTER 2023-11-27 15:49 | Outpatient (AMB) | payer MEDICARE, SELFPAY ==
[2023-11-27 15:52] VITALS: BP 108/76; PULSE 77; O2SAT 95; BMI 31.0
--- NOTE | 2023-11-27 15:52 | A.OFFVIS_ITS ---
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 Accompanied by: Self / Same As Patient Allergies hydrocodone [From Vicodin] Allergy (Severe, Verified 11/27/23 16:42) Rash/Hives Influenza Virus Vaccines Allergy (Severe, Verified 11/27/23 16:42) Rash/Hives gabapentin Adverse Reaction (Intermediate, Verified 11/27/23 16:42) Anxiety Medication List - Last Reconciled 11/27/23 by Magan Syed MD Amitiza (lubiprostone) 8 mcg PO BID 30 days NS amlodipine 5 mg PO DAILY aspirin (Adult Aspirin Regimen) 81 mg PO DAILY atorvastatin 80 mg PO BEDTIME azithromycin 500 mg PO 3XW bisacodyl (Dulcolax (bisacodyl)) 10 mg (2 x 5 mg) PO BEDTIME 30 days budesonide 1 mg inhalation BEDTIME furosemide (Lasix) 40 mg PO BID 90 days ipratropium-albuterol 0.5 mg-3 mg(2.5 mg base)/3 mL 3 mL inhalation Q6H PRN isosorbide mononitrate ER 30 mg PO DAILY lactulose 15 mL PO BEDTIME PRN lorazepam 1 mg PO DAILY PRN melatonin 10 mg (2 x 5 mg) PO BEDTIME PRN metoprolol succinate ER (Toprol XL) 25 mg PO DAILY morphine ER 15 mg PO BID PRN 30 days nebulizers Tubing and mask for nebulizer nitroglycerin 0.4 mg sublingual Q5M PRN ondansetron HCl 4 mg PO Q8H PRN 14 days Oxygen Home Use As directed pantoprazole 20 mg PO DAILY Symbicort 160-4.5 mcg/actuation (budesonide-formoterol) 2 puffs PO BID NS umeclidinium 62.5 mcg/actuation (Incruse Ellipta) 1 inh PO DAILY venlafaxine ER 75 mg PO DAILY Ventolin HFA 90 mcg/actuation (albuterol sulfate) 2 puffs PO Q4H PRN NS Do you need a note to return to daycare/school/sports/work: No HPI Medicare visit/tired HPI Details Patient comes in today for her Annual Medicare Wellness Exam AND follow up visit States that she has been feeling very tired and exhausted constantly for the past few months now She was admitted to [facility] for about a week at the end of July 2023 after her labs done revealed significantly elevated cardiac troponin levels - 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 Medical / Social History Reviewed Past Medical History Yes . [place] of Care / Care Team list updated Yes . Surgical/Hospitalization History Yes . Current Medications (including OTC and supplements) Yes . Family History Yes . Tobacco Control form Yes . AUDIT-C (Alcohol use) form Yes . Illicit drug use in Social History Yes . Current diagnosis of depression? No Appropriate PHQ2/PHQ9 completed Yes . Data entered by Motorized Squad Sergeant and reviewed by provider Home Safety Throw rugs? No Grab bars? No Raised toilet seats? No Working smoke detectors? Yes Working carbon monoxide detectors? Yes Data entered by Motorized Squad Sergeant and reviewed by provider Activities of Daily Living (ADLs) Difficulty bathing or showering? No Difficulty dressing? No Difficulty using the toilet? No Difficulty getting in and out of bed? No Difficulty walking? No Receives help from another person with any of the above tasks? No Instrumental Activities of Daily Living (IADLs) Uses the telephone without help Gets to places out of walking distance without help Goes shopping for groceries without help Prepares own meals without help Does own minor home maintenance without help Does own laundry without help Does own housework without help Manages own money without help Currently takes medications? Yes Takes medication without help End-of-Life Planning Discussed advance directive Yes Advance directive on file Discussed wishes expressed in advance directive agreed to following patient's wishes Fall Risk: Fall History Have you had any falls with injury in the past year? No . Have you had two or more falls in the past year? No . Fall Risk Assessment: No falls in the past year . HRA filled out by the patient, reviewed by Provider and scanned. PFSH Medical History Lower extremity edema CHF (congestive heart failure) Smoker Hepatitis C Esophageal varices COPD (chronic obstructive pulmonary disease) case management patient Obesity (BMI 30-39.9) Depression Anxiety Insomnia GERD without esophagitis Constipation Vitamin D deficiency PVCs (premature ventricular contractions) Pre-op chest exam Limb swelling Elevated TSH Fatigue Aneurysm Bilateral lower extremity edema History of diverticulosis Tachycardia SOB (shortness of breath) On home oxygen therapy ADD (attention deficit disorder) Hx of hepatitis C Chest pain Lung cancer Loculated pleural effusion Fever Concussion COPD (chronic obstructive pulmonary disease) Brain aneurysm Surgical History Hx of cholecystectomy Hx of cataract extraction Status post thoracentesis (~10/19/20) History of thoracic surgery H/O endoscopy H/O colonoscopy with polypectomy S/P biopsy H/O colonoscopy with polypectomy History of esophagogastroduodenoscopy (EGD) Family History Mother Skin cancer Diabetes Thyroid disease Sister Diabetes Skin cancer Tubular adenoma Thyroid disease Daughter Skin cancer Diabetes Social History Housing: Condominium Are you a primary family day carer to a significant other at home: No Do you presently have visiting nurse or other home services: No Alcohol intake: current Alcohol intake frequency: holidays/special occasions only Alcohol type: wine Comment: resting in bed Patient Tobacco Use Status: Former Tobacco user Quit Date: 07/2020 Tobacco use type: Cigarette Years Smoked: 20 +/- Second Hand Smoke Exposure: Yes service: No Current occupational status: retired Cognitive needs: No Hearing needs: No Vision needs: Yes Questionnaire Medicare Wellness Checkup [age] What gender do you identify with?: female During the past 4 weeks, how much have you been bothered by emotional problems such as feeling anxious, depressed, irritable, sad or downhearted, and blue?: moderately During the past 4 weeks, has your physical & emotional health limited your social activities with family, friends, neighbors, or groups?: quite a bit During the past 4 weeks, how much bodily pain have you generally had?: severe pain During the past 4 weeks, was someone available to help you if you needed & wanted help?: yes, a little During the past 4 weeks, what was the hardest physical activity you could do for at least 2 minutes?: light Can you get to places out of walking distance without help? (For eg., can you travel alone on buses, taxis or drive your car?): No Can you go shopping for groceries or clothes without someone's help?: Yes (short trips) Can you prepare your own meals?: Yes Can you do your housework without help?: No Because of any health problems, do you need the help of another person with your personal care needs such as eating, bathing, dressing or getting around the house?: No Can you handle your own money without help?: Yes During the past 4 weeks, how would you rate your health in general?: fair During the past 4 weeks how have things been going for you?: good & bad parts about equal Are you having difficulties driving your car?: sometimes Do you always fasten your seat belt when you are in a car?: yes, usually During past 4 weeks, have you been bothered by the following: never: Sexual problems?, seldom: Problems using the telephone?, sometimes: Trouble eating well?, often: Teeth or denture problems? and always: Tiredness or fatigue? Have you fallen 2 or more times in the past year?: Yes Are you afraid of falling?: Yes Are you a smoker?: no During the past 4 weeks, how many drinks of wine, beer, or other alcoholic beverages did you have?: 1 drink or less per week Do you exercise for about 20 minutes 3 or more times a week?: no, I usually do not exercise this much Have you been given information to help with the following?: yes: Hazards in your house that might hurt you? and no: Keeping track of your medications? How often do you have trouble taking medicines the way you have been told to take them?: I always take medicine as prescribed How confident are you that you can control & manage most of your health problems?: somewhat confident What is your race?: White Mini Mental State Exam (MMSE) Orientation What is the (year) (season) (date) (day) (month)?: year, season, date, day and month Where are we (state) (county) (town or city) (hospital) (floor)?: state, county, town or city, hospital/clinic and floor Score Score: 10 Activity of Daily Living Bathing - sponge bath, tub bath or shower: receives no assistance (gets in/out by self, if usual bathing means Dressing - getting clothes from closets & drawers, including inner/outer garments & fasteners.: gets clothes & gets completely dressed without help Toileting - going to the 'toilet room' for urine/bowel elimination & cleaning self/arranging clothes: goes to toilet room, cleans self, arranges clothes without help Transfer: moves in & out of bed and chair without help (may use support object) Continence: controls urination/bowel movements completely by self Feeding: feeds self without help Total Score: 0 Information obtained from: patient Using telephone: independent Traveling: independent Shopping: independent Preparing meals: independent Housework: independent Taking medicine: independent Managing money: independent PHQ-9 Over the last 2 weeks, how often have you been bothered by any of the following problems? 1. Little interest or pleasure in doing things: several days 2. Feeling down, depressed, or hopeless: not at all 3. Trouble falling or staying asleep, or sleeping too much: several days 4. Feeling tired or having little energy: nearly every day 5. Poor appetite or overeating: more than half the days 6. Feeling bad about yourself - or that you are a failure or have let yourself or your family down: not at all 7. Trouble concentrating on things, such as reading the newspaper or watching television: several days 8. Moving or speaking so slowly that other people could have noticed. Or the opposite - being so fidgety or restless that you have been moving around a lot more than usual: not at all 9. Thoughts that you would be better off or of hurting yourself in some way: not at all Total score: 8 Depression Screening Interpretation: Positive Depression Screening Follow-up: Existing condition and In treatment Depression Screening Done: Yes 09639 - PHQ-9 Billing: Yes Source: Developed by Drs. Nathen Oshea, Alma B.Erik Pollock and colleagues, with an educational jorge from [employer]. PHQ-2/PHQ-9 PHQ-2 Over the last 2 weeks, how often have you been bothered by any of the following problems? 1. Little interest or pleasure in doing things: several days 2. Feeling down, depressed, or hopeless: not at all Total score: 1 If score is 3 or greater, continue 3. Trouble falling or staying asleep, or sleeping too much: several days 4. Feeling tired or having little energy: nearly every day 5. Poor appetite or overeating: more than half the days 6. Feeling bad about yourself - or that you are a failure or have let yourself or your family down: not at all 7. Trouble concentrating on things, such as reading the newspaper or watching television: several days 8. Moving or speaking so slowly that other people could have noticed. Or the opposite - being so fidgety or restless that you have been moving around a lot more than usual: not at all 9. Thoughts that you would be better off or of hurting yourself in some way: not at all Total score: 8 10. If you checked off any problems, how difficult have those problems made it for you to do your work, take care of things at home, or get along with other people?: very difficult 0-4 None-Minimal, 5-9 Mild, 10-14 Moderate, 15-19 Moderately Severe, 20-27 Severe Source: Developed by Drs. Nathen Oshea, Erik Vu and colleagues, with an educational jorge from [employer]. Thrive Questionnaire Date Thrive assessed: 11/27/23 I am a: Patient What is your living situation today?: I have a steady place to live Within the past 12 months, did the food you bought not last and you didn't have the money to get more?: Never true Within the past 12 months, did you worry whether your food would run out before you got money to buy more?: Never true Do you have trouble paying for medicines?: No Do you have trouble getting transportation to medical appointments?: No Do you have trouble paying your heating and electricity bill?: No Do you have trouble taking care of your child, family member or friend?: No Do you have trouble with day-to-day activities such as bathing, preparing meals, shopping, managing finances, etc.?: No Are you currently unemployed and looking for a job?: No Are you interested in more education?: No Please select the resources that you would like help with: None Currently or been in a relationship where the following occur: no concerns reported THRIVE Score: 0 KARINA-7 AMB Questionnaire KARINA-7 Date KARINA - 7 assessed: 11/27/23 Feeling nervous, anxious, or on edge: 0 = Not at all Not being able to stop or control worryin = Not at all Worrying too much about different things: 0 = Not at all Trouble relaxin = Not at all Being so restless that it is hard to sit still: 0 = Not at all Becoming easily annoyed or irritable: 0 = Not at all Feeling afraid as if something awful might happen: 0 = Not at all Total KARINA-7 score (0-4 normal; 5-9 mild; 10-14 moderate; 15-21 severe): 0 Source: Developed by Drs. Nathen Oshea, Alma Albarran, Erik Blanchard and colleagues, with an educational jorge from [employer]. Review of Systems Const Denies chills, Reports fatigue, Denies fever(s) and Denies headache(s) ENT Denies dysphagia, Denies dizziness, Denies otalgia, Denies headache(s), Denies odynophagia and Denies sore throat Card Denies chest pain (but reports recurrent sensation of chest discomfort/ heaviness ), Denies palpitations and Reports dyspnea on exertion Resp Reports chest congestion (at times), Reports cough (occasionally), Reports dyspnea on exertion and Denies wheezing GI Reports abdominal pain (chronic over the RUQ area), Reports constipation (increased recently - starting to improve again), Denies dysphagia, Denies heartburn, Denies diarrhea, Denies nausea, Denies odynophagia and Denies vomiting Denies difficulty voiding, Denies nocturia and Denies dysuria Musc Reports back pain and Reports arthralgias (increased over both knee - see HPI) Skin/Breast Denies rash Neuro Denies dizziness and Denies headache(s) Endo Reports fatigue and Denies palpitations Aller/Immun Denies wheezing Physical Exam Vital Signs: Last Vital Signs Pulse 77 01/31/24 15:52 BP 108/76 11/27/23 15:52 Pulse Ox 95 11/27/23 15:52 Oxygen Delivery Method Room Air 11/27/23 15:52 BMI result Body Mass Index 31.0 IPPE/AWV: Balance Romberg Yes . Tandem walk Yes . Walk and Turn Yes . Rise from sit to stand Yes . Vision Corrective lens No Vision screen pass Hearing Whisper test pass . Urinary incont. no. EKG Not clinically necessary. Const General: no acute distress and alert HEENT Ears: TM's normal bilaterally Throat: Yes posterior oropharynx normal and Yes tonsils normal (no TP congestion noted) Neck Neck: Yes no lymphadenopathy and Yes supple Resp Auscultation: no crackles, no rales, rhonchi (scattered) throughout, no wheezes and diminished lung sounds Cardio Rate: regular rate Rhythm: regular rhythm Heart sounds: no murmurs GI Palpation (GI): Soft to palpation and nontender Auscultation: normal bowel sounds Extrem General: Yes no clubbing, cyanosis or edema Assessment & Plan Assessment & Plan (1) Medicare annual wellness visit, subsequent: Code(s): Z00.00 - Encounter for general adult medical examination without abnormal findings Plan: HRA form discussed and completed with patient - form will be scanned into patient's chart Plan Follow up in 4 months Orders: Orders Complete Blood Count Auto Diff 11/27/23 R07.89 - Other chest pain Comprehensive Met. Panel 11/27/23 R07.89 - Other chest pain C Reactive Protein 11/27/23 R07.89 - Other chest pain Troponin-I High Sensitivity 11/27/23 R07.89 - Other chest pain D Dimer High Sensitivity 11/27/23 R07.89 - Other chest pain Magnesium 11/27/23 E83.42 - Hypomagnesemia B Type Natriuretic Peptide 11/27/23 I50.9 - Heart failure, unspecified, R07.89 - Other chest pain Vitamin D 25-OH Total 11/27/23 E55.9 - Vitamin D deficiency, unspecified, R07.89 - Other chest pain TSH reflex Free T4 11/27/23 E78.00 - Pure hypercholesterolemia, unspecified, R07.89 - Other chest pain Quality Reporting (2019) Depression/Bipolar (159/160/161/177) PHQ-9: Total score: 8 Coding Level of Care Code Medicare Subsequent (G0439) Est Pt Level 4 (91729) Diagnoses Medicare annual wellness visit, subsequent Z00.00
== END 2023-11-27 16:52 | disposition home or self-care (01) ==
PROVIDERS: PCP Internal Medicine; Visit Provider Internal Medicine
DX: Z00.00 Encounter for general adult medical examination without abnormal findings (principal)
CPT/HCPCS: 99499

== ENCOUNTER 2023-11-27 16:56 | Outpatient (REF) | payer MEDICARE, MEDICAID, SELFPAY ==
[2023-11-27 17:10] LABS: MANUAL DIFF FLAG NO
[2023-11-27 17:44] LABS: Basophils Percent Auto 0.3 % (0-2); Eosinophils Absolute Auto 0.1 X10*3/uL (0.0-0.4); Eosinophils Percent Auto 2.2 % (0-4); Hematocrit 33.9 % (37.0-47.0); Hemoglobin 10.9 g/dl (12.0-16.0); Imm Gran Abs Auto 0.02 X10*3/uL (0.00-0.03); Imm Gran Pct Auto 0.5 % (0.0-0.4); Lymphocytes Absolute Auto 0.8 X10*3/uL (1.2-4.9); Lymphocytes Percent Auto 20.9 % (20-40); Mean Corpuscular HGB Conc 32.2 g/dl (31.0-35.0); Mean Corpuscular Hemoglobin 29.5 pg (27.0-33.0); Mean Corpuscular Volume 91.9 fL (80.0-98.0); Mean Platelet Volume 11.7 fL (9.4-12.3); Monocytes Absolute Auto 0.4 X10*3/uL (0.1-1.2); Monocytes Percent Auto 10.8 % (2-11); Neutrophils Absolute Auto 2.4 x10*3/uL (2.0-8.3); Neutrophils Percent Auto 65.3 % (45-73); Platelet Count 101 X10*3/uL (160-400); Red Blood Count 3.69 X10*6/uL (4.20-5.50); Red Cell Distribution Width 13.2 % (11.0-16.0); White Blood Count 3.7 X10*3/uL (4.8-10.8)
[2023-11-27 17:57] LABS: B Type Natriuretic Peptide 16 pg/mL (<100)
[2023-11-27 18:36] LABS: Alanine Aminotransferase 58 U/L (0-31); Alkaline Phosphatase 64 U/L (39-117); Anion Gap 14 (12-20); Aspartate Amino Transferase 52 U/L (5-31); Bilirubin Total 0.8 mg/dL (0.0-1.0); Blood Urea Nitrogen 10 mg/dL (9-16); C Reactive Protein < 0.10 mg/dL (< or = 0.50); Calcium 9.1 mg/dL (8.4-10.2); Carbon Dioxide 29 mmol/L (22-29); Chloride 102 mmol/L (96-108); Estimated Glomerular Filt Rate > 60; Glucose Random 97 mg/dL (60-115); Magnesium 1.9 mg/dL (1.6-2.6); Potassium 3.5 mmol/L (3.3-5.1); Sodium 141 mmol/L (135-145); Total Protein 7.3 g/dL (6.5-8.0); Troponin-I High Sensitivity 8.7 ng/L (<3.5-17.0)
[2023-11-27 18:51] LABS: Vitamin D 25-OH Total 26.8 ng/mL (>30)
[2023-11-27 19:00] LABS: D Dimer High Sensitivity 288 NG/ML
== END 2023-11-27 16:57 | disposition home or self-care (01) ==
LOC: HO.LAB 16:56
PROVIDERS: PCP Internal Medicine; Visit Provider Internal Medicine
DX: R07.89 Other chest pain (principal); E78.00 Pure hypercholesterolemia, unspecified; I50.9 Heart failure, unspecified; E55.9 Vitamin D deficiency, unspecified
CPT/HCPCS: 36415; 80053; 82306; 83735; 83880; 84443; 84484; 85025; 85379; 86140

== ENCOUNTER 2023-12-23 09:22 | Outpatient (AMB) | payer MEDICARE, MEDICAID, SELFPAY ==
--- NOTE | 2023-12-23 09:25 | A.OFFPC_ITS ---
Vital Signs 12/23/23 09:27 Height 5 ft 6 in Weight 198 lb 6 oz BMI 32.0 BP 140/62 H Blood Pressure Location Lt brachial Position Sitting Pulse 103 H Pulse Source Pulse Oximeter Pulse Oximetry (%) 95 Oxygen Delivery Method Room Air Intake [place] [facility] [place]: Patient is here for hospital discharge follow up. Patient was [place] [facility] [place] 11[place]29/23 . Sewage Disposal Engineer Required: No Title Insurance Examiner: Not Required per policy Accompanied by: Self / Same As Patient Allergies hydrocodone [From Vicodin] Allergy (Severe, Verified 12/23/23 10:10) Rash/Hives Influenza Virus Vaccines Allergy (Severe, Verified 12/23/23 10:10) Rash/Hives gabapentin Adverse Reaction (Intermediate, Verified 12/23/23 10:10) Anxiety Medication List - Last Reconciled 12/23/23 by Magan Syed MD Amitiza (lubiprostone) 8 mcg PO BID 30 days NS amlodipine 5 mg PO DAILY aspirin (Adult Aspirin Regimen) 81 mg PO DAILY atorvastatin 80 mg PO BEDTIME azithromycin 500 mg PO 3XW bisacodyl (Dulcolax (bisacodyl)) 10 mg (2 x 5 mg) PO BEDTIME 30 days budesonide 1 mg inhalation BEDTIME furosemide (Lasix) 40 mg PO BID 90 days ipratropium-albuterol 0.5 mg-3 mg(2.5 mg base)/3 mL 3 mL inhalation Q6H PRN isosorbide mononitrate ER 30 mg PO DAILY lactulose 15 mL PO BEDTIME PRN lorazepam 1 mg PO DAILY PRN melatonin 10 mg (2 x 5 mg) PO BEDTIME PRN metoprolol succinate ER (Toprol XL) 25 mg PO DAILY morphine ER 15 mg PO BID PRN 30 days nebulizers Tubing and mask for nebulizer nitroglycerin 0.4 mg sublingual Q5M PRN Oxygen Home Use As directed pantoprazole 20 mg PO DAILY prochlorperazine maleate (Compazine) 10 mg PO Q8H PRN Symbicort 160-4.5 mcg/actuation (budesonide-formoterol) 2 puffs PO BID NS umeclidinium 62.5 mcg/actuation (Incruse Ellipta) 1 inh PO DAILY venlafaxine ER 75 mg PO DAILY Ventolin HFA 90 mcg/actuation (albuterol sulfate) 2 puffs PO Q4H PRN NS Tobacco use date assessed: 12/23/23 Fall risk assessment: 2 + Falls in past year Last assessed Fall Risk: 12/23/23 Dental Screening Dental Screen Date: 12/23/23 Did you have a dental visit in the last 12 months?: Yes Did you have a dental problem in the last 6 months where you did not have access to dental care?: No Was dental information given to patient?: Patient has dentist H[place] [facility] [place] Details Patient comes in today for her HDF follow up visit She was admitted to [facility] for 7 days earlier this month for COVID - relates that she was experiencing increasing cough, congestion and SOB at the time She had a negative venous doppler - doppler was done as a result of her significantly elevated d-dimer at the time She also required Tx with IV Dexamethasone due to increasing SOB and CALZADA, likely due to COPD exacerbation from her COVID Dx and was also on RTC updraft for symptomatic Tx Her symptoms gradually improved with medical management and she was evaluated by respiratory and was determined that she does NOT need oxygen therapy at home and she was eventually discharged to home with services States that it has been over 2 weeks now since she was discharged and she is still experiencing increased coughing often and also still has some CALZADA States that she coughs up thick whitish phlegm mostly and would like to know if there is anything she can take that will control her coughing more effectively She does have a follow up appt with pulmonary at [facility] [place] tomorrow She denies any fever or chills; denies any headaches or dizziness lately Denies any chest pains No nausea/vomiting, no abdominal pain and no change in bowel habits noted Needs her Azithromycin TIW Rx refilled PFSH Medical History Lower extremity edema CHF (congestive heart failure) Smoker Hepatitis C Esophageal varices COPD (chronic obstructive pulmonary disease) case management patient Obesity (BMI 30-39.9) Depression Anxiety Insomnia GERD without esophagitis Constipation Vitamin D deficiency PVCs (premature ventricular contractions) Pre-op chest exam Limb swelling Elevated TSH Fatigue Aneurysm Bilateral lower extremity edema History of diverticulosis Tachycardia SOB (shortness of breath) On home oxygen therapy ADD (attention deficit disorder) Hx of hepatitis C Chest pain Lung cancer Loculated pleural effusion Fever Concussion COPD (chronic obstructive pulmonary disease) Brain aneurysm Surgical History Hx of cholecystectomy Hx of cataract extraction Status post thoracentesis (~10/19/20) History of thoracic surgery H/O endoscopy H/O colonoscopy with polypectomy S/P biopsy H/O colonoscopy with polypectomy History of esophagogastroduodenoscopy (EGD) Family History Mother Skin cancer Diabetes Thyroid disease Sister Diabetes Skin cancer Tubular adenoma Thyroid disease Daughter Skin cancer Diabetes Social History Housing: Condominium Are you a primary rn coronary care unit to a significant other at home: No Do you presently have visiting nurse or other home services: No Alcohol intake: current Alcohol intake frequency: holidays/special occasions only Alcohol type: wine Comment: resting in bed Patient Tobacco Use Status: Former Tobacco user Quit Date: 07/2020 Tobacco use type: Cigarette Years Smoked: 20 +/- e-Cigarette/Vaping Use: Never Used Second Hand Smoke Exposure: Yes service: No Current occupational status: retired Cognitive needs: No Hearing needs: No Vision needs: Yes Questionnaire Thrive Questionnaire Date Thrive assessed: 11/27/23 KARINA-7 AMB Questionnaire KARINA-7 Date KARINA - 7 assessed: 11/27/23 Source: Developed by Drs. Nathen Oshea, Alma Albarran, Erik Blanchard and colleagues, with an educational jorge from [employer]. Review of Systems Const Denies chills, Reports fatigue, Denies fever(s) and Denies headache(s) ENT Denies dysphagia, Denies dizziness, Denies otalgia, Denies headache(s), Denies odynophagia and Denies sore throat Card Denies chest pain, Denies palpitations and Reports dyspnea on exertion Resp Reports chest congestion, Reports cough (recurrent; coughs up thick whitish to grayish phlegm at times), Denies pain on inspiration, Reports dyspnea on exertion and Denies wheezing GI Reports abdominal pain (chronic over the RUQ area), Reports constipation (recurrent), Denies dysphagia, Denies heartburn, Denies diarrhea, Denies nausea, Denies odynophagia and Denies vomiting Denies difficulty voiding, Denies nocturia and Denies dysuria Musc Reports back pain and Reports arthralgias (over both knees) Skin/Breast Denies rash Neuro Denies dizziness and Denies headache(s) Endo Reports fatigue and Denies palpitations Aller/Immun Denies wheezing Physical exam (Primary Care) Vital Signs: Last Vital Signs Pulse 103 H 12/23/23 09:27 BP 140/62 H 12/23/23 09:27 Pulse Ox 95 12/23/23 09:27 Oxygen Delivery Method Room Air 12/23/23 09:27 BMI result Body Mass Index 32.0 Tobacco/Smoking Status: Tobacco use Status Tobacco use date assessed 12/23/23 12/23/23 09:34 Patient Tobacco Use Status Former Tobacco user 12/23/23 09:34 Tobacco use type Cigarette 12/23/23 09:34 e-Cigarette/Vaping Use Never Used 12/23/23 09:34 Thrive Assessment: Date of Thrive Assessment Date Thrive assessed 11/27/23 12/23/23 09:34 Const General: no acute distress and alert HENMT Ears: TM's normal bilaterally and EAC's normal Throat: Yes posterior oropharynx normal and Yes tonsils normal (no TP congestion) Neck Neck: Yes no lymphadenopathy and Yes supple Thyroid: Thyroid normal Resp Auscultation: no crackles, no rales, rhonchi (scattered) throughout, wheezes (occasional) expiratory wheezes and diminished lung sounds bilateral Cardio Rate: regular rate Rhythm: regular rhythm Heart sounds: no murmurs GI Palpation (GI): Soft to palpation, Tenderness to palpation present (GI) (mild, over the RUQ (chronic)), no guarding, not rigid and No Rebound tenderness present Auscultation: normal bowel sounds Skin Rashes: no rashes Extrem General: Yes no clubbing, cyanosis or edema Right lower extremity: knee Details: tenderness Location: of the patella and of the pre-patellar area; no swelling Left lower extremity: knee Details: tenderness Location: of the patella and of the pre-patellar area; no swelling Assessment and Plan Assessment & Plan (1) COPD exacerbation: Code(s): J44.1 - Chronic obstructive pulmonary disease with (acute) exacerbation Plan: S/P bout with COVID a few weeks ago - was admitted to [facility] for a week due to increasing respiratory symptoms Will start patient again on oral Prednisone taper and on empiric Abx Tx with Augmentin 875 mg BID x 7 days She is also advised that she can continue taking OTC Mucinex and/or Robitussin DM ORN for symptomatic relief Continue Symbicort 160-4.5 mcg 2 inhalations BID and Incruse Ellipta 62.5 mcg 1 inhalation QD, Budesonide 1 mg inhalation Q HS and Albuterol HFA 2 inhalations every 6 hours as needed; also uses Duoneb solution via nebulizer 4 times a day as needed Continue Azithromycin 250 mg TIW - Rx refilled Follow up with pulmonary as scheduled - has appt scheduled for tomorrow (2) Cancer of upper lobe of right lung: Comment: s/p Lobectomy Code(s): C34.11 - Malignant neoplasm of upper lobe, right bronchus or lung Plan: S/P Tx with [facility] lobectomy in July 2020 Pleural Bx and thoracentesis of loculated effusion seen on PET scan in the summer were both NEGATIVE for malignancy and demonstrated only persistent chronic pleuritis for which she is on Azithromycin TIW Repeat chest CT in June 2023 showed stable findings with no new lesions Follow-up with Oncology and Cardiothoracic surgery as scheduled for continuing surveillance and management Continue Morphine ER 15 mg BID for pain (3) PVCs (premature ventricular contractions): Code(s): I49.3 - Ventricular premature depolarization Plan: Continue Metoprolol ER 25 mg QD Follow up with cardiology as scheduled Coronary CTA done [facility] in March 2022 came out with no significant coronary disease (4) Constipation: Code(s): K59.00 - Constipation, unspecified Qualifiers: Constipation type: drug induced constipation Qualified Code(s): K59.03 - Drug induced constipation Plan: Mostly opioid-induced (Morphine) Reinforced increased oral fluids and dietary fiber Continue Miralax 17 gm QD and Dulcolax 10 mg Q HS (she can substitute Dulcolax with either Senna or Colace) She can additionally take any OTC fiber supplements of her choice (Metamucil, Benefiber, etc) PRN (5) Bilateral knee pain: Comment: S/P fall 3 months ago (October 2022) Code(s): M25.561 - Pain in right knee; M25.562 - Pain in left knee Qualifiers: Chronicity: unspecified Qualified Code(s): M25.561 - Pain in right knee; M25.562 - Pain in left knee Plan: X-rays of both knees done last year (January 2023) showed (+) mild effusion in both knees but x-rays were otherwise normal She was sent for repeat bilateral knee x-rays for further evaluation last month but has not yet gotten them done States that her knee pains have subsided recently so will hold off on repeat x- rays for now (6) Vitamin D deficiency: Code(s): E55.9 - Vitamin D deficiency, unspecified Plan: Continue Vitamin D3 2000 units QD (7) Bilateral lower extremity edema: Code(s): R60.0 - Localized edema Plan: Continue Furosemide 40 mg QD for her edema Encouraged to continue with leg elevation as often as she can throughout the day to help minimize her edema (8) GERD without esophagitis: Code(s): K21.9 - Gastro-esophageal reflux disease without esophagitis Plan: Dietary restrictions reinforced (9) Insomnia: Code(s): G47.00 - Insomnia, unspecified Qualifiers: Insomnia type: unspecified Qualified Code(s): G47.00 - Insomnia, unspecified Plan: Sleep hygiene reinforced Continue Trazodone 50 mg Q HS PRN and Melatonin 10 mg Q HS (10) Anxiety: Code(s): F41.9 - Anxiety disorder, unspecified Plan: Continue Lorazepam 1 mg QD PRN (11) Depression: Code(s): F32.A - Depression, unspecified Qualifiers: Depression Type: major depressive disorder Major depression recurrence: recurrent Active/Remission status: currently active Major depression episode severity: unspecified Qualified Code(s): F33.9 - Major depressive disorder, recurrent, unspecified Plan: S/P TMS at [facility] [place], which she states helped a lot Continue Venlafaxine ER 75 mg QD Follow up with psychiatry as scheduled (12) Smoker: Code(s): F17.200 - Nicotine dependence, unspecified, uncomplicated Plan: Counseled again on complete smoking cessation Continue Nicotine 7 mg patch QD (13) Obesity (BMI 30-39.9): Code(s): E66.9 - Obesity, unspecified Plan: Reinforced diet; exercise is unrealistic given patient's multiple comorbidities Plan Follow up in 4 months Medications: New prednisone 4 tablets x 2 days, then 3 tablets x 2 days, then 2 tablets x 2 days, then 1 tablet x 2 days 8 days 20 tabs 0RF J45.901 - Unspecified asthma with (acute) exacerbation, M25.50 - Pain in unspecified joint amoxicillin-pot clavulanate 875-125 mg 1 tab PO BID 7 days 14 tabs 0RF Refilled azithromycin 500 mg PO 3XW 12 tabs 5RF Coding Level of Care Code Est Pt Level 4 (92817) Diagnoses COPD exacerbation J44.1 Cancer of upper lobe of right lung C34.11 PVCs (premature ventricular contractions) I49.3 Drug-induced constipation K59.03 Constipation type: drug induced constipation Pain in both knees, unspecified chronicity M25.561; M25.562 Chronicity: unspecified Vitamin D deficiency E55.9 Bilateral lower extremity edema R60.0 GERD without esophagitis K21.9 Insomnia, unspecified type G47.00 Insomnia type: unspecified Anxiety F41.9 Episode of recurrent major depressive disorder, unspecified depression episode severity F33.9 Depression Type: major depressive disorder Major depression recurrence: recurrent Active/Remission status: currently active Major depression episode severity: unspecified Smoker F17.200 Obesity (BMI 30-39.9) E66.9
[2023-12-23 09:27] VITALS: BP 140/62; PULSE 103; O2SAT 95; BMI 32.0
== END 2023-12-23 10:22 | disposition home or self-care (01) ==
PROVIDERS: PCP Internal Medicine; Visit Provider Internal Medicine
DX: J44.1 Chronic obstructive pulmonary disease with (acute) exacerbation (principal); C34.11 Malignant neoplasm of upper lobe, right bronchus or lung; F33.9 Major depressive disorder, recurrent, unspecified; I49.3 Ventricular premature depolarization; K59.03 Drug induced constipation; M25.561 Pain in right knee; M25.562 Pain in left knee; E55.9 Vitamin D deficiency, unspecified; R60.0 Localized edema; K21.9 Gastro-esophageal reflux disease without esophagitis; G47.00 Insomnia, unspecified; F41.9 Anxiety disorder, unspecified
CPT/HCPCS: 99214

== ENCOUNTER 2023-12-24 14:06 | Outpatient (AMB) | payer MEDICARE, MEDICAID, SELFPAY ==
--- NOTE | 2023-12-24 14:12 | MHC.OFFVIS ---
Intake Vital Signs 12/24/23 14:13 Height 5 ft 6 in Weight 196 lb 6.91 oz BMI 31.7 Pulse 89 Pulse Source Pulse Oximeter Pulse Oximetry (%) 94 Oxygen Delivery Method Room Air Intake Visit Reasons: COPD Register In Chancery Required: No Allergies hydrocodone [From Vicodin] Allergy (Severe, Verified 12/24/23 14:14) Rash/Hives Influenza Virus Vaccines Allergy (Severe, Verified 12/24/23 14:14) Rash/Hives gabapentin Adverse Reaction (Intermediate, Verified 12/24/23 14:14) Anxiety HPI HPI Comments History of Present Illness Details 73-year-old lady with underlying history of stage 1 lung cancer status post recent right upper lobectomy on 08/11/2020 admitted on 09/07/2020 with dyspnea and surgical site pain. CT angiogram chest obtained during this admission demonstrated loculated right-sided pleural effusion and pulmonary evaluation has been requested. The patient is complaining severe right sided pleuritic chest pain. We did review the imaging studies concerning for an inflammatory/loculated process. She has been using her respiratory therapy with no significant improvement. Has been waiting for a nebulizer for a while. We will request a nebulizer at this time through [facility]. She did undergo a thoracentesis demonstrating a loculated process draining out only 60 mL of serosanguineous fluid. It was mainly neutrophilic in the LDH was elevated significantly above 2000. Microbiology negative and cytology negative for any malignancy. It appears that is more consistent with a complicated parapneumonic process. Initially after the drainage the patient did feel better for about a week. Then started developing again chest discomfort shortness of breath. She is also coughing. The patient will undergo blood work in addition to a chest x-ray today. At this point the patient be treated for a parapneumonic process and she will be following up with thoracic surgery to see if she requires additional interventions. 02/18/2023 the patient is here for pulmonary follow-up visit. She has been having worsening abdominal discomfort secondary to severe constipation from likely her opiates. She has been evaluated in the ER initially at [facility] and then here at [place]. She was treated for diverticulitis at [facility]. She completed a course of antibiotics. She continues to have her chronic pain issues. And a CT scan of the abdomen she is he does small loculated effusion that is chronic for her. No other findings noted on the x-ray. The patient also had cirrhosis in the liver and has large spleen evidence of portal hypertension. The patient does have a known history of hepatitis-C. She was partially treated in the past. The patient should follow-up with Infectious Disease to further address that issue as it may be impacting her respiratory status. 04/19/2023 the patient is here for a pulmonary follow-up visit. The patient is not feeling well. She has been having constitutional complaints including tachycardia that about blood pressure shortness of breath chest pains. Her rate has been significantly elevated. Some of her cardiac medications have been adjusted which may be playing a part. The patient went to the ER because of worsening symptoms. She has been having significant sweating and had tachycardia and blood pressure issues. All her workup was reassuring and she did have a D-dimer that was within normal limits. She did have a CT scan with IV contrast to further address her abnormal findings have the x-ray in demonstrating no acute changes except for the rib fracture and the pleural effusion which is persisting her case. The patient does have a family history of thyroid issues. She is wondering if is related to that. Will go ahead and treat her for COPD exacerbation. If the patient is no better she can get blood work done. 08/22/2023 the patient is here for a pulmonary follow-up visit. The patient has not been feeling well. She is been having increasing dyspnea on exertion [id number] severity. Also complaining of left-sided chest discomfort with some radiation down the arm. Currently she does not feel them. The patient is concerned because she does have family history of heart disease. The patient also has been noticing increasing lower extremity edema which is new for her the last few months. Seems to be getting worse. 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 That is more of a chronic issue now. She does continue with respiratory medications and they have been affecting beneficial. We did go ahead and send her for an EKG and also laboratory data after the visit. I did get a call from the Cardiology Department of the EKG was abnormal and then also received a call from the laboratory that her troponin I was significantly elevated. Therefore did call the patient and spoke to her directly and emphasize the need for her to come to the ER. The patient agreed. 12/24/2023 the patient is here for a pulmonary follow-up visit. Recently she was hospitalized with COVID-19 back in beginning of the month. She was treated at that time. She did have shortness of breath and cough and malaise. Subsequently she was discharged after completing the treatment. Although she has been noticing worsening chest congestion shortness breath and wheezing. She is having some chest tightness. Moderate severity. She is some feel well. On examination she does have some wheezing although she is already on prednisone. She is also using her respiratory therapy with partial response. In addition to that she was started on Augmentin. In view of the fact that she recently had COVID need to consider staph infections so therefore adding doxycycline will be reasonable. I did do a swab for RSV COVID in the flu. It was indeed still positive for COVID-19. At this point the patient is far away from her original infection so therefore Paxlovid is not an option. If her symptoms indeed worsen she will need to go back to the hospital. I did call her and let her know that. While she was in a hospital she did have a CT scan of the chest that I personally reviewed. No evidence of any pneumonia or pneumonitis. The patient does have a postoperative changes and no evidence of any recurrent cancer which is reassuring. The CT scan was done at [facility]. [facility] Medical History Lower extremity edema CHF (congestive heart failure) Smoker Hepatitis C Esophageal varices COPD (chronic obstructive pulmonary disease) case management patient Obesity (BMI 30-39.9) Depression Anxiety Insomnia GERD without esophagitis Constipation Vitamin D deficiency PVCs (premature ventricular contractions) Pre-op chest exam Limb swelling Elevated TSH Fatigue Aneurysm Bilateral lower extremity edema History of diverticulosis Tachycardia SOB (shortness of breath) On home oxygen therapy ADD (attention deficit disorder) Hx of hepatitis C Chest pain Lung cancer Loculated pleural effusion Fever Concussion COPD (chronic obstructive pulmonary disease) Brain aneurysm Surgical History Hx of cholecystectomy Hx of cataract extraction Status post thoracentesis (~10/19/20) History of thoracic surgery H/O endoscopy H/O colonoscopy with polypectomy S/P biopsy H/O colonoscopy with polypectomy History of esophagogastroduodenoscopy (EGD) Family History Mother Skin cancer Diabetes Thyroid disease Sister Diabetes Skin cancer Tubular adenoma Thyroid disease Daughter Skin cancer Diabetes Social History [facility] Are you a primary day care aide to a significant other at home: No Do you presently have visiting nurse or other home services: No Alcohol intake: current Alcohol intake frequency: holidays/special occasions only Alcohol type: wine Comment: resting in bed Patient Tobacco Use Status: Former Tobacco user Quit Date: 07/2020 Tobacco use type: Cigarette Years Smoked: 20 +/- e-Cigarette/Vaping Use: Never Used Second Hand Smoke Exposure: Yes service: No Current occupational status: retired Cognitive needs: No Hearing needs: No Vision needs: Yes Review of Systems Const Denies chills, Reports fatigue, Denies fever(s) and Denies headache(s) ENT Details: left ear feels blocked Denies dysphagia, Denies headache(s), Denies sinus pain and Denies sore throat Card Reports chest pain, Reports leg edema, Reports palpitations and Reports dyspnea on exertion Resp Reports chest congestion, Reports cough, Reports dyspnea on exertion and Reports wheezing GI Reports abdominal pain (chronic over the RUQ area and more diffuse lately), Reports bloating, Reports constipation (worsening lately), Denies dysphagia, Denies heartburn, Denies diarrhea, Reports nausea (at times) and Denies vomiting Denies difficulty voiding, Denies nocturia and Denies dysuria Neuro Denies headache(s) Endo Reports fatigue and Reports palpitations Aller/Immun Reports wheezing Physical Exam Vital Signs: Last Vital Signs Pulse 89 12/24/23 14:13 Pulse Ox 94 12/24/23 14:13 Oxygen Delivery Method Room Air 12/24/23 14:13 BMI result Body Mass Index 31.7 Const General: alert Neck Neck: Yes normal visual inspection, Yes full ROM and Yes no lymphadenopathy Chest Chest palpation & inspection: normal inspection of the chest and tenderness (right infraclavicular area with a small dense area, right lower area too) Resp Auscultation: rhonchi, wheezes and diminished lung sounds Cardio Rate: tachycardic Rhythm: regular rhythm Heart sounds: S1 normal heart sound present and S2 normal heart sound present GI Palpation (GI): Soft to palpation and nontender Auscultation: normal bowel sounds Extrem General: Yes edema Assessment & Plan Assessment & Plan (1) COVID-19: Code(s): U07.1 - COVID-19 (2) Bronchitis: Code(s): J40 - Bronchitis, not specified as acute or chronic (3) Pulmonary nodule: Code(s): R91.1 - Solitary pulmonary nodule (4) Fever: Code(s): R50.9 - Fever, unspecified (5) COPD (chronic obstructive pulmonary disease): Code(s): J44.9 - Chronic obstructive pulmonary disease, unspecified Qualifiers: COPD type: COPD with acute exacerbation Qualified Code(s): J44.1 - Chronic obstructive pulmonary disease with (acute) exacerbation (6) Loculated pleural effusion: Code(s): J90 - Pleural effusion, not elsewhere classified (7) Tachycardia: Code(s): R00.0 - Tachycardia, unspecified (8) CHF (congestive heart failure): Code(s): I50.9 - Heart failure, unspecified Qualifiers: Heart failure chronicity: unspecified Heart failure type: unspecified Qualified Code(s): I50.9 - Heart failure, unspecified Plan continue Symbicort and Incruse continue Prednisone continue Augmentin start doxycycline DAPHNE as needed continue trazodone for sleep ED if no better or worsens F/U 4-6 months Orders: Orders XR chest 2V Today R50.9 - Fever, unspecified SARS-CoV2/FLU/RSV Today R50.9 - Fever, unspecified Coding Level of Care Code Est Pt Level 4 (45837) Diagnoses COVID-19 U07.1 Bronchitis J40 Pulmonary nodule R91.1 Fever R50.9 COPD (chronic obstructive pulmonary disease) J44.1 COPD type: COPD with acute exacerbation Loculated pleural effusion J90 Tachycardia R00.0 Congestive heart failure, unspecified HF chronicity, unspecified heart failure type I50.9 Heart failure chronicity: unspecified Heart failure type: unspecified Time Spent (min) 18
[2023-12-24 14:13] VITALS: PULSE 89; O2SAT 94; BMI 31.7
== END 2023-12-24 14:39 | disposition home or self-care (01) ==
PROVIDERS: PCP Internal Medicine; Visit Provider Hospitalist
DX: U07.1 COVID-19 (principal); J40 Bronchitis, not specified as acute or chronic; R91.1 Solitary pulmonary nodule; R50.9 Fever, unspecified; J44.1 Chronic obstructive pulmonary disease with (acute) exacerbation; J90 Pleural effusion, not elsewhere classified; R00.0 Tachycardia, unspecified; I50.9 Heart failure, unspecified
CPT/HCPCS: 99214

== ENCOUNTER 2023-12-24 14:06 | Outpatient (REF) | payer MEDICARE, SELFPAY ==
[2023-12-24 16:02] LABS: Influenza A PCR NEGATIVE (Negative); Influenza B PCR NEGATIVE (Negative); Resp Syncy Virus RNA Qual PCR NEGATIVE (Negative); SARS COV2 PCR INHOUSE POSITIVE (Negative)
== END 2023-12-24 14:07 | disposition home or self-care (01) ==
LOC: HO.LNP 14:06
PROVIDERS: PCP Internal Medicine; Visit Provider Hospitalist
DX: Z11.52 Encounter for screening for COVID-19 (principal); Z20.822 Contact with and (suspected) exposure to COVID-19; Z86.19 Personal history of other infectious and parasitic diseases; R91.1 Solitary pulmonary nodule; I50.9 Heart failure, unspecified; R07.9 Chest pain, unspecified; L73.2 Hidradenitis suppurativa; R60.0 Localized edema
CPT/HCPCS: 0241U; 99212

== ENCOUNTER → 2024-02-05 13:32 | Outpatient (REF) | payer MEDICARE, MEDICAID, SELFPAY ==
--- NOTE | 2024-02-05 13:36 | HM_ITS ---
* Total monitoring time 3 days. * Underlying rhythm is sinus with an average rate of 82/Min. Range 67 to 126/Min. * Frequent PVCs with a burden of 6%. Multiple morphologies. Rare couplets, triplets. Evidence of bigeminy and trigeminy. * Rare supraventricular ectopy. * No significant pauses or AV blocks. * Patient markers used in association with sinus rhythm, supraventricular and ventricular ectopy. * Shortness of breath, fluttering, pain over breast in patient diary associated with ventricular ectopy. MTDD
== END ==
LOC: HO.CARD 13:32
PROVIDERS: Visit Provider Internal Medicine Cardiovascular Disease
DX: R00.0 Tachycardia, unspecified (principal); R00.2 Palpitations; I50.9 Heart failure, unspecified
CPT/HCPCS: 93242

== ENCOUNTER → 2024-02-05 13:36 | Outpatient (BNV) | payer MEDICARE, MEDICAID, SELFPAY | PROVIDERS: Visit Provider Internal Medicine | DX: I49.3 Ventricular premature depolarization (principal) | CPT/HCPCS: 93244 ==

== ENCOUNTER 2024-03-02 12:48 | Outpatient (AMB) | payer MEDICARE, MEDICAID, SELFPAY ==
--- NOTE | 2024-03-02 12:49 | A.OFFPC_ITS ---
Vital Signs 03/02/24 12:51 Height 5 ft 6 in Weight 192 lb 6 oz BMI 31.0 BP 126/60 Blood Pressure Location Lt brachial Position Sitting Pulse 92 Pulse Source Pulse Oximeter Pulse Oximetry (%) 92 Oxygen Delivery Method Room Air Intake Visit Reasons: patient requesting blood work and follow up Intake Note: Patient is here today with complain of body ache and pain Technician Automated Equipment Required: No Net Front End Developer: Not Required per policy Accompanied by: Self / Same As Patient Allergies hydrocodone [From Vicodin] Allergy (Severe, Verified 03/02/24 13:30) Rash/Hives Influenza Virus Vaccines Allergy (Severe, Verified 03/02/24 13:30) Rash/Hives gabapentin Adverse Reaction (Intermediate, Verified 03/02/24 13:30) Anxiety Medication List - Last Reconciled 03/02/24 by Magan Syed MD Amitiza (lubiprostone) 8 mcg PO BID 30 days NS amlodipine 5 mg PO DAILY 90 days aspirin (Adult Aspirin Regimen) 81 mg PO DAILY atorvastatin 80 mg PO BEDTIME 90 days azithromycin 500 mg PO 3XW bisacodyl (Dulcolax (bisacodyl)) 10 mg (2 x 5 mg) PO BEDTIME 30 days budesonide 1 mg inhalation BEDTIME furosemide (Lasix) 40 mg PO BID 90 days ipratropium-albuterol 0.5 mg-3 mg(2.5 mg base)/3 mL 3 mL inhalation Q6H PRN 30 days isosorbide mononitrate ER 30 mg PO DAILY lactulose 15 mL PO BEDTIME PRN lorazepam 1 mg PO DAILY PRN metoprolol succinate ER (Toprol XL) 25 mg PO DAILY morphine ER 15 mg PO BID PRN 30 days nebulizers Tubing and mask for nebulizer nitroglycerin 0.4 mg sublingual Q5M PRN Oxygen Home Use As directed pantoprazole 20 mg PO DAILY 90 days prochlorperazine maleate (Compazine) 10 mg PO Q8H PRN Symbicort 160-4.5 mcg/actuation (budesonide-formoterol) 2 puffs PO BID NS umeclidinium 62.5 mcg/actuation (Incruse Ellipta) 1 inh PO DAILY venlafaxine ER 75 mg PO DAILY Ventolin HFA 90 mcg/actuation (albuterol sulfate) 2 puffs PO Q4H PRN NS Tobacco use date assessed: 03/02/24 Fall risk assessment: No Falls in past year Last assessed Fall Risk: 03/02/24 Dental Screening Dental Screen Date: 12/23/23 HPI patient requesting blood work and follow up HPI Details Patient comes in today for follow up and to request for some labs to be ordered for further evaluation of her recently increased fatigue States that she has been feeling unusually exhausted lately and recalls being advised when she was admitted to the hospital over the past few months that her thyroid tests were not normal Is concerned that she may now have some thyroid condition and that this is affecting her and causing her recent increased fatigue and would like to have some blood test ordered to check her thyroid She also continues to experience increased pain over both knees and feels that they creak a lot lately Had knee x-rays done last year that showed only (+) effusion with no abnormal changes States that she gets very SOB easily and still uses her oxygen PRN, especially when she is up and moving about She is scheduled for her diagnostic mammogram and right breast US later this afternoon for the lumps that she has felt in her right breast recently She is also scheduled to see Dr. Hubbard at [facility] in a few weeks on 03/24/2024 for some lesions over her right upper eyelid - she is concerned that these may be skin cancer or precancerous lesions She used to see Dr. Munira Guerrero but feels that Dr. Guerrero is not paying attention to her complaints She denies any headaches or dizziness Denies any chest pains No nausea/ vomiting, no abdominal pain No change in bowel habits noted PFSH Medical History Lower extremity edema CHF (congestive heart failure) Smoker Hepatitis C Esophageal varices COPD (chronic obstructive pulmonary disease) case management patient Obesity (BMI 30-39.9) Depression Anxiety Insomnia GERD without esophagitis Constipation Vitamin D deficiency PVCs (premature ventricular contractions) Limb swelling Elevated TSH Fatigue Aneurysm Bilateral lower extremity edema History of diverticulosis Tachycardia SOB (shortness of breath) On home oxygen therapy ADD (attention deficit disorder) Hx of hepatitis C Chest pain Lung cancer Loculated pleural effusion Concussion COPD (chronic obstructive pulmonary disease) Brain aneurysm Surgical History Hx of cholecystectomy Hx of cataract extraction Status post thoracentesis (~10/19/20) History of thoracic surgery H/O endoscopy H/O colonoscopy with polypectomy S/P biopsy H/O colonoscopy with polypectomy History of esophagogastroduodenoscopy (EGD) Family History Mother Skin cancer Diabetes Thyroid disease Sister Diabetes Skin cancer Tubular adenoma Thyroid disease Daughter Skin cancer Diabetes Social History Housing: [facility] Are you a primary geriatric care manager to a significant other at home: No Do you presently have visiting nurse or other home services: No Alcohol intake: current Alcohol intake frequency: a few times a week Alcohol type: wine Comment: resting in bed Patient Tobacco Use Status: Former Tobacco user Quit Date: 07/2020 Tobacco use type: Cigarette Years Smoked: 20 +/- e-Cigarette/Vaping Use: Never Used Second Hand Smoke Exposure: Yes service: No Current occupational status: retired Cognitive needs: No Hearing needs: No Vision needs: Yes Questionnaire Thrive Questionnaire Date Thrive assessed: 11/27/23 KARINA-7 AMB Questionnaire KARINA-7 Date KARINA - 7 assessed: 11/27/23 Source: Developed by Drs. Nathen Oshea, Alma Albarran, Erik Blanchard and colleagues, with an educational jorge from [employer]. Review of Systems Const Denies chills, Reports fatigue (increased lately - feels exhausted), Denies fever(s) and Denies headache(s) ENT Denies dysphagia, Denies dizziness, Denies otalgia, Denies headache(s), Denies neck pain, Denies odynophagia and Denies sore throat Card Denies chest pain, Denies palpitations and Reports dyspnea on exertion (even with minimal activity) Resp Denies chest congestion, Reports cough (on and off; coughs up thick whitish to grayish phlegm at times), Denies pain on inspiration, Reports dyspnea on exertion (even with minimal activity) and Denies wheezing GI Reports abdominal pain (chronic over the RUQ area), Reports constipation (recurrent), Denies dysphagia, Denies heartburn, Denies diarrhea, Denies nausea, Denies odynophagia and Denies vomiting Denies difficulty voiding, Denies nocturia, Denies dysuria and Denies urinary urgency Musc Reports back pain, Reports arthralgias (over both knees) and Denies neck pain Skin/Breast Details: (+) multiple raised lesions on the right upper eyelid Denies rash Neuro Denies dizziness and Denies headache(s) Endo Reports fatigue (increased lately - feels exhausted) and Denies palpitations Aller/Immun Denies wheezing Physical exam (Primary Care) Vital Signs: Last Vital Signs Pulse 92 03/02/24 12:51 BP 126/60 03/02/24 12:51 Pulse Ox 92 03/02/24 12:51 Oxygen Delivery Method Room Air 03/02/24 12:51 BMI result Body Mass Index 31.0 Tobacco/Smoking Status: Tobacco use Status Tobacco use date assessed 03/02/24 03/02/24 12:57 Patient Tobacco Use Status Former Tobacco user 03/02/24 12:57 Tobacco use type Cigarette 03/02/24 12:57 e-Cigarette/Vaping Use Never Used 03/02/24 12:57 Thrive Assessment: Date of Thrive Assessment Date Thrive assessed 11/27/23 03/02/24 12:57 Const General: no acute distress, alert and tired appearing HENMT Throat: Yes posterior oropharynx normal and Yes tonsils normal (no TP congestion) Neck Neck: Yes no lymphadenopathy and Yes supple Thyroid: Thyroid normal Resp Auscultation: no crackles, no rales, rhonchi (scattered) throughout, no wheezes and diminished lung sounds bilateral Cardio Rate: regular rate Rhythm: regular rhythm Heart sounds: no murmurs GI Palpation (GI): Soft to palpation, Tenderness to palpation present (GI) (mild, over the RUQ (chronic)), no guarding, not rigid and No Rebound tenderness present Auscultation: normal bowel sounds Skin Other: (+) few scattered slightly raised lesions on the right upper eyelid Rashes: no rashes Extrem General: Yes no clubbing, cyanosis or edema Right lower extremity: knee Details: tenderness Location: of the patella and of the pre-patellar area; no swelling Left lower extremity: knee Details: tenderness Location: of the patella and of the pre-patellar area; no swelling Assessment and Plan Assessment & Plan (1) Fatigue: Code(s): R53.83 - Other fatigue Qualifiers: Fatigue type: unspecified Qualified Code(s): R53.83 - Other fatigue Plan: Per request, will send patient for some labs VERÓNICA for further evaluation (2) Bilateral knee pain: Comment: S/P fall 3 months ago (October 2022) Code(s): M25.561 - Pain in right knee; M25.562 - Pain in left knee Qualifiers: Chronicity: unspecified Qualified Code(s): M25.561 - Pain in right knee; M25.562 - Pain in left knee Plan: X-rays of the knees done last year showed only (+) effusion in both knees Will refer patient to orthopedics for further evaluation and management (3) Lump of right breast: Comment: over the upper right breast Code(s): N63.10 - Unspecified lump in the right breast, unspecified quadrant Qualifiers: Breast mass location: unspecified quadrant Qualified Code(s): N63.10 - Unspecified lump in the right breast, unspecified quadrant Plan: She is scheduled for a diagnostic mammogram and right breast US later this afternoon for further evaluation (4) COPD (chronic obstructive pulmonary disease): Code(s): J44.9 - Chronic obstructive pulmonary disease, unspecified Qualifiers: COPD type: COPD with acute exacerbation Qualified Code(s): J44.1 - Chronic obstructive pulmonary disease with (acute) exacerbation Plan: Continue Symbicort 160-4.5 mcg 2 inhalations BID and Incruse Ellipta 62.5 mcg 1 inhalation QD, Budesonide 1 mg inhalation Q HS and Albuterol HFA 2 inhalations every 6 hours as needed; also uses Duoneb solution via nebulizer 4 times a day as needed Continue Azithromycin 250 mg TIW Follow up with pulmonary as scheduled (5) Cancer of upper lobe of right lung: Comment: s/p Lobectomy Code(s): C34.11 - Malignant neoplasm of upper lobe, right bronchus or lung Plan: S/P Tx with [facility] lobectomy in July 2020 Pleural Bx and thoracentesis of loculated effusion seen on PET scan in the [facility] of 2020 were both NEGATIVE for malignancy and demonstrated only persistent chronic pleuritis for which she is on Azithromycin TIW Repeat chest CT in June 2023 showed stable findings with no new lesions Follow-up with Oncology and Cardiothoracic surgery as scheduled for continuing surveillance and management Continue Morphine ER 15 mg BID for pain (6) PVCs (premature ventricular contractions): Code(s): I49.3 - Ventricular premature depolarization Plan: Continue Metoprolol ER 25 mg QD Follow up with cardiology as scheduled Coronary CTA done [facility] in March 2022 came out with no significant coronary disease (7) Constipation: Code(s): K59.00 - Constipation, unspecified Qualifiers: Constipation type: drug induced constipation Qualified Code(s): K59.03 - Drug induced constipation Plan: Mostly opioid-induced (Morphine) Reinforced increased oral fluids and dietary fiber Continue Miralax 17 gm QD and Dulcolax 10 mg Q HS (she can substitute Dulcolax with either Senna or Colace) She can additionally take any OTC fiber supplements of her choice (Metamucil, Benefiber, etc) PRN (8) Vitamin D deficiency: Code(s): E55.9 - Vitamin D deficiency, unspecified Plan: Continue Vitamin D3 2000 units QD (9) Bilateral lower extremity edema: Code(s): R60.0 - Localized edema Plan: Continue Furosemide 40 mg QD for her edema Encouraged to continue with leg elevation as often as she can throughout the day to help minimize her edema (10) Lesion of upper eyelid: Code(s): H02.9 - Unspecified disorder of eyelid Plan: She used to see Dr. Munira Guerrero at [facility] but per her request, is now scheduled to be seen by Dr. Hubbard on 03/24/2024 for further evaluation of these lesions on her right upper eyelid (11) GERD without esophagitis: Code(s): K21.9 - Gastro-esophageal reflux disease without esophagitis Plan: Dietary restrictions reinforced (12) Insomnia: Code(s): G47.00 - Insomnia, unspecified Qualifiers: Insomnia type: unspecified Qualified Code(s): G47.00 - Insomnia, unspecified Plan: Sleep hygiene reinforced Continue Trazodone 50 mg Q HS PRN and Melatonin 10 mg Q HS (13) Anxiety: Code(s): F41.9 - Anxiety disorder, unspecified Plan: Continue Lorazepam 1 mg QD PRN (14) Depression: Code(s): F32.A - Depression, unspecified Qualifiers: Depression Type: major depressive disorder Major depression recurrence: recurrent Active/Remission status: currently active Major depression episode severity: unspecified Qualified Code(s): F33.9 - Major depressive disorder, recurrent, unspecified Plan: [place] [facility] which she states helped a lot Continue Venlafaxine ER 75 mg QD Follow up with psychiatry as scheduled (15) Obesity (BMI 30-39.9): Code(s): E66.9 - Obesity, unspecified Plan: Reinforced diet; exercise is unrealistic given patient's multiple comorbidities Plan Follow up as scheduled next month Orders: Orders Comprehensive Met. Panel Today R53.83 - Other fatigue Erythrocyte Sedimentation Rate Today M79.7 - Fibromyalgia Complete Blood Count Auto Diff Today D64.9 - Anemia, unspecified, R53.83 - Other fatigue Thyroid Stimulating Hormone Today R53.83 - Other fatigue, R79.89 - Other specified abnormal findings of blood chemistry Free T4 (Free Thyroxine) Today R53.83 - Other fatigue, R79.89 - Other specified abnormal findings of blood chemistry B Type Natriuretic Peptide Today I50.9 - Heart failure, unspecified Referrals Orthopedics Referral M25.561 - Pain in right knee, M25.562 - Pain in left knee Coding Level of Care Code Est Pt Level 4 (51376) Diagnoses Fatigue, unspecified type R53.83 Fatigue type: unspecified Pain in both knees, unspecified chronicity M25.561; M25.562 Chronicity: unspecified Mass of right breast, unspecified quadrant N63.10 Breast mass location: unspecified quadrant COPD (chronic obstructive pulmonary disease) J44.1 COPD type: COPD with acute exacerbation Cancer of upper lobe of right lung C34.11 PVCs (premature ventricular contractions) I49.3 Drug-induced constipation K59.03 Constipation type: drug induced constipation Vitamin D deficiency E55.9 Bilateral lower extremity edema R60.0 Lesion of upper eyelid H02.9 GERD without esophagitis K21.9 Insomnia, unspecified type G47.00 Insomnia type: unspecified Anxiety F41.9 Episode of recurrent major depressive disorder, unspecified depression episode severity F33.9 Depression Type: major depressive disorder Major depression recurrence: recurrent Active/Remission status: currently active Major depression episode severity: unspecified Obesity (BMI 30-39.9) E66.9
[2024-03-02 12:51] VITALS: BP 126/60; PULSE 92; O2SAT 92; BMI 31.0
== END 2024-03-02 13:45 | disposition home or self-care (01) ==
PROVIDERS: PCP Internal Medicine; Visit Provider Internal Medicine
DX: R53.83 Other fatigue (principal); M25.561 Pain in right knee; M25.562 Pain in left knee; J44.1 Chronic obstructive pulmonary disease with (acute) exacerbation; I49.3 Ventricular premature depolarization; K59.03 Drug induced constipation; E55.9 Vitamin D deficiency, unspecified; R60.0 Localized edema; H02.9 Unspecified disorder of eyelid; K21.9 Gastro-esophageal reflux disease without esophagitis; G47.00 Insomnia, unspecified; F41.9 Anxiety disorder, unspecified
CPT/HCPCS: 99214

== ENCOUNTER 2024-03-02 14:34 | Outpatient (REF) | payer MEDICARE, OTHER, MEDICAID, SELFPAY ==
--- NOTE | ~2024-03-02 | US_ITS ---
EXAMINATION: MM DIAGNOSTIC DIGITAL BREAST TOMOSYNTHESIS, BILATERAL US BREAST LIMITED, RIGHT MAMMOGRAPHY: CLINICAL INFORMATION: 73-year-old female, history of lung cancer, complaining of palpable abnormality in the right axilla. Patient also due for bilateral screening. COMPARISON: Mammography: 12/26/2022, 01/25/2022, 09/23/2018, 08/19/2017; right breast ultrasound 01/25/2022. TECHNIQUE: Digital breast tomosynthesis is performed in both the craniocaudal and mediolateral oblique views along with computer-aided detection (CAD). Synthesized 2D images are generated from the tomosynthesis. In addition, a 2-D right ML projection was obtained. FINDINGS: There are scattered areas of fibroglandular density (ACR BI-RADS breast composition Category b). BB marker has been placed in the area of palpable concern by the technologist immediately overlying the right upper and posterior pectoralis muscle. There is some mild deformation of the pectoralis with vague opacity subjacent to the BB. This is too far lateral to be seen well on the CC projection or ML projection. We will evaluate this region with ultrasound. Otherwise, breast parenchyma bilaterally demonstrates stable subtle asymmetries, unchanged from numerous exams and benign. There are dystrophic calcifications in the upper outer right breast middle one third, likely fibroadenomatoid change. No suspicious calcifications identified. No regions of architectural distortion or suspicious masses. No skin changes identified. ULTRASOUND: CLINICAL INFORMATION: As above. COMPARISON: No prior ultrasound of relevance. TECHNIQUE: Targeted sonographic evaluation was performed using a high frequency linear transducer. Examination targeted the superficial lateral upper pectoralis muscle in the region of palpable concern. Selected archived documentation. FINDINGS: RIGHT BREAST: Within the superficial right pectoralis muscle, there is a linear focus of irregular hypoechoic echotexture, with mild surrounding hyperechoic superficial fat, having the appearance of scar tissue without significant color Doppler flow associated. This measures approximately 8 x 5 x 6 mm and is associated with mild tenting of the pectoralis at this region. The patient is quite certain no prior surgical intervention or trauma has happened in that region, although numerous prior CTs of the chest demonstrate focal scarring in the upper mid pectoralis region. Because of the discrepancy, ultrasound-guided biopsy of the lesion is recommended for definitive characterization. US/US breast RT limited mamm only IMPRESSION: -No findings suspicious for malignancy in either breast. Stable benign findings. -Linear hypoechoic irregular focus in the region of palpable concern overlying the right chest wall, upper mid pectoralis muscle, having sonographic features highly suggestive of scar. The patient however is quite certain there has been no prior surgery or trauma to this region, and hence sonographic guided biopsy is recommended for definitive characterization, especially in light of history of lung CA. -Findings and conclusions were discussed with the patient in detail who is in agreement with the plan. OVERALL ASSESSMENT: Mammography: BI-RADS 4 - Suspicious finding Ultrasound: BI-RADS 4 - Suspicious finding RECOMMENDATION: Biopsy recommended
[2024-03-02 16:28] LABS: MANUAL DIFF FLAG NO
[2024-03-02 17:44] LABS: Basophils Percent Auto 0.5 % (0-2); Eosinophils Absolute Auto 0.1 X10*3/uL (0.0-0.4); Eosinophils Percent Auto 1.4 % (0-4); Hematocrit 34.1 % (37.0-47.0); Imm Gran Abs Auto 0.03 X10*3/uL (0.00-0.03); Imm Gran Pct Auto 0.5 % (0.0-0.4); Lymphocytes Percent Auto 17.9 % (20-40); Mean Corpuscular HGB Conc 32.3 g/dl (31.0-35.0); Mean Corpuscular Hemoglobin 28.3 pg (27.0-33.0); Mean Corpuscular Volume 87.7 fL (80.0-98.0); Mean Platelet Volume 11.7 fL (9.4-12.3); Monocytes Absolute Auto 0.5 X10*3/uL (0.1-1.2); Monocytes Percent Auto 8.7 % (2-11); Neutrophils Absolute Auto 3.9 x10*3/uL (2.0-8.3); Platelet Count 158 X10*3/uL (160-400); Red Blood Count 3.89 X10*6/uL (4.20-5.50); Red Cell Distribution Width 15.3 % (11.0-16.0); White Blood Count 5.5 X10*3/uL (4.8-10.8)
[2024-03-02 18:15] LABS: Erythrocyte Sedimentation Rate 15 MM/HR (0-20)
[2024-03-02 19:04] LABS: B Type Natriuretic Peptide 43 pg/mL (<100)
[2024-03-02 19:23] LABS: Alanine Aminotransferase 33 U/L (0-31); Albumin Level 3.9 g/dL (3.5-5.0); Alkaline Phosphatase 64 U/L (39-117); Anion Gap 16 (12-20); Aspartate Amino Transferase 37 U/L (5-31); Bilirubin Total 0.6 mg/dL (0.0-1.0); Blood Urea Nitrogen 10 mg/dL (9-16); Calcium 9.6 mg/dL (8.4-10.2); Carbon Dioxide 26 mmol/L (22-29); Chloride 102 mmol/L (96-108); Estimated Glomerular Filt Rate > 60; Glucose Random 101 mg/dL (60-115); Potassium 3.3 mmol/L (3.3-5.1); Sodium 141 mmol/L (135-145); Total Protein 6.9 g/dL (6.5-8.0)
[2024-03-02 19:29] LABS: Free T4 (Free Thyroxine) 0.96 ng/dL (0.71-1.85); Thyroid Stimulating Hormone 1.71 uIU/mL (0.32-4.0)
== END 2024-03-02 14:35 | disposition home or self-care (01) ==
LOC: HO.MAMMO 14:34
PROVIDERS: Absent Provider Internal Medicine; PCP Internal Medicine; Visit Provider Internal Medicine
DX: N63.31 Unspecified lump in axillary tail of the right breast (principal); R53.83 Other fatigue; D64.9 Anemia, unspecified; R79.89 Other specified abnormal findings of blood chemistry; I50.9 Heart failure, unspecified; M79.7 Fibromyalgia
CPT/HCPCS: 36415; 76642; 77062; 77066; 80053; 83880; 84439; 84443; 85025; 85652

== ENCOUNTER 2024-03-09 08:33 | Outpatient (AMB) | payer MEDICARE, MEDICAID, OTHER, SELFPAY ==
[2024-03-09 08:47] VITALS: BP 105/53; PULSE 80; BMI 31.6
--- NOTE | 2024-03-09 08:47 | A.OFFVIS_ITS ---
Vital Signs 03/09/24 08:47 Height 5 ft 6 in Weight 196 lb BMI 31.6 BP 105/53 L Blood Pressure Location Rt brachial Position Sitting Pulse 80 Intake Visit Reasons: USBx Rt breast 11 o'clock mass Intake Note: Patient referred for bx on Rt breast @ 11 o'clock. Patient c/o: growth that is mobile. Reports no prior trauma to area. MM& Br US: 03-02-24. Forms Analysis Manager Required: No Accompanied by: Self / Same As Patient Allergies hydrocodone [From Vicodin] Allergy (Severe, Verified 03/09/24 08:49) Rash/Hives Influenza Virus Vaccines Allergy (Severe, Verified 03/09/24 08:49) Rash/Hives gabapentin Adverse Reaction (Intermediate, Verified 03/09/24 08:49) Anxiety HPI Comments Details: Patient presents for evaluation of a left upper outer quadrant right breast fullness/mass. She has had this for many years time. She thinks he is increasing in size, become more symptomatic. Patient has had a workup for this including ultrasound and mammogram and is scheduled for ultrasound-guided biopsy of breast Center. She denies any skin changes breast discharge or trauma to the area. She does on self-exams periodically. Family history positive for sister with breast cancer. Menstrual history G-tube P2 past surgical history patient has a very complex collection of surgeries for a long cancer which was initially treated with radiation and apparently recurred and underwent a lobectomy several years later. She has had right upper extremity surgery x2, and a right breast biopsy for benign process in the past. Chart was reviewed and patient evaluated [facility] Medical History Lower extremity edema CHF (congestive heart failure) Smoker Hepatitis C Esophageal varices COPD (chronic obstructive pulmonary disease) case management patient Obesity (BMI 30-39.9) Depression Anxiety Insomnia GERD without esophagitis Constipation Vitamin D deficiency PVCs (premature ventricular contractions) Limb swelling Elevated TSH Fatigue Aneurysm Bilateral lower extremity edema History of diverticulosis Tachycardia SOB (shortness of breath) On home oxygen therapy ADD (attention deficit disorder) Hx of hepatitis C Chest pain Lung cancer Loculated pleural effusion Concussion COPD (chronic obstructive pulmonary disease) Brain aneurysm Surgical History Hx of cholecystectomy Hx of cataract extraction Status post thoracentesis (~10/19/20) History of thoracic surgery H/O endoscopy H/O colonoscopy with polypectomy S/P biopsy H/O colonoscopy with polypectomy History of esophagogastroduodenoscopy (EGD) Family History Mother Skin cancer Diabetes Thyroid disease Sister Diabetes Skin cancer Tubular adenoma Thyroid disease Daughter Skin cancer Diabetes Social History [facility]: [facility] Are you a primary complex care nurse practitioner to a significant other at home: No Do you presently have visiting nurse or other home services: No Alcohol intake: current Alcohol intake frequency: a few times a week Alcohol type: wine Comment: resting in bed Patient Tobacco Use Status: Former Tobacco user Quit Date: 07/2020 Tobacco use type: Cigarette Years Smoked: 20 +/- e-Cigarette/Vaping Use: Never Used Second Hand Smoke Exposure: Yes service: No Current occupational status: retired Cognitive needs: No Hearing needs: No Vision needs: Yes Physical Exam Vital Signs: Last Vital Signs Pulse 80 03/09/24 08:47 BP 105/53 L 03/09/24 08:47 BMI result Body Mass Index 31.6 Chest Other: No obvious cervical, periclavicular, or axillary adenopathy bilaterally. Patient has an upper outer quadrant fullness in the region of a prior scar from previous breast surgery. No other mass, discharge, or skin changes bilaterally. Patient has a right thoracotomy scar and right upper extremity orthopedic scar GI Other: Abdomen, corpulent, soft, benign Assessment & Plan Assessment & Plan (1) Lump of right breast: Comment: over the upper right breast Code(s): N63.10 - Unspecified lump in the right breast, unspecified quadrant Category: Surgical Qualifiers: Breast mass location: unspecified quadrant Qualified Code(s): N63.10 - Unspecified lump in the right breast, unspecified quadrant Plan Patient was tentative schedule for ultrasound guided biopsy today. This was originally for today but has been moved to Saturday because of radiologist availability . She will see me next week for follow-up. All questions answered Coding Level of Care Code New Pt Level 4 (05687) Diagnoses Mass of right breast, unspecified quadrant N63.10 Breast mass location: unspecified quadrant
== END 2024-03-09 09:09 | disposition home or self-care (01) ==
PROVIDERS: PCP Internal Medicine; Visit Provider Surgery
DX: N63.10 Unspecified lump in the right breast, unspecified quadrant (principal)
CPT/HCPCS: 99204

== ENCOUNTER → 2024-03-09 08:33 | Outpatient (BNVA) | payer MEDICARE, OTHER, MEDICAID, SELFPAY | PROVIDERS: PCP Internal Medicine; Visit Provider Surgery | DX: N63.11 Unspecified lump in the right breast, upper outer quadrant (principal) | CPT/HCPCS: 99202 ==

== ENCOUNTER 2024-03-11 09:54 | Outpatient (REF) | payer MEDICARE, OTHER, MEDICAID, SELFPAY ==
--- NOTE | ~2024-03-11 | US_ITS ---
PROCEDURE: US GUIDED BREAST BIOPSY, RIGHT CLINICAL INFORMATION: Palpable abnormality overlying right anterior chest wall, involving pectoralis major muscle, with linear focus of irregular hypoechoic echotexture seen on directed sonography. Suspect scar tissue, however ultrasound-guided biopsy recommended for confirmation. COMPARISON: 03/02/2024. Mammography dated 12/26/2022, 01/25/2022, 09/23/2018, 08/19/2017. PROCEDURAL DETAILS: The details of the procedure, as well as the risks, benefits, and alternatives to the procedure were explained to the patient in detail and all of her questions were answered, after which written informed consent was obtained. Site and side were confirmed. Prior to the procedure, sonography revealed the linear hypoechoic irregularity in the midanterior pectoralis muscle extending into the anterior fat. A time-out was performed, the lesion intended for biopsy was targeted, and the skin of the overlying chest was then marked, prepped and draped in the usual sterile fashion. Using sonographic guidance, sterile technique, and 1% lidocaine without epinephrine for local anesthesia, multiple core biopsies were obtained through the targeted area with a 14G spring loaded Amba Defenceera core biopsy device. There was real-time confirmation of appropriate needle passage. Sampling was documented. At the completion of tissue sampling, a single open coil-shaped metallic clip was deposited at the biopsy site. There was no evidence of immediate complication. SPECIMEN: 3 well formed core samples were obtained. DIGITAL POST-PROCEDURE MAMMOGRAPHY: Not obtained due to position of the abnormality in the anterior chest wall. Open coil clip was documented in good position on the ultrasound. The patient tolerated the procedure well and, after assuring adequate hemostasis, was discharged in good condition after reviewing postbiopsy care instructions. Final pathology results are pending. US/US breast ndl core biopsy RT IMPRESSION: 1. No immediate complication from ultrasound-guided percutaneous biopsy anterior right chest wall. 2. Ultrasound was used to localize and guide marker clip placement. 3. The 2-view direct digital postprocedure not required due to position of the abnormality. Biopsy clip documented in good position via ultrasound. 4. Final pathology results are pending. A separate report with final recommendations will be issued once these results are made available.
[2024-03-11] MEDS: Sodium Bicarbonate 8.4% 50 MEQ/50 ML VIAL SUBCUT (11:03)
[2024-03-11] MEDS: Lidocaine HCl 1 % 20 ML VIAL 9 ML SUBCUT (11:04)
== END 2024-03-11 09:55 | disposition home or self-care (01) ==
LOC: HO.MAMMO 09:54
PROVIDERS: PCP Internal Medicine; Visit Provider Surgery
DX: N63.11 Unspecified lump in the right breast, upper outer quadrant (principal)
CPT/HCPCS: 19083; 88305; A4648; C1894

== ENCOUNTER 2024-03-18 07:32 | Outpatient (REF) | payer MEDICARE, MEDICAID, SELFPAY ==
--- NOTE | ~2024-03-18 | XR_ITS ---
EXAMINATION: XR KNEE, RIGHT XR KNEE, LEFT CLINICAL INFORMATION: Bilateral knee pain. COMPARISON: None TECHNIQUE: Three views of each knee. FINDINGS: RIGHT KNEE: Bones are osteopenic. No fracture or malalignment. Trace joint effusion. No joint narrowing. Calcific atherosclerosis in the popliteal and runoff arteries. LEFT KNEE: Minimal medial compartment osteoarthritis. No joint effusion. No joint space narrowing. Bones are osteopenic. Calcific atherosclerosis is present in the popliteal artery. XR/XR knee RT 3V IMPRESSION: 1. Minimal medial compartment osteoarthritis in the left knee. 2. Trace right knee joint effusion. 3. Osteopenia.
--- NOTE | ~2024-03-18 | XR_ITS ---
EXAMINATION: XR KNEE, RIGHT XR KNEE, LEFT CLINICAL INFORMATION: Bilateral knee pain. COMPARISON: None TECHNIQUE: Three views of each knee. FINDINGS: RIGHT KNEE: Bones are osteopenic. No fracture or malalignment. Trace joint effusion. No joint narrowing. Calcific atherosclerosis in the popliteal and runoff arteries. LEFT KNEE: Minimal medial compartment osteoarthritis. No joint effusion. No joint space narrowing. Bones are osteopenic. Calcific atherosclerosis is present in the popliteal artery. XR/XR knee LT 3V IMPRESSION: 1. Minimal medial compartment osteoarthritis in the left knee. 2. Trace right knee joint effusion. 3. Osteopenia.
== END 2024-03-18 07:33 | disposition home or self-care (01) ==
LOC: HO.HOSX 07:32
PROVIDERS: Visit Provider Orthopaedic Surgery
DX: M17.0 Bilateral primary osteoarthritis of knee (principal); N63.10 Unspecified lump in the right breast, unspecified quadrant; Z98.890 Other specified postprocedural states
CPT/HCPCS: 73562; 99202; 99212

== ENCOUNTER 2024-03-18 14:41 | Outpatient (AMB) | payer MEDICARE, MEDICAID, OTHER, SELFPAY ==
[2024-03-18 14:49] VITALS: BMI 31.6
--- NOTE | 2024-03-18 14:49 | MHC.OFFVIS ---
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 She describes her pains as sharp in nature. Her pains have gotten worse over the last year in spite of continued non operative treatments. The patient states that she did fall on both of her knees in October of 2021. Her pains have gotten worse since October of 2022. She has tried Tylenol and anti-inflammatory medicines which gave her minimal relief. She has also had cortisone injection therapy which gave her no relief. She wishes to hold off on surgery for as long as possible. Allergies hydrocodone [From Vicodin] Allergy (Severe, Verified 03/18/24 15:31) Rash/Hives Influenza Virus Vaccines Allergy (Severe, Verified 03/18/24 15:31) Rash/Hives gabapentin Adverse Reaction (Intermediate, Verified 03/18/24 15:31) Anxiety Medication List - Last Reconciled 03/18/24 by Beau Churchill MD Amitiza (lubiprostone) 8 mcg PO BID 30 days NS amlodipine 5 mg PO DAILY 90 days aspirin (Adult Aspirin Regimen) 81 mg PO DAILY atorvastatin 80 mg PO BEDTIME 90 days azithromycin 500 mg PO 3XW bisacodyl (Dulcolax (bisacodyl)) 10 mg (2 x 5 mg) PO BEDTIME 30 days budesonide 1 mg inhalation BEDTIME furosemide (Lasix) 40 mg PO BID 90 days ipratropium-albuterol 0.5 mg-3 mg(2.5 mg base)/3 mL 3 mL inhalation Q6H PRN 30 days isosorbide mononitrate ER 30 mg PO DAILY lactulose 15 mL PO BEDTIME PRN lorazepam 1 mg PO DAILY PRN metoprolol succinate ER 50 mg PO DAILY morphine ER 15 mg PO BID PRN 30 days nebulizers Tubing and mask for nebulizer nitroglycerin 0.4 mg sublingual Q5M PRN Oxygen Home Use As directed pantoprazole 20 mg PO DAILY 90 days prochlorperazine maleate (Compazine) 10 mg PO Q8H PRN Symbicort 160-4.5 mcg/actuation (budesonide-formoterol) 2 puffs PO BID NS umeclidinium 62.5 mcg/actuation (Incruse Ellipta) 1 inh PO DAILY venlafaxine ER 75 mg PO DAILY Ventolin HFA 90 mcg/actuation (albuterol sulfate) 2 puffs PO Q4H PRN NS PFSH Medical History Lower extremity edema CHF (congestive heart failure) Smoker Hepatitis C Esophageal varices COPD (chronic obstructive pulmonary disease) case management patient Obesity (BMI 30-39.9) Depression Anxiety Insomnia GERD without esophagitis Constipation Vitamin D deficiency PVCs (premature ventricular contractions) Limb swelling Elevated TSH Fatigue Aneurysm Bilateral lower extremity edema History of diverticulosis Tachycardia SOB (shortness of breath) On home oxygen therapy ADD (attention deficit disorder) Hx of hepatitis C Chest pain Lung cancer Loculated pleural effusion Concussion COPD (chronic obstructive pulmonary disease) Brain aneurysm Surgical History Hx of cholecystectomy Hx of cataract extraction Status post thoracentesis (~10/19/20) History of thoracic surgery H/O endoscopy H/O colonoscopy with polypectomy S/P biopsy H/O colonoscopy with polypectomy History of esophagogastroduodenoscopy (EGD) Family History Mother Skin cancer Diabetes Thyroid disease Sister Diabetes Skin cancer Tubular adenoma Thyroid disease Daughter Skin cancer Diabetes Social History Housing: Condominium Are you a primary rn care manager to a significant other at home: No Do you presently have visiting nurse or other home services: No Alcohol intake: current Alcohol intake frequency: a few times a week Alcohol type: wine Comment: resting in bed Patient Tobacco Use Status: Former Tobacco user Quit Date: 07/2020 Tobacco use type: Cigarette Years Smoked: 20 +/- e-Cigarette/Vaping Use: Never Used Second Hand Smoke Exposure: Yes service: No Current occupational status: retired Cognitive needs: No Hearing needs: No Vision needs: Yes Physical Exam Vital Signs: BMI result Body Mass Index 31.6 Const Other: Well-nourished well-developed very friendly female awake alert and oriented x3 in no acute distress Extrem Other: Bilateral lower extremity examination shows good capillary refill, no skin lesions noted, normal sensation light touch Bilateral knee examination shows minimal effusions, palpable crepitus with range of motion, pain with range of motion, no instability Results Reviewed Results Reviewed: X-rays of the patient's bilateral knee show joint space narrowing, subchondral sclerosis, no acute bony abnormalities Assessment & Plan Assessment & Plan (1) Arthritis of left knee: Code(s): M17.12 - Unilateral primary osteoarthritis, left knee Category: Medical (2) Arthritis of right knee: Code(s): M17.11 - Unilateral primary osteoarthritis, right knee Category: Medical Plan Ms. Elder Merritt presents with bilateral knee pains due to degenerative joint disease. I had a lengthy discussion with the patient regarding the treatment options. She wishes to hold off on surgery for as long as possible. I agree with this plan. I will see whether or not the patient's insurance company will cover a viscosupplementation injection for both of her knees. I will see her back once the injections are available. Feel free to call me at any time should questions regarding her orthopedic management arise. Thank you very much for asking me to see this very friendly patient. I spent 20 minutes in reviewing the patient's records and imaging studies, seeing the patient and documenting in the medical record. Orders: Orders XR knee LT 3V Today M25.562 - Pain in left knee XR knee RT 3V Today M25.561 - Pain in right knee Coding Level of Care Code New Pt Level 3 (11315) Diagnoses Arthritis of left knee M17.12 Arthritis of right knee M17.11
== END 2024-03-18 15:14 | disposition home or self-care (01) ==
LOC: HO.HOS 14:41
PROVIDERS: PCP Internal Medicine; Visit Provider Orthopaedic Surgery
DX: M17.0 Bilateral primary osteoarthritis of knee (principal)
CPT/HCPCS: 99203

== ENCOUNTER 2024-03-18 15:21 | Outpatient (AMB) | payer MEDICARE, MEDICAID, OTHER, SELFPAY ==
--- NOTE | 2024-03-18 15:23 | MHC.OFFVIS ---
Vital Signs 03/18/24 15:30 Height 5 ft 6 in Weight 195 lb BMI 31.5 BP 112/54 L Blood Pressure Location Lt brachial Position Sitting Pulse 78 Intake Visit Reasons: s/p rt br bx Intake Note: Patient is seen in office for biopsy results, following right breast mass 11 o'clock. 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 Allergies hydrocodone [From Vicodin] Allergy (Severe, Verified 03/18/24 15:31) Rash/Hives Influenza Virus Vaccines Allergy (Severe, Verified 03/18/24 15:31) Rash/Hives gabapentin Adverse Reaction (Intermediate, Verified 03/18/24 15:31) Anxiety Medication List - Last Reconciled 03/18/24 by Dayday Morales MD Amitiza (lubiprostone) 8 mcg PO BID 30 days NS amlodipine 5 mg PO DAILY 90 days aspirin (Adult Aspirin Regimen) 81 mg PO DAILY atorvastatin 80 mg PO BEDTIME 90 days azithromycin 500 mg PO 3XW bisacodyl (Dulcolax (bisacodyl)) 10 mg (2 x 5 mg) PO BEDTIME 30 days budesonide 1 mg inhalation BEDTIME furosemide (Lasix) 40 mg PO BID 90 days ipratropium-albuterol 0.5 mg-3 mg(2.5 mg base)/3 mL 3 mL inhalation Q6H PRN 30 days isosorbide mononitrate ER 30 mg PO DAILY lactulose 15 mL PO BEDTIME PRN lorazepam 1 mg PO DAILY PRN metoprolol succinate ER 50 mg PO DAILY morphine ER 15 mg PO BID PRN 30 days nebulizers Tubing and mask for nebulizer nitroglycerin 0.4 mg sublingual Q5M PRN Oxygen Home Use As directed pantoprazole 20 mg PO DAILY 90 days prochlorperazine maleate (Compazine) 10 mg PO Q8H PRN Symbicort 160-4.5 mcg/actuation (budesonide-formoterol) 2 puffs PO BID NS umeclidinium 62.5 mcg/actuation (Incruse Ellipta) 1 inh PO DAILY venlafaxine ER 75 mg PO DAILY Ventolin HFA 90 mcg/actuation (albuterol sulfate) 2 puffs PO Q4H PRN NS HPI Comments Details: Patient is status post ultrasound-guided right breast biopsy. She has no issues or complaints following biopsy. Pathology is benign. [facility] Medical History Lower extremity edema CHF (congestive heart failure) Smoker Hepatitis C Esophageal varices COPD (chronic obstructive pulmonary disease) case management patient Obesity (BMI 30-39.9) Depression Anxiety Insomnia GERD without esophagitis Constipation Vitamin D deficiency PVCs (premature ventricular contractions) Limb swelling Elevated TSH Fatigue Aneurysm Bilateral lower extremity edema History of diverticulosis Tachycardia SOB (shortness of breath) On home oxygen therapy ADD (attention deficit disorder) Hx of hepatitis C Chest pain Lung cancer Loculated pleural effusion Concussion COPD (chronic obstructive pulmonary disease) Brain aneurysm Surgical History Hx of cholecystectomy Hx of cataract extraction Status post thoracentesis (~10/19/20) History of thoracic surgery H/O endoscopy H/O colonoscopy with polypectomy S/P biopsy H/O colonoscopy with polypectomy History of esophagogastroduodenoscopy (EGD) Family History Mother Skin cancer Diabetes Thyroid disease Sister Diabetes Skin cancer Tubular adenoma Thyroid disease Daughter Skin cancer Diabetes Social [facility] Are you a primary farm or ranch animal caretaker to a significant other at home: No Do you presently have visiting nurse or other home services: No Alcohol intake: current Alcohol intake frequency: a few times a week Alcohol type: wine Comment: resting in bed Patient Tobacco Use Status: Former Tobacco user Quit Date: 07/2020 Tobacco use type: Cigarette Years Smoked: 20 +/- e-Cigarette/Vaping Use: Never Used Second Hand Smoke Exposure: Yes service: No Current occupational status: retired Cognitive needs: No Hearing needs: No Vision needs: Yes Physical Exam Vital Signs: Last Vital Signs Pulse 78 03/18/24 15:30 BP 112/54 L 03/18/24 15:30 BMI result Body Mass Index 31.5 Chest Other: Biopsy site clean dry and intact. Steri-Strips uneventfully removed. Assessment & Plan Assessment & Plan (1) Lump of right breast: Comment: over the upper right breast Code(s): N63.10 - Unspecified lump in the right breast, unspecified quadrant Category: Surgical Qualifiers: Breast mass location: unspecified quadrant Qualified Code(s): N63.10 - Unspecified lump in the right breast, unspecified quadrant Plan: Current plan is to encourage self-breast evaluations each month. Patient will see me in 6 months time proceeded by follow-up right breast ultrasound. All questions answered. Patient will see me as directed or p.r.n. Orders: Orders US breast RT limited 6 Months N63.10 - Unspecified lump in the right breast, unspecified quadrant Coding Level of Care Code Est Pt Level 4 (98760) Diagnoses Mass of right breast, unspecified quadrant N63.10 Breast mass location: unspecified quadrant
[2024-03-18 15:30] VITALS: BP 112/54; PULSE 78; BMI 31.5
== END 2024-03-18 16:06 | disposition home or self-care (01) ==
LOC: HO.HGS 15:22
PROVIDERS: PCP Internal Medicine; Visit Provider Surgery
DX: N63.10 Unspecified lump in the right breast, unspecified quadrant (principal)
CPT/HCPCS: 99214

== ENCOUNTER 2024-04-14 15:05 | Outpatient (AMB) | payer MEDICARE, SELFPAY ==
--- NOTE | 2024-04-14 15:13 | A.OFFVIS_ITS ---
Vital Signs 04/14/24 15:15 Height 5 ft 6 in Weight 189 lb 9.561 oz BMI 30.6 BP 110/70 Blood Pressure Location Lt brachial Position Sitting Pulse 96 Intake Visit Reasons: 6 month follow up Intake Note: 6 month follow-up c/o fatigue and mx pain since start metoprolol using o2 more [employer] Required: No Allergies hydrocodone [From Vicodin] Allergy (Severe, Verified 03/18/24 15:31) Rash/Hives Influenza Virus Vaccines Allergy (Severe, Verified 03/18/24 15:31) Rash/Hives gabapentin Adverse Reaction (Intermediate, Verified 03/18/24 15:31) Anxiety Medication List - Last Reconciled 04/14/24 by Klaus Bonds MD Amitiza (lubiprostone) 8 mcg PO BID 30 days NS amlodipine 5 mg PO DAILY 90 days aspirin (Adult Aspirin Regimen) 81 mg PO DAILY atorvastatin 80 mg PO BEDTIME 90 days azithromycin 500 mg PO 3XW bisacodyl (Dulcolax (bisacodyl)) 10 mg (2 x 5 mg) PO BEDTIME 30 days budesonide 1 mg inhalation BEDTIME furosemide (Lasix) 40 mg PO BID 90 days ipratropium-albuterol 0.5 mg-3 mg(2.5 mg base)/3 mL 3 mL inhalation Q6H PRN 30 days isosorbide mononitrate ER 30 mg PO DAILY lactulose 15 mL PO BEDTIME PRN lorazepam 1 mg PO DAILY PRN metoprolol succinate ER 50 mg PO DAILY 90 days morphine ER 15 mg PO BID PRN 30 days nebulizers Tubing and mask for nebulizer nitroglycerin 0.4 mg sublingual Q5M PRN Oxygen Home Use As directed pantoprazole 20 mg PO DAILY 90 days prochlorperazine maleate (Compazine) 10 mg PO Q8H PRN Symbicort 160-4.5 mcg/actuation (budesonide-formoterol) 2 puffs PO BID NS umeclidinium 62.5 mcg/actuation (Incruse Ellipta) 1 inh inhalation DAILY venlafaxine ER 75 mg PO DAILY venlafaxine ER 37.5 mg PO DAILY Ventolin HFA 90 mcg/actuation (albuterol sulfate) 2 puffs PO Q4H PRN NS HPI Comments Details: Barbara comes for follow-up. Says since increasing metoprolol therapy she has been having more symptoms of fatigue and increasing shortness of breath and also diffuse muscle aches. She has not had any recurrent chest pain. As you aware cardiac catheterization showed minimal luminal irregularities and with wall motion abnormality the suspicion for coronary vaso spasm although stress-induced cardiomyopathy is also likely. She also has increased shortness of breath but no significant worsening leg edema. A BNP normalized on higher diuretic dose she is currently taking. No clear orthopnea PND although she does use oxygen has increased oxygen from 2-3 L. no prolonged palpitation irregular heartbeat. Takes all her medications. [facility] Medical History Lower extremity edema CHF (congestive heart failure) Smoker Hepatitis C Esophageal varices COPD (chronic obstructive pulmonary disease) case management patient Obesity (BMI 30-39.9) Depression Anxiety Insomnia GERD without esophagitis Constipation Vitamin D deficiency PVCs (premature ventricular contractions) Limb swelling Elevated TSH Fatigue Aneurysm Bilateral lower extremity edema History of diverticulosis Tachycardia SOB (shortness of breath) On home oxygen therapy ADD (attention deficit disorder) Hx of hepatitis C Chest pain Lung cancer Loculated pleural effusion Concussion COPD (chronic obstructive pulmonary disease) Brain aneurysm Surgical History Hx of cholecystectomy Hx of cataract extraction Status post thoracentesis (~10/19/20) History of thoracic surgery H/O endoscopy H/O colonoscopy with polypectomy S/P biopsy H/O colonoscopy with polypectomy History of esophagogastroduodenoscopy (EGD) Family History Mother Skin cancer Diabetes Thyroid disease Sister Diabetes Skin cancer Tubular adenoma Thyroid disease Daughter Skin cancer Diabetes Social History Housing: Condominium Are you a primary care manager cna to a significant other at home: No Do you presently have visiting nurse or other home services: No Alcohol intake: current Alcohol intake frequency: a few times a week Alcohol type: wine Comment: resting in bed Patient Tobacco Use Status: Former Tobacco user Tobacco use type: Cigarette Years Smoked: 20 +/- e-Cigarette/Vaping Use: Never Used Second Hand Smoke Exposure: Yes service: No Current occupational status: retired Cognitive needs: No Hearing needs: No Vision needs: Yes Physical Exam Vital Signs: Last Vital Signs Pulse 96 04/14/24 15:15 BP 110/70 04/14/24 15:15 BMI result Body Mass Index 30.6 Const General: cooperative, healthy appearing, comfortable and no acute distress Orientation/consciousness: patient oriented x3 Neck Neck: Yes normal visual inspection Resp Effort & Inspection: normal respiratory effort Auscultation: clear to auscultation bilaterally, no crackles, no rales, no rhonchi, no wheezes and diminished lung sounds Cardio Jugular venous distension: no JVD Rate: regular rate and tachycardic Rhythm: regular rhythm Heart sounds: S1 normal heart sound present, S2 normal heart sound present, no murmurs and no rubs Neuro General: patient oriented x3 Extrem Other: Trace edema left lower leg General: Yes normal to inspection Psych Appearance: grossly normal Mental Status: mental status grossly normal Speech and movement: Normal speech and movement present Assessment & Plan Assessment & Plan (1) CHF (congestive heart failure): Code(s): I50.9 - Heart failure, unspecified Category: Medical Qualifiers: Heart failure type: unspecified Heart failure chronicity: unspecified Qualified Code(s): I50.9 - Heart failure, unspecified Plan: CHF with preserved ejection fraction. Clinically appears to be euvolemic and well compensated on current high diuretic dose. CHF management discussed. Her worsening shortness of breath does not appear to be related to worsening CHF or congestive heart failure but more likely related to underlying COPD. Metoprolol could potentially worsen this. Will decrease metoprolol to 25 mg daily. Continue oxygen therapy. Continue aggressive COPD management. Continue aggressive blood pressure control. Daily weight monitoring avoidance of salt loading was discussed. She understands well. 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 Continue aggressive risk factor modification. (2) PVCs (premature ventricular contractions): Code(s): I49.3 - Ventricular premature depolarization Category: Medical Plan: PVCs are frequent multifocal. However she has not able to tolerate higher dose of metoprolol at this point time. Will reduce metoprolol to 25 mg daily. Avoidance of stimulants was discussed. Overall LV ejection fraction is preserve d and she has no significant ischemia. Continue to monitor clinically. Will follow up in the clinic in 6 months time, sooner p.r.n.. Thank you for allowing me to partake in his care Medications: Changed From metoprolol succinate ER 50 mg PO DAILY 90 days 90 tabs 0RF To metoprolol succinate ER 25 mg (1/2 x 50 mg) PO DAILY 90 days 45 tabs 0RF Coding Level of Care Code Est Pt Level 4 (93140) Diagnoses Congestive heart failure, unspecified HF chronicity, unspecified heart failure type I50.9 Heart failure type: unspecified Heart failure chronicity: unspecified PVCs (premature ventricular contractions) I49.3
[2024-04-14 15:15] VITALS: BP 110/70; PULSE 96; BMI 30.6
== END 2024-04-14 15:41 | disposition home or self-care (01) ==
PROVIDERS: PCP Internal Medicine; Visit Provider Internal Medicine Cardiovascular Disease
DX: I50.9 Heart failure, unspecified (principal); I49.3 Ventricular premature depolarization
CPT/HCPCS: 99214

== ENCOUNTER → 2024-04-14 15:05 | Outpatient (BNVA) | payer MEDICARE, SELFPAY | PROVIDERS: PCP Internal Medicine; Visit Provider Internal Medicine Cardiovascular Disease | DX: I50.30 Unspecified diastolic (congestive) heart failure (principal); I49.3 Ventricular premature depolarization; Z79.899 Other long term (current) drug therapy | CPT/HCPCS: 99212 ==

== ENCOUNTER 2024-04-15 13:46 | Outpatient (AMB) | payer MEDICARE, MEDICAID, SELFPAY ==
--- NOTE | 2024-04-15 13:47 | MHC.OFFVIS ---
Intake Visit Reasons: B/L Euflexxa Knee Injection #1 Intake Note: Valeria is a 74 year old female who presents as a new patient with bilateral knee pains. She describes her pains as sharp in nature. Her pains have gotten worse over the last year in spite of continued non operative treatments. The patient states that she did fall on both of her knees in October of 2021. Her pains have gotten worse since October of 2022. She has tried Tylenol and anti-inflammatory medicines which gave her minimal relief. She has also had cortisone injection therapy which gave her no relief. She wishes to hold off on surgery for as long as possible. Allergies hydrocodone [From Vicodin] Allergy (Severe, Verified 04/15/24 13:47) Rash/Hives Influenza Virus Vaccines Allergy (Severe, Verified 04/15/24 13:47) Rash/Hives gabapentin Adverse Reaction (Intermediate, Verified 04/15/24 13:47) Anxiety Medication List - Last Reconciled 04/15/24 by Beau Churchill MD Amitiza (lubiprostone) 8 mcg PO BID 30 days NS amlodipine 5 mg PO DAILY 90 days aspirin (Adult Aspirin Regimen) 81 mg PO DAILY atorvastatin 80 mg PO BEDTIME 90 days azithromycin 500 mg PO 3XW bisacodyl (Dulcolax (bisacodyl)) 10 mg (2 x 5 mg) PO BEDTIME 30 days budesonide 1 mg inhalation BEDTIME furosemide (Lasix) 40 mg PO BID 90 days ipratropium-albuterol 0.5 mg-3 mg(2.5 mg base)/3 mL 3 mL inhalation Q6H PRN 30 days isosorbide mononitrate ER 30 mg PO DAILY lactulose 15 mL PO BEDTIME PRN lorazepam 1 mg PO DAILY PRN metoprolol succinate ER 25 mg (1/2 x 50 mg) PO DAILY 90 days morphine ER 15 mg PO BID PRN 30 days nebulizers Tubing and mask for nebulizer nitroglycerin 0.4 mg sublingual Q5M PRN Oxygen Home Use As directed pantoprazole 20 mg PO DAILY 90 days prochlorperazine maleate (Compazine) 10 mg PO Q8H PRN Symbicort 160-4.5 mcg/actuation (budesonide-formoterol) 2 puffs PO BID NS umeclidinium 62.5 mcg/actuation (Incruse Ellipta) 1 inh inhalation DAILY venlafaxine ER 75 mg PO DAILY venlafaxine ER 37.5 mg PO DAILY Ventolin HFA 90 mcg/actuation (albuterol sulfate) 2 puffs PO Q4H PRN NS PFSH Medical History Lower extremity edema CHF (congestive heart failure) Smoker Hepatitis C Esophageal varices COPD (chronic obstructive pulmonary disease) case management patient Obesity (BMI 30-39.9) Depression Anxiety Insomnia GERD without esophagitis Constipation Vitamin D deficiency PVCs (premature ventricular contractions) Limb swelling Elevated TSH Fatigue Aneurysm Bilateral lower extremity edema History of diverticulosis Tachycardia SOB (shortness of breath) On home oxygen therapy ADD (attention deficit disorder) Hx of hepatitis C Chest pain Lung cancer Loculated pleural effusion Concussion COPD (chronic obstructive pulmonary disease) Brain aneurysm Surgical History Hx of cholecystectomy Hx of cataract extraction Status post thoracentesis (~10/19/20) History of thoracic surgery H/O endoscopy H/O colonoscopy with polypectomy S/P biopsy H/O colonoscopy with polypectomy History of esophagogastroduodenoscopy (EGD) Family History Mother Skin cancer Diabetes Thyroid disease Sister Diabetes Skin cancer Tubular adenoma Thyroid disease Daughter Skin cancer Diabetes Social History [facility] Are you a primary home care associate to a significant other at home: No Do you presently have visiting nurse or other home services: No Alcohol intake: current Alcohol intake frequency: a few times a week Alcohol type: wine Comment: resting in bed Patient Tobacco Use Status: Former Tobacco user Tobacco use type: Cigarette Years Smoked: 20 +/- e-Cigarette/Vaping Use: Never Used Second Hand Smoke Exposure: Yes service: No Current occupational status: retired Cognitive needs: No Hearing needs: No Vision needs: Yes Physical Exam Const Other: Well-nourished well-developed very friendly female awake alert and oriented x3 in no acute distress Extrem Other: Bilateral lower extremity examination shows good capillary refill, no skin lesions noted, normal sensation light touch Bilateral knee examination shows minimal effusions, palpable crepitus with range of motion, pain with range of motion, no instability Office Procedures Joint Injection/Drain Joint Injection/Drain Primary Site: left knee Prep: site was prepped using aseptic technique Injected: 20 mg of (Euflexxa viscosupplementation) and 1% plain lidocaine Procedure: The patient tolerated the procedure well Coding 45556 - Large joint Procedure code (CPT) selection complete Joint Injection/Drain Joint Injection/Drain Primary Site: right knee Prep: site was prepped using aseptic technique Injected: 20 mg of (Euflexxa viscosupplementation) and 1% plain lidocaine Procedure: The patient tolerated the procedure well Coding 92258 - Large joint Procedure code (CPT) selection complete Results Reviewed Results Reviewed: X-rays of the patient's bilateral knee show joint space narrowing, subchondral sclerosis, no acute bony abnormalities Assessment & Plan Assessment & Plan (1) Arthritis of left knee: Code(s): M17.12 - Unilateral primary osteoarthritis, left knee Category: Medical (2) Arthritis of right knee: Code(s): M17.11 - Unilateral primary osteoarthritis, right knee Category: Medical Plan Ms. Elder Merritt presents with bilateral knee pains due to degenerative joint disease. I had a lengthy discussion with the patient regarding the treatment options. She wishes to hold off on surgery for as long as possible. I agree with this plan. The risks and benefits of bilateral knee Euflexxa injections were discussed at length with the patient. The patient wished to proceed. She tolerated the injections well. She will continue with her home exercise program. She will follow up next week as scheduled. Feel free to call me at any time should questions regarding her orthopedic management arise. I spent 20 minutes in reviewing the patient's records and imaging studies, seeing the patient and documenting in the medical record. Orders: Orders AMB Joint Injection/Aspiration Today M17.12 - Unilateral primary osteoarthritis, left knee AMB Joint Injection/Aspiration Today M17.11 - Unilateral primary osteoarthritis, right knee Coding Level of Care Code Est Pt Level 3 (28820) Diagnoses Arthritis of left knee M17.12 Arthritis of right knee M17.11 CPT Codes Coding - 61870 Large joint: 75569 - Large joint ([id number]) Coding - 44330 Large joint: 48975 - Large joint ([id number])
== END 2024-04-15 14:09 | disposition home or self-care (01) ==
PROVIDERS: PCP Internal Medicine; Visit Provider Orthopaedic Surgery
DX: M17.0 Bilateral primary osteoarthritis of knee (principal)
CPT/HCPCS: 20610; 99213

== ENCOUNTER → 2024-04-15 13:46 | Outpatient (BNVA) | payer MEDICARE, MEDICAID, SELFPAY | PROVIDERS: PCP Internal Medicine; Visit Provider Orthopaedic Surgery | DX: M17.0 Bilateral primary osteoarthritis of knee (principal) | CPT/HCPCS: 20610; 99212; J7323 ==

== ENCOUNTER 2024-04-22 13:46 | Outpatient (AMB) | payer MEDICARE, MEDICAID, OTHER, SELFPAY ==
--- NOTE | 2024-04-22 14:15 | MHC.OFFVIS ---
Intake Visit Reasons: B/L Knee Euflexxa Gel Injections #2 Intake Note: Valeria is a 74 year old female who presents today for bilateral knee Euflexxa #2. She states that she got mild relief from the injections that she was given at her last visit. She continues with her home exercise program. Allergies hydrocodone [From Vicodin] Allergy (Severe, Verified 04/15/24 13:47) Rash/Hives Influenza Virus Vaccines Allergy (Severe, Verified 04/15/24 13:47) Rash/Hives gabapentin Adverse Reaction (Intermediate, Verified 04/15/24 13:47) Anxiety Medication List - Last Reconciled 04/23/24 by Beau Churchill MD Amitiza (lubiprostone) 8 mcg PO BID 30 days NS amlodipine 5 mg PO DAILY 90 days aspirin (Adult Aspirin Regimen) 81 mg PO DAILY atorvastatin 80 mg PO BEDTIME 90 days azithromycin 500 mg PO 3XW bisacodyl (Dulcolax (bisacodyl)) 10 mg (2 x 5 mg) PO BEDTIME 30 days budesonide 1 mg inhalation BEDTIME furosemide (Lasix) 40 mg PO BID 90 days ipratropium-albuterol 0.5 mg-3 mg(2.5 mg base)/3 mL 3 mL inhalation Q6H PRN 30 days isosorbide mononitrate ER 30 mg PO DAILY lactulose 15 mL PO BEDTIME PRN lorazepam 1 mg PO DAILY PRN metoprolol succinate ER 25 mg (1/2 x 50 mg) PO DAILY 90 days morphine ER 15 mg PO BID PRN 30 days nebulizers Tubing and mask for nebulizer nitroglycerin 0.4 mg sublingual Q5M PRN Oxygen Home Use As directed pantoprazole 20 mg PO DAILY 90 days prochlorperazine maleate (Compazine) 10 mg PO Q8H PRN Symbicort 160-4.5 mcg/actuation (budesonide-formoterol) 2 puffs PO BID NS umeclidinium 62.5 mcg/actuation (Incruse Ellipta) 1 inh inhalation DAILY venlafaxine ER 75 mg PO DAILY venlafaxine ER 37.5 mg PO DAILY Ventolin HFA 90 mcg/actuation (albuterol sulfate) 2 puffs PO Q4H PRN NS PFS Medical History Lower extremity edema CHF (congestive heart failure) Smoker Hepatitis C Esophageal varices COPD (chronic obstructive pulmonary disease) case management patient Obesity (BMI 30-39.9) Depression Anxiety Insomnia GERD without esophagitis Constipation Vitamin D deficiency PVCs (premature ventricular contractions) Limb swelling Elevated TSH Fatigue Aneurysm Bilateral lower extremity edema History of diverticulosis Tachycardia SOB (shortness of breath) On home oxygen therapy ADD (attention deficit disorder) Hx of hepatitis C Chest pain Lung cancer Loculated pleural effusion Concussion COPD (chronic obstructive pulmonary disease) Brain aneurysm Surgical History Hx of cholecystectomy Hx of cataract extraction Status post thoracentesis (~10/19/20) History of thoracic surgery H/O endoscopy H/O colonoscopy with polypectomy S/P biopsy H/O colonoscopy with polypectomy History of esophagogastroduodenoscopy (EGD) Family History Mother Skin cancer Diabetes Thyroid disease Sister Diabetes Skin cancer Tubular adenoma Thyroid disease Daughter Skin cancer Diabetes Social [facility] Are you a primary morning caregiver to a significant other at home: No Do you presently have visiting nurse or other home services: No Alcohol intake: current Alcohol intake frequency: a few times a week Alcohol type: wine Comment: resting in bed Patient Tobacco Use Status: Former Tobacco user Tobacco use type: Cigarette Years Smoked: 20 +/- e-Cigarette/Vaping Use: Never Used Second Hand Smoke Exposure: Yes service: No Current occupational status: retired Cognitive needs: No Hearing needs: No Vision needs: Yes Physical Exam Extrem Other: Bilateral knee examination shows minimal effusions, palpable crepitus with range of motion, pain with range of motion, no instability Office Procedures Joint Injection/Drain Joint Injection/Drain Primary Site: left knee Prep: site was prepped using aseptic technique Injected: 20 mg of (Euflexxa viscosupplementation) and 1% plain lidocaine Procedure: The patient tolerated the procedure well Coding 66888 - Large joint Procedure code (CPT) selection complete Joint Injection/Drain Joint Injection/Drain Primary Site: right knee Prep: site was prepped using aseptic technique Injected: 20 mg of (Euflexxa viscosupplementation) Procedure: The patient tolerated the procedure well Coding 60481 - Large joint Procedure code (CPT) selection complete Results Reviewed Results Reviewed: X-rays of the patient's bilateral knee show joint space narrowing, subchondral sclerosis, no acute bony abnormalities Assessment & Plan Assessment & Plan (1) Arthritis of left knee: Code(s): M17.12 - Unilateral primary osteoarthritis, left knee Category: Medical (2) Arthritis of right knee: Code(s): M17.11 - Unilateral primary osteoarthritis, right knee Category: Medical Plan Ms. Elder Merritt presents with bilateral knee pains due to degenerative joint disease. The risks and benefits of a 2nd set of Euflexxa injections were discussed at length with the patient. The patient wished to proceed. She tolerated the injections well. She will continue with her home exercise program. She will follow up next week as scheduled. Feel free to call me at any time should questions regarding her orthopedic management arise. Orders: Orders AMB Joint Injection/Aspiration 04/22/24 M17.12 - Unilateral primary osteoarthritis, left knee AMB Joint Injection/Aspiration 04/22/24 M17.11 - Unilateral primary osteoarthritis, right knee Coding Level of Care Code Procedure Only Diagnoses Arthritis of left knee M17.12 Arthritis of right knee M17.11 CPT Codes Coding - 01467 Large joint: 69784 - Large joint ([id number]) Coding - 33112 Large joint: 78290 - Large joint ([id number])
== END 2024-04-22 14:27 | disposition home or self-care (01) ==
PROVIDERS: PCP Internal Medicine; Visit Provider Orthopaedic Surgery
DX: M17.0 Bilateral primary osteoarthritis of knee (principal)
CPT/HCPCS: 20610

== ENCOUNTER → 2024-04-22 13:46 | Outpatient (BNVA) | payer MEDICARE, OTHER, MEDICAID, SELFPAY | PROVIDERS: PCP Internal Medicine; Visit Provider Orthopaedic Surgery | DX: M17.0 Bilateral primary osteoarthritis of knee (principal) | CPT/HCPCS: 20610; J7323 ==

== ENCOUNTER 2024-05-06 13:30 | Outpatient (AMB) | payer MEDICARE, MEDICAID, OTHER, SELFPAY ==
--- NOTE | 2024-05-06 13:32 | MHC.OFFVIS ---
Intake Visit Reasons: B/L Knee Euflexxa Gel Injections #3 Intake Note: Valeria is a 74 year old female who presents to the office today for B/L Knee Euflexxa Gel Injections #3. She states that she has gotten mild relief from the prior 2 injections. She continues with her home exercise program. Allergies hydrocodone [From Vicodin] Allergy (Severe, Verified 05/06/24 13:32) Rash/Hives Influenza Virus Vaccines Allergy (Severe, Verified 05/06/24 13:32) Rash/Hives gabapentin Adverse Reaction (Intermediate, Verified 05/06/24 13:32) Anxiety Medication List - Last Reconciled 05/06/24 by Beau Churchill MD Amitiza (lubiprostone) 8 mcg PO BID 30 days NS amlodipine 5 mg PO DAILY 90 days aspirin (Adult Aspirin Regimen) 81 mg PO DAILY azithromycin 500 mg PO 3XW bisacodyl (Dulcolax (bisacodyl)) 10 mg (2 x 5 mg) PO BEDTIME 30 days budesonide 1 mg inhalation BEDTIME furosemide (Lasix) 40 mg PO BID 90 days ipratropium-albuterol 0.5 mg-3 mg(2.5 mg base)/3 mL 3 mL inhalation Q6H PRN 30 days isosorbide mononitrate ER 30 mg PO DAILY lactulose 15 mL PO BEDTIME PRN lorazepam 1 mg PO DAILY PRN metoprolol succinate ER 25 mg (1/2 x 50 mg) PO DAILY 90 days morphine ER 15 mg PO BID PRN 30 days nebulizers Tubing and mask for nebulizer nitroglycerin 0.4 mg sublingual Q5M PRN Oxygen Home Use As directed pantoprazole 20 mg PO DAILY 90 days prochlorperazine maleate (Compazine) 10 mg PO Q8H PRN Symbicort 160-4.5 mcg/actuation (budesonide-formoterol) 2 puffs PO BID NS umeclidinium 62.5 mcg/actuation (Incruse Ellipta) 1 inh inhalation DAILY venlafaxine ER 75 mg PO DAILY venlafaxine ER 37.5 mg PO DAILY Ventolin HFA 90 mcg/actuation (albuterol sulfate) 2 puffs PO Q4H PRN NS PFSH Medical History Lower extremity edema CHF (congestive heart failure) Smoker Hepatitis C Esophageal varices COPD (chronic obstructive pulmonary disease) case management patient Obesity (BMI 30-39.9) Depression Anxiety Insomnia GERD without esophagitis Constipation Vitamin D deficiency PVCs (premature ventricular contractions) Limb swelling Elevated TSH Fatigue Aneurysm Bilateral lower extremity edema History of diverticulosis Tachycardia SOB (shortness of breath) On home oxygen therapy ADD (attention deficit disorder) Hx of hepatitis C Chest pain Lung cancer Loculated pleural effusion Concussion COPD (chronic obstructive pulmonary disease) Brain aneurysm Surgical History Hx of cholecystectomy Hx of cataract extraction Status post thoracentesis (~10/19/20) History of thoracic surgery H/O endoscopy H/O colonoscopy with polypectomy S/P biopsy H/O colonoscopy with polypectomy History of esophagogastroduodenoscopy (EGD) Family History Mother Skin cancer Diabetes Thyroid disease Sister Diabetes Skin cancer Tubular adenoma Thyroid disease Daughter Skin cancer Diabetes Social History [facility] Are you a primary menagerie caretaker to a significant other at home: No Do you presently have visiting nurse or other home services: No Alcohol intake: current Alcohol intake frequency: a few times a week Alcohol type: wine Comment: resting in bed Patient Tobacco Use Status: Former Tobacco user Tobacco use type: Cigarette Years Smoked: 20 +/- e-Cigarette/Vaping Use: Never Used Second Hand Smoke Exposure: Yes service: No Current occupational status: retired Cognitive needs: No Hearing needs: No Vision needs: Yes Physical Exam Extrem Other: Bilateral knee examination shows minimal effusions, palpable crepitus with range of motion, pain with range of motion, no instability Office Procedures Joint Injection/Drain Joint Injection/Drain Primary Site: left knee Prep: site was prepped using aseptic technique Injected: 20 mg of (Euflexxa viscosupplementation) and 1% plain lidocaine Procedure: The patient tolerated the procedure well Coding 72758 - Large joint Procedure code (CPT) selection complete Joint Injection/Drain Joint Injection/Drain Primary Site: right knee Prep: site was prepped using aseptic technique Injected: 20 mg of (Euflexxa viscosupplementation) and 1% plain lidocaine Procedure: The patient tolerated the procedure well Coding 39205 - Large joint Procedure code (CPT) selection complete Results Reviewed Results Reviewed: X-rays of the patient's bilateral knee show joint space narrowing, subchondral sclerosis, no acute bony abnormalities Assessment & Plan Assessment & Plan (1) Arthritis of left knee: Code(s): M17.12 - Unilateral primary osteoarthritis, left knee Category: Medical (2) Arthritis of right knee: Code(s): M17.11 - Unilateral primary osteoarthritis, right knee Category: Medical Plan Ms. Elder Merritt presents with bilateral knee pains due to degenerative joint disease. The risks and benefits of a third set of Euflexxa injections were discussed at length with the patient. The patient wished to proceed. She tolerated the bilateral knee injections well. She will continue with activities as tolerated. She will follow up with me on an as-needed basis should her symptoms not plateau at an unacceptable level over the next few months. Feel free to call me at any time should questions regarding her orthopedic management arise. Orders: Orders AMB Joint Injection/Aspiration Today M17.12 - Unilateral primary osteoarthritis, left knee AMB Joint Injection/Aspiration Today M17.11 - Unilateral primary osteoarthritis, right knee Coding Level of Care Code Procedure Only Diagnoses Arthritis of left knee M17.12 Arthritis of right knee M17.11 CPT Codes Coding - 78475 Large joint: 18483 - Large joint ([id number]) Coding - 89145 Large joint: 37752 - Large joint ([id number])
== END 2024-05-06 13:58 | disposition home or self-care (01) ==
PROVIDERS: PCP Internal Medicine; Visit Provider Orthopaedic Surgery
DX: M17.0 Bilateral primary osteoarthritis of knee (principal)
CPT/HCPCS: 20610

== ENCOUNTER → 2024-05-06 13:30 | Outpatient (BNVA) | payer MEDICARE, OTHER, MEDICAID, SELFPAY | PROVIDERS: PCP Internal Medicine; Visit Provider Orthopaedic Surgery | DX: M17.0 Bilateral primary osteoarthritis of knee (principal) | CPT/HCPCS: 20610; J7323 ==

== ENCOUNTER 2024-05-28 14:16 | Outpatient (AMB) | payer MEDICARE, MEDICAID, SELFPAY ==
--- NOTE | 2024-05-28 14:23 | A.OFFVIS_ITS ---
Vital Signs 05/28/24 14:25 Height 5 ft 6 in Weight 189 lb BMI 30.5 Pulse 84 Pulse Source Pulse Oximeter Pulse Oximetry (%) 95 Oxygen Delivery Method Room Air Intake Visit Reasons: Bronchitis Follow Up Rn Flight Required: No Allergies hydrocodone [From Vicodin] Allergy (Severe, Verified 05/28/24 14:26) Rash/Hives Influenza Virus Vaccines Allergy (Severe, Verified 05/28/24 14:26) Rash/Hives gabapentin Adverse Reaction (Intermediate, Verified 05/28/24 14:26) Anxiety HPI Comments Details: 74-year-old lady with underlying history of stage 1 lung cancer status post recent right upper lobectomy on 08/11/2020 admitted on 09/07/2020 with dyspnea and surgical site pain. CT angiogram chest obtained during this admission demonstrated loculated right-sided pleural effusion and pulmonary evaluation has been requested. The patient is complaining severe right sided pleuritic chest pain. We did review the imaging studies concerning for an inflammatory/loculated process. She has been using her respiratory therapy with no significant improvement. Has been waiting for a nebulizer for a while. We will request a nebulizer at this time through [facility]. She did undergo a thora centesis demonstrating a loculated process draining out only 60 mL of serosanguineous fluid. It was mainly neutrophilic in the LDH was elevated significantly above 2000. Microbiology negative and cytology negative for any malignancy. It appears that is more consistent with a complicated parapneumonic process. Initially after the drainage the patient did feel better for about a week. Then started developing again chest discomfort shortness of breath. She is also coughing. The patient will undergo blood work in addition to a chest x- ray today. At this point the patient be treated for a parapneumonic process and she will be following up with thoracic surgery to see if she requires additional interventions. 02/18/2023 the patient is here for pulmonary follow-up visit. She has been havi ng worsening abdominal discomfort secondary to severe constipation from likely her opiates. She has been evaluated in the ER initially at [facility] and then here at [place]. She was treated for diverticulitis at [facility]. She completed a course of antibiotics. She continues to have her chronic pain issues. And a CT scan of the abdomen she is he does small loculated effusion that is chronic for her. No other findings noted on the x-ray. The patient also had cirrhosis in the liver and has large spleen evidence of portal hypertension. The patient does have a known history of hepatitis-C. She was partially treated in the past. The patient should follow-up with Infectious Disease to further address that issue as it may be impacting her respiratory status. 04/19/2023 the patient is here for a pulmonary follow-up visit. The patient is not feeling well. She has been having constitutional complaints including tachycardia that about blood pressure shortness of breath chest pains. Her rate has been significantly elevated. Some of her cardiac medications have been adjusted which may be playing a part. The patient went to the ER because of worsening symptoms. She has been having significant sweating and had tachycardia and blood pressure issues. All her workup was reassuring and she did have a D-dimer that was within normal limits. She did have a CT scan with IV contrast to further address her abnormal findings have the x-ray in demonstrating no acute changes except for the rib fracture and the pleural effusion which is persisting her case. The patient does have a family history of thyroid issues. She is wondering if is related to that. Will go ahead and treat her for COPD exacerbation. If the patient is no better she can get blood work done. 08/22/2023 the patient is here for a pulmonary follow-up visit. The patient has not been feeling well. She is been having increasing dyspnea on exertion [id number] severity. Also complaining of left-sided chest discomfort with some radiation down the arm. Currently she does not feel them. The patient is concerned because she does have family history of heart disease. The patient also has been noticing increasing lower extremity edema which is new for her the last few months. Seems to be getting worse. 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 That is more of a chronic issue now. She does continue with respiratory medications and they have been affecting beneficial. We did go ahead and send her for an EKG and also laboratory data after the visit. I did get a call from the Cardiology Department of the EKG was abnormal and then also received a call from the laboratory that her troponin I was significantly elevated. Therefore did call the patient and spoke to her directly and emphasize the need for her to come to the ER. The patient agreed. 12/24/2023 the patient is here for a pulmonary follow-up visit. Recently she was hospitalized with COVID-19 back in beginning of the month. She was treated at that time. She did have shortness of breath and cough and malaise. Subsequently she was discharged after completing the treatment. Although she has been noticing worsening chest congestion shortness breath and wheezing. She is having some chest tightness. Moderate severity. She is some feel well. On examination she does have some wheezing although she is already on prednisone. She is also using her respiratory therapy with partial response. In addition to that she was started on Augmentin. In view of the fact that she recently had COVID need to consider staph infections so therefore adding doxycycline will be reasonable. I did do a swab for RSV COVID in the flu. It was indeed still positive for COVID-19. At this point the patient is far away from her original infection so therefore Paxlovid is not an option. If her symptoms indeed worsen she will need to go back to the hospital. I did call her and let her know that. While she was in a hospital she did have a CT scan of the chest that I personally reviewed. No evidence of any pneumonia or pneumonitis. The patient does have a postoperative changes and no evidence of any recurrent cancer which is reassuring. The CT scan was done at [facility]. 05/28/2024 the patient is here for a pulmonary follow-up visit. Since we last spoke she is complaining worsening dyspnea on exertion with some chest pressure. Denies any wheezing or coughing. Her symptoms are mainly when going up a flight of stairs. Apparently she did have a cardiac evaluation. Saw [facility]. She did have a cardiac catheterization although I can not located. Will have her undergo a EKG in addition to that she can undergo some blood work to further address any cardiac etiologies or pulmonary etiologies. She does follow-up with cardiology in no best to see if she is a candidate for a cardiac stress test. 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 The patient like to hold off on further imaging at this time. I did recommend getting a CT scan of the chest since her last CT scan was back in 08/16/2023. She did have some postoperative changes and some calcifications of the pleura. In addition to The chronic small Pleural effusion. Therefore, the patient will undergo an EKG and blood work and then will follow-up in few months. If her symptoms are no better she is to call the office. She should also follow-up Cardiology. [facility] Medical History Lower extremity edema CHF (congestive heart failure) Smoker Hepatitis C Esophageal varices COPD (chronic obstructive pulmonary disease) case management patient Obesity (BMI 30-39.9) Depression Anxiety Insomnia GERD without esophagitis Constipation Vitamin D deficiency PVCs (premature ventricular contractions) Limb swelling Elevated TSH Fatigue Aneurysm Bilateral lower extremity edema History of diverticulosis Tachycardia SOB (shortness of breath) On home oxygen therapy ADD (attention deficit disorder) Hx of hepatitis C Chest pain Lung cancer Loculated pleural effusion Concussion COPD (chronic obstructive pulmonary disease) Brain aneurysm Surgical History Hx of cholecystectomy Hx of cataract extraction Status post thoracentesis (~10/19/20) History of thoracic surgery H/O endoscopy H/O colonoscopy with polypectomy S/P biopsy H/O colonoscopy with polypectomy History of esophagogastroduodenoscopy (EGD) Family History Mother Skin cancer Diabetes Thyroid disease Sister Diabetes Skin cancer Tubular adenoma Thyroid disease Daughter Skin cancer Diabetes Social History [facility] Are you a primary senior care specialist to a significant other at home: No Do you presently have visiting nurse or other home services: No Alcohol intake: current Alcohol intake frequency: a few times a week Alcohol type: wine Comment: resting in bed Patient Tobacco Use Status: Former Tobacco user Tobacco use type: Cigarette Years Smoked: 20 +/- e-Cigarette/Vaping Use: Never Used Second Hand Smoke Exposure: Yes service: No Current occupational status: retired Cognitive needs: No Hearing needs: No Vision needs: Yes Review of Systems Const Denies chills, Reports fatigue, Denies fever(s) and Denies headache(s) ENT Details: left ear feels blocked Denies dysphagia, Denies headache(s), Denies sinus pain and Denies sore throat Card Reports chest pain, Reports palpitations and Reports dyspnea on exertion Resp Denies chest congestion, Reports dyspnea on exertion and Denies wheezing GI Reports abdominal pain (chronic over the RUQ area and more diffuse lately), Denies dysphagia, Denies heartburn, Denies diarrhea, Reports nausea (at times) and Denies vomiting Denies difficulty voiding, Denies nocturia and Denies dysuria Neuro Denies headache(s) Endo Reports fatigue and Reports palpitations Aller/Immun Denies wheezing Physical Exam Vital Signs: Last Vital Signs Pulse 84 05/28/24 14:25 Pulse Ox 95 05/28/24 14:25 Oxygen Delivery Method Room Air 05/28/24 14:25 BMI result Body Mass Index 30.5 Const General: alert Neck Neck: Yes normal visual inspection, Yes full ROM and Yes no lymphadenopathy Chest Chest palpation & inspection: normal inspection of the chest Resp Auscultation: rhonchi, wheezes and diminished lung sounds Cardio Rate: tachycardic Rhythm: regular rhythm Heart sounds: S1 normal heart sound present and S2 normal heart sound present GI Palpation (GI): Soft to palpation and nontender Auscultation: normal bowel sounds Extrem General: Yes edema Assessment & Plan Assessment & Plan (1) Pulmonary nodule: Code(s): R91.1 - Solitary pulmonary nodule Category: Medical (2) COPD (chronic obstructive pulmonary disease): Code(s): J44.9 - Chronic obstructive pulmonary disease, unspecified Category: Medical Qualifiers: COPD type: COPD with acute exacerbation Qualified Code(s): J44.1 - Chronic obstructive pulmonary disease with (acute) exacerbation (3) Loculated pleural effusion: Code(s): J90 - Pleural effusion, not elsewhere classified Category: Medical (4) Tachycardia: Code(s): R00.0 - Tachycardia, unspecified Category: Medical (5) CHF (congestive heart failure): Code(s): I50.9 - Heart failure, unspecified Category: Medical Qualifiers: Heart failure chronicity: unspecified Heart failure type: unspecified Qualified Code(s): I50.9 - Heart failure, unspecified (6) Dyspnea: Code(s): R06.00 - Dyspnea, unspecified Category: Medical Qualifiers: Dyspnea type: shortness of breath Qualified Code(s): R06.02 - Shortness of breath Plan continue Symbicort and Incruse EKG Bloodwork consider CT chest, pt reluctant at this time DAPHNE as needed continue trazodone for sleep ED if no better or worsens F/U 4-6 months Orders: Orders ECG 12 lead EKG Today J44.9 - Chronic obstructive pulmonary disease, unspecified, R07.1 - Chest pain on breathing Complete Blood Count Auto Diff Today R07.1 - Chest pain on breathing Troponin-I High Sensitivity Today R07.1 - Chest pain on breathing B Type Natriuretic Peptide Today R07.1 - Chest pain on breathing Erythrocyte Sedimentation Rate Today R07.1 - Chest pain on breathing Venous Blood Gas Today R07.1 - Chest pain on breathing Basic Metabolic Panel Today R07.1 - Chest pain on breathing Coding Level of Care Code Est Pt Level 4 (25969) Complex EM visit Add On G2211 Diagnoses Pulmonary nodule R91.1 COPD (chronic obstructive pulmonary disease) J44.1 COPD type: COPD with acute exacerbation Loculated pleural effusion J90 Tachycardia R00.0 Congestive heart failure, unspecified HF chronicity, unspecified heart failure type I50.9 Heart failure chronicity: unspecified Heart failure type: unspecified Shortness of breath R06.02 Dyspnea type: shortness of breath Time Spent (min) 18
[2024-05-28 14:25] VITALS: PULSE 84; O2SAT 95; BMI 30.5
== END 2024-05-28 14:48 | disposition home or self-care (01) ==
PROVIDERS: PCP Internal Medicine; Visit Provider Hospitalist
DX: R91.1 Solitary pulmonary nodule (principal); J44.1 Chronic obstructive pulmonary disease with (acute) exacerbation; J90 Pleural effusion, not elsewhere classified; R00.0 Tachycardia, unspecified; I50.9 Heart failure, unspecified; R06.02 Shortness of breath
CPT/HCPCS: 99214; G2211

== ENCOUNTER → 2024-05-28 14:16 | Outpatient (BNVA) | payer MEDICARE, OTHER, MEDICAID, SELFPAY | PROVIDERS: PCP Internal Medicine; Visit Provider Hospitalist | DX: J44.1 Chronic obstructive pulmonary disease with (acute) exacerbation (principal); R91.1 Solitary pulmonary nodule; J90 Pleural effusion, not elsewhere classified; R00.0 Tachycardia, unspecified; I50.9 Heart failure, unspecified; R06.02 Shortness of breath; R07.1 Chest pain on breathing | CPT/HCPCS: 99212 ==

== ENCOUNTER 2024-06-02 14:39 | Outpatient (REF) | payer MEDICARE, OTHER, MEDICAID, SELFPAY ==
--- NOTE | ~2024-06-02 | XR_ITS ---
EXAMINATION: XR KNEE, RIGHT XR KNEE, LEFT XR TIBIA AND FIBULA, RIGHT XR TIBIA AND FIBULA, LEFT CLINICAL INFORMATION: Bilateral knee and lower leg pain. COMPARISON: Right and left knee radiographs dated 03/18/2024. TECHNIQUE: AP, tunnel, lateral, and sunrise views of the right and left knee. AP and lateral views of the right and left tibia and fibula. FINDINGS: Right Knee: Mild medial compartment joint space narrowing. Tiny tricompartmental marginal osteophytes. No osseous erosion. No fracture or dislocation. Trace joint effusion. Atherosclerotic calcifications. Left Knee: Mild medial compartment joint space narrowing. Tiny tricompartmental marginal osteophytes. No osseous erosion. No fracture or dislocation. No joint effusion. No abnormal soft tissue calcification. Right Tibia and Fibula: No acute fracture or dislocation. No concerning lytic or blastic osseous lesion. No abnormal soft tissue calcification. Mild circumferential subcutaneous edema. Left Tibia and Fibula: No acute fracture or dislocation. No concerning lytic or blastic osseous lesion. No abnormal soft tissue calcification. Mild circumferential subcutaneous edema. XR/XR knee RT 4V IMPRESSION: RIGHT KNEE: Mild tricompartmental osteoarthritis and trace joint effusion, slightly progressed. LEFT KNEE: Mild tricompartmental osteoarthritis, slightly progressed. RIGHT TIBIA AND FIBULA: Mild circumferential subcutaneous edema. No acute osseous abnormality. LEFT TIBIA AND FIBULA: Mild circumferential subcutaneous edema. No acute osseous abnormality. Electronically signed by: Ian Tee MD 06/18/2024 08:48 AM EDT
--- NOTE | ~2024-06-02 | XR_ITS ---
EXAMINATION: XR KNEE, RIGHT XR KNEE, LEFT XR TIBIA AND FIBULA, RIGHT XR TIBIA AND FIBULA, LEFT CLINICAL INFORMATION: Bilateral knee and lower leg pain. COMPARISON: Right and left knee radiographs dated 03/18/2024. TECHNIQUE: AP, tunnel, lateral, and sunrise views of the right and left knee. AP and lateral views of the right and left tibia and fibula. FINDINGS: Right Knee: Mild medial compartment joint space narrowing. Tiny tricompartmental marginal osteophytes. No osseous erosion. No fracture or dislocation. Trace joint effusion. Atherosclerotic calcifications. Left Knee: Mild medial compartment joint space narrowing. Tiny tricompartmental marginal osteophytes. No osseous erosion. No fracture or dislocation. No joint effusion. No abnormal soft tissue calcification. Right Tibia and Fibula: No acute fracture or dislocation. No concerning lytic or blastic osseous lesion. No abnormal soft tissue calcification. Mild circumferential subcutaneous edema. Left Tibia and Fibula: No acute fracture or dislocation. No concerning lytic or blastic osseous lesion. No abnormal soft tissue calcification. Mild circumferential subcutaneous edema. XR/XR tibia fibula RT 2V IMPRESSION: RIGHT KNEE: Mild tricompartmental osteoarthritis and trace joint effusion, slightly progressed. LEFT KNEE: Mild tricompartmental osteoarthritis, slightly progressed. RIGHT TIBIA AND FIBULA: Mild circumferential subcutaneous edema. No acute osseous abnormality. LEFT TIBIA AND FIBULA: Mild circumferential subcutaneous edema. No acute osseous abnormality. Electronically signed by: Ian Tee MD 06/18/2024 08:48 AM EDT
--- NOTE | ~2024-06-02 | XR_ITS ---
EXAMINATION: XR KNEE, RIGHT XR KNEE, LEFT XR TIBIA AND FIBULA, RIGHT XR TIBIA AND FIBULA, LEFT CLINICAL INFORMATION: Bilateral knee and lower leg pain. COMPARISON: Right and left knee radiographs dated 03/18/2024. TECHNIQUE: AP, tunnel, lateral, and sunrise views of the right and left knee. AP and lateral views of the right and left tibia and fibula. FINDINGS: Right Knee: Mild medial compartment joint space narrowing. Tiny tricompartmental marginal osteophytes. No osseous erosion. No fracture or dislocation. Trace joint effusion. Atherosclerotic calcifications. Left Knee: Mild medial compartment joint space narrowing. Tiny tricompartmental marginal osteophytes. No osseous erosion. No fracture or dislocation. No joint effusion. No abnormal soft tissue calcification. Right Tibia and Fibula: No acute fracture or dislocation. No concerning lytic or blastic osseous lesion. No abnormal soft tissue calcification. Mild circumferential subcutaneous edema. Left Tibia and Fibula: No acute fracture or dislocation. No concerning lytic or blastic osseous lesion. No abnormal soft tissue calcification. Mild circumferential subcutaneous edema. XR/XR tibia fibula LT 2V IMPRESSION: RIGHT KNEE: Mild tricompartmental osteoarthritis and trace joint effusion, slightly progressed. LEFT KNEE: Mild tricompartmental osteoarthritis, slightly progressed. RIGHT TIBIA AND FIBULA: Mild circumferential subcutaneous edema. No acute osseous abnormality. LEFT TIBIA AND FIBULA: Mild circumferential subcutaneous edema. No acute osseous abnormality. Electronically signed by: Ian Tee MD 06/18/2024 08:48 AM EDT
--- NOTE | ~2024-06-02 | XR_ITS ---
EXAMINATION: XR KNEE, RIGHT XR KNEE, LEFT XR TIBIA AND FIBULA, RIGHT XR TIBIA AND FIBULA, LEFT CLINICAL INFORMATION: Bilateral knee and lower leg pain. COMPARISON: Right and left knee radiographs dated 03/18/2024. TECHNIQUE: AP, tunnel, lateral, and sunrise views of the right and left knee. AP and lateral views of the right and left tibia and fibula. FINDINGS: Right Knee: Mild medial compartment joint space narrowing. Tiny tricompartmental marginal osteophytes. No osseous erosion. No fracture or dislocation. Trace joint effusion. Atherosclerotic calcifications. Left Knee: Mild medial compartment joint space narrowing. Tiny tricompartmental marginal osteophytes. No osseous erosion. No fracture or dislocation. No joint effusion. No abnormal soft tissue calcification. Right Tibia and Fibula: No acute fracture or dislocation. No concerning lytic or blastic osseous lesion. No abnormal soft tissue calcification. Mild circumferential subcutaneous edema. Left Tibia and Fibula: No acute fracture or dislocation. No concerning lytic or blastic osseous lesion. No abnormal soft tissue calcification. Mild circumferential subcutaneous edema. XR/XR knee LT 4V IMPRESSION: RIGHT KNEE: Mild tricompartmental osteoarthritis and trace joint effusion, slightly progressed. LEFT KNEE: Mild tricompartmental osteoarthritis, slightly progressed. RIGHT TIBIA AND FIBULA: Mild circumferential subcutaneous edema. No acute osseous abnormality. LEFT TIBIA AND FIBULA: Mild circumferential subcutaneous edema. No acute osseous abnormality. Electronically signed by: Ian Tee MD 06/18/2024 08:48 AM EDT
--- NOTE | 2024-06-02 14:44 | ECG_ITS ---
Test Reason : copd Blood Pressure : / mmHG Vent. Rate : 078 BPM Atrial Rate : 078 BPM P-R Int : 120 ms QRS Dur : 070 ms QT Int : 404 ms P-R-T Axes : 048 009 057 degrees QTc Int : 460 ms Sinus rhythm with frequent Premature ventricular complexes Nonspecific ST abnormality Abnormal ECG When compared with ECG of 22-AUG-2023 15:01, Criteria for Septal infarct are no longer Present Nonspecific T wave abnormality no longer evident in Inferior leads T wave inversion no longer evident in Anterolateral leads Referred By: Demario Branch Electronically Signed By:JEAN CLAUDE WRIGHT MD
[2024-06-02 15:19] LABS: VBG HCO3 34 mmol/L (22-26); VBG pCO2 42 mmHg; VBG pH 7.52 (7.32-7.43); VBG pO2 78 mmHg
[2024-06-02 15:20] LABS: Venous Blood Gas Refer to POC result
[2024-06-02 15:20] LABS: MANUAL DIFF FLAG NO
[2024-06-02 15:44] LABS: Eosinophils Absolute Auto 0.2 X10*3/uL (0.0-0.4); Eosinophils Percent Auto 4.3 % (0-4); Hematocrit 30.9 % (37.0-47.0); Hemoglobin 9.9 g/dl (12.0-16.0); Imm Gran Abs Auto 0.01 X10*3/uL (0.00-0.03); Imm Gran Pct Auto 0.3 % (0.0-0.4); Lymphocytes Absolute Auto 0.8 X10*3/uL (1.2-4.9); Lymphocytes Percent Auto 20.1 % (20-40); Mean Corpuscular Hemoglobin 28.7 pg (27.0-33.0); Mean Corpuscular Volume 89.6 fL (80.0-98.0); Mean Platelet Volume 11.8 fL (9.4-12.3); Monocytes Absolute Auto 0.5 X10*3/uL (0.1-1.2); Monocytes Percent Auto 11.4 % (2-11); Neutrophils Absolute Auto 2.5 x10*3/uL (2.0-8.3); Neutrophils Percent Auto 62.9 % (45-73); Red Blood Count 3.45 X10*6/uL (4.20-5.50); Red Cell Distribution Width 15.2 % (11.0-16.0); White Blood Count 3.9 X10*3/uL (4.8-10.8)
[2024-06-02 16:02] LABS: Platelet Count 99 X10*3/uL (160-400)
[2024-06-02 16:11] LABS: Anion Gap 18 (12-20); Blood Urea Nitrogen 10 mg/dL (9-16); Calcium 8.8 mg/dL (8.4-10.2); Carbon Dioxide 26 mmol/L (22-29); Chloride 101 mmol/L (96-108); Estimated Glomerular Filt Rate > 60; Glucose Random 93 mg/dL (60-115); Potassium 3.6 mmol/L (3.3-5.1); Sodium 141 mmol/L (135-145)
[2024-06-02 16:15] LABS: B Type Natriuretic Peptide 47 pg/mL (<100)
[2024-06-02 16:21] LABS: Troponin-I High Sensitivity 8.3 ng/L (<3.5-17.0)
[2024-06-02 16:41] LABS: Erythrocyte Sedimentation Rate 25 MM/HR (0-20)
== END 2024-06-02 14:40 | disposition home or self-care (01) ==
LOC: HO.LAB 14:39
PROVIDERS: Absent Provider Internal Medicine; PCP Internal Medicine; Visit Provider Hospitalist
DX: M25.562 Pain in left knee (principal); M79.604 Pain in right leg; M79.605 Pain in left leg; Z91.81 History of falling; R07.1 Chest pain on breathing; J44.9 Chronic obstructive pulmonary disease, unspecified
CPT/HCPCS: 36415; 73564; 73590; 80048; 82803; 83880; 84484; 85025; 85652; 93005

== ENCOUNTER → 2024-06-02 14:44 | Outpatient (BNV) | payer MEDICARE, MEDICAID, OTHER, SELFPAY | PROVIDERS: Absent Provider Internal Medicine; PCP Internal Medicine; Visit Provider Internal Medicine Cardiovascular Disease | DX: R94.31 Abnormal electrocardiogram [ECG] [EKG] (principal) | CPT/HCPCS: 93010 ==

== ENCOUNTER 2024-07-03 13:37 | Outpatient (AMB) | payer MEDICARE, MEDICAID, SELFPAY ==
--- NOTE | 2024-07-03 14:22 | MHC.OFFVIS ---
Intake Visit Reasons: Conserving Device Trial Allergies hydrocodone [From Vicodin] Allergy (Severe, Verified 05/28/24 14:26) Rash/Hives Influenza Virus Vaccines Allergy (Severe, Verified 05/28/24 14:26) Rash/Hives gabapentin Adverse Reaction (Intermediate, Verified 05/28/24 14:26) Anxiety PFSH Medical History Lower extremity edema CHF (congestive heart failure) Smoker Hepatitis C Esophageal varices COPD (chronic obstructive pulmonary disease) case management patient Obesity (BMI 30-39.9) Depression Anxiety Insomnia GERD without esophagitis Constipation Vitamin D deficiency PVCs (premature ventricular contractions) Limb swelling Elevated TSH Fatigue Aneurysm Bilateral lower extremity edema History of diverticulosis Tachycardia SOB (shortness of breath) On home oxygen therapy ADD (attention deficit disorder) Hx of hepatitis C Chest pain Lung cancer Loculated pleural effusion Concussion COPD (chronic obstructive pulmonary disease) Brain aneurysm Surgical History Hx of cholecystectomy Hx of cataract extraction Status post thoracentesis (~10/19/20) History of thoracic surgery H/O endoscopy H/O colonoscopy with polypectomy S/P biopsy H/O colonoscopy with polypectomy History of esophagogastroduodenoscopy (EGD) Family History Mother Skin cancer Diabetes Thyroid disease Sister Diabetes Skin cancer Tubular adenoma Thyroid disease Daughter Skin cancer Diabetes Social History Housing: Condominium Are you a primary care administrative tech to a significant other at home: No Do you presently have visiting nurse or other home services: No Alcohol intake: current Alcohol intake frequency: a few times a week Alcohol type: wine Comment: resting in bed Patient Tobacco Use Status: Former Tobacco user Tobacco use type: Cigarette Years Smoked: 20 +/- e-Cigarette/Vaping Use: Never Used Second Hand Smoke Exposure: Yes service: No Current occupational status: retired Cognitive needs: No Hearing needs: No Vision needs: Yes Office Procedures 6 Minute Walk Time:: 13:50 SPO2 % at rest: 97 Pulse at rest: 77 SPO2 % during excercise: 93 Pulse during excercise: 114 SPO2 % after excercise: 93 Pulse after excercise: 101 Distance in yards walked: 100 Eddy Score: 9 Performance Observations:: Patient walked unassisted on level ground at a slow pace. After approx. 50 yards patient was very short of breath with O2 saturation of 93% and pulse rate of 114. Stopped and rested for a few minutes and O2 sat returned to 97% and pulse of 99. Patient completed the walk maintaining O2 saturation of 96%. Patient tires easily and gets very short of breath with minimal exertion. Patient did not require O2 at this time. [id number] - 6 Minute Walk Assessment & Plan Assessment & Plan (1) COPD (chronic obstructive pulmonary disease) case management patient: Code(s): J44.9 - Chronic obstructive pulmonary disease, unspecified Category: Medical Plan 6MWT Orders: Orders AMB 6 minute walk 07/03/24 J44.1 - Chronic obstructive pulmonary disease with (acute) exacerbation Coding Level of Care Code Est Pt Level 1 (01662) Diagnoses COPD (chronic obstructive pulmonary disease) case management patient J44.9 CPT Codes Coding ([id number]) Comment Nurse visit only.
[2024-07-03 14:36] VITALS: PULSE 77; O2SAT 97
== END 2024-07-03 15:23 | disposition home or self-care (01) ==
PROVIDERS: PCP Internal Medicine; Visit Provider Hospitalist
DX: J44.9 Chronic obstructive pulmonary disease, unspecified (principal)
CPT/HCPCS: 94618

== ENCOUNTER → 2024-07-03 13:37 | Outpatient (BNVA) | payer MEDICARE, OTHER, MEDICAID, SELFPAY | PROVIDERS: PCP Internal Medicine; Visit Provider Hospitalist | DX: J44.1 Chronic obstructive pulmonary disease with (acute) exacerbation (principal); Z87.891 Personal history of nicotine dependence | CPT/HCPCS: 94618; 99211 ==

== ENCOUNTER 2024-08-06 13:43 | Outpatient (AMB) | payer MEDICARE, OTHER, SELFPAY ==
[2024-08-06 13:44] VITALS: BMI 30.5
--- NOTE | 2024-08-06 13:44 | A.OFFVIS_ITS ---
Vital Signs 08/06/24 13:44 Height 5 ft 6 in Weight 189 lb BMI 30.5 Intake Visit Reasons: Bilateral knee pain Intake Note: Valeria 74 year old female who presents with complaints of intermittent bilateral knee discomfort. The patient states that she recently tripped over a rug and fell. She had slightly increased right knee discomfort following the fall. She denies any locking or giving way. She does take Tylenol or ibuprofen which gave her fairly good relief. She did have a series of Euflexxa viscosupplementation injections earlier this year which gave her fairly good relief. Allergies hydrocodone [From Vicodin] Allergy (Severe, Verified 08/06/24 13:53) Rash/Hives Influenza Virus Vaccines Allergy (Severe, Verified 08/06/24 13:53) Rash/Hives gabapentin Adverse Reaction (Intermediate, Verified 08/06/24 13:53) Anxiety Medication List - Last Reconciled 08/06/24 by Beau Churchill MD Amitiza (lubiprostone) 8 mcg PO BID 30 days NS amlodipine 5 mg PO DAILY 90 days aspirin (Adult Aspirin Regimen) 81 mg PO DAILY atorvastatin 80 mg PO BEDTIME 90 days azithromycin 500 mg PO 3XW bisacodyl (Dulcolax (bisacodyl)) 10 mg (2 x 5 mg) PO BEDTIME 30 days budesonide 1 mg inhalation BEDTIME furosemide (Lasix) 40 mg PO BID 90 days ipratropium-albuterol 0.5 mg-3 mg(2.5 mg base)/3 mL 3 mL inhalation Q6H PRN 30 days isosorbide mononitrate ER 30 mg PO DAILY lactulose 15 mL PO BEDTIME PRN 30 days lorazepam 1 mg PO DAILY PRN metoprolol succinate ER 25 mg PO DAILY 90 days morphine ER 15 mg PO BID PRN 30 days nebulizers Tubing and mask for nebulizer nitroglycerin 0.4 mg sublingual Q5M PRN Oxygen Home Use As directed pantoprazole 20 mg PO DAILY 90 days prochlorperazine maleate (Compazine) 10 mg PO Q8H PRN Symbicort 160-4.5 mcg/actuation (budesonide-formoterol) 2 puffs PO BID NS umeclidinium 62.5 mcg/actuation (Incruse Ellipta) 1 inh inhalation DAILY venlafaxine ER 75 mg PO DAILY venlafaxine ER 37.5 mg PO DAILY Ventolin HFA 90 mcg/actuation (albuterol sulfate) 2 puffs PO Q4H PRN NS PFSH Medical History Lower extremity edema CHF (congestive heart failure) Smoker Hepatitis C Esophageal varices COPD (chronic obstructive pulmonary disease) case management patient Obesity (BMI 30-39.9) Depression Anxiety Insomnia GERD without esophagitis Constipation Vitamin D deficiency PVCs (premature ventricular contractions) Limb swelling Elevated TSH Fatigue Aneurysm Bilateral lower extremity edema History of diverticulosis Tachycardia SOB (shortness of breath) On home oxygen therapy ADD (attention deficit disorder) Hx of hepatitis C Chest pain Lung cancer Loculated pleural effusion Concussion COPD (chronic obstructive pulmonary disease) Brain aneurysm Surgical History Hx of cholecystectomy Hx of cataract extraction Status post thoracentesis (~10/19/20) History of thoracic surgery H/O endoscopy H/O colonoscopy with polypectomy S/P biopsy H/O colonoscopy with polypectomy History of esophagogastroduodenoscopy (EGD) Family History Mother Skin cancer Diabetes Thyroid disease Sister Diabetes Skin cancer Tubular adenoma Thyroid disease Daughter Skin cancer Diabetes Social History [facility] Are you a primary director medicare sales to a significant other at home: No Do you presently have visiting nurse or other home services: No Alcohol intake: current Alcohol intake frequency: a few times a week Alcohol type: wine Comment: resting in bed Patient Tobacco Use Status: Former Tobacco user Tobacco use type: Cigarette Years Smoked: 20 +/- e-Cigarette/Vaping Use: Never Used Second Hand Smoke Exposure: Yes service: No Current occupational status: retired Cognitive needs: No Hearing needs: No Vision needs: Yes Physical Exam Vital Signs: BMI result Body Mass Index 30.5 Const Other: Well-nourished well-developed very friendly female awake alert and oriented x3 in no acute distress Extrem Other: Bilateral lower extremity examination shows good capillary refill, no skin lesions noted, normal sensation light touch Bilateral knee examination shows minimal effusions, mild crepitus with range of motion, mild discomfort with range of motion, no instability Results Reviewed Results Reviewed: X-rays of the patient's bilateral tibiae and fibula taken after her fall show no acute bony abnormalities Assessment & Plan Assessment & Plan (1) Bilateral knee pain: Comment: S/P fall 3 months ago (October 2022) Code(s): M25.561 - Pain in right knee; M25.562 - Pain in left knee Category: Medical Qualifiers: Chronicity: unspecified Qualified Code(s): M25.561 - Pain in right knee; M25.562 - Pain in left knee Plan Ms. Elder Merritt presents with intermittent bilateral knee discomfort due to degenerative joint disease. I had a lengthy discussion with the patient regarding the treatment options. At this point the patient's symptoms are tolerable to her. We will hold off on a cortisone injection. She will contact me prior to her follow-up appointment in 3 months should any questions or c oncerns arise. Feel free to call me at any time should questions regarding her orthopedic management arise. I spent 22 minutes in reviewing the patient's records and imaging studies, seeing the patient and documenting in the medical record. Coding Level of Care Code Est Pt Level 3 (80941) Complex EM visit Add On G2211 Diagnoses Pain in both knees, unspecified chronicity M25.561; M25.562 Chronicity: unspecified
== END 2024-08-06 13:59 | disposition home or self-care (01) ==
PROVIDERS: PCP Internal Medicine; Visit Provider Orthopaedic Surgery
DX: M25.561 Pain in right knee (principal); M25.562 Pain in left knee
CPT/HCPCS: 99213; G2211

== ENCOUNTER → 2024-08-06 13:43 | Outpatient (BNVA) | payer MEDICARE, MEDICAID, SELFPAY | PROVIDERS: PCP Internal Medicine; Visit Provider Orthopaedic Surgery | DX: M25.561 Pain in right knee (principal); M25.562 Pain in left knee | CPT/HCPCS: 99212 ==

== ENCOUNTER 2024-09-10 15:04 | Outpatient (REF) | payer MEDICARE, MEDICAID, SELFPAY ==
--- NOTE | ~2024-09-10 | XR_ITS ---
EXAMINATION: XR THORACIC SPINE CLINICAL INFORMATION: M54.9 - Dorsalgia, unspecified COMPARISON: None available. TECHNIQUE: 3 views of the thoracic spine were obtained. FINDINGS: There is a mild S-shaped thoracic scoliosis. There is a normal kyphosis. There is mild diffuse osteopenia. There are no compression deformities, fractures, or focal bony lesions. Mild diffuse degenerative disc disease is present, most significant in the mid to upper thoracic region. There are cholecystectomy clips present. There is an amorphous calcification in the paraspinal upper abdomen on the lateral projection, likely aortic calcification. Imaged heart, lungs, and soft tissues otherwise normal. XR/XR thoracic spine 2V IMPRESSION: 1. No acute findings in the thoracic spine. 2. Mild degenerative changes at the upper thoracic region with mild S-shaped scoliosis. Electronically signed by: Ismael Cheung MD 09/25/2024 10:48 AM BIRD
--- NOTE | ~2024-09-10 | XR_ITS ---
EXAMINATION: XR CERVICAL SPINE CLINICAL INFORMATION: M54.9 - Dorsalgia, unspecified COMPARISON: 02/04/2015. TECHNIQUE: 3 views of the cervical spine were obtained. FINDINGS: Incompletely imaged, permeative appearing expansile, destructive lesion of the left second rib. There is a minimal right convex scoliosis which may be positional. There is reversal of the normal lordosis centered at C5. There is no fracture, compression deformity, or suspicious focal bony abnormality. There is a 4 mm degenerative anterolisthesis of C4 on C5, and a 2 mm retrolisthesis of C5 on C6. Alignment is otherwise normal. Moderate to severe disc degeneration is present predominantly at C5-6 and C6-7. There is relative sparing of the C2-3 disc. There are multilevel hypertrophic degenerative facet changes left greater than right, most notable on the left at C4-5. Normal C1-2 relationship. XR/XR cervical spine 2V IMPRESSION: 1. Incompletely imaged permeative appearing expansile, destructive lesion of the left second rib. 2. No acute cervical spine abnormalities. 3. Degenerative spondylosis as discussed, most significant at C4-C7. Electronically signed by: Ismael Cheung MD 09/25/2024 10:58 AM BIRD
--- NOTE | ~2024-09-10 | XR_ITS ---
EXAMINATION: XR LUMBOSACRAL SPINE CLINICAL INFORMATION: M54.9 - Dorsalgia, unspecified COMPARISON: None available. TECHNIQUE: Three views of the lumbosacral spine. FINDINGS: There is mild diffuse osteopenia. There is no fracture, subluxation, or suspicious focal bony abnormality. There are no compression deformities. There is a right convex upper lumbar scoliosis, apex at L1 to, contour angle estimated at 26 degrees. There is a mild rotatory component. Moderate degenerative disc changes are present relatively diffusely, with more severe changes at L5-S1. Degenerative sclerotic facet changes present most notable L5-S1. There are cholecystectomy clips present. Diffuse aortic calcifications without aneurysm. Imaged soft tissues, lung bases, and SI joints otherwise normal. XR/XR lumbar spine 2-3V IMPRESSION: 1. No acute findings of the lumbar spine. 2. Degenerative spondylosis and associated right convex scoliosis as discussed. Electronically signed by: Ismael Cheung MD 09/25/2024 10:52 AM BIRD
== END 2024-09-10 15:05 | disposition home or self-care (01) ==
LOC: HO.XRAY 15:04
PROVIDERS: PCP Internal Medicine; Visit Provider Hospitalist
DX: R07.1 Chest pain on breathing (principal); M54.9 Dorsalgia, unspecified; R91.1 Solitary pulmonary nodule; J44.1 Chronic obstructive pulmonary disease with (acute) exacerbation; J90 Pleural effusion, not elsewhere classified; R00.0 Tachycardia, unspecified; I50.9 Heart failure, unspecified; R06.02 Shortness of breath
CPT/HCPCS: 72040; 72070; 72100; 99212

== ENCOUNTER 2024-09-10 15:04 | Outpatient (AMB) | payer MEDICARE, MEDICAID, SELFPAY ==
[2024-09-10 15:10] VITALS: BP 104/66; PULSE 88; O2SAT 97; BMI 31.8
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
== END 2024-09-10 15:32 | disposition home or self-care (01) ==
PROVIDERS: PCP Internal Medicine; Visit Provider Hospitalist
DX: M54.9 Dorsalgia, unspecified (principal); R91.1 Solitary pulmonary nodule; J44.1 Chronic obstructive pulmonary disease with (acute) exacerbation; J90 Pleural effusion, not elsewhere classified; R00.0 Tachycardia, unspecified; I50.9 Heart failure, unspecified; R06.02 Shortness of breath
CPT/HCPCS: 99214; G2211

== ENCOUNTER → 2024-09-10 15:37 | Outpatient (BNV) | payer MEDICARE, MEDICAID, SELFPAY | PROVIDERS: PCP Internal Medicine; Visit Provider Radiology Diagnostic Radiology | DX: M41.24 Other idiopathic scoliosis, thoracic region (principal); M47.812 Spondylosis without myelopathy or radiculopathy, cervical region | CPT/HCPCS: 72040; 72070; 72100 ==

== ENCOUNTER 2024-09-16 14:02 | Outpatient (REF) | payer MEDICARE, MEDICAID, SELFPAY ==
--- NOTE | ~2024-09-16 | CT_ITS ---
EXAMINATION: CT CHEST WITH CONTRAST CLINICAL INFORMATION: Follow-up for history of non-small cell lung CA. COMPARISON: 07/09/2023, , 07/04/2022. TECHNIQUE: Multidetector volumetric CT imaging of the chest was obtained after the administration of 50 mL of Omnipaque 350 intravenous contrast without immediate adverse reactions. Axial MIP volume rendering provided. Sagittal and coronal reformatted images were obtained. This CT examination was performed using dose optimization techniques as appropriate, variously including the following: *Automated exposure control *Adjustment of mA and/or kV according to patient size (this includes techniques or standardized protocols for targeted exams where dose is matched to indication/reason for exam; i.e. extremities or head) *Use of iterative reconstruction technique DLP: 131 mGy-cm FINDINGS: LUNGS/NODULES: -There has been total right upper lobe lobectomy. Suture line seen abutting the right superior anterior mediastinal margin. -Compensatory expansion of the right middle lobe and right lower lobe. -Grossly similar left apical posterior lateral pleural thickening/mass invading the chest wall , and involving the left first and second ribs with a healing pathologic fracture in the posterior lateral second rib. Region of masslike pleural thickening currently measures approximately 6.1 x 3.4 x 2.4 cm (AP, TRV, CC), previously the same. No definite progression. -There is a small right pleural effusion, with split pleural sign of pleural thickening and calcification, similar. -No left effusion. -Mild scarring in the inferior right middle lobe and inferoposterior right lower lobe. -There are no new or enlarging pulmonary nodules. -The left lung is grossly clear. -Normal appearance of the small airways. Patent central airways. MEDIASTINUM: -Normal thyroid. -There are a few nonpathologically enlarged lymph nodes in the mediastinum, similar to the prior exam. Largest is an AP window node measuring 1.0 cm in short axis, unchanged. There is a lymph node present just above bronchus intermedius measuring 7 mm in short axis, also unchanged. No new lymphadenopathy. -Aorta demonstrates moderate to heavy calcified and soft plaque, but is nonaneurysmal. It is mildly tortuous distally. Heart size is normal. There is calcification of the mitral annulus. No pericardial effusion. -Esophagus is somewhat patulous throughout its course. There are distal paraesophageal varices present, unchanged. -There are no masses. AXILLA/CHEST WALL: -Left apical pleural mass, with involvement of the left first, second, and third ribs. Healing pathological fracture left posterior second rib. -No additional masses or lymphadenopathy. UPPER ABDOMEN: -Gasper cirrhosis of the liver with diffuse fatty infiltration and nodular contour. There are varices present. -There is splenomegaly. Mild perfusion defect in the anterior aspect of the spleen. -Cholecystectomy. -Prominent common bile duct measuring up to 2.3 cm, consistent with a choledochal cyst. No significant intrahepatic biliary dilatation. -No abnormal lymph nodes or masses. OSSEOUS STRUCTURES: -Pleural tumor involvement of the left first through third ribs as discussed above. -There is irregular sclerosis of the right first rib as well, suggesting tumoral involvement. This finding is also unchanged. -No additional suspicious lytic or blastic bone lesions. CT/CT chest w IV con IMPRESSION: 1. Stable changes of right upper lobe lobectomy. 2. Stable left apical pleural mass/thickening with adjacent sclerosis of the first through third ribs and healing pathologic fracture of the second rib. The overall appearance and size of the abnormality is unchanged. No progression. 3. The right first rib also demonstrates mild sclerosis and irregularity, also stable. 4. Stable small right pleural effusion with pleural thickening and calcification, chronic. 5. No new pulmonary abnormalities or nodules. Stable mediastinal lymph nodes, unchanged since 04/02/2023. 6. Cirrhosis of the liver. Varices including esophageal varices. Splenomegaly. 6. Additional ancillary findings as discussed above. Electronically signed by: Ismael Cheung MD 09/30/2024 12:48 PM [facility]
[2024-09-16] MEDS: iohexoL 350 MG/ML 100 ML INFUS..BTL 65 ML IV (14:45)
== END 2024-09-16 14:03 | disposition home or self-care (01) ==
LOC: HO.CT 14:02
PROVIDERS: PCP Internal Medicine; Visit Provider Internal Medicine Medical Oncology
DX: C34.11 Malignant neoplasm of upper lobe, right bronchus or lung (principal)
CPT/HCPCS: 71260; Q9967

== ENCOUNTER → 2024-09-16 14:04 | Outpatient (BNV) | payer MEDICARE, MEDICAID, SELFPAY | PROVIDERS: PCP Internal Medicine; Visit Provider Radiology Diagnostic Radiology | DX: C34.11 Malignant neoplasm of upper lobe, right bronchus or lung (principal) | CPT/HCPCS: 71260 ==

== ENCOUNTER 2024-09-21 12:51 | Outpatient (REF) | payer MEDICARE, MEDICAID, SELFPAY ==
--- NOTE | ~2024-09-21 | US_ITS ---
EXAMINATION: US DIAGNOSTIC ULTRASOUND BREAST, RIGHT CLINICAL INFORMATION: Patient's provider requested 6-month follow-up for benign biopsy yielding normal skeletal muscle. COMPARISON: US guided core biopsy right breast 11:00 axis, 03/11/2024. Diagnostic right breast ultrasound 03/02/2024. Mammography 03/02/2024. TECHNIQUE: Ultrasound of the right breast is performed with real-time sherman scale imaging and color Doppler. The upper-outer quadrant was examined in the region of previous benign biopsy. FINDINGS: There is a hydromark biopsy clip within the superficial pectoralis muscle at the 11:00 axis, 15 cm from the nipple, right breast. The previously seen hypoechoic focus at the myotendinous junction which was biopsied is no longer present and most likely represented a mild strain injury to the muscle. Only the biopsy clip remains present within a normal-appearing pectoralis muscle. There is no suspicious finding. US/US breast RT limited mamm only IMPRESSION: No suspicious findings within the right breast as described. Benign right pectoralis muscle findings have resolved. Recommend returning to routine annual screening. ASSESSMENT: BI-RADS 2: Benign RECOMMENDATION: Routine annual mammography screening. This patient's information was entered into a reminder system with a target due date for their next mammogram. Electronically signed by: Ismael Cheung MD 09/21/2024 01:38 PM [facility]
== END 2024-09-21 12:52 | disposition home or self-care (01) ==
LOC: HO.MAMMO 12:51
PROVIDERS: PCP Internal Medicine; Visit Provider Internal Medicine
DX: N63.11 Unspecified lump in the right breast, upper outer quadrant (principal)
CPT/HCPCS: 76642

== ENCOUNTER → 2024-09-21 13:00 | Outpatient (BNV) | payer MEDICARE, MEDICAID, SELFPAY | PROVIDERS: PCP Internal Medicine; Visit Provider Radiology Diagnostic Radiology | DX: N64.59 Other signs and symptoms in breast (principal) | CPT/HCPCS: 76642 ==

== ENCOUNTER → 2024-11-19 15:05 | Outpatient (BNVA) | payer MEDICARE, MEDICAID, SELFPAY | PROVIDERS: PCP Internal Medicine; Visit Provider Internal Medicine Cardiovascular Disease | DX: I50.9 Heart failure, unspecified (principal); I25.10 Atherosclerotic heart disease of native coronary artery without angina pectoris | CPT/HCPCS: 93005; 99212 ==

== ENCOUNTER 2024-12-18 12:57 | Outpatient (REF) | payer MEDICARE, MEDICAID, SELFPAY ==
--- OUTSIDE RECORDS SUMMARY | 2024-12-18 13:26 | XMS_ITS | Encounter Summary ---
Author Organization [facility] Address [address] [place] [address] Care Team Providers Care Laminator Preforms Name Role Phone Magan Syed MD Primary Care Provider + [phone] Reason for Referral * Imaging (Routine) - Authorized Specialty Diagnoses / Procedures Referred By Contac t Referred To Contact Radiology Diagnoses Cerebral aneurysm Procedures CT Angio Head wo and/or w Contrast Rashad Chance MD [address] [place] [address] Phone: tel: fax: [facility] Referral ID Status Reason Start Date Expiration Date V isits Requested Visits Authorized [id number] Authorized 12/18/2024 12/18/2025 1 1 Reason for Visit * Reason Comments Headache Brain Aneurysm Encounter Details Date Type Department Care Team (Late st Contact Info) Description 12/18/2024 10:30 AM EST Office Visit Neurosurgery [facility] [address] [place] [address] Rashad Chance MD [address] [place], [place] [id number] Cerebral aneurysm (Primary Dx) Social History Tobacco Use Types Packs/Day Years Used Date Smoking Tobacco: Never Assessed Comments Unknown Sex and Gender Information Value Date Recorded Sex Assigned at Not on file Legal Sex Female 12:49 AM EST Gender Identity Not on file Sexual Orientation Not on file documented as of this encounter Last Filed Vital Signs Vital Sign Reading Time Taken Comments Blood Pressure - - Pulse - - Temperature - - Respiratory Rate - - Oxygen Saturation - - Inhaled Oxygen Concentration - - Weight 90.7 kg (200 lb) 12/18/2024 10:53 AM EST Height 167.6 cm (5' 6 ) 12/18/2024 10:53 AM EST Body Mass Index 32.28 12/18/2024 10:53 AM EST documented in this encounter Plan of Treatment Scheduled Orders Name Type Priority Associated Diagnoses Orde r Schedule CT Angio Head wo and/or w Contrast Imaging Routine Cerebral aneurysm 1 Occurrences starting 12/18/2024 until 12/18/2025 documented as of this encounter Visit Diagnoses Diagnosis Cerebral aneurysm- Primary Cerebral aneurysm, nonruptured documented in this encounter Historical Medications * This list may reflect changes made after this encounter. escitalopram (Lexapro) 20 mg tablet Take 1 tablet (20 mg total) by mouth 1 (one) time each day. metoprolol succinate (TOPROL-XL) 25 mg 24 hr tablet Take 1 tablet (25 mg total) by mouth 1 (one) time each day. Do not crush or chew. venlafaxine XR (EFFEXOR-XR) 75 mg 24 hr capsule 12/16/2024 Incruse Ellipta 62.5 mcg/actuation inhalation 12/16/2024 prochlorperazine (COMPAZINE) 10 mg tablet 01/27/2024 pantoprazole (PROTONIX) 20 mg EC tablet 12/16/2024 nitroglycerin (NITROSTAT) 0.4 mg SL tablet 10/06/2024 morphine (MS CONTIN) 15 mg 12 hr tablet Take 1 tablet (15 mg total) by mouth every 12 hours. Breo Ellipta 200-25 mcg/dose inhaler 11/26/2024 doxycycline (ADOXA) 100 mg tablet Take 1 tablet (100 mg total) by mouth 2 (two) times a day. for 10 days 01/10/2024 furosemide (LASIX) 40 mg tablet Take 1 tablet (40 mg total) by mouth daily. lactulose (CHRONULAC) solution 09/05/2024 isosorbide mononitrate (IMDUR) 30 mg 24 hr tablet 12/16/2024 ipratropium-albute roL (DUONEB) 0.5-2.5 mg/3 mL nebulizer solution Inhale 3 mL by mouth 4 times daily. doxycycline (VIBRAMYCIN) 100 mg capsule 10/01/2024 cyclobenzaprine (FLEXERIL) 10 mg tablet 09/11/2024 budesonide (PULMICORT) 0.25 mg/2 mL nebulizer solution Inhale 2 mL (0.25 mg total) by mouth daily. cholecalciferol (VITAMIN D-3) 1,250 mcg (50,000 unit) capsule Take 1 capsule (50,000 Units total) by mouth daily. atorvastatin (LIPITOR) 80 mg tablet 11/18/2024 aspirin 81 mg EC tablet 12/16/2024 amoxicillin-clavul anate (AUGMENTIN) 875-125 mg per tablet 09/10/2024 amLODIPine (NORVASC) 5 mg tablet 12/16/2024 Ventolin HFA 90 mcg/actuation inhaler 11/27/2024 added in this encounter Care Teams Laminator Preforms Relationship Specialty Start Date End Date Magan Syed MD [address] [place] [address] [address] [place] PCP - General Internal Medicine 05/14/22 documented as of this encounter
--- OUTSIDE RECORDS SUMMARY | 2024-12-18 13:26 | XMS_ITS | Patient Health Record ---
Author Organization [facility] Address [address] [place] [address] Care Team Providers Care Wheel Filler Name Role Phone Magan Syed MD Primary Care Provider Nathen Bloom Unavailable [phone] ALLERGIES No Known Allergies REASON FOR REFERRAL No Information MEDICATIONS Medication SIG (Take, Route, Frequency, Duration) Notes Start Date End Date Status Vitamin D 50 MCG (1999) 1 capsule Ora lly Once a day for 30 day(s) Active Effexor XR 37.5 MG 1 capsule with food Orally Once a day for 30 day(s) Active Ativan 0.5 MG 1 tablet at bedtime as needed Orally Once a day Active Dulcolax 5 MG 1 tablet as needed O rally as directed Active Dicyclomine HCl 10 MG TAKE 1 TO 2 CAPSUL ES BY MOUTH EVERY 6 HOURS NEEDED FOR ABDOMINAL CRAMPS/DISCOMFORT/BLOATIN G for 30 Active Omeprazole 20 MG TAKE 1 CAPSULE BY MO UTH EVERY MORNING for 30 Active Milk Thistle 500 MG as directed Orally 2 caps daily Active Colace 100 MG 1 capsule as needed Orally Once a day for 30 day(s) Active Lactulose 10 GM/15ML TAKE 30 ML BY MOUTH ONCE DAILY for 30 Active Albuterol Sulfate HFA 108 (90 Base) MCG/ACT Inhalation for 17 Activ e Morphine Sulfate ER 15 MG Oral for 30 Active Metoprolol Succinate ER 25 MG TAKE 1 TABLET BY MOUTH EVERY DAY Oral for 30 Active Furosemide 40 MG Oral for 90 A ctive IMMUNIZATIONS Vaccine Route Administration Date Status Comme nts Influenza Unknown 08/29/2021 Refused SOCIAL HISTORY Tobacco Use: Social History Observation Description Date Details (start date - stop date) Former Smoker NA - NA Sex Assigned At : Social History Observation Description Sex Assigned At Unknown Tobacco Use/Smoking Question Answer Notes Patient is a former smoker Alcohol Screen Question Answer Notes Did you have a drink contain ing alcohol in the past year? Yes How often did you have a dri nk containing alcohol in the past year? 4 or more times a week (4 points) How many drinks did you have on a typical day when you were drinking in the past year? 1 or 2 drinks (0 point) Points 4 Interpretation Positive PROBLEMS Problem Type ICD Code Onset Dates Problem Status W/U Status Risk SNOMED Code Notes Problem Constipation, unspecified constipation type (K59.00) Active confirmed 12177071 Problem History of colon polyps (Z86.010) Active confirmed 308981236 Problem Nausea (R11.0) Active confirmed 1913743 07 Problem Chronic hepatitis C without hepatic coma (B18.2) Active confirmed 119660303 Problem Diverticulosis of colon (K57.30) Active confirmed Diverticulosi s of colon (468153035) Problem Esophageal varices (I85.00) Active confirmed Esophageal varices (80455809) Problem Gastritis (K29.70) Active confirmed Gas tritis (9978766) Problem History of adenomatous polyp of colon (Z86.010) Active confirmed 176101972 Problem Gastroesophageal reflux disease without esophagitis (K21.9) Active confirmed 082794202 Problem Cirrhosis of liver without ascites, unspecified hepatic cirrhosis type (K74.60) Active confirmed 04381889 Problem Colon cancer screening (Z12.11) Active confirmed Colon can cer screening (585989215) Problem Diverticulosis of large intestine without perforation or abscess without bleeding (K57.30) Active confirmed Diverticul ar disease of colon (510884506) PLAN OF TREATMENT Pending Test Test Name Order Date CHEM 7 PROFILE 09/09/2021 LIVER PROFILE 09/09/2021 HEPATITIS B PROFILE 09/09/2021 HEPATITIS A ANTIBODY-IGG 09/09/2021 HCV LIVER FIBROSIS, FIBRO TEST US ABDOMEN COMP WITH ELASTOGRAPHY 2020 Alpha Fetoprotein 09/09/2021 Hepatitis C Genotype 09/09/2021 Future Test Test Name Order Date UPPER GI ENDOSCOPY 08/29/2021 COLONOSCOPY 08/29/2021 COLONOSCOPY 09/25/2022 Insurance Providers Payer Name Payer Address Payer Phone Subscriber Number Group Number Insured Name Patient Relationship to Insured Coverage Start Date Coverage End Date MEDICARE OF [place] [address] [place] [address] [id number] EMILY ISAAC Self - patient is the insured [employer] [address] [place] [phone] [id number] EMILY ISAAC Self - patient is the insured [place] [address] [place] [phone] [id number] EMILY ISAAC Self - patient is the insured MEDICAL (GENERAL) HISTORY Medical History History ICD Code COPD-sees Dr. Branch Lung cancer--right upper lob e lobectomy on 08/11/2020--by Dr. Manuel; followed by Dr. Clayton Bobby, ADD Brain aneurysm 2013--being followed in [facility] by Neurosurgeon Diverticulitis 11/2019 treate d at [facility]-had a negative gastrograffin enema afterwards Cirrhosis and hepatitis C-tr eated with IF and Ribavirin for a short time but had to stop due to side effects. She had a hepatitis C viral load of 3.6 million and hepatitis C genotype 1A in 2020. 2007-lung cancer on the left--XRT only Denies ID,DM,CVA,renal disease Colonoscopy in 2012 with rem oval of a small tubular adenoma and a negative colonoscopy in 2008 except for a hyperplastic polyp with Dr. Cox Upper endoscopy in [address] Cox revealed some gastritis and a hiatal hernia, with biopsies negative for H. pylori and Kendall's esophagus--she described possible small esophageal varices in 2012. PVC's --seeing Dr. Bonds--going to have a cardiac cath in Spring 2021 EGD 08/2021-Grade 1-2 esopha eal varices, gastritis with biopsies negative for H. pylori. She was started on omeprazole at that time Colonoscopy 08/2021 with 3 > 1cm tubular adenomas removed. There was an approximately 2 x 3 cm polypoid lesion removed from the distal transverse colon at 60 cm and shown to be a tubular adenoma. The site was clipped x 4 and marked with submucosal ink Lymphedema of RUE Surgical History Surgery Date(Month/Year) Right lung lobectomy for cancer 07/2020 Right arm surgery twice Cholecystectomy
--- OUTSIDE RECORDS SUMMARY | 2024-12-18 13:27 | XMS_ITS | Clinical Summary ---
Author Organization [facility] Address [address] [place] [address] Care Team Providers Care Revenue Inspector Name Role Phone Provider, External MD Primary Care Provider [phone] Allergies No known active allergies Medications Medication Sig Dispensed Refills Start Date End Date Status furosemide (LASIX) 40 MG tablet Take 40 mg by mouth daily. Take 40mg at am and 20mg at 3pm. Active venlafaxine (EFFEXOR) 75 MG tablet Take 75 mg by mouth 2 (two) times a day. Active morphine (MS CONTIN) 15 MG ER (extended release) tablet Take 15 mg by mouth twice daily (every 12 hours). Active cholecalciferol (VITAMIN D3) 49359 units capsule Take 50,000 Units by mouth daily. Active ipratropium-albuter ol (DUONEB) 0.5-2.5 mg/3 mL nebulizer solution Take 1 vial by nebulization 4 (four) times a day. Active LORazepam (ATIVAN) 1 MG tablet Take 1 mg by mouth as needed for anxiety. Active Flaxseed, Linseed, (FLAX SEEDS PO) Take by mouth. Activ e budesonide (PULMICORT) 0.25 mg/2 mL nebulizer solution Take 0.25 mg by nebulization daily. Active Family History Medical History Relation Name Comments Heart disease Brother Stroke Father Thyroid disease Sister Relation Name Status Comments Brother Alive Father Mother Sister Alive Social History Tobacco Use Types Packs/Day Years Used Date Smoking Tobacco: Former Cigarettes Q uit: 08/30/2020 Smokeless Tobacco: Never Alcohol Use Standard Drinks/Week Comments Yes 2 (1 standard drink = 0.6 oz pur e alcohol) Sex and Gender Information Value Date Recorded Sex Assigned at Not on file Gender Identity Not on file Sexual Orientation Not on file Last Filed Vital Signs Vital Sign Reading Time Taken Comments Blood Pressure 137/67 08/01/2021 11:26 AM EDT Pulse 76 08/01/2021 11:26 AM EDT Temperature - - Respiratory Rate 16 08/01/2021 11:26 AM EDT Oxygen Saturation - - Inhaled Oxygen Concentration - - Weight 82.1 kg (181 lb) 08/01/2021 11:26 AM EDT Height 167.6 cm (5' 6 ) 08/01/2021 11:26 AM EDT Body Mass Index 29.21 08/01/2021 11:26 AM EDT Plan of Treatment Health Maintenance Due Date Last Done Comments Hepatitis C Virus Screening 1951 DTaP/Tdap/Td Vaccines (1 - Tdap) 1970 Mammogram 1991 Colonoscopy 1996 Pneumococcal Vaccines 50+ (1 of 1 - PCV) 2001 Zoster (Shingles) Vaccine (1 of 2) 2001 DXA Bone Density (Females,Ag es 65 and older) 2016 Influenza Vaccine 05/28/2024 COVID-19 Vaccine ( - 2023-2 5 season) 2024 RSV Vaccine 60 years and old er and Patients (1 - 1-dose 75+ series) 2026 Hepatitis B Vaccines Aged Out No long er eligible based on patient's age to complete this topic Care Teams Revenue Inspector Relationship Specialty Start Date End Date Provider, MD Shauna [address] [place] [address] PCP - General Internal Medicine 04/26/21
--- OUTSIDE RECORDS SUMMARY | 2024-12-18 13:27 | XMS_ITS ---
Author Organization [facility] Address [address] [place] [address] Care Team Providers Care Evp Business Development Name Role Phone Kunal CONLEY, [place] Primary Care Provider Nathen Bloom Unavailable [phone] REASON FOR VISIT Patient presents today for cirrhosis, hepatitis C MEDICATIONS Medication SIG (Take, Route, Frequency, Duration) Notes Start Date End Date Status Ativan 0.5 MG 1 tablet at bedtime as needed Orally Once a day Active Vitamin D 50 MCG (1999) 1 capsule Ora lly Once a day for 30 day(s) Active Dulcolax 5 MG 1 tablet as needed O rally as directed Active Milk Thistle 500 MG as directed Orally 2 caps daily Active Colace 100 MG 1 capsule as needed Orally Once a day for 30 day(s) Active Dicyclomine HCl 10 MG TAKE 1 TO 2 CAPSUL ES BY MOUTH EVERY 6 HOURS NEEDED FOR ABDOMINAL CRAMPS/DISCOMFORT/BLOATIN G for 30 Active Omeprazole 20 MG TAKE 1 CAPSULE BY MO UTH EVERY MORNING for 30 Active Lactulose 10 GM/15ML TAKE 30 ML BY MOUTH ONCE DAILY for 30 Active Metoprolol Succinate ER 25 MG TAKE 1 TABLET BY MOUTH EVERY DAY Oral for 30 Active Furosemide 40 MG Oral for 90 A ctive Effexor XR 37.5 MG 1 capsule with food Orally Once a day for 30 day(s) Active Albuterol Sulfate HFA 108 (90 Base) MCG/ACT Inhalation for 17 Activ e Morphine Sulfate ER 15 MG Oral for 30 Active Encounters Encounter Location Date Provider Diagnosis [facility] [address] [place] [address] 07/31/2023 Nathen Melgoza PLAN OF TREATMENT No Information
--- OUTSIDE RECORDS SUMMARY | 2024-12-18 13:27 | XMS_ITS | Encounter Summary ---
Author Organization [facility] Address [address] [place] [address] Care Team Providers Care Retail Product Advisor Name Role Phone Provider, Shauna CONLEY Primary Care Provider [phone] Encounter Details Date Type Department Care Team (Late st Contact Info) Description 07/24/2023 Scanned Document [facility] Neuroscience [facility] [address] [place] [id number] Bari Casarez, DO [address] [address] Social History Tobacco Use Types Packs/Day Years Used Date Smoking Tobacco: Former Cigarettes Q uit: 08/30/2020 Smokeless Tobacco: Never Alcohol Use Standard Drinks/Week Comments Yes 2 (1 standard drink = 0.6 oz pur e alcohol) Sex and Gender Information Value Date Recorded Sex Assigned at Not on file Gender Identity Not on file Sexual Orientation Not on file documented as of this encounter Plan of Treatment Not on file documented as of this encounter Visit Diagnoses Not on filedocumented in this encounter Care Teams Retail Product Advisor Relationship Specialty Start Date End Date Provider, MD [address] [place] [address] PCP - General Internal Medicine 04/26/21 documented as of this encounter
--- OUTSIDE RECORDS SUMMARY | 2024-12-18 13:27 | XMS_ITS | Clinical Summary ---
Author Organization 175 [facility] Address [address] [place] [address] Phone Care Team Providers Care Pediatric Associate Name Role Phone Magan Syed MD Primary Care Provider + [phone] Allergies Active Allergy Reactions Criticality Noted Date Comments Influenza A (H5n1) Virus Vac cine Monoval (18 Yr +) 12/18/2024 Lidocaine 12/18/2024 Gabapentin 12/18/2024 Medications Ventolin HFA 90 mcg/actuation inhaler 11/27/2024 Active amLODIPine (NORVASC) 5 mg tablet 12/16/2024 Active amoxicillin-clav ulanate (AUGMENTIN) 875-125 mg per tablet 09/10/2024 Active aspirin 81 mg EC tablet 12/16/2024 Active atorvastatin (LIPITOR) 80 mg tablet 11/18/2024 Active cholecalciferol (VITAMIN D-3) 1,250 mcg (50,000 unit) capsule Take 1 capsule (50,000 Units total) by mouth daily. Active budesonide (PULMICORT) 0.25 mg/2 mL nebulizer solution Inhale 2 mL (0.25 mg total) by mouth daily. Active cyclobenzaprine (FLEXERIL) 10 mg tablet 09/11/2024 Active doxycycline (VIBRAMYCIN) 100 mg capsule 10/01/2024 Active ipratropium-albu teroL (DUONEB) 0.5-2.5 mg/3 mL nebulizer solution Inhale 3 mL by mouth 4 times daily. Active isosorbide mononitrate (IMDUR) 30 mg 24 hr tablet 12/16/2024 Active lactulose (CHRONULAC) solution 09/05/2024 Active furosemide (LASIX) 40 mg tablet Take 1 tablet (40 mg total) by mouth daily. Active doxycycline (ADOXA) 100 mg tablet Take 1 tablet (100 mg total) by mouth 2 (two) times a day. for 10 days 01/10/2024 Active Breo Ellipta 200-25 mcg/dose inhaler 11/26/2024 Active morphine (MS CONTIN) 15 mg 12 hr tablet Take 1 tablet (15 mg total) by mouth every 12 hours. Active nitroglycerin (NITROSTAT) 0.4 mg SL tablet 10/06/2024 Active pantoprazole (PROTONIX) 20 mg EC tablet 12/16/2024 Active prochlorperazine (COMPAZINE) 10 mg tablet 01/27/2024 Active Incruse Ellipta 62.5 mcg/actuation inhalation 12/16/2024 Active venlafaxine XR (EFFEXOR-XR) 75 mg 24 hr capsule 12/16/2024 Ac tive metoprolol succinate (TOPROL-XL) 25 mg 24 hr tablet Take 1 tablet (25 mg total) by mouth 1 (one) time each day. Do not crush or chew. Active escitalopram (Lexapro) 20 mg tablet Take 1 tablet (20 mg total) by mouth 1 (one) time each day. Active Encounters Date Type Department Care Team Description 12/18/2024 10:30 AM EST Office Visit Neurosurgery [place] [address] [place] [address] Rashad Chance MD Cerebral aneurysm (Primary Dx) from Last 3 Months Surgical History Surgery Date Site/Laterality Comments LUNG REMOVAL, PARTIAL Left GALLBLADDER SURGERY N/A SHOULDER SURGERY Right Medical History Medical History Date Comments Hypertension Autoimmune disorder (CMS/HCC) Social History Tobacco Use Types Packs/Day Years Used Date Smoking Tobacco: Never Assessed Comments Unknown Sex and Gender Information Value Date Recorded Sex Assigned at Not on file Legal Sex Female 12:49 AM EST Gender Identity Not on file Sexual Orientation Not on file Obstetrics History Last Filed Vital Signs Vital Sign Reading Time Taken Comments Blood Pressure - - Pulse - - Temperature - - Respiratory Rate - - Oxygen Saturation - - Inhaled Oxygen Concentration - - Weight 90.7 kg (200 lb) 12/18/2024 10:53 AM EST Height 167.6 cm (5' 6 ) 12/18/2024 10:53 AM EST Body Mass Index 32.28 12/18/2024 10:53 AM EST Plan of Treatment Health Maintenance Due Date Last Done Comments Breast Cancer Screening 1950 DTaP,Tdap,and Td Vaccines (1 - Tdap) 1970 Pneumococcal Vaccine: 50+ Ye ars (1 of 1 - PCV) 2001 Zoster Vaccines (1 of 2) 2001 Colorectal Cancer Screening: Colonoscopy 09/30/2022 Depression Screening 09/30/2022 Falls Risk Assessment 09/30/2022 Hepatitis C Screening 09/30/2022 Medicare Annual Wellness Visit 09/30/2022 Osteoporosis Screening (Bone Density Screening) 09/30/2022 Social Influencers of Health Screening 09/30/2022 COVID-19 Vaccine (1 - 2023-2 5 season) 2024 Influenza Vaccine (#1) 2024 RSV Immunization Patients 60 + Years Old (1 - 1-dose 75+ series) 2026 HIB Vaccines Aged Out No longer eligi ble based on patient's age to complete this topic HPV Vaccines Aged Out No longer eligi ble based on patient's age to complete this topic Hepatitis A Vaccines Aged Out No long er eligible based on patient's age to complete this topic Hepatitis B Vaccines Aged Out No long er eligible based on patient's age to complete this topic IPV Vaccines Aged Out No longer eligi ble based on patient's age to complete this topic MMR Vaccines Aged Out No longer eligi ble based on patient's age to complete this topic Meningococcal ACWY Vaccine Aged Out N o longer eligible based on patient's age to complete this topic Meningococcal B Vacine Aged Out No lo nger eligible based on patient's age to complete this topic RSV Immunization Patients Un ranulfo 20 months Aged Out No longer eligible b ased on patient's age to complete this topic Varicella Vaccines Aged Out No longer eligible based on patient's age to complete this topic Insurance MEDICARE MEDICAID - [place] Care Teams Pediatric Associate Relationship Specialty Start Date End Date Magan Syed MD [address] [place] [address] [address] [place] PCP - General Internal Medicine 05/14/22
--- OUTSIDE RECORDS SUMMARY | 2024-12-18 13:27 | XMS_ITS ---
Author Organization [facility] Address [address] [place] [address] Care Team Providers Care Property Staff Accountant Name Role Phone Kunal CONLEY, [place] Primary Care Provider Unava ilable Nathen Melgoza Unavailable [phone] REASON FOR VISIT cancelling todays appt Encounters Encounter Location Date Provider Diagnosis [facility] [address] [place] [address] 07/31/2023 Nathen Melgoza PLAN OF TREATMENT No Information
[2024-12-18 14:06] LABS: Basophils Percent Auto 0.8 % (0-2); Eosinophils Percent Auto 1.6 % (0-4); Hematocrit 27.2 % (37.0-47.0); Hemoglobin 8.3 g/dl (12.0-16.0); Lymphocytes Absolute Auto 0.5 X10*3/uL (1.2-4.9); Lymphocytes Percent Auto 19.8 % (20-40); MANUAL DIFF FLAG SCAN; Mean Corpuscular HGB Conc 30.5 g/dl (31.0-35.0); Mean Corpuscular Hemoglobin 25.5 pg (27.0-33.0); Mean Corpuscular Volume 83.4 fL (80.0-98.0); Monocytes Absolute Auto 0.3 X10*3/uL (0.1-1.2); Monocytes Percent Auto 11.9 % (2-11); Neutrophils Absolute Auto 1.6 x10*3/uL (2.0-8.3); Neutrophils Percent Auto 65.9 % (45-73); Platelet Count 110 X10*3/uL (160-400); Red Blood Count 3.26 X10*6/uL (4.20-5.50); Red Cell Distribution Width 15.9 % (11.0-16.0); SCAN SMEAR FLAG 1
[2024-12-18 14:08] LABS: Appearance Urine Clear; Color Urine Yellow; Glucose Urine UA Negative (Negative); Leukocyte Esterase Urine Negative (Negative); Nitrite Urine Negative (Negative); PH 6.5 (5.0-9.0); Urine Blood Negative (Negative); Urine Ketones Negative (Negative); Urine Protein Negative (Neg-Trace)
[2024-12-18 14:11] LABS: White Blood Count 2.4 X10*3/uL (4.8-10.8)
[2024-12-18 14:30] LABS: SLIDE REVIEW VERIFIED
[2024-12-18 14:37] LABS: Alanine Aminotransferase 42 U/L (0-31); Albumin Level 3.6 g/dL (3.5-5.0); Alkaline Phosphatase 75 U/L (39-117); Anion Gap 10 (12-20); Aspartate Amino Transferase 47 U/L (5-31); Bilirubin Total 0.3 mg/dL (0.0-1.0); Blood Urea Nitrogen 11 mg/dL (9-16); C Reactive Protein 0.11 mg/dL (< or = 0.50); Calcium 8.7 mg/dL (8.4-10.2); Carbon Dioxide 30 mmol/L (22-29); Chloride 103 mmol/L (96-108); Estimated Glomerular Filt Rate > 60; Glucose Random 164 mg/dL (60-115); Potassium 3.9 mmol/L (3.3-5.1); Sodium 139 mmol/L (135-145); Total Protein 6.7 g/dL (6.5-8.0)
[2024-12-18 14:42] LABS: B Type Natriuretic Peptide 68 pg/mL (<100)
[2024-12-18 14:53] LABS: TSH reflex Free T4 2.71 uIU/mL (0.32-4.0); Vitamin D 25-OH Total 22.1 ng/mL (>30)
[2024-12-18 14:55] LABS: Erythrocyte Sedimentation Rate 17 MM/HR (0-20)
[2024-12-18 15:05] LABS: Folate 14.6 ng/mL (> or = 4.0); Vitamin B12 393 pg/mL (200-900)
== END 2024-12-18 12:58 | disposition home or self-care (01) ==
LOC: HO.WFDLDS 12:57
PROVIDERS: Visit Provider Internal Medicine
DX: R53.83 Other fatigue (principal); E78.00 Pure hypercholesterolemia, unspecified; R30.0 Dysuria; E55.9 Vitamin D deficiency, unspecified; I50.9 Heart failure, unspecified; D64.9 Anemia, unspecified; E53.8 Deficiency of other specified B group vitamins
CPT/HCPCS: 36415; 80053; 81003; 82306; 82607; 82746; 83880; 84443; 85025; 85652; 86140

== ENCOUNTER 2025-01-27 14:54 | Outpatient (REF) | payer MEDICARE, MEDICAID, SELFPAY ==
--- OUTSIDE RECORDS SUMMARY | 2025-01-27 17:30 | XMS_ITS | Patient Health Record ---
Author Organization [facility] Address [address] [place] [address] Care Team Providers Care Vocational Nurse Name Role Phone Katharine Syed MDh Primary Care Provider Nathen Bloom Unavailable [phone] Allergies No Known Allergies Reason For Referral No Information Medications Medication SIG (Take, Route, Frequency, Duration) Notes [...] 40 MG Oral for 90 A ctive Immunizations Vaccine Route Administration Date Status Comme nts Influenza Unknown 08/29/2021 Refused Social History Tobacco Use: Social History Observation Description Date Details (start date - stop date) Former Smoker NA - NA Tobacco Use/Smoking Question Answer Notes Patient is [...] drinks (0 point) Points 4 Interpretation Positive Section Notes: Nonsmoker since 11/2019; 2 gl asses of wine QD Nonsmoker since 11/2019; 2 gl asses of wine QD Nonsmoker since 11/2019; 2 gl asses of wine QD Problems Problem Type SNOMED Code ICD Code Onset Dates Problem Status W/U Status Risk Notes Problem Colon cancer screening (645741229) Colon cancer screening (Z12.11) Active confirmed Problem 648763613 History of adenomatous polyp of colon (Z86.010) Active confirmed Problem Diverticular disease of colon (460638762) Diverticulosis of large intestine without perforation or abscess without bleeding (K57.30) Active confirmed Problem 535837909 Nausea (R11.0) Active confirmed Problem 756136114 Gastroesophageal reflux disease without esophagitis (K21.9) Active confirmed Problem 809004924 Chronic hepatiti s C without hepatic coma (B18.2) Active confirmed Problem 936908429 History of colon polyps (Z86.010) Active confirmed Problem 66718363 Constipation, unspecified constipation type (K59.00) Active confirmed Problem Esophageal varices (21446561) Esophageal varices (I85.00) Active confirmed Problem Gastritis (7647248) Gastritis (K29.70) Active confirmed Problem 23488119 Cirrhosis of martina er without ascites, unspecified hepatic cirrhosis type (K74.60) Active confirmed Problem Diverticulosis of colon (356978154) Diverticulosis of colon (K57.30) Active confirmed Plan Of Treatment Pending Test Test Name Order Date CHEM 7 PROFILE 09/09/2021 LIVER PROFILE 09/09/2021 HEPATITIS B PROFILE 09/09/2021 HEPATITIS A ANTIBODY-IGG 09/09/2021 HCV LIVER FIBROSIS, FIBRO TEST US ABDOMEN COMP WITH ELASTOGRAPHY 2020 Alpha Fetoprotein 09/09/2021 Hepatitis C Genotype 09/09/2021 Future Test Test Name Order Date UPPER GI ENDOSCOPY 08/29/2021 COLONOSCOPY 08/29/2021 COLONOSCOPY 09/25/2022 Next Appt Details Provider Name:Nathen Melgoza , 04/23/2025 02:00:00 PM, [address], [address], [place], [address], Insurance Providers Payer Name Payer Address Payer Phone Subscriber Number Group Number Insured Name Patient Relationship to Insured Coverage Start Date Coverage End Date MEDICARE OF [place] [address] [place] [address] [id number] EMILY ISAAC Self - patient is the insured MEDICAID OF [place] [address] [place] [address] [id number] EMILY ISAAC Self - patient is the insured Medical (General) History Medical History History ICD Code COPD-sees Dr. Branch Lung cancer--right upper lob e lobectomy on 08/11/2020--by Dr. Manuel; followed by Dr. Arnold Depression, ADD Brain aneurysm 2013--being followed in [facility] by Neurosurgeon Diverticulitis 11/2019 treate d at [facility]-had a negative gastrograffin enema afterwards Cirrhosis and hepatitis C-tr eated with IF and Ribavirin for a short time but had to stop due to side effects. She had a hepatitis C viral load of 3.6 million and hepatitis C genotype 1A in 2020. 2007-lung cancer on the left--XRT only Denies VA,DM,CVA,renal disease Colonoscopy in 2012 with rem oval [...]
--- OUTSIDE RECORDS SUMMARY | 2025-01-27 17:30 | XMS_ITS ---
Author Organization [facility] Address [address] [place] [address] Care Team Providers Care Automatic Profile Shaper Operator Name Role Phone Ronak Syed MDneth Primary Care Provider Nathen Bloom Unavailable [phone] REASON FOR VISIT cancelling todays appt Encounters Encounter Location Date Provider Diagnosis [facility] [address] [place] [address] 07/31/2023 Nathen Melgoza Plan Of Treatment Next Appt Details Provider Name:Nathen Melgoza , 04/23/2025 02:00:00 PM, [address], [address], [place], [address], Progress Notes * EMILY ISAACDOB:0 1950 (73 yo F)Acc No.[id number]:07/31/2023 Patient:?KOREY ISAAC :1950???Age:73 Y???Sex:Female Address:[address] [place] [address] * true * Date:? Generated for Printi ng/Fayadirag/eTransmitting on:?01/27/2025 05:30 PM EDT
--- OUTSIDE RECORDS SUMMARY | 2025-01-27 17:30 | XMS_ITS ---
Author Name [facility] Organization Unknown History of Medication Use Medication Directions Dispensed Refills Start Date End Date Stat metoprolol succinate (TOPROL-XL) 25 mg 24 hr tablet Take 1 tablet (25 mg total) by mouth 1 (one) time each day. Do not crush or chew. active prochlorperazine (COMPAZINE) 10 mg tablet 01/27/2024 active Incruse Ellipta 62.5 mcg/actuation inhalation 12/16/2024 active isosorbide mononitrate (IMDUR) 30 mg 24 hr tablet 12/16/2024 active escitalopram (Lexapro) 20 mg tablet Take 1 tablet (20 mg total) by mouth 1 (one) time each day. active budesonide (PULMICORT) 0.25 mg/2 mL nebulizer solution Inhale 2 mL (0.25 mg total) by mouth daily. active doxycycline (ADOXA) 100 mg tablet Take 1 tablet (100 mg total) by mouth 2 (two) times a day. for 10 days 01/10/2024 active Breo Ellipta 200-25 mcg/dose inhaler 11/26/2024 active amLODIPine (NORVASC) 5 mg tablet 12/16/2024 active morphine (MS CONTIN) 15 mg 12 hr tablet Take 1 tablet (15 mg total) by mouth every 12 hours. active Ventolin HFA 90 mcg/actuation inhaler 11/27/2024 act makayla venlafaxine XR (EFFEXOR-XR) 75 mg 24 hr capsule 12/16/2024 active ipratropium-albuteroL (DUONEB) 0.5-2.5 mg/3 mL nebulizer solution Inhale 3 mL by mouth 4 times daily. active atorvastatin (LIPITOR) 80 mg tablet 11/18/2024 active lactulose (CHRONULAC) solution 09/05/2024 active aspirin 81 mg EC tablet 12/16/2024 active furosemide (LASIX) 40 mg tablet Take 1 tablet (40 mg total) by mouth daily. active amoxicillin-clavulanat e (AUGMENTIN) 875-125 mg per tablet 09/10/2024 active pantoprazole (PROTONIX) 20 mg EC tablet 12/16/2024 active doxycycline (VIBRAMYCIN) 100 mg capsule 10/01/2024 active cholecalciferol (VITAMIN D-3) 1,250 mcg (50,000 unit) capsule Take 1 capsule (50,000 Units total) by mouth daily. active cyclobenzaprine (FLEXERIL) 10 mg tablet 09/11/2024 active nitroglycerin (NITROSTAT) 0.4 mg SL tablet 10/06/2024 active budesonide (PULMICORT) 0.25 mg/2 mL nebulizer solution Take 0.25 mg by nebulization daily. active Flaxseed, Linseed, (FLAX SEEDS PO) Take by mouth. activ e ipratropium-albuterol (DUONEB) 0.5-2.5 mg/3 mL nebulizer solution Take 1 vial by nebulization 4 (four) times a day. active Encounters Encounter Type Encounter Reason Primary Diagnosis Location Date Ambulatory Aneurysm of unspecified site [place] 08/01/2021 Care Team Organization Name Specialty Phone Email Start Date End Da te Personaling PROVIDER,EXTERNAL Primary Care 08/01/202105/28 [facility] Primary Care 05/30/202102/2021
--- OUTSIDE RECORDS SUMMARY | 2025-01-27 17:30 | XMS_ITS ---
Author Organization [facility] Address [address] [place] [address] Care Team Providers Care Sample Wrapper Name Role Phone Kunal CONLEY [place] Primary Care Provider Nathen Bloom Unavailable [phone] REASON FOR VISIT Patient presents today for cirrhosis, hepatitis C Medications Medication SIG (Take, Route, Frequency, Duration) [...] Omeprazole 20 MG TAKE 1 CAPSULE BY UTH EVERY MORNING for 30 Active Lactulose [...] Active Encounters Encounter Location Date Provider Diagnosis [facility] [address] [place] [address] 07/31/2023 Nathen Melgoza Plan Of Treatment Next Appt Details Provider Name:Nathen Melgoza , 04/23/2025 02:00:00 PM, [address] [facility], [address], [place], [address], Progress Notes * FILIBERTO ISAACB:0 1950 (74 yo F)Acc No.[id number]:07/31/2023 Progress Notes Patient:?KOREY ISAAC Provider:?Nathen Melgoza MD :1950???Age:73 Y???Sex:Female D ate:07/31/2023 Address:[address] [place], [place] [id number] Pcp:Magan Syed MD Subjective: * Chief Complaints: * ???1. Patient presents today for cirrhosis, hepatitis C. * Medical History:? * Medications:?Taking Dulcolax 5 MG Tablet Delayed Release 1 tablet as needed Orally as directed , Taking Colace 100 MG Capsule 1 capsule as needed Orally Once a day , Taking Milk Thistle 500 MG Capsule as directed Orally 2 caps daily , Taking Vitamin D 50 MCG (2000 UT) Capsule 1 capsule Orally Once a day , Taking Ativan 0.5 MG Tablet 1 tablet at bedtime as needed Orally Once a day , Taking Effexor XR 37.5 MG Capsule Extended Release 24 Hour 1 capsule with food Orally Once a day , Taking Morphine Sulfate ER 15 MG Tablet Extended Release Oral , Taking Albuterol Sulfate HFA 108 (90 Base) MCG/ACT Aerosol Solution Inhalation , Taking Furosemide 40 MG Tablet Oral , Taking Metoprolol Succinate ER 25 MG Tablet Extended Release 24 Hour TAKE 1 TABLET BY MOUTH EVERY DAY Oral , Taking Omeprazole 20 MG Capsule Delayed Release TAKE 1 CAPSULE BY MOUTH EVERY MORNING , Taking Dicyclomine HCl 10 MG Capsule TAKE 1 TO 2 CAPSULES BY MOUTH EVERY 6 HOURS NEEDED FOR ABDOMINAL CRAMPS/DISCOMFORT/BLOATING , Taking Lactulose 10 GM/15ML Solution TAKE 30 ML BY MOUTH ONCE DAILY Objective: * Vitals:? Assessment: Plan: * Treatment: * * The named appointment provid er may or may not be the originator of this progress note, and it is not deemed complete until electronically signed by the appointment provider. Sign off status: Pending * Provider:?Nathen Melgoza MD Date:? 023 Generated for Charito daniels/Jayashree/Vestaitting on:?01/27/2025 05:30 PM EDT
--- OUTSIDE RECORDS SUMMARY | 2025-01-27 17:30 | XMS_ITS | Clinical Summary ---
Author Organization [facility] Address [address] [place] [address] Care Team Providers Care Recreation Worker Name Role Phone Provider, External MD Primary Care Provider [phone] Allergies No known active allergies Medications Medication [...] (every 12 hours). Active cholecalciferol (VITAMIN D3) 94155 units capsule Take 50,000 Units by mouth [...] age to complete this topic Care Teams Recreation Worker Relationship Specialty Start Date End Date Provider, MD Shauna [address] [place] [address] PCP - General Internal Medicine 04/26/21
--- OUTSIDE RECORDS SUMMARY | 2025-01-27 17:30 | XMS_ITS | Clinical Summary ---
Author Organization [facility] Address [address] [place] [address] Phone Care Team Providers Care Tomography Technologist Name Role Phone Magan Syed MD Primary Care Provider Allergies Active Allergy Reactions Criticality Noted Date [...] Encounters Date Type Department Care Team Description 01/14/2025 Telephone Neurosurgery [address] [place] [phone] Rashad Chance MD need order for labs 12/24/[address] [place] [address] Agnieszka Bailey [place] Radiology Appt (Pt scheduled for CT Angio Head on Saturday, January 15, 2025, 1:00pm at [facility]. Called Pt to confirm and Pt is aware. Pt is scheduled for follow up with on 02/02/25. ) 12/18/2024 10:30 AM EST Office Visit [address] [place] [phone] Rashad Chance MD Cerebral aneurysm (Primary Dx) from Last 3 Months Surgical History Surgery Date Site/Laterality Comments LUNG REMOVAL, PARTIAL Left GALLBLADDER SURGERY N/A SHOULDER SURGERY Right Medical History Medical History Date Comments Hypertension Autoimmune disorder (CMS/HCC) Social History Tobacco Use Types Packs/Day Years Used Date Smoking Tobacco: Never Assessed Comments Unknown Sex and Gender Information Value Date Recorded Sex Assigned at Female 12/23/2024 4:15 PM EST Legal Sex Female 12:49 AM EST Gender Identity Female 12/23/2024 4:15 PM EST Sexual Orientation Straight 12/23/2024 4: 15 PM EST Obstetrics History Last Filed Vital Signs Vital [...] 12/18/2024 10:53 AM EST Plan of Treatment Upcoming Encounters Date Type Department Care Team (Late st Contact Info) Description 01/29/2025 5:00 PM EDT Appointment [facility] Scan [address] [place] [phone] 02/02/2025 11:00 AM EDT Office Visit Neurosurgery [facility] [address] [facility] [address] [place] [phone] Rashad Chance MD [address] [place] [address] Health Maintenance Due Date Last Done Comments [...] - 2023-2 5 season) 2024 Influenza Vaccine (Season Ended) 2025 RSV Immunization Adult Patie nts (1 - 1-dose 75+ series) 2026 HIB [...] Insurance MEDICARE MEDICAID - [place] Care Teams Tomography Technologist Relationship Specialty Start Date End Date Magan Syed MD [address] [place] [address] [address] [place] PCP - General Internal Medicine 05/14/22
--- OUTSIDE RECORDS SUMMARY | 2025-01-27 17:31 | XMS_ITS | Encounter Summary ---
Author Organization [facility] Address [address] [place] [address] Care Team Providers Care Train Engineer Name Role Phone Provider, Shauna CONLEY Primary Care Provider [phone] Encounter Details Date Type Department Care Team (Late st Contact Info) Description 07/24/2023 Scanned Document [facility] Neuroscience [facility] [address] [facility] [address] [place] [phone] Bari Casarez, DO [address] [address] Social History Tobacco Use Types Packs/Day Years [...] on filedocumented in this encounter Care Teams Train Engineer Relationship Specialty Start Date End Date Provider, MD Shauna [address] [place] [address] PCP - General Internal Medicine 04/26/21 documented as of this encounter
== END 2025-01-27 14:55 | disposition home or self-care (01) ==
LOC: HO.LAB 14:54
PROVIDERS: Absent Provider Neurological Surgery; PCP Internal Medicine; Visit Provider Internal Medicine Medical Oncology
DX: Z13.89 Encounter for screening for other disorder (principal)

== ENCOUNTER 2025-02-05 11:48 | Outpatient (AMB) | payer MEDICARE, MEDICAID, SELFPAY ==
--- NOTE | 2025-02-05 11:55 | MHC.OFFVIS ---
Vital Signs 02/05/25 12:11 Height 5 ft 6 in Weight 199 lb BMI 32.1 BP 124/58 L Blood Pressure Location Rt brachial Position Sitting Pulse 76 Pulse Source Pulse Oximeter Pulse Oximetry (%) 98 Oxygen Delivery Method Nasal Cannula Oxygen Flow Rate 3 Intake Visit Reasons: dr martin ref Intake Note: NEW PATIENT for eval of reflux, constipation, recent hx of lung carcinoma. Chief Complaint; C/O recent blood transfusion, due to abn labs per Dr. Martin. No s/s of bleeding per pt. GI sx well controlled. Last colo via Dr. Melgoza x1-2 years ago. During appt. Pt reports that her home O2 bottle was running low and requested that we provide O2 so that she would have enough for her drive home. Pt was provided O2 via [place] @ rate of 3 lpm. Pt verified that this is her normal dose and she is doing well with this after placement by MA. Sanitation Supervisor Required: No Allergies hydrocodone [From Vicodin] Allergy (Severe, Verified 02/15/25 15:37) Rash/Hives Influenza Virus Vaccines Allergy (Severe, Verified 02/15/25 15:37) Rash/Hives Qjlvlcs-[id number]-CuK Reductase Inhibitor Allergy (Mild, Verified 02/15/25 15:37) Muscle Pain gabapentin Adverse Reaction (Intermediate, Verified 02/15/25 15:37) Anxiety HPI HPI dr martin ref: Details: 74-year-old female with past medical history of arthritis, edema, NSTEMI, status post cardiac catheterization, Congestive heart failure, tachycardia, history of hepatitis-C, right upper lung CA, status post pneumonectomy, GERD, PVC, aneurysm, COPD is here today for initial consultation. Patient was sent to us by Dr. Martin. Patient has been anemic and she referred her to us to go for endoscopy and colonoscopy. Patient does have a history of varices. Denies having any melena, hematochezia. Laboratory Tests 12/25/24 01/27/25 13:37 15:48 WBC 2.8 L 5.4 RBC 3.41 L 3.95 L Hgb 8.6 L 10.8 L D Hct 28.1 L 33.3 L MCV 82.4 84.3 MCH 25.2 L 27.3 Patient usually follows up with Dr. Melgoza, however unable to get appointment with him for quite some time. Patient has multiple comorbidities and currently is wearing oxygen at night and during the day with ambulation. Even with minimal exertion patient is having shortness of breath. She sees cardiology, however she was cleared and does not have to see them till October of 2025. Patient is following up with Neurology and will be having appointment with them in the next few weeks. Patient was told that there is a change in the size of the aneurysm. As far as patient knows the original size was very small only couple mm. Patient denies any headaches or dizziness [facility] Medical History (Updated 02/18/25 @ 20:49 by Chaparrita iKng, [facility]) Anemia Back pain Lower extremity edema CHF (congestive heart failure) Smoker Hepatitis C Esophageal varices COPD (chronic obstructive pulmonary disease) case management patient Obesity (BMI 30-39.9) Depression Anxiety Insomnia GERD without esophagitis Constipation Vitamin D deficiency PVCs (premature ventricular contractions) Limb swelling Elevated TSH Fatigue Aneurysm Bilateral lower extremity edema History of diverticulosis Tachycardia SOB (shortness of breath) On home oxygen therapy ADD (attention deficit disorder) Hx of hepatitis C Chest pain Lung cancer Loculated pleural effusion Concussion COPD (chronic obstructive pulmonary disease) Brain aneurysm Surgical History Hx of cholecystectomy Hx of cataract extraction Status post thoracentesis (~10/19/20) History of thoracic surgery H/O endoscopy H/O colonoscopy with polypectomy S/P biopsy H/O colonoscopy with polypectomy History of esophagogastroduodenoscopy (EGD) Family History Mother Skin cancer Diabetes Thyroid disease Sister Diabetes Skin cancer Tubular adenoma Thyroid disease Daughter Skin cancer Diabetes Social History Housing: Condominium Are you a primary healthcare network pricing consultant to a significant other at home: No Do you presently have visiting nurse or other home services: No Alcohol intake: current Alcohol intake frequency: a few times a week Alcohol type: wine Comment: resting in bed Patient Tobacco Use Status: Former Tobacco user Tobacco use type: Cigarette Years Smoked: 20 +/- e-Cigarette/Vaping Use: Never Used Second Hand Smoke Exposure: Yes service: No Current occupational status: retired Cognitive needs: No Hearing needs: No Vision needs: Yes Review of Systems Const Denies chills and Denies fever(s) ENT Denies dysphagia, Denies otalgia, Denies odynophagia and Denies sore throat Card Denies chest pain and Reports dyspnea on exertion (even with minimal activity) Resp Denies chest congestion, Reports cough (on and off; coughs up thick whitish to grayish phlegm at times) and Reports dyspnea on exertion (even with minimal activity) GI Reports abdominal pain (chronic over the RUQ area), Reports constipation (recurrent), Denies dysphagia, Denies heartburn, Denies diarrhea, Denies nausea, Denies odynophagia and Denies vomiting Physical Exam Vital Signs: Last Vital Signs Pulse 76 02/05/25 12:11 BP 124/58 L 02/05/25 12:11 Pulse Ox 98 02/05/25 12:11 Oxygen Delivery Method Nasal Cannula 02/05/25 12:11 Oxygen Flow Rate 3 02/05/25 12:11 BMI result Body Mass Index 32.1 Const Other: Wearing oxygen General: no acute distress and alert Cardio Rhythm: regular rhythm GI Palpation (GI): Soft to palpation and nontender Auscultation: normal bowel sounds General: Yes no CVA tenderness Back/Spine/Pelvis Back: no CVA tenderness Psych Thought process: Normal thought process present Assessment & Plan Assessment & Plan (1) Hx of hepatitis C: Code(s): Z86.19 - Personal history of other infectious and parasitic diseases Category: Medical (2) Anemia: Code(s): D64.9 - Anemia, unspecified Category: Medical Qualifiers: Anemia type: unspecified type Qualified Code(s): D64.9 - Anemia, unspecified (3) GERD without esophagitis: Code(s): K21.9 - Gastro-esophageal reflux disease without esophagitis Category: Medical (4) Esophageal varices: Code(s): I85.00 - Esophageal varices without bleeding Category: Medical Qualifiers: Esophageal varices type: unspecified type Esophageal varices bleeding: without bleeding Qualified Code(s): I85.00 - Esophageal varices without bleeding Plan Message sent to surgical schedulers and to nurse navigator to call neurologist office about if patient can be cleared for procedure. Patient reports shortness of breath with minimal exertion. She is on oxygen. Patient denies currently any melena, hematochezia. History of anemia. Patient has appointment with pulmonology on March 08. Will send message to her equipment installer to see if she can be cleared. What to expect before during and after procedure discussed with patient. Stressed the importance of good bowel prep and clear liquid diet day before procedure. Patient is agreeable to current plan of care and verbalizes understanding of instructions. She was given the opportunity to ask questions and all questions answered. Thank you for allowing me to participate in her care Medications: New bisacodyl (Dulcolax (bisacodyl)) take 4 tabs at noon the day before your colonoscopy 20 mg (4 x 5 mg) PO ONCE 4 tabs 0RF 1 day Z12.11 - Encounter for screening for malignant neoplasm of colon polyethylene glycol 3350 (Miralax) As directed by gastro[facility]ology department at [facility] 238 grams PO ONCE 238 grams 0RF Z12.11 - Encounter for screening for malignant neoplasm of colon Coding Level of Care Code New Pt Level 4 (73752) Diagnoses Hx of hepatitis C Z86.19 Anemia, unspecified type D64.9 Anemia type: unspecified type GERD without esophagitis K21.9 Esophageal varices without bleeding, unspecified esophageal varices type I85.00 Esophageal varices type: unspecified type Esophageal varices bleeding: without bleeding Time Spent (min) 50 Comment 30 minutes spent with patient and additional 20 minutes spent reviewing her records
[2025-02-05 12:11] VITALS: BP 124/58; PULSE 76; O2SAT 98; BMI 32.1
--- OUTSIDE RECORDS SUMMARY | 2025-02-05 12:46 | XMS_ITS | Clinical Summary ---
Author Organization [facility] Address [address] [place] [address] Care Team Providers Care Field Tech Name Role Phone Provider, External MD Primary Care Provider [phone] Allergies No known active allergies Medications Medication [...] (every 12 hours). Active cholecalciferol (VITAMIN D3) 44447 units capsule Take 50,000 Units by mouth [...] age to complete this topic Care Teams Field Tech Relationship Specialty Start Date End Date Provider, MD Shauna [address] [place] [address] PCP - General Internal Medicine 04/26/21
--- OUTSIDE RECORDS SUMMARY | 2025-02-05 12:46 | XMS_ITS | Encounter Summary ---
Author Organization [facility] Address [address] [place] [address] Care Team Providers Care Medical Information Specialist Name Role Phone Magan Syed MD Primary Care Provider [phone] Reason for Referral * Imaging (Routine) - Authorized Specialty Diagnoses / Procedures Referred By Contac t Referred To Contact Radiology Diagnoses Cerebral aneurysm Procedures IR Plcmnt Cath ICA Angio ICC bilat Rashad Chance MD [address] [place] [address] Phone: tel: fax: [facility] Interventional Radiology [address] [place] [phone] Phone: tel: Referral ID Status Reason Start Date Expiration Date V isits Requested Visits Authorized [id number] Authorized 02/02/2025 02/02/2026 1 1 Reason for Visit * Reason Comments Brain Aneurysm Flu cta Encounter Details Date Type Department Care Team (Late st Contact Info) Description 02/02/2025 11:00 AM EDT Telemedicine Neurosurgery [place] [address] [place] [address] Rashad Chance MD [address] [place] [phone] Cerebral aneurysm (Primary Dx) Social History Tobacco Use Types Packs/Day Years Used Date Smoking Tobacco: Never Assessed Comments Unknown Sex and Gender Information Value Date Recorded Sex Assigned at Female 12/23/2024 4:15 PM EST Legal Sex Female 12:49 AM EST Gender Identity Female 12/23/2024 4:15 PM EST Sexual Orientation Straight 12/23/2024 4: 15 PM EST documented as of this encounter Plan of Treatment Scheduled Orders Name Type Priority Associated Diagnoses Orde r Schedule IR Plcmnt Cath ICA Angio ICC bilat Imaging Routine Cerebral aneurysm Expected: 02/02/2025, Expires: 02/02/2026 documented as of this encounter Visit Diagnoses Diagnosis Cerebral aneurysm- Primary Cerebral aneurysm, nonruptured documented in this encounter Historical Medications * This list may reflect changes made after this encounter. Ativan 0.5 mg tablet 1 tablet (0.5 mg total) 1 (one) time each day at the same time. Max Daily Amount: 0.5 mg added in this encounter Care Teams Medical Information Specialist Relationship Specialty Start Date End Date Magan Syed MD [address] [place] [address] [address] [place] PCP - General Internal Medicine 05/14/22 documented as of this encounter
--- OUTSIDE RECORDS SUMMARY | 2025-02-05 12:46 | XMS_ITS | Encounter Summary ---
Author Organization [facility] Address [address] [place] [address] Care Team Providers Care Fax Machine Repairer Name Role Phone Provider, Shauna CONLEY Primary Care Provider [phone] Encounter Details Date Type Department Care Team (Late st Contact Info) Description 07/24/2023 Scanned Document [facility] Neuroscience [facility] [address] [facility] [address] [place] [id number] Bari Casarez, DO [address] [address] Social History Tobacco Use Types Packs/Day Years [...] on filedocumented in this encounter Care Teams Fax Machine Repairer Relationship Specialty Start Date End Date Provider, MD Shauna [address] [place] [address] PCP - General Internal Medicine 04/26/21 documented as of this encounter
--- OUTSIDE RECORDS SUMMARY | 2025-02-05 12:46 | XMS_ITS | Clinical Summary ---
Author Organization [facility] Address [address] [place] [address] Phone Care Team Providers Care Remote Sensing Research Scientist Name Role Phone Magan Syed MD Primary Care Provider [phone] Allergies Active Allergy Reactions Criticality Noted Date [...] mouth 1 (one) time each day. Active Ativan 0.5 mg tablet 1 tablet (0.5 mg total) 1 (one) time each day at the same time. Max Daily Amount: 0.5 mg Active Encounters Date Type Department Care Team Description 02/02/2025 11:00 AM EDT Telemedicine Neurosurgery [place] [facility] [address] [facility] [address] [place] [address] Rashad Chance MD Cerebral aneurysm (Primary Dx) 01/29/2025 4:47 PM EDT - 01/29/2025 11:59 PM EDT Hospital Encounter [facility] CT Scan [address] [place] [address] Cerebral aneurysm Discharge Disposition: Home or Self Care 01/14/2025 Telephone Neurosurgery [facility] [address] [facility] [address] [place] [address] Rashad Chance MD need order for labs 12/24/2024 Telephone Neurosurgery [facility] [address] [place] [address] Agnieszka Bailey MA Radiology Appt (Pt scheduled for CT Angio Head on Saturday, January 15, 2025, 1:00pm at [facility]. Called Pt to confirm and Pt is aware. Pt is scheduled for follow up with on 02/02/25. ) 12/18/2024 10:30 AM EST Office Visit Neurosurgery [facility] [address] [facility] [address] [place] [phone] Rashad Chance MD Cerebral aneurysm (Primary Dx) from Last 3 Months Surgical History Surgery Date Site/Laterality Comments LUNG REMOVAL, PARTIAL Left GALLBLADDER SURGERY N/A SHOULDER SURGERY Right Medical History Medical History Date Comments Hypertension Autoimmune disorder (CMS/HCC V24) Social History Tobacco Use Types Packs/Day Years [...] Influencers of Health Screening 09/30/2022 COVID-19 Vaccine (2023-2 5 season) 2024 Influenza Vaccine (Season Ended) [...] age to complete this topic Meningococcal B Vaccine Aged Out No l onger eligible based on patient's age to complete this topic RSV Immunization Patients Un ranulfo 20 months Aged Out No longer eligible b ased on patient's age to complete this topic Varicella Vaccines Aged Out No longer eligible based on patient's age to complete this topic Procedures Procedure Name Priority Date/Time Associated Diagnosis Comments CT ANGIO HEAD WO AND/OR W CONTRAST Routine 01/29/2025 5:55 PM EDT Cerebral aneurysm EXTERNAL CLINICAL LAB Routine 01/27/2025 12:05 PM EDT from Last 3 Months Results * CT Angio Head wo and/or w Contrast (01/29/2025 5:55 PM EDT) Anatomical Region Laterality Modality Head and Neck Computed Tomogra phy 02/02/2025 11:1 9 AM EDT Impressions 02/02/2025 11:55 AM EDT 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 -------- FINAL REPORT -------- Dictated By: Ian Leonard Dictated Date: 02/02/2025 11:19 ET Assigned Physician: Ian Leonard Reviewed and Electronically Signed By: Ian Leonard Signed Date: 02/02/2025 11:55 ET Workstation ID: [id number] Transcribed By: Self Edit Transcribed Date: 02/02/2025 11:21 ET Narrative 02/02/2025 11:55 AM EDT PROCEDURE: Noncontrast head CT and CT angiogram of the [place]. HISTORY: Cerebral aneurysm, follow-up. COMPARISON: No prior study available for comparison. TECHNIQUE: Noncontrast head CT followed by contrast-enhanced CT angiogram of the [place], with coronal and sagittal reformats. IV contrast dose: 90 mL [id number]. Dose length product: 2149 ??mGy-cm. FINDINGS: Brain: No hemorrhage, edema, mass, or extra-axial fluid collection. ??No CT evidence of an acute large vessel infarct. ??Ventricles and sulci are age commensurate. ??Atherosclerotic calcifications of the carotid siphons. CTA: The V4 segments are similar in size, with the right slightly larger. ??Mild atherosclerotic luminal irregularity of the basilar artery, but no hemodynamically significant stenosis. ??There is fusiform prominence of common origins of the superior cerebellar arteries and licensed reactor operator, slightly more prominent on the right. Atherosclerotic calcifications of the carotid siphons. ??No associated hemodynamically significant stenosis. 4 mm saccular aneurysm projecting anterior, superior, and medial from the left carotid terminus. Widely patent anterior and middle cerebral arteries. No findings to suggest a vascular malformation. ??Patent dural venous sinuses. Orbits: Lens implants. Sinuses/mastoids: Mild mucosal thickening in the posterior right maxillary antrum. Calvarium: Normal. Other: The skull base soft tissues are normal. Procedure Note Ian Leonard MD - 02/02/2025 PROCEDURE: Noncontrast head CT and CT angiogram of the [place]. HISTORY: Cerebral aneurysm, follow-up. COMPARISON: No prior study available for comparison. TECHNIQUE: Noncontrast head CT followed by contrast-enhanced CT angiogramof the [place], with coronal and sagittal reformats. IV contrast dose: 90 mL [id number]. Dose length product: 2149 mGy-cm. FINDINGS: Brain: No hemorrhage, edema, mass, or extra-axial fluid collection. No CTevidence of an acute large vessel infarct. Ventricles and sulci are agecommensurate. Atherosclerotic calcifications of the carotid siphons. CTA: The V4 segments are similar in size, with the right slightly larger.Mild atherosclerotic luminal irregularity of the basilar artery, but nohemodynamically significant stenosis. There is fusiform prominence ofcommon origins of the superior cerebellar arteries and licensed reactor operator, slightly moreprominent on the right. Atherosclerotic calcifications of the carotid siphons. No associatedhemodynamically significant stenosis. 4 mm saccular aneurysm projecting anterior, superior, and medial from theleft carotid terminus. Widely patent anterior and middle cerebral arteries. No findings to suggest a vascular malformation. Patent dural venoussinuses. Orbits: Lens implants. Sinuses/mastoids: Mild mucosal thickening in the posterior right maxillaryantrum. Calvarium: Normal. Other: The skull base soft tissues are normal. 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 -------- FINAL REPORT -------- Dictated By: Ian Leonard Dictated Date: 02/02/2025 11:19 ET Assigned Physician: Ian Leonard Reviewed and Electronically Signed By: Ian Leonard Signed Date: 02/02/2025 11:55 ET Workstation ID: [id number] Transcribed By: Self Edit Transcribed Date: 02/02/2025 11:21 ET Rashad Arriola MD IMG CT PROCEDURES Final R esult * External clinical lab (01/27/2025 12:05 PM EDT) Historical Provider LAB BLOOD ORDERABLES Marcela l Result from Last 3 Months Insurance MEDICARE [place]ICA[place] - [place] Care Teams Remote Sensing Research Scientist Relationship Specialty Start Date End Date Magan Syed MD [address] [place] [address] [place] [address] [place] PCP - General Internal Medicine 05/14/22
== END 2025-02-05 12:51 | disposition home or self-care (01) ==
PROVIDERS: PCP Internal Medicine; Visit Provider Nurse Practitioner Family
DX: Z86.19 Personal history of other infectious and parasitic diseases (principal); D64.9 Anemia, unspecified; K21.9 Gastro-esophageal reflux disease without esophagitis; I85.00 Esophageal varices without bleeding
CPT/HCPCS: 99204

== ENCOUNTER → 2025-02-05 11:48 | Outpatient (BNVA) | payer MEDICARE, MEDICAID, SELFPAY | PROVIDERS: PCP Internal Medicine; Visit Provider Nurse Practitioner Family | DX: I85.00 Esophageal varices without bleeding (principal); K21.9 Gastro-esophageal reflux disease without esophagitis; D64.9 Anemia, unspecified; Z86.19 Personal history of other infectious and parasitic diseases | CPT/HCPCS: 99202 ==

== ENCOUNTER 2025-02-15 15:03 | Outpatient (AMB) | payer MEDICARE, MEDICAID, SELFPAY ==
[2025-02-15 15:09] VITALS: BP 122/68; PULSE 95; O2SAT 98; BMI 32.0
--- NOTE | 2025-02-15 15:18 | AM.OFFVISMDC ---
Intake Vital Signs 02/15/25 15:09 Height 5 ft 6 in Weight 198 lb BMI 32.0 BP 122/68 Blood Pressure Location Lt brachial Position Sitting Pulse 95 Pulse Source Pulse Oximeter Pulse Oximetry (%) 98 Oxygen Delivery Method Nasal Cannula Intake Visit Reasons: AWV Nurse Administrator Required: No Accompanied by: Self / Same As Patient Allergies hydrocodone [From Vicodin] Allergy (Severe, Verified 02/15/25 15:37) Rash/Hives Influenza Virus Vaccines Allergy (Severe, Verified 02/15/25 15:37) Rash/Hives [id number] Reductase Inhibitor Allergy (Mild, Verified 02/15/25 15:37) Muscle Pain gabapentin Adverse Reaction (Intermediate, Verified 02/15/25 15:37) Anxiety Medication List - Last Reconciled 02/15/25 by Magan Syed MD amlodipine 5 mg PO DAILY 90 days aspirin (Adult Aspirin Regimen) 81 mg PO DAILY azithromycin mg PO bisacodyl (Dulcolax (bisacodyl)) 10 mg (2 x 5 mg) PO BEDTIME 30 days bisacodyl (Dulcolax (bisacodyl)) 20 mg (4 x 5 mg) PO ONCE 1 day budesonide 1 mg inhalation BEDTIME cyclobenzaprine 10 mg PO TID PRN 10 days fluticasone furoate-vilanterol 200-25 mcg/dose (Breo Ellipta) 1 inh inhalation DAILY 30 days furosemide (Lasix) 40 mg PO BID 90 days ipratropium-albuterol 0.5 mg-3 mg(2.5 mg base)/3 mL 3 mL inhalation Q6H PRN 30 days isosorbide mononitrate ER 30 mg PO DAILY lactulose 15 mL PO BEDTIME PRN 30 days lorazepam mg PO metoprolol succinate ER 25 mg PO DAILY 90 days morphine ER 15 mg PO BID PRN 30 days nebulizers Tubing and mask for nebulizer nitroglycerin 0.4 mg sublingual Q5M PRN Oxygen Home Use As directed polyethylene glycol 3350 (Miralax) 238 grams PO ONCE umeclidinium 62.5 mcg/actuation (Incruse Ellipta) 1 inh inhalation DAILY venlafaxine ER 75 mg PO DAILY venlafaxine ER 37.5 mg PO DAILY Ventolin HFA 90 mcg/actuation (albuterol sulfate) 2 puffs PO Q4H PRN NS Do you need a note to return to daycare/school/sports/work: No HPI AWV HPI Details Patient comes in today nor her Medicare Annual Wellness Exam AND follow up visit - she has not been back since February 2024 Patient states that she has been experiencing increased pain over her left wrist and left forearm since she fell in used her left hand to break her fall a few weeks ago States that she did not seek medical attention after her fall and was hoping that her left wrist and forearm injury would gradually improve over time but states that the pain has not really improved much She has also been experiencing increased pain over her back lately She continues to follow-up with oncology and pulmonary for surveillance of her non-small cell lung carcinoma with disease recurrence Patient relates experiencing increased fatigue lately She denies any headaches or dizziness Denies any chest pains; she has recurrent CALZADA and is still using supplemental oxygen when needed No nausea/vomiting, still has recurrent right upper abdominal pain - chronic No change in bowel habits noted She had some follow-up labs done a few weeks ago - to discuss her results [facility] [place] of care was reviewed and updated today Patient filled out and completed her healthcare proxy and MOLST forms while in the office today - these will be scanned into patient's chart IPPE/AWV: c/o of Annual Wellness Visit, subsequent visit. Medical / Social History Reviewed Past Medical History Yes . [facility] [place] of Care / Care Team list updated Yes . Surgical/Hospitalization History Yes . Current Medications (including OTC and supplements) Yes . Family History Yes . Tobacco Control form Yes . AUDIT-C (Alcohol use) form Yes . Illicit drug use in Social History Yes . Current diagnosis of depression? No Appropriate PHQ2/PHQ9 completed Yes . Data entered by Student Truck Driver and reviewed by provider Home Safety Throw rugs? No Grab bars? No Raised toilet seats? No Working smoke detectors? Yes Working carbon monoxide detectors? Yes Data entered by Student Truck Driver and reviewed by provider Activities of Daily Living (ADLs) Difficulty bathing or showering? No Difficulty dressing? No Difficulty using the toilet? No Difficulty getting in and out of bed? No Difficulty walking? No Receives help from another person with any of the above tasks? No Instrumental Activities of Daily Living (IADLs) Uses the telephone without help Gets to places out of walking distance with help Goes shopping for groceries with help Prepares own meals without help Does own minor home maintenance with help Does own laundry with help Does own housework with help Manages own money without help Currently takes medications? Yes Takes medication without help End-of-Life Planning Discussed advance directive Yes Advance directive on file Discussed wishes expressed in advance directive agreed to following patient's wishes Fall Risk: Fall History Have you had any falls with injury in the past year? Yes . Have you had two or more falls in the past year? No . Fall Risk Assessment: 1 fall in the past year . HRA filled out by the patient, reviewed by Provider and scanned. [facility] Medical History (Updated 02/22/25 @ 05:12 by Magan Syed MD) Essential hypertension Anemia Back pain Lower extremity edema CHF (congestive heart failure) Smoker Hepatitis C Esophageal varices COPD (chronic obstructive pulmonary disease) case management patient Obesity (BMI 30-39.9) Depression Anxiety Insomnia GERD without esophagitis Constipation Vitamin D deficiency PVCs (premature ventricular contractions) Limb swelling Elevated TSH Fatigue Aneurysm Bilateral lower extremity edema History of diverticulosis Tachycardia SOB (shortness of breath) On home oxygen therapy ADD (attention deficit disorder) Hx of hepatitis C Chest pain Lung cancer Loculated pleural effusion Concussion COPD (chronic obstructive pulmonary disease) Brain aneurysm Surgical History Hx of cholecystectomy Hx of cataract extraction Status post thoracentesis (~10/19/20) History of thoracic surgery H/O endoscopy H/O colonoscopy with polypectomy S/P biopsy H/O colonoscopy with polypectomy History of esophagogastroduodenoscopy (EGD) Family History Mother Skin cancer Diabetes Thyroid disease Sister Diabetes Skin cancer Tubular adenoma Thyroid disease Daughter Skin cancer Diabetes Social History Housing: Condominium Are you a primary transitional care manager to a significant other at home: No Do you presently have visiting nurse or other home services: No Alcohol intake: current Alcohol intake frequency: a few times a week Alcohol type: wine Comment: resting in bed Patient Tobacco Use Status: Former Tobacco user Tobacco use type: Cigarette Years Smoked: 20 +/- e-Cigarette/Vaping Use: Never Used Second Hand Smoke Exposure: Yes service: No Current occupational status: retired Cognitive needs: No Hearing needs: No Vision needs: Yes Questionnaire Medicare Wellness Checkup [age] What gender do you identify with?: female During the past 4 weeks, how much have you been bothered by emotional problems such as feeling anxious, depressed, irritable, sad or downhearted, and blue?: moderately During the past 4 weeks, has your physical & emotional health limited your social activities with family, friends, neighbors, or groups?: moderately During the past 4 weeks, how much bodily pain have you generally had?: moderate pain During the past 4 weeks, was someone available to help you if you needed & wanted help?: yes, some During the past 4 weeks, what was the hardest physical activity you could do for at least 2 minutes?: very light Can you get to places out of walking distance without help? (For eg., can you travel alone on buses, taxis or drive your car?): Yes Can you go shopping for groceries or clothes without someone's help?: No Can you prepare your own meals?: Yes Can you do your housework without help?: No Because of any health problems, do you need the help of another person with your personal care needs such as eating, bathing, dressing or getting around the house?: Yes Can you handle your own money without help?: Yes During the past 4 weeks, how would you rate your health in general?: fair During the past 4 weeks how have things been going for you?: good & bad parts about equal Are you having difficulties driving your car?: no Do you always fasten your seat belt when you are in a car?: yes, usually During past 4 weeks, have you been bothered by the following: never: Sexual problems? and Problems using the telephone?, seldom: Falling or dizzy when standing up, sometimes: Trouble eating well? and often: Teeth or denture problems? and Tiredness or fatigue? Have you fallen 2 or more times in the past year?: Yes Are you afraid of falling?: Yes Are you a smoker?: no During the past 4 weeks, how many drinks of wine, beer, or other alcoholic beverages did you have?: 2-5 drinks per week Do you exercise for about 20 minutes 3 or more times a week?: no, I usually do not exercise this much Have you been given information to help with the following?: yes: Hazards in your house that might hurt you? and yes: Keeping track of your medications? How often do you have trouble taking medicines the way you have been told to take them?: I always take medicine as prescribed How confident are you that you can control & manage most of your health problems?: somewhat confident What is your race?: White Mini Mental State Exam (MMSE) Orientation What is the (year) (season) (date) (day) (month)?: year, season, date, day and month Where are we (state) (county) (town or city) (hospital) (floor)?: state, county, town or city, hospital/clinic and floor Score Score: 10 Activity of Daily Living Bathing - sponge bath, tub bath or shower: receives help in bathing only one body part (such as back or leg) Dressing - getting clothes from closets & drawers, including inner/outer garments & fasteners.: gets clothes & gets completely dressed without help Toileting - going to the 'toilet room' for urine/bowel elimination & cleaning self/arranging clothes: goes to toilet room, cleans self, arranges clothes without help Transfer: moves in & out of bed and chair without help (may use support object) Continence: has occasional 'accidents' Feeding: feeds self without help Total Score: 0 Information obtained from: patient Using telephone: independent Traveling: needs assistance Shopping: needs assistance Preparing meals: independent Housework: needs assistance Taking medicine: independent Managing money: independent PHQ-9 Over the last 2 weeks, how often have you been bothered by any of the following problems? 1. Little interest or pleasure in doing things: several days 2. Feeling down, depressed, or hopeless: several days 3. Trouble falling or staying asleep, or sleeping too much: more than half the days 4. Feeling tired or having little energy: nearly every day 5. Poor appetite or overeating: more than half the days 6. Feeling bad about yourself - or that you are a failure or have let yourself or your family down: nearly every day 7. Trouble concentrating on things, such as reading the newspaper or watching television: several days 8. Moving or speaking so slowly that other people could have noticed. Or the opposite - being so fidgety or restless that you have been moving around a lot more than usual: not at all 9. Thoughts that you would be better off or of hurting yourself in some way: several days Total score: 14 Depression Screening Interpretation: Positive Depression Screening Follow-up: Existing condition and In treatment Depression Screening Done: Yes [id number] - PHQ-9 Billing: Yes Source: Developed by Drs. Nathen Oshea, Alma Albarran, Erik Blanchard and colleagues, with an educational jorge from [employer]. PHQ-2/PHQ-9 PHQ-2 Over the last 2 weeks, how often have you been bothered by any of the following problems? 1. Little interest or pleasure in doing things: several days 2. Feeling down, depressed, or hopeless: several days Total score: 2 If score is 3 or greater, continue 3. Trouble falling or staying asleep, or sleeping too much: more than half the days 4. Feeling tired or having little energy: nearly every day 5. Poor appetite or overeating: more than half the days 6. Feeling bad about yourself - or that you are a failure or have let yourself or your family down: nearly every day 7. Trouble concentrating on things, such as reading the newspaper or watching television: several days 8. Moving or speaking so slowly that other people could have noticed. Or the opposite - being so fidgety or restless that you have been moving around a lot more than usual: not at all 9. Thoughts that you would be better off or of hurting yourself in some way: several days Total score: 14 0-4 None-Minimal, 5-9 Mild, 10-14 Moderate, 15-19 Moderately Severe, 20-27 Severe Source: Developed by Drs. Nathen Oshea, Erik Vu and colleagues, with an educational jorge from [employer]. Thrive Questionnaire Date Thrive assessed: 02/15/25 I am a: Patient What is your living situation today?: I have a steady place to live Within the past 12 months, did the food you bought not last and you didn't have the money to get more?: Never true Within the past 12 months, did you worry whether your food would run out before you got money to buy more?: Never true Do you have trouble paying for medicines?: No Do you have trouble getting transportation to medical appointments?: No Do you have trouble paying your heating and electricity bill?: No Do you have trouble taking care of your child, family member or friend?: No Do you have trouble with day-to-day activities such as bathing, preparing meals, shopping, managing finances, etc.?: No Are you currently unemployed and looking for a job?: No Are you interested in more education?: No Please select the resources that you would like help with: None Currently or been in a relationship where the following occur: No concerns reported THRIVE Score: 0 KARINA-7 AMB Questionnaire KARINA-7 Date KARINA - 7 assessed: 02/15/25 Feeling nervous, anxious, or on edge: 0 = Not at all Not being able to stop or control worryin = Not at all Worrying too much about different things: 0 = Not at all Trouble relaxin = Not at all Being so restless that it is hard to sit still: 0 = Not at all Becoming easily annoyed or irritable: 0 = Not at all Feeling afraid as if something awful might happen: 0 = Not at all Total KARINA-7 score (0-4 normal; 5-9 mild; 10-14 moderate; 15-21 severe): 0 Source: Developed by Drs. Nathen Oshea, Alma Albarran, Erik Blanchard and colleagues, with an educational jorge from [employer]. Review of Systems Const Denies chills, Reports fatigue (increased lately - feels exhausted), Denies fever(s) and Denies headache(s) ENT Denies dysphagia, Denies dizziness, Denies otalgia, Denies headache(s), Denies neck pain, Denies odynophagia and Denies sore throat Card Denies chest pain, Denies palpitations and Reports dyspnea on exertion (even with minimal activity) Resp Denies chest congestion, Reports cough (on and off; coughs up thick whitish to grayish phlegm at times), Denies pain on inspiration, Reports dyspnea on exertion (even with minimal activity) and Denies wheezing GI Reports abdominal pain (chronic over the RUQ area), Reports constipation (recurrent), Denies dysphagia, Denies heartburn, Denies diarrhea, Denies nausea, Denies odynophagia and Denies vomiting Denies difficulty voiding, Denies nocturia, Denies dysuria and Denies urinary urgency Musc Reports back pain (increased lately), Reports arthralgias (over both knees; increased over the left wrist, hand and forearm lately) and Denies neck pain Skin/Breast Denies rash Neuro Denies dizziness and Denies headache(s) Endo Reports fatigue (increased lately - feels exhausted) and Denies palpitations Aller/Immun Denies wheezing Physical Exam Vital Signs: Last Vital Signs Pulse 95 02/15/25 15:09 BP 122/68 02/15/25 15:09 Pulse Ox 98 02/15/25 15:09 Oxygen Delivery Method Nasal Cannula 02/15/25 15:09 BMI result Body Mass Index 32.0 IPPE/AWV: Balance Romberg Yes . Tandem walk Yes . Walk and Turn Yes . Rise from sit to stand No . Vision Corrective lens No Vision screen pass Hearing Whisper test pass . Urinary incont. no. EKG Not clinically necessary. Const General: no acute distress and alert Orientation/consciousness: patient oriented x3 HEENT Ears: TM's normal bilaterally and EAC's normal Throat: Yes posterior oropharynx normal and Yes tonsils normal (no TP congestion noted) Neck Neck: Yes supple and No lymphadenopathy Thyroid: Thyroid normal Resp Auscultation: no crackles, no rales, rhonchi (occasional) throughout, no wheezes and diminished lung sounds bilateral Cardio Rate: regular rate Rhythm: regular rhythm Heart sounds: no murmurs GI Palpation (GI): Soft to palpation and nontender Auscultation: normal bowel sounds General: Yes no CVA tenderness Back/Spine/Pelvis Back: no CVA tenderness Thoracic/Lumbar Spine: thoracic spinal tenderness and lumbar spinal tenderness Skin Rashes: no rashes Neuro General: patient oriented x3 Cognition (Neuro): normal cognition Extrem General: Yes no clubbing, cyanosis or edema Psych Thought process: Normal thought process present Results Reviewed Results Reviewed: Laboratory Tests 01/27/25 15:48 WBC 5.4 Hgb 10.8 L D Hct 33.3 L Plt Count 113 L Sodium 141 Potassium 3.5 Creatinine 0.59 Estimated GFR > 60 Random Glucose 114 Calcium 9.1 D AST 149 H ALT 192 H Assessment & Plan Assessment & Plan (1) Medicare annual wellness visit, subsequent: Code(s): Z00.00 - Encounter for general adult medical examination without abnormal findings Plan: HRA form discussed and completed with patient; form will be scanned into patient's chart SIRENA updated HCP and MOLST forms also completed with patient - forms will be scanned into patient's chart She had her last screening colonoscopy done with Dr. Melgoza on 10/2022 and she was recommended for repeat colonoscopy in 2 to 3 years (2) Cancer of upper lobe of right lung: Comment: s/p Lobectomy Code(s): C34.11 - Malignant neoplasm of upper lobe, right bronchus or lung Plan: S/P Tx with [facility] lobectomy in July 2020 Pleural Bx and thoracentesis of loculated effusion seen on PET scan in the summer of 2020 were both NEGATIVE for malignancy and demonstrated only persistent chronic pleuritis for which she is on Azithromycin TIW Repeat chest CT in June 2023 and in July 2024 showed stable findings with no new lesions Follow-up with Oncology and Cardiothoracic surgery as scheduled for continuing surveillance and management Continue Morphine ER 15 mg BID for pain (3) Left hand pain: Code(s): M79.642 - Pain in left hand Plan: Will send patient for x-rays of the left hand and wrist for further evaluation (4) Left forearm pain: Code(s): M79.632 - Pain in left forearm Plan: Will send patient for left forearm x-rays for further evaluation (5) Hepatitis C: Code(s): B19.20 - Unspecified viral hepatitis C without hepatic coma Qualifiers: Viral hepatitis chronicity: unspecified Hepatic coma status: without hepatic coma Qualified Code(s): B19.20 - Unspecified viral hepatitis C without hepatic coma Plan: This appears to have reactivated recently and she is currently following up with GI (Dr. Melgoza) for this Will have her recheck her labs and hepatitis C viral load for follow up/further evaluation (6) COPD (chronic obstructive pulmonary disease): Code(s): J44.9 - Chronic obstructive pulmonary disease, unspecified Qualifiers: COPD type: COPD with acute exacerbation Qualified Code(s): J44.1 - Chronic obstructive pulmonary disease with (acute) exacerbation Plan: Continue Breo Ellipta 200-25 mcg 1 inhalation QD and Incruse Ellipta 62.5 mcg 1 inhalation QD, Budesonide 1 mg inhalation Q HS and Albuterol HFA 2 inhalations every 6 hours as needed; also uses Duoneb solution via nebulizer 4 times a day as needed Continue Azithromycin 250 mg TIW Follow up with pulmonary as scheduled (7) PVCs (premature ventricular contractions): Code(s): I49.3 - Ventricular premature depolarization Plan: Continue Metoprolol ER 25 mg QD Follow up with cardiology as scheduled Coronary CTA done [facility] in March 2022 came out with no significant coronary disease (8) Essential hypertension: Code(s): I10 - Essential (primary) hypertension Plan: Reinforced low sodium diet - goal is systolic BP of 120 mm or less Continue Amlodipine 5 mg QD and Metoprolol ER 25 mg QD (9) Anemia: Code(s): D64.9 - Anemia, unspecified Qualifiers: Anemia type: unspecified type Qualified Code(s): D64.9 - Anemia, unspecified Plan: She has received some blood transfusions in the past year and oncology is suspecting that she may have an occult bleeding and has been referred to GI for further evaluation Will continue to monitor her CBC regularly (10) Constipation: Code(s): K59.00 - Constipation, unspecified Qualifiers: Constipation type: drug induced constipation Qualified Code(s): K59.03 - Drug induced constipation Plan: Reinforced increased oral fluids and dietary fiber intake although have advised patient that her opioid Rx likely is a major contributor to her constipation Continue Miralax 17 gm QD and Dulcolax 10 mg Q HS (11) Insomnia: Code(s): G47.00 - Insomnia, unspecified Qualifiers: Insomnia type: unspecified Qualified Code(s): G47.00 - Insomnia, unspecified Plan: Sleep hygiene reinforced Continue Trazodone 50 mg Q HS PRN and Melatonin 10 mg Q HS (12) Anxiety: Code(s): F41.9 - Anxiety disorder, unspecified Plan: Continue Lorazepam 1 mg QD PRN (13) Depression: Code(s): F32.A - Depression, unspecified Qualifiers: Depression Type: major depressive disorder Major depression recurrence: recurrent Active/Remission status: currently active Major depression episode severity: unspecified Qualified Code(s): F33.9 - Major depressive disorder, recurrent, unspecified Plan: S/P TMS at [facility], which patient states helped for a while Continue Venlafaxine ER 75 mg QD Follow up with psychiatry as scheduled (14) Obesity (BMI 30-39.9): Code(s): E66.9 - Obesity, unspecified Plan: Reinforced diet; exercise is unrealistic given patient's multiple comorbidities Plan Follow up in 4 months Orders: Orders Hepatitis C Viral Load 02/15/25 B19.20 - Unspecified viral hepatitis C without hepatic coma, R79.89 - Other specified abnormal findings of blood chemistry Comprehensive Met. Panel 02/15/25 R79.89 - Other specified abnormal findings of blood chemistry XR lumbar spine 2-3V 02/15/25 M54.50 - Low back pain, unspecified, Z91.81 - History of falling XR wrist LT min 3V 02/15/25 M25.532 - Pain in left wrist, Z91.81 - History of falling XR hand LT min 3V 02/15/25 M79.642 - Pain in left hand, Z91.81 - History of falling Liver Fibrosis Pnl 02/15/25 R79.89 - Other specified abnormal findings of blood chemistry Complete Blood Count Auto Diff 02/15/25 D64.9 - Anemia, unspecified, R79.89 - Other specified abnormal findings of blood chemistry Hepatitis C Genotype 02/15/25 B19.20 - Unspecified viral hepatitis C without hepatic coma XR thoracic spine 3V 02/15/25 M54.9 - Dorsalgia, unspecified, Z91.81 - History of falling XR forearm LT 2V 02/15/25 M79.632 - Pain in left forearm, Z91.81 - History of falling Quality Reporting (2019) Depression/Bipolar (159/160/161/177) PHQ-9: Total score: 14 Coding Level of Care Code Medicare Subsequent (G0439) Est Pt Level 4 (81440) Diagnoses Medicare annual wellness visit, subsequent Z00.00 Cancer of upper lobe of right lung C34.11 Left hand pain M79.642 Left forearm pain M79.632 Hepatitis C virus infection without hepatic coma, unspecified chronicity B19.20 Viral hepatitis chronicity: unspecified Hepatic coma status: without hepatic coma COPD (chronic obstructive pulmonary disease) J44.1 COPD type: COPD with acute exacerbation PVCs (premature ventricular contractions) I49.3 Essential hypertension I10 Anemia, unspecified type D64.9 Anemia type: unspecified type Drug-induced constipation K59.03 Constipation type: drug induced constipation Insomnia, unspecified type G47.00 Insomnia type: unspecified Anxiety F41.9 Episode of recurrent major depressive disorder, unspecified depression episode severity F33.9 Depression Type: major depressive disorder Major depression recurrence: recurrent Active/Remission status: currently active Major depression episode severity: unspecified Obesity (BMI 30-39.9) E66.9 CPT Codes Advance Care Planning - Time spent: 1-15 minutes, on File ([id number]) Additional Codes PHQ-9 - 76130 - PHQ-9 Billing: Yes ([id number]) Advance Care Planning Advance Care Planning discussion: Completed/Scanned Date of discussion: 02/15/25 Who was present: patient, daughter (HCP), PCP Forms completed: Health Care Proxy and MOLST Time spent: 1-15 minutes, on File Actual minutes spent: 15
== END 2025-02-15 16:14 | disposition home or self-care (01) ==
LOC: HO.HMCH 15:04
PROVIDERS: PCP Internal Medicine; Visit Provider Internal Medicine
DX: Z00.00 Encounter for general adult medical examination without abnormal findings (principal); M79.642 Pain in left hand; C34.11 Malignant neoplasm of upper lobe, right bronchus or lung; J44.1 Chronic obstructive pulmonary disease with (acute) exacerbation; M79.632 Pain in left forearm; B19.20 Unspecified viral hepatitis C without hepatic coma; I49.3 Ventricular premature depolarization; I10 Essential (primary) hypertension; D64.9 Anemia, unspecified; K59.03 Drug induced constipation; G47.00 Insomnia, unspecified; F41.9 Anxiety disorder, unspecified

== ENCOUNTER → 2025-02-15 15:03 | Outpatient (BNVA) | payer MEDICARE, MEDICAID, SELFPAY | PROVIDERS: PCP Internal Medicine; Visit Provider Internal Medicine | DX: Z00.01 Encounter for general adult medical examination with abnormal findings (principal); C34.11 Malignant neoplasm of upper lobe, right bronchus or lung; M79.642 Pain in left hand; M79.632 Pain in left forearm; B19.20 Unspecified viral hepatitis C without hepatic coma; J44.1 Chronic obstructive pulmonary disease with (acute) exacerbation; I49.3 Ventricular premature depolarization; I10 Essential (primary) hypertension; D64.9 Anemia, unspecified; K59.03 Drug induced constipation; G47.00 Insomnia, unspecified; F41.9 Anxiety disorder, unspecified; F33.9 Major depressive disorder, recurrent, unspecified; E66.9 Obesity, unspecified | CPT/HCPCS: 96127; 99212; 99497 ==

== ENCOUNTER 2025-07-26 12:52 | Outpatient (REF) | payer MEDICARE, MEDICAID, SELFPAY ==
--- NOTE | ~2025-07-26 | MM_ITS ---
EXAMINATION(S): 1. MM DIAGNOSTIC DIGITAL BREAST TOMOSYNTHESIS, BILATERAL 2. Targeted ultrasound of the right breast CLINICAL INFORMATION: Right breast palpable lump at 11:00. COMPARISON: Comparison made to multiple prior, most recent mammogram on March 02, 2024 and most recent right breast ultrasound on September 21, 2024, and most remote January 25, 2022. Chest CT on September 16, 2024. TECHNIQUE: Digital breast tomosynthesis is performed in along with computer-aided detection (CAD). Synthesized 2D images are generated from the tomosynthesis. FINDINGS: BREAST COMPOSITION: There are scattered areas of fibroglandular density. RIGHT BREAST: No significant masses, suspicious calcifications or other abnormalities are seen. In particular, no suspicious mammographic findings adjacent to the skin BB marker placed at the location of the palpable concern in the upper breast on the MLO view. Given the location, the BB marker could not be included on the CC or XCCL views. Note that the location of the BB marker is at the same level as the one that was placed during the study in February 2024. Targeted ultrasound of the right breast was performed at the location of the palpable concern as indicated by the patient. The survey shows the hydromark biopsy clip within the superficial pectoralis muscle at 12 o'clock position 15 cm from the nipple, correlating to the same location that was evaluated on the previous breast ultrasound on September 21, 2024 and March 02, 2024. The ultrasound guided biopsy performed on March 11, 2024 demonstrated dense fibrous tissue and fat necrosis . LEFT BREAST: No significant masses, suspicious calcifications or other abnormalities are seen. MM/MM tomosynthesis diagnostic BI IMPRESSION: RIGHT BREAST: Palpable concern correlates with the previously biopsied area in February 2024 at 12 o'clock position at 15 cm from the nipple which yielded benign results. No suspicious local findings with ultrasound examination. The area is not well evaluated by mammogram given its location. Benign, no evidence of malignancy. Clinical follow-up is recommended. If the clinical concern persists, consider limited chest CT study to compare with the one obtained on September 16, 2024. Otherwise, normal interval follow-up mammogram is recommended in 12 months. LEFT BREAST: Negative, no mammographic evidence of malignancy. Normal interval follow-up is recommended in 12 months. ASSESSMENT: BI-RADS: Category 2: Benign RECOMMENDATION: 1. Patient should be managed based on the clinical impression. 2. Otherwise, routine annual screening mammography. Results were provided to the patient at time of visit by the technologist. This patient's information was entered into a reminder system with a target due date for their next mammogram. Electronically signed by: Sven Tran MD 07/26/2025 03:00 PM EDT
--- OUTSIDE RECORDS SUMMARY | 2025-07-26 13:59 | XMS_ITS | Encounter Summary ---
Author Organization [facility] Address [address] [place] [address] Care Team Providers Care Mold Cutting Machine Operator Name Role Phone Provider, Shauna CONLEY Primary Care Provider [phone] Encounter Details Date Type Department Care Team (Late st Contact Info) Description 07/24/2023 Scanned Document [facility] [address] [facility] [address] [place] [id number] Bari Casarez, DO [address] [address] Social History Tobacco Use Types Packs/Day Years Used Date Smoking Tobacco: Former Cigarettes Q uit: 08/30/2020 Smokeless Tobacco: Never Alcohol Use Standard Drinks/Week Comments Yes 2 (1 standard drink = 0.6 oz pur e alcohol) Comments Unknown Sex and Gender Information Value Date Recorded Sex Assigned at Not on file Legal Sex Female 6:21 PM EST Gender Identity Not on file Sexual Orientation Not on file documented as of this encounter Plan of Treatment Not on file documented as of this encounter Visit Diagnoses Not on filedocumented in this encounter Care Teams Mold Cutting Machine Operator Relationship Specialty Start Date End Date Provider, MD Shauna [address] [place] [address] PCP - General Internal Medicine 04/26/21 documented as of this encounter
--- OUTSIDE RECORDS SUMMARY | 2025-07-26 13:59 | XMS_ITS | Clinical Summary ---
Author Organization [facility] Address [address] [place] [address] Care Team Providers Care Swimmer Name Role Phone Provider, External MD Primary Care Provider [phone] Allergies No known active allergies Medications furosemide (LASIX) 40 MG tablet Take 40 mg by mouth daily. Take 40mg at am and 20mg at 3pm. Active venlafaxine (EFFEXOR) 75 MG tablet Take 75 mg by mouth 2 (two) times a day. Active morphine (MS CONTIN) 15 MG ER (extended release) tablet Take 15 mg by mouth twice daily (every 12 hours). Active cholecalciferol (VITAMIN D3) 84082 units capsule Take 50,000 Units by mouth daily. Active ipratropium-alb uterol (DUONEB) 0.5-2.5 mg/3 mL nebulizer solution Take [...] Health Maintenance Due Date Last Done Comments Advance Care Planning 1950 Hepatitis C Virus Screening 1950 DTaP/Tdap/Td Vaccines (1 - Tdap) 1970 Mammogram 1991 Colonoscopy 1996 Pneumococcal Vaccines 50+ (1 of 1 - PCV) 2001 Zoster (Shingles) Vaccine (1 of 2) 2001 RSV Vaccine 60 years and old er and Patients (1 - Risk 60-74 years 1-dose series) 2011 DXA Bone Density (Females,Ag es 65 and older) 2016 Influenza Vaccine 05/28/2025 COVID-19 Vaccine ( - 2023-2 5 season) 2025 Hepatitis B Vaccines Aged Out No long er eligible based on patient's age to complete this topic Insurance MEDICARE PART A & B [facility] Care Teams Swimmer Relationship Specialty Start Date End Date Provider, MD Shauna [address] [place] [address] PCP - General Internal Medicine 04/26/21
--- OUTSIDE RECORDS SUMMARY | 2025-07-26 13:59 | XMS_ITS ---
Author Name [facility] Organization Unknown Results Test Name/Text Value Interpretation Date Range Source Creat SerPl-mCnc 0.6 mg/dL Normal 02/25/2025 0.5 - 1 [facility] CO2 SerPl-sCnc 29.0 mmol/L Normal 02/25/2025 24 - 32 [facility] Calcium SerPl-mCnc 7.6 mg/dL Below low normal 02/25/2025 8.4 - 10.2 [facility] Sodium SerPl-sCnc 144.0 mmol/L Normal 02/25/2025 135 - 14 5 [facility] BUN SerPl-mCnc 11.0 mg/dL Normal 02/25/2025 7 - 17 [facility] Glucose SerPl-mCnc 115.0 mg/dL Normal 02/25/2025 70 - 199 [facility] eGFRcr SerPlBld CKD-EPI 2020 95.0 mL/min/1.73m2 Normal 02/25/2025 - [facility] Potassium SerPl-sCnc 3.2 mmol/L Below low normal 02/25/2025 3.5 - 5.1 [facility] BUN/Creat SerPl 18.3 Normal 02/25/2025 12 - 20 [facility] Anion Gap SerPl Calc-sCnc 12.0 Normal 02/25/2025 5 - 14 [facility] Chloride SerPl-sCnc 103.0 mmol/L Normal 02/25/2025 98 - 107 [facility] Phosphate SerPl-mCnc 3.8 mg/dL Normal 02/25/2025 2.5 - 4.5 [facility] Magnesium SerPl-mCnc 1.8 mg/dL Normal 02/25/2025 1.7 - 2.8 [facility] Hgb Bld-mCnc 10.2 g/dL Below low normal 02/25/2025 12.5 - 16 [facility] Hct VFr Bld Auto 31.4 % Below low normal 02/25/2025 37 - 47 [facility] WBC # Bld Auto 2.5 K/mcL Below low normal 02/25/2025 4 - 10. 5 [facility] RBC Auto 87.5 FL Normal 02/25/2025 78 - 100 [facility] N Platelet # Bld Auto 87.0 K/mcL Below low normal 02/25/2025 150 - 450 [facility] MCH RBC Qn Auto 28.4 pcg Normal 02/25/2025 25 - 33 [facility] PMV Bld Auto 10.1 FL Normal 02/25/2025 7.4 - 11.4 [facility] MCHC RBC Auto-EntMCnc 32.5 g/dL Normal 02/25/2025 32 - 36 [facility] RDW RBC Auto 21.2 % Above high normal 02/25/2025 12.1 - [address] 6.2 [facility] RBC # Bld Auto 3.59 M/mcL Below low normal 02/25/2025 4.2 - 5.4 [facility] ABO Group Bld A Normal 02/24/2025 [facility] Rh Bld Positive Normal 02/24/2025 [facility] N Bld gp Ab Scn SerPl Ql Negative Normal 02/24/2025 [facility] INR PPP 1.0 Normal 02/24/2025 0.8 - 1.1 [facility] N PT Bld 11.5 sec Normal 02/24/2025 10.5 - 13.3 [facility]AN PA ADP PRP-aCnc 258.0 PRU Normal 02/24/2025 194 - 418 [facility] History of Medication Use Medication Directions Dispensed Refills Start Date End Date Status aspirin chewable tablet 81 mg 81 mg, oral, Daily, First dose on Sat02/25/25 at 0900 active senna (SENOKOT) tablet 17.2 mg 17.2 mg (2 tablet), oral, Nightly, First dose on Sat02/24/25 at 2100, Bowel Regimen - for prevention of constipation 5 active venlafaxine XR (EFFEXOR-XR) 24 hr capsule 112.5 mg 112.5 mg, oral, Daily, First dose on Sat02/25/25 at 0900, Capsule may be swallowed whole, or may be opened and its contents sprinkled on applesauce if consumed immediately without chewing. Do not crush or chew. 5 active iopamidoL (ISOVUE-300) 300 mg iodine /mL (61 %) solution 100 mL 100 mL, Other, Once in imaging, Starting on Sat02/24/25 at 1327, For 1 dose 02/25/20 completed ticagrelor (BRILINTA) tablet 180 mg 180 mg, oral, Once, On Sat02/24/25 at 1145, For 1 dose, Preprocedure 5 02/25/20 completed acetaminophen (TYLENOL) tablet 650 mg 650 mg, oral, Every 6 hours PRN, mild pain, Starting on Sat02/24/25 at 1355 5 active budesonide (PULMICORT) 0.5 mg/2 mL nebulizer solution 0.5 mg [Order 1 Start] Name: budesonide (PULMICORT) 0.5 mg/2 mL nebulizer solution 0.5 mg Signed Summary: 0.5 mg, nebulization, Daily, First dose on Sat02/24/25 at 1500, Rinse mouth with water after use to reduce aftertaste and incidence of candidiasis. Do not swallow. Therapeutic substitution for BREO ELL 5 active LORazepam (ATIVAN) tablet 0.5 mg 5 active niCARdipine (CARDENE) 25 mg in sodium chloride 0.9 % 250 mL (0.1 mg/mL) infusion 2.5-15 mg/hr (25-150 mL/hr), intravenous, Continuous, Starting on Sat02/24/25 at 1515, GOAL EFFECT: SBP LESS than 140 mmHg or MAP LESS than 110 mmHg INITIAL RATE: 5 mg/hr TITRATION DOSE: 2.5 mg/hr TITRATION FREQUENCY: 5 min CONTACT PRESCRIBER: -SBP LESS than 90 mmHg -SBP GREATER than 180 5 active ondansetron ODT (ZOFRAN-ODT) disintegrating tablet 4 mg [Order 1 Start] Name: ondansetron ODT (ZOFRAN-ODT) disintegrating tablet 4 mg Signed Summary: 4 mg, oral, Every 8 hours PRN, vomiting, nausea, Starting on Sat02/24/25 at 1356, -Give IV if patient is unable to take orally. -If inadequate response within 30 minutes, proceed to next-line agent or conta 5 active clopidogreL (Plavix) 75 mg tablet Take 1 tablet (75 mg total) by mouth 1 (one) time each day. 5 suspended amLODIPine (NORVASC) 5 mg tablet 5 active aspirin 81 mg EC tablet 5 active Incruse Ellipta 62.5 mcg/actuation inhalation 5 active isosorbide mononitrate (IMDUR) 30 mg 24 hr tablet 5 active pantoprazole (PROTONIX) 20 mg EC tablet 5 active venlafaxine XR (EFFEXOR-XR) 75 mg 24 hr capsule 5 active venlafaxine XR (EFFEXOR-XR) 75 mg 24 hr capsule Take 112.5 mg by mouth 1 (one) time each day. 5 suspended Ventolin HFA 90 mcg/actuation inhaler 5 active Breo Ellipta 200-25 mcg/dose inhaler 5 active atorvastatin (LIPITOR) 80 mg tablet 5 active nitroglycerin (NITROSTAT) 0.4 mg SL tablet 4 active doxycycline (VIBRAMYCIN) 100 mg capsule 4 active cyclobenzaprine (FLEXERIL) 10 mg tablet 4 active amoxicillin-clavulana te (AUGMENTIN) 875-125 mg per tablet 4 active lactulose (CHRONULAC) solution 4 active prochlorperazine (COMPAZINE) 10 mg tablet 4 active doxycycline (ADOXA) 100 mg tablet Take 1 tablet (100 mg total) by mouth 2 (two) times a day. for 10 days 4 active ipratropium-albuteroL (DUONEB) 0.5-2.5 mg/3 mL nebulizer solution Inhale 3 mL by mouth 4 times daily. 02/26/20 25 aborted Ativan 0.5 mg tablet 1 tablet (0.5 mg total) 1 (one) time each day at the same time. Max Daily Amount: 0.5 mg active budesonide (PULMICORT) 0.25 mg/2 mL nebulizer solution Take 0.25 mg by nebulization daily. active budesonide (PULMICORT) 0.25 mg/2 mL nebulizer solution Inhale 2 mL (0.25 mg total) by mouth daily. active cholecalciferol (VITAMIN D-3) 1,250 mcg (50,000 unit) capsule Take 1 capsule (50,000 Units total) by mouth daily. active escitalopram (Lexapro) 20 mg tablet Take 1 tablet (20 mg total) by mouth 1 (one) time each day. active Flaxseed, Linseed, (FLAX SEEDS PO) Take by mouth. activ e furosemide (LASIX) 40 mg tablet Take 1 tablet (40 mg total) by mouth daily. active ipratropium-albuterol (DUONEB) 0.5-2.5 mg/3 mL nebulizer solution Take 1 vial by nebulization 4 (four) times a day. active ipratropium-albuteroL (DUONEB) 0.5-2.5 mg/3 mL nebulizer solution Inhale 3 mL by mouth 4 times daily. active metoprolol succinate (TOPROL-XL) 25 mg 24 hr tablet Take 1 tablet (25 mg total) by mouth 1 (one) time each day. Do not crush or chew. active morphine (MS CONTIN) 15 mg 12 hr tablet Take 1 tablet (15 mg total) by mouth every 12 hours. active Allergies Allergen Reaction Severity Comment Documented Date Source Statu s GABAPENTIN Per pt she had hallucinations and felt crazy 12/18/2024 [facility] active INFLUENZA A (H5N1) VIRUS VACCINE MONOVAL (18Y UP) Unknown reaction felt ill or rash per pt 12/18/2024 [facility] active INFLUENZA A (H5N1) VIRUS VACCINE MONOVAL (18 YR +) Unknown reaction felt ill or rash per pt [facility] LIDOCAINE Per pt this medication has NOT worked in the past, she needs the newer novacaine [facility] Problems Problem Status Onset Date Problem Type Date of Resoluti on Source Cerebral aneurysm active 2025-02-[address] [facility] Encounters Encounter Type Encounter Reason Primary Diagnosis Location Date Inpatient Cerebral aneurysm, nonruptured Cerebral aneurysm, nonruptured [facility] 02/24/2025 Ambulatory Aneurysm of unspecified site [facility] 08/01/2021 Care Team Organization Name Specialty Phone Email Start Date End Da te [facility] Magan Syed MD Primary Care 02/25/2025 [facility] Magan Syed MD Primary Care 02/24/2025 [facility] PROVIDER,EXTERNAL Primary Care 08/01/202105/28 [facility] EXTERNAL PROVIDER Primary Care 05/30/202102/2021
--- OUTSIDE RECORDS SUMMARY | 2025-07-26 14:00 | XMS_ITS | Clinical Summary ---
Author Organization [facility] Address [address] [place] [phone] Phone Care Team Providers Care Library Associate Name Role Phone Unknown, Unknown Primary Care Provider Sanjuanita pugh Social History Tobacco Use Types Packs/Day Years Used Date Smoking Tobacco: Never Assessed Education Answer Date Recorded Are you interested in more education? Not on esdras e 02/21/2023 Are you concerned about learning? Not on file 02/21/2023 No 02/21/2023 No 02/21/2023 Digital Access Answer Date Recorded No 03/25/2023 No 03/25/2023 No 03/25/2023 Reliable internet access at home? Not on file 03/25/2023 Device with a working camera? Not on file Comments Unknown Sex and Gender Information Value Date Recorded Sex Assigned at Not on file Legal Sex Female 7:07 PM EST Gender Identity Not on file Sexual Orientation Not on file Last Filed Vital Signs Vital Sign Reading Time Taken Comments Blood Pressure 169/91 09/24/2022 3:57 PM EST Pulse - - Temperature - - Respiratory Rate - - Oxygen Saturation 94% 09/24/2022 3:57 PM EST Inhaled Oxygen Concentration - - Weight - - Height - - Body Mass Index - - Plan of Treatment Health Maintenance Due Date Last Done Comments Adult Td,Tdap Booster 1950 LIPID PANEL 1950 DEPRESSION SCREENING 1963 SMOKING Hx and SMOKELESS TOB ACCO SCREENING 1964 HEPATITIS C SCREENING 1969 MAMMOGRAM 1991 COLOGUARD 1996 COLONOSCOPY 1996 COLORECTAL CANCER SCREENING 1996 FIT TEST 1996 FOBT 1996 SIGMOIDOSCOPY 1996 VIRTUAL COLONOSCOPY 1996 PNEUMOCOCCAL VACCINES (50+ y ears) (1 of 1 - PCV) 2001 ZOSTER VACCINES (1 of 2) 2001 OSTEOPOROSIS SCREENING INITI AL (ONE-TIME) 2016 INFLUENZA VACCINE (#1) 2025 COVID-19 VACCINE (1 - 2023-2 5 season) 2025 RSV VACCINE (1 - 1-dose 75+ series) 2026 HEPATITIS A VACCINES Aged Out No long er eligible based on patient's age to complete this topic HIB VACCINES Aged Out No longer eligi ble based on patient's age to complete this topic MENINGOCOCCAL VACCINES (ACWY) Aged Out No longer eligible based on patient's age to complete this topic MENINGOCOCCAL VACCINES (B) Aged Out N o longer eligible based on patient's age to complete this topic Medical Devices Not on file Insurance MEDICARE PART A & B [facility] [place] PREFERRED SUPPLEMENT MEDICARE PART A & B [facility] [place] MEDICARE PREFERRED SUPPLEMENT MEDICARE PART A & B MEDICARE PART A & B MEDICARE PART A & B [facility] [place] MED[place] PREFERRED SUPPLEMENT MEDICARE PART A & B [facility] PREFERRED SUPPLEMENT MEDICARE PART A & B [facility] MEDICARE PREFERRED SUPPLEMENT MEDICARE PART A & B MEDICARE PART A & B Member Subscriber Plan / Payer ( fective 2007-Present) Name:ElderMatthieuRené Valeria Member ID:[id number] Relation to Subscriber:Self Name:Valeria Barrow Subscriber ID:[id number] Payer ID:[id number] Group ID:Not on file Type:Medicare Address: [place] [address] [place] MED[place] PREFERRED SUPPLEMENT Care Teams Library Associate Relationship Specialty Start Date End Date Unknown, Unknown, PCP - General 09/13/22 Additional Source Comments The information contained in this document represents components of the legal health record. It is not the complete legal health record.[facility]
== END 2025-07-26 12:53 | disposition home or self-care (01) ==
LOC: HO.MAMMO 12:52
PROVIDERS: PCP Internal Medicine; Visit Provider Internal Medicine
DX: N63.11 Unspecified lump in the right breast, upper outer quadrant (principal)
CPT/HCPCS: 76642; 77062; 77066

== ENCOUNTER → 2025-07-26 13:00 | Outpatient (BNV) | payer MEDICARE, MEDICAID, SELFPAY | PROVIDERS: PCP Internal Medicine; Visit Provider Radiology Body Imaging | DX: N63.15 Unspecified lump in the right breast, overlapping quadrants (principal) | CPT/HCPCS: 76642; 77066; G0279 ==

== ENCOUNTER 2025-08-27 13:06 | Outpatient (AMB) | payer MEDICARE, MEDICAID, SELFPAY ==
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
[2025-08-27 13:08] VITALS: BP 130/60; PULSE 83; O2SAT 97; BMI 32.0
--- OUTSIDE RECORDS SUMMARY | 2025-08-27 14:12 | XMS_ITS | Encounter Summary ---
Author Organization [facility] Address [address] [place] [address] Care Team Providers Care Correspondence Representative Name Role Phone Provider, Shauna CONLEY Primary Care Provider [phone] Encounter Details Date Type Department Care Team (Late st Contact Info) Description 07/24/2023 Scanned Document [facility] [address] [facility] [address] [place] [id number] Bari Casarez, DO [address] [address] Social History Tobacco Use Types Packs/Day Years [...] on filedocumented in this encounter Care Teams Correspondence Representative Relationship Specialty Start Date End Date Provider, MD Shauna [address] [place] [address] PCP - General Internal Medicine 04/26/21 documented as of this encounter
--- OUTSIDE RECORDS SUMMARY | 2025-08-27 14:12 | XMS_ITS | Clinical Summary ---
Author Organization [facility] Address [address] [place] [address] Care Team Providers Care Real Estate Appraiser Supervisor Name Role Phone Provider, External MD Primary Care Provider [phone] Allergies No known active allergies Medications furosemide [...] (every 12 hours). Active cholecalciferol (VITAMIN D3) 08426 units capsule Take 50,000 Units by mouth [...] 50+ (1 of 1 - PCV) 2001 RSV Vaccine 50 years and old er and Patients (1 - Risk 50-74 years 1-dose series) 2001 Zoster (Shingles) Vaccine (1 of 2) 2001 DXA Bone Density (Females,Ag es 65 and older) 2016 Influenza Vaccine 05/28/2025 COVID-19 Vaccine ( - 2023-2 5 season) 2025 Hepatitis B Vaccines Aged Out No long er eligible based on patient's age to complete this topic Insurance MEDICARE PART A & B [facility] Care Teams Real Estate Appraiser Supervisor Relationship Specialty Start Date End Date Provider, MD Shauna [address] [place] [address] PCP - General Internal Medicine 04/26/21
--- OUTSIDE RECORDS SUMMARY | 2025-08-27 14:12 | XMS_ITS | Clinical Summary ---
Author Organization [facility] Address [address] [place] [phone] Phone Care Team Providers Care Log Pond Worker Name Role Phone Unknown, Unknown Primary Care [...] VACCINE (#1) 2025 COVID-19 VACCINE (1 - 2024-2 6 season) 2025 RSV VACCINE (1 - 1-dose [...] file Insurance [facility]IC[facility] PART [facility] & [facility] [place] MED[facility] PREFERRED SUPPLEMENT MEDICARE PART A & B Member Subscriber Plan / Payer (Ef fective 2007-Present) Name:Valeria Barrow Member ID:[id number] Relation to Subscriber:Self Name:Valeria Barrow Subscriber ID:[id number] Payer ID:[id number] Group ID:Not on file Type:Medicare Address: [facility] [employer] [facility] [employer] [facility] [address] [place] [address] [facility] [place] MEDICARE PREFERRED SUPPLEMENT MEDICARE PART A & B MEDICARE PART A & B MEDICARE PART A & B [place] MED[place] PREFERRED SUPPLEMENT MED[facility]ARE PART A & [facility] PREFERRED SUPPLEMENT MEDICARE PART A & B [facility] MEDICARE PREFERRED SUPPLEMENT MEDICARE PART A & B MEDICARE PART A & B Member Subscriber Plan / Payer ( fective 2007-Present) Name:ElderMatthieuRené Valeria Member ID:[id number] Relation to Subscriber:Self Name:Valeria Barrow Subscriber ID:[id number] Payer ID:[id number] Group ID:Not on file Type:Medicare Address: [employer] [address] [place] MED[place] PREFERRED SUPPLEMENT Care Teams Log Pond Worker Relationship Specialty Start Date End Date Unknown, Unknown, PCP - General 09/13/22 Additional Source Comments The information contained in this document represents components of the legal health record. It is not the complete legal health record.[facility]
== END 2025-08-27 13:28 | disposition home or self-care (01) ==
LOC: HO.HPS 13:06
PROVIDERS: PCP Internal Medicine; Visit Provider Hospitalist
DX: R91.1 Solitary pulmonary nodule (principal); J44.1 Chronic obstructive pulmonary disease with (acute) exacerbation; J90 Pleural effusion, not elsewhere classified; R00.0 Tachycardia, unspecified; I50.9 Heart failure, unspecified; R06.02 Shortness of breath; R07.89 Other chest pain
CPT/HCPCS: 99214; G2211

== ENCOUNTER 2025-08-27 13:06 | Outpatient (REF) | payer MEDICARE, MEDICAID, SELFPAY ==
[2025-08-27 13:53] LABS: MANUAL DIFF FLAG NO
[2025-08-27 14:00] LABS: Hematocrit 34.7 % (37.0-47.0); Hemoglobin 11.1 g/dl (12.0-16.0); Imm Gran Abs Auto 0.01 X10*3/uL (0.00-0.03); Imm Gran Pct Auto 0.2 % (0.0-0.4); Lymphocytes Absolute Auto 0.6 X10*3/uL (1.2-4.9); Mean Corpuscular HGB Conc 32.0 g/dl (31.0-35.0); Mean Corpuscular Hemoglobin 29.4 pg (27.0-33.0); Mean Corpuscular Volume 91.8 fL (80.0-98.0); NRBC Abs Auto 0.000 X10*3/uL (0.0-0.012); NRBC Pct Auto 0.0 /100WBC (0.0-0.2); Platelet Count 111 X10*3/uL (160-400); Red Blood Count 3.78 X10*6/uL (4.20-5.50); White Blood Count 4.1 X10*3/uL (4.8-10.8)
[2025-08-27 14:01] LABS: Venous Blood Gas Refer to POC result
[2025-08-27 14:04] LABS: Ammonia 60 umol/L (13-55); VBG HCO3 33 mmol/L (22-26); VBG O2 % Saturation 99.0 %
[2025-08-27 14:11] LABS: Alanine Aminotransferase 29 U/L (0-31); Albumin Level 4.2 g/dL (3.5-5.0); Alkaline Phosphatase 79 U/L (39-117); Anion Gap 12 (12-20); Aspartate Amino Transferase 34 U/L (5-31); Blood Urea Nitrogen 11 mg/dL (9-16); Calcium 9.3 mg/dL (8.4-10.2); Carbon Dioxide 31 mmol/L (22-29); Chloride 101 mmol/L (96-108); Estimated Glomerular Filt Rate > 60; Potassium 3.8 mmol/L (3.3-5.1); Sodium 140 mmol/L (135-145); Total Protein 7.2 g/dL (6.5-8.0)
[2025-08-27 14:13] LABS: D Dimer High Sensitivity 235 NG/ML
[2025-08-27 14:19] LABS: Troponin-I High Sensitivity 12.0 ng/L (<3.5-17.0)
--- OUTSIDE RECORDS SUMMARY | 2025-08-27 14:32 | XMS_ITS | Clinical Summary ---
Author Organization [facility] Address [address] [place] [address] Phone Care Team Providers Care Sampler Radioactive Waste Name Role Phone Magan Syed MD Primary Care Provider Allergies Active Allergy Reactions Criticality Noted Date Comments Influenza A (H5n1) Virus Vaccine Monoval (18y Up) 12/18/2024 Unknown reaction felt ill or rash per pt Lidocaine 12/18/2024 Per pt this medication has NOT worked in the past, she needs the newer novacaine Gabapentin 12/18/2024 Per pt she had hallucinations and felt crazy Medications Ventolin HFA 90 mcg/actuation inhaler 11/27/2024 Active aspirin 81 mg EC tablet 12/16/2024 Active cholecalciferol (VITAMIN D-3) 1,250 mcg (50,000 unit) capsule Take 1 capsule (50,000 Units total) by mouth daily. Active lactulose (CHRONULAC) solution 09/05/2024 Active furosemide (LASIX) 40 mg tablet Take 1 tablet (40 mg total) by mouth daily. Active Breo Ellipta 200-25 mcg/dose inhaler 1 (one) time each day. 11/26/2024 Active morphine (MS CONTIN) 15 mg 12 hr tablet Take 1 tablet (15 mg total) by mouth every 12 hours. Active nitroglycerin (NITROSTAT) 0.4 mg SL tablet 10/06/2024 Active prochlorperazine (COMPAZINE) 10 mg tablet 01/27/2024 Active venlafaxine XR (EFFEXOR-XR) 75 mg 24 hr capsule Take 112.5 mg by mouth 1 (one) time each day. 12/16/2024 Active metoprolol succinate (TOPROL-XL) 25 mg 24 hr tablet Take 1 tablet (25 mg total) by mouth 1 (one) time each day. Do not crush or chew. Active Ativan 0.5 mg tablet 1 tablet (0.5 mg total) 1 (one) time each day at the same time. Active bisacodyL (DULCOLAX) 5 mg EC tablet 02/05/2025 Active clopidogreL (PLAVIX) 75 mg tablet 03/15/2025 Active isosorbide mononitrate (IMDUR) 30 mg 24 hr tablet 05/05/2025 Active pantoprazole (PROTONIX) 20 mg EC tablet 05/05/2025 Active Incruse Ellipta 62.5 mcg/actuation inhalation 05/05/2025 Active sodium,potassium ,mag sulfates (SUPREP) 17.5-3.13-1.6 gram recon soln bowel prep kit oral solution 04/19/2025 Activ e Active Problems Problem Noted Date Diagnosed Date Cerebral aneurysm 02/24/2025 Surgical History Surgery Date Site/Laterality Comments LUNG REMOVAL, PARTIAL Left GALLBLADDER SURGERY N/A SHOULDER SURGERY Right Medical History Medical History Date Comments Hypertension Autoimmune disorder (CMS/HCC V24) Arteriovenous malformation Shortness of breath Hyperlipidemia Social History Tobacco Use Types Packs/Day Years Used Date Smoking Tobacco: Former Cigarettes Tobacco Cessation:Counseling Given: Not Answered Comments Unknown Sex and Gender Information Value Date Recorded Sex Assigned at Female 12/23/2024 4:15 PM EST Legal Sex Female 12:49 AM EST Gender Identity Female 12/23/2024 4:15 PM EST Sexual Orientation Straight 12/23/2024 4: 15 PM EST Obstetrics History Last Filed Vital Signs Vital Sign Reading Time Taken Comments Blood Pressure 112/45 02/25/2025 2:53 PM EDT Pulse 75 02/25/2025 3:00 PM EDT Temperature 37 C (98.6 F) 02/25/2025 4:00 AM EDT Respiratory Rate 19 02/25/2025 3:00 PM EDT Oxygen Saturation 99% 02/25/2025 3:00 PM EDT Inhaled Oxygen Concentration - - Weight 90 kg (198 lb 6.6 oz) 02/24/2025 2:00 PM EDT Height 167.6 cm (5' 6 ) 02/24/2025 9:31 AM EDT Body Mass Index 32.02 02/24/2025 9:31 AM EDT Plan of Treatment Upcoming Encounters Date Type Department Care Team (Late st Contact Info) Description 09/14/2025 10:45 AM EST Office Visit Neurosurgery [facility] [address] [place] [address] Rashad Chance MD [facility] [place] [address] Health Maintenance Due Date Last Done Comments Breast Cancer Screening 1950 Colorectal Cancer Screening: Colonoscopy 1950 DTaP,Tdap,and Td Vaccines (1 - Tdap) 1970 Pneumococcal Vaccine: 50+ Ye ars (1 of 1 - PCV) 2001 Zoster Vaccines (1 of 2) 2001 Hepatitis C Screening 09/30/2022 Medicare Annual Wellness Visit 09/30/2022 Osteoporosis Screening (Bone Density Screening) 09/30/2022 Social Influencers of Health Screening 09/30/2022 Depression Screening 10/28/2024 COVID-19 Vaccine (1 - 2023-2 5 season) 2025 Influenza Vaccine (#1) 2025 Falls Risk Assessment 02/25/2026 02/25/2025 RSV Immunization Adult Patie nts (1 - [...] age to complete this topic Medical Devices Implanted Type Area Associate Professor Of Communication Device Identifier Shelf Expiration Date Model / Serial / Lot Device Clsur Angio-Seal 8f Vip - [id number] - [id number] Implanted:Qty : 1 on 02/24/2025 by Rashad Chance MD at [facility] Vascular Closure Devices Right: Leg TERUMO - INTERVENTIONAL SYSTEM 07/03/2025 [id number] / [id number] 1 / Seal Arc 6x5 Implanted:Qty : 1 on 02/24/2025 by Rashad Chance MD at [facility] N/A: Brain OTHER 02/02/2026 [id number] / [id number] / Description:Research Study Insurance [place]ICARE [place]ID [place] Advance Directives * Full Code - Default (Latest Code Status on File) Date Activated Date Inactivated Comments 02/24/2025 2:00 PM 02/25/2025 9:20 PM This is order is used when code status has not been discussed with the patient, or code status is otherwise unknown/unconfirmed To update the patient's code status, place a code status order. Do not modify or discontinue any currently active code status orders. Care Teams Sampler Radioactive Waste Relationship Specialty Start Date End Date Magan Syed MD [address] [place] [address] [address] [place], [place] PCP - General Internal Medicine 05/14/22
== END 2025-08-27 13:07 | disposition home or self-care (01) ==
LOC: HO.LAB 13:06
PROVIDERS: PCP Internal Medicine; Visit Provider Hospitalist
DX: J44.1 Chronic obstructive pulmonary disease with (acute) exacerbation (principal); R07.89 Other chest pain; I11.0 Hypertensive heart disease with heart failure; I50.9 Heart failure, unspecified; J90 Pleural effusion, not elsewhere classified; R91.1 Solitary pulmonary nodule; R00.0 Tachycardia, unspecified; R06.02 Shortness of breath; Z79.51 Long term (current) use of inhaled steroids; Z79.899 Other long term (current) drug therapy; Z87.891 Personal history of nicotine dependence
CPT/HCPCS: 36415; 80048; 80076; 82140; 82803; 84484; 85025; 85379; 85652; 99212